=== PATIENT | male | born 1960 | race Caucasian/White ===

== ENCOUNTER 2016-05-18 14:33 | Outpatient (CLI) | payer MEDICARE, MEDICAID | END 2016-05-18 14:34 | disposition home or self-care (01) | DX: M19.011 Primary osteoarthritis, right shoulder (principal) ==

== ENCOUNTER 2016-05-29 11:42 | Emergency (ER) | payer MEDICARE, MEDICAID ==
[2016-05-29] MEDS ORDERED: ONDANSETRON 4 MG/2 ML VIAL IVP STA (11:56)
[2016-05-29] MEDS ORDERED: SODIUM CHLORIDE 0.9% 1,000 ML IV ONE (11:56)
[2016-05-29] MEDS ORDERED: ONDANSETRON 4 MG/2 ML VIAL ONE (12:06)
[2016-05-29] MEDS ORDERED: ELECTROLYTE-A SOLUTION 1,000 ML IV ONE ×2 (12:37→12:45)
[2016-05-29] MEDS ORDERED: diphenhydrAMINE INJ 50 MG/ML VIAL IVP STA (12:44)
[2016-05-29] MEDS ORDERED: HALOPERIDOL 5 MG/ML VIAL IVP ONE (12:44)
[2016-05-29] MEDS ORDERED: diphenhydrAMINE INJ 50 MG/ML VIAL ONE (12:45)
[2016-05-29] MEDS ORDERED: HALOPERIDOL 5 MG/ML VIAL ONE (12:45)
== END 2016-05-29 14:39 | disposition home or self-care (01) ==
DX: R11.2 Nausea with vomiting, unspecified (principal); I10 Essential (primary) hypertension; E11.65 Type 2 diabetes mellitus with hyperglycemia; E11.42 Type 2 diabetes mellitus with diabetic polyneuropathy; E78.5 Hyperlipidemia, unspecified; K21.9 Gastro-esophageal reflux disease without esophagitis; Z72.89 Other problems related to lifestyle; Z86.73 Personal history of transient ischemic attack (TIA), and cerebral infarction without residual deficits; Z79.4 Long term (current) use of insulin; Z79.02 Long term (current) use of antithrombotics/antiplatelets; Z87.891 Personal history of nicotine dependence

== ENCOUNTER 2016-06-05 13:41 | Outpatient (CLI) | payer MEDICARE, MEDICAID | END 2016-06-05 13:42 | DX: E11.65 Type 2 diabetes mellitus with hyperglycemia (principal) ==

== ENCOUNTER 2016-10-02 14:30 | Outpatient (CLI) | payer MEDICARE, MEDICAID ==
[2016-10-02 19:56] LABS: CALCIUM 10.1 mg/dL (8.5-10.3); POTASSIUM 4.3 mmol/L (3.5-5.0)
[2016-10-02 19:57] LABS: HEMOGLOBIN A1C 1.36 g/dL
== END 2016-10-02 14:31 | disposition home or self-care (01) ==
LOC: LAB.N 14:30
PROVIDERS: ATTEND Family Medicine
DX: E11.65 Type 2 diabetes mellitus with hyperglycemia (principal)
CPT/HCPCS: 36415; 80048; 83036

== ENCOUNTER 2016-10-06 12:37 | Emergency (ER) | payer MEDICARE, MEDICAID ==
[2016-10-06] MEDS ORDERED: SODIUM CHLORIDE 0.9% 1,000 ML IV ONE (15:40)
[2016-10-06] MEDS ORDERED: LIDOCAINE VISCOUS 2% 15 ML UDC MM STA (15:40)
[2016-10-06] MEDS ORDERED: HYDROmorphone 1 MG/ML SYRINGE IVP STA (15:40)
[2016-10-06] MEDS ORDERED: ONDANSETRON 4 MG/2 ML VIAL IVP STA (15:40)
[2016-10-06] MEDS ORDERED: PANTOPRAZOLE 40 MG VIAL IVP STA (15:40)
[2016-10-06] MEDS ORDERED: MAG HYDROX/AL HYDROX/SIMETH 30 ML UDC PO STA (15:40)
--- NOTE | 2016-10-06 15:42 | ED Physician Documentation ---
PD HPI ABD PAIN - Stated complaint Stated Complaint: VOMTING - Chief complaint Chief Complaint: Abd Pain - History obtained from History obtained from: Patient - History of Present Illness Timing - onset: Other (56-year-old gentleman with history of diabetes and TIA. He was administered in September of last year for upper abdominal complaints, lost to follow-up with regards to EGD. He does not drink alcohol. Yesterday morning at 4 AM he started vomiting, there was a concern because the vomit was quite dark and he has upper abdominal pain. There is no associated weakness or fever.) Review of Systems Ten Systems: 10 systems reviewed and negative Constitutional: denies: Fever, Chills Eyes: reports: Reviewed and negative Throat: reports: Reviewed and negative Cardiac: reports: Reviewed and negative Respiratory: reports: Reviewed and negative PD PAST MEDICAL HISTORY - Past Medical History Cardiovascular: Hypertension, High cholesterol Respiratory: Asthma, Pneumonia Neuro: TIA, Headache/migraine, Head injury, Peripheral neuropathy Endocrine/Autoimmune: Type 2 diabetes GI: GERD, Ulcers, Hemorrhoids : Kidney stones HEENT: Macular degeneration Psych: Depression Musculoskeletal: Osteoarthritis, Chronic back pain Derm: Psoriasis, Other - Past Surgical History Past Surgical History: Yes General: Other Ortho: Rotator cuff repair Derm: Other - Present Medications Home Medications: Ambulatory Orders Medication Instructions Recorded Confirmed Insulin Glargine,Hum.rec.anlog 80 unit SQ QAM 11/13/12 10/06/16 [Lantus] Insulin Glulisine [Apidra] 6 - 10 unit SQ TIDWM 11/13/12 10/06/16 Lisinopril 20 mg PO DAILY 11/13/12 10/06/16 Loratadine [Claritin] 10 mg PO DAILY PRN 11/13/12 10/06/16 Clopidogrel [Plavix] 75 mg PO DAILY 04/07/14 10/06/16 Insulin Glargine [Lantus Solostar] 80 unit SUBQ DAILY #28 pen 01/25/16 10/06/16 Pantoprazole [Protonix] 40 mg PO QDAC #60 tablet 01/25/16 10/06/16 Ondansetron Odt [Zofran] 4 mg TL Q6H PRN #10 tablet 05/29/16 10/06/16 - Allergies Allergies/Adverse Reactions: Allergies Allergy/AdvReac Type Severity Reaction Status Date / Time acetaminophen [From Tylenol] AdvReac Intermediate Nausea Verified 10/06/16 12:44 hydrocodone [Hydrocodone] AdvReac Intermediate Respiratory Verified 10/06/16 12: 44 oxycodone AdvReac Intermediate Anxiety Verified 10/06/16 12:44 - Social History Does the pt smoke?: No Smoking Status: Former smoker Does the pt drink ETOH?: Yes Does the pt have substance abuse?: Yes Substance Use and Type: Marijuana - Immunizations Immunizations are current?: Yes - POLST Patient has POLST: No PD ED PE NORMAL - Vitals Vital signs reviewed: Yes - General General: Alert and oriented X 3, No acute distress - Cardiac Cardiac: RRR, No murmur - Respiratory Respiratory: No respiratory distress, Clear bilaterally - Abdomen Abdomen: Normal bowel sounds, Soft, Non tender - Rectal Rectal: Other (Brown guaiac-negative stool) - Derm Derm: Normal color, Warm and dry - Neuro Neuro: Alert and oriented X 3, Normal speech - Psych Psych: Normal mood, Normal affect Results - Vitals Vitals: Vital Signs - 24 hr 10/06/16 10/06/16 10/06/16 12:41 16:26 18:55 Temperature 36.5 C 36.7 C Heart Rate 104 H 110 H 103 H Respiratory 20 16 15 Rate Blood Pressure 157/94 H 148/104 H 155/91 H O2 Saturation 99 94 96 Oxygen O2 Source [] Room air O2 Source Room air - EKG (time done) 1615 Rate: Rate (enter#) (109) Rhythm: Sinus tachycardia Disney: Normal Intervals: LBBB (LAFB) Ischemia: Non specific changes Computer interpretation: Agree with computer - Labs Labs: Laboratory Tests 10/06/16 10/06/16 10/06/16 15:13 15:45 15:45 WBC 22.9 H RBC 6.23 H Hgb 17.0 Hct 52.1 H MCV 83.7 MCH 27.4 MCHC 32.7 RDW 14.0 Plt Count 290 MPV 9.0 Neut # DRESSED POULTRY GRADER Lymph # DRESSED POULTRY GRADER Morrow # DRESSED POULTRY GRADER Eos # DRESSED POULTRY GRADER Baso # DRESSED POULTRY GRADER Absolute Nucleated RBC DRESSED POULTRY GRADER Band Neuts % (Manual) 1 Neutrophils # (Manual) 20.8 H Lymphocytes # (Manual) 1.4 L Monocytes # (Manual) 0.7 Nucleated RBCs DRESSED POULTRY GRADER Platelet Estimate NORMAL (130-450,000) RBC Morph Micro Appear NORMAL APPEARANCE VBG pH VBG pCO2 VBG pO2 VBG HCO3 VBG Total CO2 VBG O2 Saturation VBG Base Excess Sodium 133 L Potassium 4.2 Chloride 95 L Carbon Dioxide 22 Anion Gap 16.0 H BUN 26 H Creatinine 1.2 Estimated GFR (MDRD) 62 L Glucose 405 H POC Whole Bld Glucose 362 H Calcium 9.9 Total Bilirubin 1.2 H AST 22 ALT 25 Alkaline Phosphatase 70 Troponin I Total Protein 8.7 H Albumin 4.5 Globulin 4.2 Albumin/Globulin Ratio 1.1 Lipase 47 Serum Ketones MODERATE H 10/06/16 10/06/16 10/06/16 15:45 15:55 17:24 WBC RBC Hgb Hct MCV MCH MCHC RDW Plt Count MPV Neut # Lymph # Morrow # Eos # Baso # Absolute Nucleated RBC Band Neuts % (Manual) Neutrophils # (Manual) Lymphocytes # (Manual) Monocytes # (Manual) Nucleated RBCs Platelet Estimate RBC Morph Micro Appear VBG pH 7.485 H VBG pCO2 31.9 L VBG pO2 51.8 H VBG HCO3 23.5 VBG Total CO2 24.5 VBG O2 Saturation 87.6 H VBG Base Excess 1.2 Sodium Potassium Chloride Carbon Dioxide Anion Gap BUN Creatinine Estimated GFR (MDRD) Glucose POC Whole Bld Glucose 415 H Calcium Total Bilirubin AST ALT Alkaline Phosphatase Troponin I < 0.04 Total Protein Albumin Globulin Albumin/Globulin Ratio Lipase Serum Ketones 10/06/16 18:53 WBC RBC Hgb Hct MCV MCH MCHC RDW Plt Count MPV Neut # Lymph # Morrow # Eos # Baso # Absolute Nucleated RBC Band Neuts % (Manual) Neutrophils # (Manual) Lymphocytes # (Manual) Monocytes # (Manual) Nucleated RBCs Platelet Estimate RBC Morph Micro Appear VBG pH VBG pCO2 VBG pO2 VBG HCO3 VBG Total CO2 VBG O2 Saturation VBG Base Excess Sodium Potassium Chloride Carbon Dioxide Anion Gap BUN Creatinine Estimated GFR (MDRD) Glucose POC Whole Bld Glucose 351 H Calcium Total Bilirubin AST ALT Alkaline Phosphatase Troponin I Total Protein Albumin Globulin Albumin/Globulin Ratio Lipase Serum Ketones - Rads (name of study) CT A/P Radiology: EMP read contemporaneously (NAD, AAA (known to pt-being followed), ) PD MEDICAL DECISION MAKING - ED course ED course: 56-year-old gentleman presents with upper abdominal pain and vomiting. Initial concern was for hematemesis/upper GI bleed given his history, however Gastroccult and guaiac were negative. Labs were notable for leukocytosis and uncontrolled blood sugars without evidence of diabetic ketoacidosis. He was administered insulin and IV fluids as well as pain medication and Zofran with excellent relief of his symptoms. CT was pursued given the leukocytosis without infectious/inflammatory findings. On recheck at 7:30 PM he was completely nontender and feeling better. I discussed with him his lab findings and offered and recommended admission, he wanted to go home. He was counseled to return immediately if worse or if not better in 12 hours. Departure - Departure Disposition: , Self Care Clinical Impression: T2DM (type 2 diabetes mellitus) Qualifiers: Diabetes mellitus complication status: without complication Leukocytosis Qualifiers: Leukocytosis type: leukemoid reaction Qualified Code(s): D72.823 - Leukemoid reaction Vomiting Qualifiers: Vomiting type: unspecified Vomiting Intractability: non-intractable Nausea presence: with nausea Qualified Code(s): R11.2 - Nausea with vomiting, unspecified Condition: Good Record reviewed to determine appropriate education?: Yes Instructions: Abdominal Pain Comments: Return if worse or if not improved in the next 12 hours, anytime if he develop a fever or new symptoms. Follow-up with your physician and discuss upper endoscopy. Your blood pressure was elevated today on check into the emergency department. This does not mean that you have hypertension, it is a common phenomenon to come to the emergency department and have elevated blood pressure. I recommend that she see her primary care physician within the week to have it rechecked when you are feeling better.
[2016-10-06] MEDS ORDERED: HYDROmorphone 1 MG/ML SYRINGE ONE (15:53)
[2016-10-06] MEDS ORDERED: LIDOCAINE VISCOUS 2% 15 ML UDC MM ONE (15:53)
[2016-10-06] MEDS ORDERED: ONDANSETRON 4 MG/2 ML VIAL ONE (15:53)
[2016-10-06 15:54] LABS: HCT - HEMATOCRIT 52.1 % (42.0-52.0); LYMPHOCYTES % (AUTO) 5.5 %; MEAN CORPUSCULAR HEMOGLOBIN 27.4 pg (27.0-31.0); MEAN CORPUSCULAR HGB CONC 32.7 g/dL (32.0-36.0); MEAN CORPUSCULAR VOLUME 83.7 fL (80.0-94.0); MONOCYTES % (AUTO) 4.1 %; NEUTROPHILS % (AUTO) 89.4 %; RED BLOOD COUNT 6.23 10^6/uL (4.70-6.10); UNCORRECTED WHITE BLOOD COUNT 22.9 x10^3/uL; WHITE BLOOD COUNT 22.9 x10^3/uL (4.8-10.8)
[2016-10-06] MEDS ORDERED: SODIUM CHLORIDE FLUSH 0.9% 10 ML SYRINGE IVP ONE ×2 (15:54→19:40)
[2016-10-06] MEDS ORDERED: MAG HYDROX/AL HYDROX/SIMETH 30 ML UDC ONE (15:54)
[2016-10-06] MEDS ORDERED: PANTOPRAZOLE 40 MG VIAL ONE (15:54)
[2016-10-06 16:02] LABS: VBG BASE EXCESS 1.2 mmol/L (-2 - +2); VBG OXYGEN SATURATION 87.6 % (60-80); VBG PH 7.485 (7.31-7.41); VBG TOTAL CO2 24.5 mmol/L (24-29)
[2016-10-06 16:03] LABS: ALBUMIN/GLOBULIN RATIO 1.1 (1.0-2.2); BILIRUBIN,TOTAL 1.2 mg/dL (0.2-1.0); BUN - BLOOD UREA NITROGEN 26 mg/dL (6-20); CALCIUM 9.9 mg/dL (8.5-10.3); CARBON DIOXIDE - CO2 22 mmol/L (21-32); CHLORIDE 95 mmol/L (101-111); CREATININE 1.2 mg/dL (0.6-1.2); GFR - MDRD 62 (>89); GLUCOSE 405 mg/dL (70-100); LIPASE 47 U/L (22-51); POTASSIUM 4.2 mmol/L (3.5-5.0); SODIUM 133 mmol/L (135-145); TOTAL PROTEIN 8.7 g/dL (6.7-8.2)
[2016-10-06] MEDS ORDERED: INSULIN REGULAR HUMAN 100 UNIT/1 ML 10 ML MDV IVP STA ×2 (16:28→17:39)
[2016-10-06 16:45] LABS: BAND NEUTROPHILS % (MANUAL) 1 %; LYMPHOCYTES % (MANUAL) 6 %; NEUTROPHILS % (MANUAL) 90 %; NP AUTO DIFFERENTIAL? NO; NP MAN DIFFERENTIAL? NO; PLATELET ESTIMATE, MANUAL NORMAL (130-450,000) (NORMAL)
[2016-10-06] MEDS ORDERED: INSULIN REGULAR HUMAN 100 UNIT/1 ML 10 ML MDV ONE ×2 (16:47→17:44)
[2016-10-06] MEDS ORDERED: IOPAMIDOL-300 100 ML VIAL IVP ONE (18:43)
[2016-10-06 18:55] VITALS: BP 155/91
--- NOTE | 2016-10-06 19:26 | CT Report ---
EXAM: CT ABDOMEN AND PELVIS EXAM DATE: 10/06/2016 06:41 PM. CLINICAL HISTORY: IV only, upper abd pain, vomiting, leukocytosis. COMPARISONS: None. TECHNIQUE: Routine helical CT imaging was performed through the abdomen and pelvis. IV contrast: 100 mL Isovue-300. Enteric contrast: No. Reconstructions: Coronal and sagittal. In accordance with CT protocol optimization, one or more of the following dose reduction techniques w ere utilized for this exam: automated exposure control, adjustment of mA and/or KV based on patient s ize, or use of iterative reconstructive technique. FINDINGS: Lung Bases: Unremarkable. Liver: Decreased liver attenuation. No focal liver lesions. Gallbladder/Bile Ducts: Unremarkable. Spleen: Normal. Pancreas: Normal. Adrenal Glands: Normal. Kidneys: Atrophic right kidney with a 1.6 cm cyst. Stable partially calcified 1 cm left renal cyst. N o hydronephrosis. Peritoneal Cavity/Bowel: Normal. No free fluid, free air or adenopathy. No masses or acute inflammato ry process. The appendix is well visualized and normal. Pelvic Organs: Normal. The bladder and visualized pelvic organs are within normal limits. Vasculature: Aneurysmal dilatation of the infrarenal abdominal aorta to 3.8 cm. Both common iliac art eries are dilated to 2 cm. Bones: No significant abnormality. Other: None. IMPRESSION: 1. No bowel obstruction, fluid collection or acute inflammatory changes. 2. Aneurysmal dilatation of the infrarenal abdominal aorta to 3.8 cm. The common iliac arteries are d ilated to 2 cm. 3. Fatty liver. 4. Stable partially calcified left renal cyst. The right kidney is atrophic. [facility] Referring Provider Line: [phone] SITE ID: [id number]
[2016-10-06] MEDS ORDERED: ONDANSETRON ODT 4 MG Prepack 2 TL STA (19:34)
[2016-10-06] MEDS ORDERED: ONDANSETRON ODT 4 MG Prepack 2 TL ONE (19:42)
== END 2016-10-06 19:53 | disposition home or self-care (01) ==
LOC: ED 12:37
DX: R10.10 Upper abdominal pain, unspecified (principal); R11.2 Nausea with vomiting, unspecified; D72.829 Elevated white blood cell count, unspecified; E11.42 Type 2 diabetes mellitus with diabetic polyneuropathy; Z79.4 Long term (current) use of insulin; I10 Essential (primary) hypertension; I44.4 Left anterior fascicular block; R94.31 Abnormal electrocardiogram [ECG] [EKG]; E78.00 Pure hypercholesterolemia, unspecified; J45.909 Unspecified asthma, uncomplicated; K21.9 Gastro-esophageal reflux disease without esophagitis; M19.90 Unspecified osteoarthritis, unspecified site; Z86.73 Personal history of transient ischemic attack (TIA), and cerebral infarction without residual deficits; Z87.11 Personal history of peptic ulcer disease; Z87.442 Personal history of urinary calculi; Z87.891 Personal history of nicotine dependence
CPT/HCPCS: 36415; 74177; 80053; 82009; 82803; 83690; 84484; 85025; 93005; 96374; 96375; 99284; A9270; J1170; J1815; Q9967

== ENCOUNTER 2017-01-16 20:50 | Emergency (ER) | payer MEDICARE, MEDICAID ==
[2017-01-16 21:26] LABS: BASOPHILS # (AUTO) 0.1 10^3/uL (0.0-0.1); BASOPHILS % (AUTO) 0.6 %; HCT - HEMATOCRIT 49.7 % (42.0-52.0); HGB - HEMOGLOBIN 16.1 g/dL (14.0-18.0); LYMPHOCYTES # (AUTO) 1.3 10^3/uL (1.5-3.5); LYMPHOCYTES % (AUTO) 7.1 %; MEAN CORPUSCULAR HEMOGLOBIN 27.8 pg (27.0-31.0); MEAN CORPUSCULAR HGB CONC 32.3 g/dL (32.0-36.0); MEAN CORPUSCULAR VOLUME 85.8 fL (80.0-94.0); MEAN PLATELET VOLUME 8.9 fL (7.4-11.4); MONOCYTES # (AUTO) 1.1 10^3/uL (0.0-1.0); MONOCYTES % (AUTO) 6.1 %; NEUTROPHILS # (AUTO) 16.1 10^3/uL (1.5-6.6); NEUTROPHILS % (AUTO) 86.2 %; RED CELL DISTRIBUTION WIDTH 14.2 % (12.0-15.0); UNCORRECTED WHITE BLOOD COUNT 18.7 x10^3/uL; WHITE BLOOD COUNT 18.7 x10^3/uL (4.8-10.8)
[2017-01-16 21:37] LABS: BILIRUBIN,TOTAL 0.9 mg/dL (0.2-1.0); CALCIUM 9.7 mg/dL (8.5-10.3); POTASSIUM 3.8 mmol/L (3.5-5.0); TOTAL PROTEIN 8.3 g/dL (6.7-8.2)
[2017-01-16] MEDS ORDERED: ONDANSETRON 4 MG/2 ML VIAL ONE (22:57)
[2017-01-16] MEDS ORDERED: IOPAMIDOL-300 100 ML VIAL ONE (23:03)
[2017-01-16] MEDS: ONDANSETRON 4 MG/2 ML VIAL IVP STA (23:10)
[2017-01-16] MEDS: IOPAMIDOL-300 100 ML VIAL IVP ONE (23:27)
[2017-01-16] MEDS: SODIUM CHLORIDE 0.9% 1,000 ML IV ONE (23:35)
--- NOTE | 2017-01-16 23:52 | CT Preliminary Report ---
Exam: CT ABDOMEN/PELVIS W/ IMPRESSION: 1. No acute inflammatory or obstructive process seen in the abdomen or pelvis. 2. Moderate atherosclerotic disease and stable 37 mm infrarenal abdominal aortic aneurysm. 3. Fatty liver. 4. Scarred and moderately atrophic right kidney. [facility] SITE ID: [id number]
--- NOTE | 2017-01-17 00:09 | CT Report ---
EXAM: CT ABDOMEN AND PELVIS EXAM DATE: 01/16/2017 11:29 PM. CLINICAL HISTORY: Diffuse abdominal pain, vomiting, leukocytosis. COMPARISONS: 10/06/2016. TECHNIQUE: Routine helical CT imaging was performed through the abdomen and pelvis. IV contrast: 100 mL Isovue 300 . Enteric contrast: No . Reconstructions: Coronal and sagittal. In accordance with CT protocol optimization, one or more of the following dose reduction techniques w ere utilized for this exam: automated exposure control, adjustment of mA and/or KV based on patient s ize, or use of iterative reconstructive technique. FINDINGS: Lung Bases: Unremarkable. Liver: Fatty. No suspicious masses. Gallbladder/Bile Ducts: Unremarkable. Spleen: Unremarkable. Pancreas: Unremarkable. Adrenal Glands: Unremarkable. Kidneys: Scarred and moderately atrophic right kidney. Stable partially calcified collapsed left ludy l cyst and small right renal cyst. Tiny right renal parenchymal calcification is stable. No suspiciou s masses or hydronephrosis. Peritoneal Cavity/Bowel: No bowel obstruction or inflammatory process seen. No free air or significan t free fluid. No masses or adenopathy. The appendix is normal. No excessive stool burden. Pelvic Organs: Bladder and prostate appear unremarkable. Vasculature: Moderate atherosclerotic disease of the aorta and branches. Infrarenal fusiform abdomina l aortic aneurysm measures 37 x 36 mm on image 54, stable. No acute vascular abnormality seen. Bones: No significant abnormality. Other: Tiny fat-containing umbilical hernia without apparent complication. IMPRESSION: 1. No acute inflammatory or obstructive process seen in the abdomen or pelvis. 2. Moderate atherosclerotic disease and stable 37 mm infrarenal abdominal aortic aneurysm. 3. Fatty liver. 4. Scarred and moderately atrophic right kidney. [facility] Referring Provider Line: [phone] SITE ID: [id number]
[2017-01-17] MEDS: ACETAMINOPHEN 500 MG TABLET PO STA (00:21)
[2017-01-17] MEDS ORDERED: ACETAMINOPHEN 325 MG TABLET PO ONE (00:22)
[2017-01-17] MEDS ORDERED: ACETAMINOPHEN 500 MG TABLET PO ONE (00:25)
--- NOTE | 2017-01-17 00:27 | ED Physician Documentation ---
PD HPI NVD - Stated complaint Stated Complaint: VOMITING - Chief complaint Chief Complaint: Abd Pain - History obtained from History obtained from: Patient - History of Present Illness Timing - onset: How many weeks ago (4) Timing - details: Gradual onset, Still present Associated symptoms: Abdominal pain Contributing factors: Sick contact Similar symptoms before: No diagnosis Recently seen: Not recently seen - Additonal information Additional information: Patient is a 56 year old male with a history of multiple comorbidities who is presenting to the emergency department for nausea, vomiting and diarrhea. Patient states it started with his mother being sick but it has been going on and off for the last 4 weeks. Patient states that it is intermittent, but recently he has had trouble keeping anything down. Review of Systems Constitutional: denies: Fever, Chills Eyes: denies: Photophobia Ears: reports: Reviewed and negative Nose: reports: Reviewed and negative Throat: reports: Reviewed and negative Cardiac: denies: Chest pain / pressure, Palpitations, Calf pain Respiratory: denies: Dyspnea, Cough, Wheezing GI: reports: Abdominal Pain, Nausea, Vomiting, Diarrhea : denies: Dysuria, Frequency Skin: denies: Rash, Lesions Neurologic: reports: Generalized weakness. denies: Focal weakness, Numbness Immunocompromised: denies: Immunocompromised PD PAST MEDICAL HISTORY - Past Medical History Past Medical History: Yes Cardiovascular: Hypertension, High cholesterol Respiratory: Asthma, Pneumonia Neuro: TIA, Headache/migraine, Head injury, Peripheral neuropathy Endocrine/Autoimmune: Type 2 diabetes GI: GERD, Ulcers, Hemorrhoids : Kidney stones HEENT: Macular degeneration Psych: Depression Musculoskeletal: Osteoarthritis, Chronic back pain Derm: Psoriasis, Other - Past Surgical History Past Surgical History: Yes General: Other Ortho: Rotator cuff repair Derm: Other - Present Medications Home Medications: Ambulatory Orders Medication Instructions Recorded Confirmed Insulin Glargine,Hum.rec.anlog 80 unit SQ QAM 11/13/12 10/06/16 [Lantus] Insulin Glulisine [Apidra] 6 - 10 unit SQ TIDWM 11/13/12 10/06/16 Lisinopril 20 mg PO DAILY 11/13/12 10/06/16 Loratadine [Claritin] 10 mg PO DAILY PRN 11/13/12 10/06/16 Clopidogrel [Plavix] 75 mg PO DAILY 04/07/14 10/06/16 Insulin Glargine [Lantus Solostar] 80 unit SUBQ DAILY #28 pen 01/25/16 10/06/16 Pantoprazole [Protonix] 40 mg PO QDAC #60 tablet 01/25/16 10/06/16 Ondansetron Odt [Zofran] 4 mg TL Q6H PRN #10 tablet 05/29/16 10/06/16 Ondansetron Odt [Zofran] 4 mg TL Q6H PRN #14 tablet 01/17/17 - Allergies Allergies/Adverse Reactions: Allergies Allergy/AdvReac Type Severity Reaction Status Date / Time acetaminophen [From Tylenol] AdvReac Intermediate Nausea Verified 01/16/17 20:57 hydrocodone [Hydrocodone] AdvReac Intermediate Respiratory Verified 01/16/17 20: 57 oxycodone AdvReac Intermediate Anxiety Verified 01/16/17 20:57 - Social History Does the pt smoke?: No Smoking Status: Never smoker Does the pt drink ETOH?: Yes Does the pt have substance abuse?: Yes - Immunizations Immunizations are current?: Yes - POLST Patient has POLST: No PD ED PE NORMAL - General General: Alert and oriented X 3 - HEENT HEENT: Pharynx benign - Neck Neck: Supple, no meningeal sign - Cardiac Cardiac: No murmur - Respiratory Respiratory: No respiratory distress - Derm Derm: Normal color, Warm and dry, No rash - Extremities Extremities: No deformity, No edema - Neuro Neuro: Alert and oriented X 3, No motor deficit, No sensory deficit Eye Opening: Spontaneous Motor: Obeys Commands Verbal: Oriented GCS Score: 15 PD ED PE EXPANDED - General General: Alert, No acute distress - HEENT HEENT: Dry mucous membranes - Abdomen Abdomen: Tender to palpation, Generalized/diffuse, Other (obese). No: Rebound, Guarding Results - Vitals Vitals: Vital Signs - 24 hr 01/16/17 01/17/17 20:53 00:34 Temperature 36.2 C L Heart Rate 111 H 94 Respiratory 20 20 Rate Blood Pressure 155/94 H 158/103 H O2 Saturation 98 95 Oxygen O2 Source [Without Activity] Room air O2 Source Room air - Labs Labs: Laboratory Tests 01/16/17 01/16/17 21:20 21:20 WBC 18.7 H RBC 5.80 Hgb 16.1 Hct 49.7 MCV 85.8 MCH 27.8 MCHC 32.3 RDW 14.2 Plt Count 305 MPV 8.9 Neut # 16.1 H Lymph # 1.3 L Elmore # 1.1 H Eos # 0.0 Baso # 0.1 Absolute Nucleated RBC 0.00 Nucleated RBC % 0.0 Sodium 134 L Potassium 3.8 Chloride 94 L Carbon Dioxide 24 Anion Gap 16.0 H BUN 19 Creatinine 1.0 Estimated GFR (MDRD) 77 L Glucose 292 H Calcium 9.7 Total Bilirubin 0.9 AST 21 ALT 23 Alkaline Phosphatase 66 Total Protein 8.3 H Albumin 4.2 Globulin 4.1 Albumin/Globulin Ratio 1.0 Lipase 46 - Rads (name of study) ct abd pelvis Radiology: Final report received (no acute process), See rad report PD MEDICAL DECISION MAKING - ED course Complexity details: reviewed old records, reviewed results, re-evaluated patient , considered differential, d/w patient ED course: Patient was seen and examined at bedside. labs were drawn. patient was found to have a white count of 18. fluids were started and imaging was ordered. when patient returned from imaging he requested pain medication. Patient stated that he had allergies to most meds but could take dilaudid or demerol. Patient's imaging had no acute findings. Patient required no further work up at this time and was stable for discharge with outpatient follow up. Departure - Departure Disposition: 01 Home, Self Care Clinical Impression: Gastroenteritis Condition: Good Instructions: ED Gastroenteritis Bacterial Follow-Up: Frank Yee MD [Primary Care Provider] - Within 3 Days Prescriptions: Ondansetron Odt [Zofran] 4 mg TL Q6H PRN #14 tablet PRN Reason: Nausea / Vomiting Comments: Your CT today was unchanged from prior episodes. It is important that you take the zofran for nausea and stay well hydrated. You should follow up with your doctor if your symptoms persist. You may return to the emergency department at any time for new, worsening or uncontrollable symptoms. Discharge Date/Time: 01/17/17 00:34
[2017-01-17 00:35] VITALS: BP 158/103
== END 2017-01-17 00:34 | disposition home or self-care (01) ==
LOC: ED 20:50
DX: K52.9 Noninfective gastroenteritis and colitis, unspecified (principal); I10 Essential (primary) hypertension; E78.00 Pure hypercholesterolemia, unspecified; E11.8 Type 2 diabetes mellitus with unspecified complications; Z79.4 Long term (current) use of insulin
CPT/HCPCS: 36415; 74177; 80053; 83690; 85025; 96374; 99283; 99284

== ENCOUNTER 2017-04-24 10:30 | Outpatient (CLI) | payer MEDICARE, MEDICAID ==
[2017-04-24 19:03] LABS: BASOPHILS # (AUTO) 0.1 10^3/uL (0.0-0.1); BASOPHILS % (AUTO) 1.1 %; EOSINOPHILS # (AUTO) 0.3 10^3/uL (0.0-0.7); EOSINOPHILS % (AUTO) 2.9 %; HGB - HEMOGLOBIN 15.1 g/dL (14.0-18.0); LYMPHOCYTES # (AUTO) 2.1 10^3/uL (1.5-3.5); LYMPHOCYTES % (AUTO) 20.7 %; MEAN CORPUSCULAR HEMOGLOBIN 27.7 pg (27.0-31.0); MEAN CORPUSCULAR HGB CONC 31.9 g/dL (32.0-36.0); MEAN CORPUSCULAR VOLUME 86.8 fL (80.0-94.0); MONOCYTES # (AUTO) 0.7 10^3/uL (0.0-1.0); MONOCYTES % (AUTO) 7.2 %; NEUTROPHILS # (AUTO) 6.8 10^3/uL (1.5-6.6); NEUTROPHILS % (AUTO) 68.1 %; PLT - PLATELET COUNT 234 10^3/uL (130-450); RED BLOOD COUNT 5.45 10^6/uL (4.70-6.10); RED CELL DISTRIBUTION WIDTH 14.3 % (12.0-15.0)
[2017-04-24 19:29] LABS: ALBUMIN 3.6 g/dL (3.2-5.5); ALKALINE PHOSPHATASE 61 IU/L (42-121); ALT ALANINE AMINOTRANSFERASE 21 IU/L (10-60); AST ASPARTATE AMINOTRANSFERASE 21 IU/L (10-42); BILIRUBIN,TOTAL 0.5 mg/dL (0.2-1.0); BUN - BLOOD UREA NITROGEN 13 mg/dL (6-20); CALCIUM 9.3 mg/dL (8.5-10.3); CARBON DIOXIDE - CO2 25 mmol/L (21-32); CHLORIDE 100 mmol/L (101-111); CHOL/HDL RATIO 6.6 (<5.0); CHOLESTEROL 265 mg/dL; CREATININE 0.9 mg/dL (0.6-1.2); GFR - MDRD 87 (>89); GLUCOSE 177 mg/dL (70-100); HDL CHOLESTEROL 40 mg/dL; LDL CHOLESTEROL,CALCULATED 180 mg/dL; LDL/HDL RATIO 4.5 (<3.6); SODIUM 137 mmol/L (135-145); TOTAL PROTEIN 7.2 g/dL (6.7-8.2); VLDL CHOLESTEROL 45 mg/dL
[2017-04-24 19:57] LABS: HB2 TOTAL 17.4 g/dL; HEMOGLOBIN A1C 1.31 g/dL
== END 2017-04-24 10:31 | disposition home or self-care (01) ==
LOC: LAB.N 10:30
PROVIDERS: ATTEND Family Medicine
DX: E11.65 Type 2 diabetes mellitus with hyperglycemia (principal)
CPT/HCPCS: 36415; 80053; 80061; 83036; 83721; 85025

== ENCOUNTER 2017-05-06 19:32 | Emergency (ER) | payer MEDICARE, MEDICAID ==
[2017-05-06 20:10] LABS: BASOPHILS # (AUTO) 0.1 10^3/uL (0.0-0.1); BASOPHILS % (AUTO) 0.6 %; HGB - HEMOGLOBIN 16.6 g/dL (14.0-18.0); MEAN CORPUSCULAR HEMOGLOBIN 27.6 pg (27.0-31.0); MEAN CORPUSCULAR HGB CONC 32.5 g/dL (32.0-36.0); MEAN CORPUSCULAR VOLUME 84.9 fL (80.0-94.0); MEAN PLATELET VOLUME 9.1 fL (7.4-11.4); MONOCYTES # (AUTO) 0.4 10^3/uL (0.0-1.0); MONOCYTES % (AUTO) 2.7 %; NEUTROPHILS # (AUTO) 14.6 10^3/uL (1.5-6.6); NEUTROPHILS % (AUTO) 90.7 %; PLT - PLATELET COUNT 307 10^3/uL (130-450); RED BLOOD COUNT 6.01 10^6/uL (4.70-6.10); RED CELL DISTRIBUTION WIDTH 13.9 % (12.0-15.0)
[2017-05-06 20:12] LABS: BILIRUBIN,URINE NEGATIVE (NEGATIVE); GLUCOSE, URINE (UA) >=1000 mg/dL (NEGATIVE); KETONES,URINE (UA) 40 mg/dL (NEGATIVE); LEUKOCYTE ESTERASE, URINE NEGATIVE (NEGATIVE); NITRITE,URINE NEGATIVE (NEGATIVE); OCCULT BLOOD,URINE MODERATE (NEGATIVE); PH,URINE 5.5 PH (5.0-7.5); PROTEIN,URINE >=300 mg/dL (NEGATIVE); UROBILINOGEN,URINE 0.2 (NORMAL) E.U./dL (NORMAL)
[2017-05-06 20:19] LABS: CLARITY,URINE CLEAR (CLEAR); SQUAMOUS EPITHELIAL CELL,UR FEW Squamous (<= Few)
[2017-05-06 20:20] LABS: BACTERIA,URINE Rare /HPF (None Seen)
[2017-05-06 20:22] LABS: ALBUMIN 4.4 g/dL (3.2-5.5); BILIRUBIN,TOTAL 0.9 mg/dL (0.2-1.0); CREATININE 1.1 mg/dL (0.6-1.2); TOTAL PROTEIN 8.8 g/dL (6.7-8.2)
[2017-05-06] MEDS: SODIUM CHLORIDE 0.9% 1,000 ML IV ONE ×2 (20:38→21:29)
[2017-05-06] MEDS ORDERED: ONDANSETRON 4 MG/2 ML VIAL IVP STA (20:40)
[2017-05-06] MEDS ORDERED: SODIUM CHLORIDE 0.9% 1,000 ML IV ONE (20:45)
[2017-05-06] MEDS ORDERED: LOPERAMIDE 2 MG CAPSULE PO STA (20:45)
[2017-05-06] MEDS ORDERED: MORPHINE 10 MG/ML VIAL IVP STA (21:25)
--- NOTE | 2017-05-06 22:12 | ED Physician Documentation ---
PD HPI NVD - Stated complaint Stated Complaint: NVD, FEVER - Chief complaint Chief Complaint: Abd Pain - History obtained from History obtained from: Patient - History of Present Illness Timing - onset: Yesterday Timing - details: Gradual onset, Still present Associated symptoms: Fever, Abdominal pain Contributing factors: Bad food Similar symptoms before: No diagnosis Recently seen: Not recently seen - Additonal information Additional information: Patient is a 56 year old male with a history of diabetes and hypertension who is presenting to the emergency department for nausea, vomiting and diarrhea. Patient states that it started yesterday and he has had multiple episodes of both. Patient states it might have been bad food but he is unsure. Review of Systems Constitutional: reports: Fever Eyes: denies: Decreased vision, Photophobia Ears: reports: Reviewed and negative Nose: reports: Reviewed and negative Throat: reports: Reviewed and negative Cardiac: denies: Chest pain / pressure, Palpitations Respiratory: denies: Cough, Wheezing GI: reports: Abdominal Pain, Nausea, Vomiting, Diarrhea : denies: Dysuria Skin: denies: Rash, Lesions Musculoskeletal: reports: Reviewed and negative Neurologic: reports: Headache. denies: Generalized weakness, Focal weakness Immunocompromised: denies: Immunocompromised PD PAST MEDICAL HISTORY - Past Medical History Cardiovascular: Hypertension, High cholesterol Respiratory: Asthma, Pneumonia Neuro: TIA, Headache/migraine, Head injury, Peripheral neuropathy Endocrine/Autoimmune: Type 2 diabetes GI: GERD, Ulcers, Hemorrhoids : Kidney stones HEENT: Macular degeneration Psych: Depression Musculoskeletal: Osteoarthritis, Chronic back pain Derm: Psoriasis, Other - Past Surgical History Past Surgical History: Yes General: Other Ortho: Rotator cuff repair Derm: Other - Present Medications Home Medications: Ambulatory Orders Medication Instructions Recorded Confirmed Insulin Glargine,Hum.rec.anlog 80 unit SQ QAM 11/13/12 10/06/16 [Lantus] Insulin Glulisine [Apidra] 6 - 10 unit SQ TIDWM 11/13/12 10/06/16 Lisinopril 20 mg PO DAILY 11/13/12 10/06/16 Loratadine [Claritin] 10 mg PO DAILY PRN 11/13/12 10/06/16 Clopidogrel [Plavix] 75 mg PO DAILY 04/07/14 10/06/16 Insulin Glargine [Lantus Solostar] 80 unit SUBQ DAILY #28 pen 01/25/16 10/06/16 Pantoprazole [Protonix] 40 mg PO QDAC #60 tablet 01/25/16 10/06/16 Ondansetron Odt [Zofran] 4 mg TL Q6H PRN #10 tablet 05/29/16 10/06/16 Ondansetron Odt [Zofran] 4 mg TL Q6H PRN #14 tablet 01/17/17 Ondansetron Odt [Zofran] 4 mg TL Q6H PRN #20 tablet 05/06/17 - Allergies Allergies/Adverse Reactions: Allergies Allergy/AdvReac Type Severity Reaction Status Date / Time acetaminophen [From Tylenol] AdvReac Intermediate Nausea Verified 05/06/17 19:46 hydrocodone [Hydrocodone] AdvReac Intermediate Respiratory Verified 05/06/17 19: 46 oxycodone AdvReac Intermediate Anxiety Verified 05/06/17 19:46 - Social History Does the pt smoke?: No Smoking Status: Never smoker Does the pt drink ETOH?: Yes Does the pt have substance abuse?: Yes - Immunizations Immunizations are current?: Yes - POLST Patient has POLST: No PD ED PE NORMAL - General General: Alert and oriented X 3 - HEENT HEENT: Atraumatic - Neck Neck: Supple, no meningeal sign - Respiratory Respiratory: No respiratory distress, Clear bilaterally - Derm Derm: Normal color, Warm and dry, No rash - Extremities Extremities: No deformity, No edema - Neuro Neuro: Alert and oriented X 3, No motor deficit, No sensory deficit, Normal speech Eye Opening: Spontaneous Motor: Obeys Commands Verbal: Oriented GCS Score: 15 PD ED PE EXPANDED - General General: Alert, In Pain - HEENT HEENT: Dry mucous membranes - Cardiac Cardiac: Tachy - Abdomen Abdomen: Tender to palpation, Generalized/diffuse. No: Rebound, Guarding Results - Vitals Vitals: Vital Signs - 24 hr 05/06/17 19:42 Temperature 36.8 C Heart Rate 109 H Respiratory 17 Rate Blood Pressure 182/113 H O2 Saturation 99 Oxygen O2 Source [Without Activity] Room air O2 Source Room air - Labs Labs: Laboratory Tests 05/06/17 05/06/17 05/06/17 20:00 20:00 20:00 WBC 16.0 H RBC 6.01 Hgb 16.6 Hct 51.1 MCV 84.9 MCH 27.6 MCHC 32.5 RDW 13.9 Plt Count 307 MPV 9.1 Neut # 14.6 H Lymph # 1.0 L Young # 0.4 Eos # 0.0 Baso # 0.1 Absolute Nucleated RBC 0.01 Nucleated RBC % 0.1 Sodium 133 L Potassium 3.8 Chloride 93 L Carbon Dioxide 23 Anion Gap 17.0 H BUN 19 Creatinine 1.1 Estimated GFR (MDRD) 69 L Glucose 409 H Calcium 10.0 Total Bilirubin 0.9 AST 27 ALT 25 Alkaline Phosphatase 72 Total Protein 8.8 H Albumin 4.4 Globulin 4.4 H Albumin/Globulin Ratio 1.0 Lipase 17 L Urine Color YELLOW Urine Clarity CLEAR Urine pH 5.5 Ur Specific Victor 1.020 Urine Protein >=300 Urine Glucose (UA) >=1000 H Urine Ketones 40 H Urine Occult Blood MODERATE H Urine Nitrite NEGATIVE Urine Bilirubin NEGATIVE Urine Urobilinogen 0.2 (NORMAL) Ur Leukocyte Esterase NEGATIVE Urine RBC 6-10 H Urine WBC 0-3 Ur Squamous Epith Cells FEW Squamous Urine Bacteria Rare Ur Microscopic Review INDICATED Urine Culture Comments NOT INDICATED PD MEDICAL DECISION MAKING - ED course Complexity details: reviewed old records, reviewed results, re-evaluated patient , considered differential, d/w patient ED course: Patient was seen and examined at bedside. IV access was gained and labs were drawn. patient was treated with zofran, loperamide and fluid bolus. Patient's labs showed mild ketosis but was likely secondary to gastroenteritis as opposed to dka. patient was treated with a second liter of fluids. Patient had no episodes of emesis while in the emergency department and was able to tolerate PO without difficulty. patient was feeling better and asking to go home. Patient was stable for discharge with outpatient follow up. Departure - Departure Disposition: 01 Home, Self Care Clinical Impression: Gastroenteritis Condition: Good Instructions: ED Gastroenteritis Viral Follow-Up: Frank Yee MD [Primary Care Provider] - Within 3 Days Prescriptions: Ondansetron Odt [Zofran] 4 mg TL Q6H PRN #20 tablet PRN Reason: Nausea / Vomiting Comments: Your diagnostics today are secondary to gastroenteritis. it is important that you take the zofran for nausea and stay well hydrated. You should drink water and electrolyte solutions. You should follow up with your doctor if your symptoms persist for more than the next few days. Your blood pressure was high today and you will need to work with your doctor to get better control. You may return to the emergency department at any time for new, worsening or uncontrollable symtpoms.
[2017-05-06 22:16] VITALS: BP 188/103
[2017-05-06] MEDS ORDERED: ONDANSETRON ODT 4 MG Prepack 2 TL STA (22:18)
== END 2017-05-06 22:25 | disposition home or self-care (01) ==
LOC: ED 19:32
DX: K52.9 Noninfective gastroenteritis and colitis, unspecified (principal); E78.00 Pure hypercholesterolemia, unspecified; I10 Essential (primary) hypertension; E11.42 Type 2 diabetes mellitus with diabetic polyneuropathy; Z79.4 Long term (current) use of insulin
CPT/HCPCS: 36415; 80053; 81001; 83690; 85025; 96361; 96374; 96375; 99283; 99284; A9270; 81003; 87086

== ENCOUNTER 2017-05-31 21:53 | Emergency (ER) | payer MEDICARE, MEDICAID ==
--- NOTE | 2017-05-31 23:33 | ED Physician Documentation ---
History of Present Illness - Stated complaint Stated Complaint: PX IN RT HIP - Chief complaint Chief Complaint: Ext Problem - History obtained from History obtained from: Patient - History of Present Illness Timing: How many weeks ago (1) Pain level now: 6 Improved by: rest Worsened by: movement, ambulation - Additonal information Additional information: c/o 1 week of atraumatic, gradually worsening proximal lateral right thigh pain. At times, he perceives there is a palpable "lump" in the area. Denies h/o similar symptoms Review of Systems : denies: Dysuria, Frequency Skin: denies: Rash Musculoskeletal: reports: Extremity pain, Pain with weight bearing. denies: Back pain, Joint pain Neurologic: denies: Focal weakness, Numbness PD PAST MEDICAL HISTORY - Past Medical History Cardiovascular: Hypertension, High cholesterol Respiratory: Asthma, Pneumonia Neuro: TIA, Headache/migraine, Head injury, Peripheral neuropathy Endocrine/Autoimmune: Type 2 diabetes GI: GERD, Ulcers, Hemorrhoids : Kidney stones HEENT: Macular degeneration Psych: Depression Musculoskeletal: Osteoarthritis, Chronic back pain Derm: Psoriasis, Other - Past Surgical History Past Surgical History: Yes General: Other Ortho: Rotator cuff repair Derm: Other - Present Medications Home Medications: Ambulatory Orders Medication Instructions Recorded Confirmed Insulin Glulisine [Apidra] 6 - 10 unit SQ TIDWM 11/13/12 10/06/16 Lisinopril 20 mg PO DAILY 11/13/12 10/06/16 Loratadine [Claritin] 10 mg PO DAILY PRN 11/13/12 10/06/16 Clopidogrel [Plavix] 75 mg PO DAILY 04/07/14 10/06/16 Insulin Glargine [Lantus Solostar] 80 unit SUBQ DAILY #28 pen 01/25/16 10/06/16 Pantoprazole [Protonix] 40 mg PO QDAC #60 tablet 01/25/16 10/06/16 Ondansetron Odt [Zofran] 4 mg TL Q6H PRN #10 tablet 05/29/16 10/06/16 - Allergies Allergies/Adverse Reactions: Allergies Allergy/AdvReac Type Severity Reaction Status Date / Time acetaminophen [From Tylenol] AdvReac Intermediate Nausea Verified 05/31/17 21:59 hydrocodone [Hydrocodone] AdvReac Intermediate Respiratory Verified 05/31/17 21: 59 oxycodone AdvReac Intermediate Anxiety Verified 05/31/17 21:59 - Social History Does the pt smoke?: No Smoking Status: Never smoker Does the pt drink ETOH?: Yes Does the pt have substance abuse?: Yes - Immunizations Immunizations are current?: Yes - POLST Patient has POLST: No PD ED PE NORMAL - Vitals Vital signs reviewed: Yes - General General: Alert and oriented X 3, No acute distress, Well developed/nourished - Abdomen Abdomen: Soft, Non tender - Back Back: No CVA TTP, No spinal TTP - Derm Derm: Normal color, Warm and dry, No rash - Extremities Extremities: No tenderness to palpate, No edema, No calf tenderness / cord, Other (pain with movement right hip, but only in extremes of flexion or abduction) Results - Vitals Vitals: Oxygen O2 Source [Without Activity] Room air O2 Source Room air PD MEDICAL DECISION MAKING - ED course Complexity details: considered differential, d/w patient ED course: H+P do not suggest an emergent process that would benefit from emergent testing nor targeted treatment; there is no evidence of septic arthritis, osteomyelitis , acute abdominal process. differential includes, but not limited to, bursitis, tendonitis. I do not feel any "lump" on exam, and patient had difficulty locating the area of concern; when he did, it was in the area of the greater femoral trochanter (might just be he is palpating the trochanter itself, or else the tenderness could indicate bursitis or tendonitis) Departure - Departure Disposition: 01 Home, Self Care Clinical Impression: Hip pain, right Condition: Good Instructions: ED Joint Pain Follow-Up: Frank Yee MD [Primary Care Provider] - Within 3 Days Discharge Date/Time: 06/01/17 00:30
[2017-05-31] MEDS ORDERED: NAPROXEN 250 MG TABLET PO STA (23:51)
[2017-06-01 00:30] VITALS: BP 138/93
== END 2017-06-01 00:30 | disposition home or self-care (01) ==
LOC: ED 21:53
DX: M25.551 Pain in right hip (principal); I10 Essential (primary) hypertension; E78.00 Pure hypercholesterolemia, unspecified; E11.42 Type 2 diabetes mellitus with diabetic polyneuropathy; Z79.4 Long term (current) use of insulin
CPT/HCPCS: 99283; A9270

== ENCOUNTER 2017-08-09 08:00 | Outpatient (CLI) | payer MEDICARE, MEDICAID ==
[2017-08-09 19:18] LABS: CALCIUM 8.9 mg/dL (8.5-10.3)
[2017-08-09 19:37] LABS: HB2 TOTAL 16.8 g/dL; HEMOGLOBIN A1C 1.3 g/dL; HEMOGLOBIN A1C % 9.2 % (4.6-6.2)
== END 2017-08-09 08:01 | disposition home or self-care (01) ==
LOC: LAB.N 08:00
PROVIDERS: ATTEND Family Medicine
DX: E11.9 Type 2 diabetes mellitus without complications (principal); Z79.4 Long term (current) use of insulin
CPT/HCPCS: 36415; 80048; 83036

== ENCOUNTER 2017-10-09 12:37 | Emergency (ER) | payer MEDICARE, MEDICAID ==
[2017-10-09] MEDS ORDERED: SODIUM CHLORIDE 0.9% 1,000 ML IV ONE (13:21)
[2017-10-09] MEDS ORDERED: ONDANSETRON 4 MG/2 ML VIAL IVP STA (13:21)
[2017-10-09] MEDS ORDERED: FAMOTIDINE 20 MG/50 ML 50 ML IV ONE (13:21)
--- NOTE | 2017-10-09 13:24 | ED Physician Documentation ---
History of Present Illness - Stated complaint Stated Complaint: DEHYDRATION/VOMITING - Chief complaint Chief Complaint: Abd Pain - Additonal information Additional information: hx from pt 57 male to ED with epigastric burning and nausea started Saturday after he got dehydrated working on the car in the hot sun continued sx he is dehydrated he worried because he has diabetes and renal insuff Review of Systems Constitutional: denies: Fever, Chills Cardiac: denies: Chest pain / pressure Respiratory: denies: Dyspnea GI: reports: Abdominal Pain, Nausea, Vomiting. denies: Diarrhea Musculoskeletal: denies: Back pain Endocrine: denies: Easy bruising / bleeding Immunocompromised: denies: Immunocompromised PD PAST MEDICAL HISTORY - Past Medical History Past Medical History: Yes Cardiovascular: Hypertension, High cholesterol Respiratory: Asthma, Pneumonia Neuro: CVA, TIA Endocrine/Autoimmune: Type 2 diabetes GI: GERD, Ulcers, Hemorrhoids : Kidney stones HEENT: Macular degeneration Psych: Depression Musculoskeletal: Osteoarthritis, Chronic back pain Derm: Psoriasis, Other - Past Surgical History Past Surgical History: Yes General: Other Ortho: ACL reconstruction, Rotator cuff repair Derm: Other - Present Medications Home Medications: Ambulatory Orders Medication Instructions Recorded Confirmed Insulin Glulisine [Apidra] 6 - 10 unit SQ TIDWM 11/13/12 10/06/16 Lisinopril 20 mg PO DAILY 11/13/12 10/06/16 Clopidogrel [Plavix] 75 mg PO DAILY 04/07/14 10/06/16 Pantoprazole [Protonix] 40 mg PO QDAC #60 tablet 01/25/16 10/06/16 Amox/Clav 875/125 [Augmentin] 1 each PO Q12H #20 tablet 10/09/17 Insulin Glargine [Lantus Solostar] 90 unit SUBQ DAILY 10/09/17 10/09/17 Ondansetron Odt [Zofran] 4 mg TL Q6H PRN #10 tablet 10/09/17 raNITIdine [Zantac] 150 mg PO BID #60 tablet 10/09/17 - Allergies Allergies/Adverse Reactions: Allergies Allergy/AdvReac Type Severity Reaction Status Date / Time acetaminophen [From Tylenol] AdvReac Intermediate Nausea Verified 10/09/17 12:43 hydrocodone [Hydrocodone] AdvReac Intermediate Respiratory Verified 10/09/17 12: 43 oxycodone AdvReac Intermediate Anxiety Verified 10/09/17 12:43 - Social History Does the pt smoke?: No Smoking Status: Never smoker Does the pt drink ETOH?: Yes Does the pt have substance abuse?: Yes - Immunizations Immunizations are current?: Yes - POLST Patient has POLST: No PD ED PE NORMAL - Vitals Vital signs reviewed: Yes - Cardiac Cardiac: RRR - Respiratory Respiratory: No respiratory distress - Abdomen Abdomen: Soft, Non tender, Other (no ruq pain, neg murphys, no pulsatile mass) - Neuro Neuro: Alert and oriented X 3 Results - Vitals Vitals: Vital Signs - 24 hr 10/09/17 12:41 Temperature 36.4 C L Heart Rate 98 Respiratory 18 Rate Blood Pressure 149/101 H O2 Saturation 97 Oxygen O2 Source [Without Activity] Room air O2 Source Room air - Labs Labs: Laboratory Tests 10/09/17 10/09/17 13:58 13:58 WBC 17.1 H RBC 6.32 H Hgb 18.1 H Hct 54.1 H MCV 85.7 MCH 28.6 MCHC 33.4 RDW 14.0 Plt Count 277 MPV 8.7 Neut # (Auto) 12.6 H Lymph # (Auto) 2.8 [place] # (Auto) 1.5 H Eos # (Auto) 0.0 Baso # (Auto) 0.1 Absolute Nucleated RBC 0.02 Nucleated RBC % 0.1 Sodium 132 L Potassium 3.5 Chloride 94 L Carbon Dioxide 26 Anion Gap 12.0 BUN 20 Creatinine 1.0 Estimated GFR (MDRD) 77 L Glucose 198 H Calcium 9.6 Total Bilirubin 1.6 H AST 20 ALT 20 Alkaline Phosphatase 62 Total Protein 7.9 Albumin 3.6 Globulin 4.3 H Albumin/Globulin Ratio 0.8 L Lipase 20 L - Rads (name of study) ruq sono Radiology: See rad report (cholelithiasis but no wall thicking or pericholecystic fluid, neg sono murphys, and nl CBD) PD MEDICAL DECISION MAKING - ED course ED course: pt feeling better with IVF and pepcid on rpt exam no RUQ pain states his WBC runs high feel safe to dc now he is hydrated, will rx pepcid, but given several days of sx elev WBC and elev bili will rx augmentin as well for possible mild/early bobo and refer to surgery clinic d/w pt and he is happy with this plan - Sepsis Event Vital Signs: Vital Signs - 24 hr 10/09/17 12:41 Temperature 36.4 C L Heart Rate 98 Respiratory 18 Rate Blood Pressure 149/101 H O2 Saturation 97 Oxygen O2 Source [Without Activity] Room air O2 Source Room air Departure - Departure Disposition: 01 Home, Self Care Clinical Impression: Dehydration, Gallstones Abdominal pain Qualifiers: Abdominal location: upper abdomen, unspecified Qualified Code(s): R10.10 - Upper abdominal pain, unspecified Vomiting Qualifiers: Vomiting type: unspecified Vomiting Intractability: non-intractable Nausea presence: with nausea Qualified Code(s): R11.2 - Nausea with vomiting, unspecified Condition: Good Instructions: ED Dehydration, ED Gallstone W Biliary Colic, ED Gastritis Follow-Up: Frank Yee MD [Primary Care Provider] - Shiva Orta MD [Provider Admit Priv/Credential] - Prescriptions: Amox/Clav 875/125 [Augmentin] 1 each PO Q12H #20 tablet Ondansetron Odt [Zofran] 4 mg TL Q6H PRN #10 tablet PRN Reason: Nausea / Vomiting raNITIdine [Zantac] 150 mg PO BID #60 tablet Comments: You were dehydrated and we gave you IV fluids and medication for vomiting Your white blood cell count and bilirubin were elevated and so we did an ultrasound and found gallstones - the gallbladder does not look infected on ultrasound but given the symptoms you have for several days and your labs, I am concerned about an mild/early gallbladder infection and so I started you on an antibiotic and have referred you to the surgery clinic to discuss getting your gallbladder removed I also wrote a prescription for stomach inflammation. Drink plenty of fluids Avoid spicy citric and fatty foods Return if worse And please get your blood pressure rechecked when you are feeling better - it was high today
[2017-10-09 14:09] LABS: BASOPHILS # (AUTO) 0.1 10^3/uL (0.0-0.1); BASOPHILS % (AUTO) 0.8 %; EOSINOPHILS % (AUTO) 0.2 %; HGB - HEMOGLOBIN 18.1 g/dL (14.0-18.0); LYMPHOCYTES # (AUTO) 2.8 10^3/uL (1.5-3.5); LYMPHOCYTES % (AUTO) 16.6 %; MEAN CORPUSCULAR HEMOGLOBIN 28.6 pg (27.0-31.0); MEAN CORPUSCULAR HGB CONC 33.4 g/dL (32.0-36.0); MEAN CORPUSCULAR VOLUME 85.7 fL (80.0-94.0); MEAN PLATELET VOLUME 8.7 fL (7.4-11.4); MONOCYTES # (AUTO) 1.5 10^3/uL (0.0-1.0); MONOCYTES % (AUTO) 8.6 %; NEUTROPHILS # (AUTO) 12.6 10^3/uL (1.5-6.6); NEUTROPHILS % (AUTO) 73.8 %; PLT - PLATELET COUNT 277 10^3/uL (130-450); RED BLOOD COUNT 6.32 10^6/uL (4.70-6.10); WHITE BLOOD COUNT 17.1 x10^3/uL (4.8-10.8)
[2017-10-09 14:29] LABS: ALBUMIN 3.6 g/dL (3.2-5.5); ALBUMIN/GLOBULIN RATIO 0.8 (1.0-2.2); BILIRUBIN,TOTAL 1.6 mg/dL (0.2-1.0); CALCIUM 9.6 mg/dL (8.5-10.3); TOTAL PROTEIN 7.9 g/dL (6.7-8.2)
--- NOTE | 2017-10-09 16:03 | Ultrasound Report ---
Procedure Date: 10/09/2017 Accession Number: [id number] / [id number] Procedure: US - Abdomen Limited CPT Code: FULL RESULT: EXAM: Abdomen Limited DATE: 10/09/2017 3:50 PM CLINICAL HISTORY: upper abd pain elev bili and WBC COMPARISON: CT abdomen pelvis 01/16/2017. TECHNIQUE: Real-time scanning was performed with static images obtained. FINDINGS: Liver: Echogenic and measuring at least 16.3 cm. Main portal vein flow: Hepatopetal. Gallbladder: The gallbladder is distended and demonstrates a calculus within the neck which is not definitely mobile. There is no pericholecystic fluid or thickening of the gallbladder wall and there was no sonographic Moore's sign. Biliary System: Common bile duct measures 5 mm. No intrahepatic or extrahepatic ductal dilatation. Pancreas: Visualized portion is unremarkable. Kidneys: Right: 9.4 cm longitudinally. Normal. No contour-deforming solid mass, stones, or hydronephrosis. 1.9 cm exophytic simple midpole renal cyst. IVC is patent by color Doppler. IMPRESSION: Cholelithiasis in a distended gallbladder without wall thickening or pericholecystic fluid with a negative sonographic Moore's sign. This leaves the examination equivocal for cholecystitis. If the patient has a fever and white count, recommend HIDA scan. Otherwise, pretest probability is very low for cholecystitis with negative sonographic Moore's sign. Fatty liver with focal fatty sparing. RADIA
[2017-10-09 17:19] VITALS: BP 161/99
== END 2017-10-09 17:18 | disposition home or self-care (01) ==
LOC: ED 12:37
DX: E86.0 Dehydration (principal); K80.20 Calculus of gallbladder without cholecystitis without obstruction; R10.10 Upper abdominal pain, unspecified; R11.2 Nausea with vomiting, unspecified
CPT/HCPCS: 36415; 76705; 80053; 83690; 85025; 96365; 96375; 99283; 99284

== ENCOUNTER 2017-10-27 02:54 | Outpatient (CLI) | payer MEDICARE, MEDICAID | END 2017-10-27 02:55 | disposition critical access hospital (66) | LOC: EMS 02:54 | PROVIDERS: ATTEND Surgery | DX: R11.2 Nausea with vomiting, unspecified (principal); R10.9 Unspecified abdominal pain | CPT/HCPCS: A0425; A0429 ==

== ENCOUNTER 2017-10-27 03:21 | Emergency (ER) | payer MEDICARE, MEDICAID ==
[2017-10-27] MEDS ORDERED: ONDANSETRON 4 MG/2 ML VIAL IVP STA ×2 (03:24→06:24)
[2017-10-27] MEDS ORDERED: SODIUM CHLORIDE 0.9% 1,000 ML IV ONE ×3 (03:31→04:38)
[2017-10-27 03:47] LABS: BASOPHILS # (AUTO) 0.2 10^3/uL (0.0-0.1); BASOPHILS % (AUTO) 1.2 %; LYMPHOCYTES # (AUTO) 1.1 10^3/uL (1.5-3.5); MEAN CORPUSCULAR HEMOGLOBIN 28.9 pg (27.0-31.0); MEAN CORPUSCULAR HGB CONC 33.9 g/dL (32.0-36.0); MEAN CORPUSCULAR VOLUME 85.1 fL (80.0-94.0); MONOCYTES # (AUTO) 0.3 10^3/uL (0.0-1.0); MONOCYTES % (AUTO) 2.1 %; NEUTROPHILS # (AUTO) 13.5 10^3/uL (1.5-6.6); NEUTROPHILS % (AUTO) 89.7 %; PLT - PLATELET COUNT 273 10^3/uL (130-450); RED BLOOD COUNT 5.88 10^6/uL (4.70-6.10); RED CELL DISTRIBUTION WIDTH 13.7 % (12.0-15.0)
[2017-10-27 03:55] LABS: ALBUMIN 3.7 g/dL (3.2-5.5); ALBUMIN/GLOBULIN RATIO 0.9 (1.0-2.2); CALCIUM 9.9 mg/dL (8.5-10.3); TOTAL PROTEIN 7.8 g/dL (6.7-8.2)
[2017-10-27] MEDS ORDERED: KETOROLAC 60 MG/2 ML VIAL IVP STA (04:37)
[2017-10-27] MEDS ORDERED: fentaNYL 100 MCG/2 ML VIAL IVP STA (04:37)
[2017-10-27] MEDS ORDERED: INSULIN REGULAR HUMAN 100 UNIT/1 ML 10 ML MDV IVP STA (04:38)
[2017-10-27] MEDS ORDERED: PROMETHAZINE INJ 25 MG in SODIUM CHLORIDE 0.9% 50 ML IV STA (04:38)
[2017-10-27 04:47] LABS: BILIRUBIN,URINE NEGATIVE (NEGATIVE); GLUCOSE, URINE (UA) >=1000 mg/dL (NEGATIVE); KETONES,URINE (UA) >=80 mg/dL (NEGATIVE); LEUKOCYTE ESTERASE, URINE NEGATIVE (NEGATIVE); NITRITE,URINE NEGATIVE (NEGATIVE); OCCULT BLOOD,URINE SMALL (NEGATIVE); PH,URINE 6.5 PH (5.0-7.5); PROTEIN,URINE 100 mg/dL (NEGATIVE); UROBILINOGEN,URINE 0.2 (NORMAL) E.U./dL (NORMAL)
[2017-10-27] MEDS ORDERED: IOPAMIDOL-300 100 ML VIAL ONE (04:48)
[2017-10-27 05:06] LABS: BACTERIA,URINE None Seen /HPF (None Seen); CLARITY,URINE CLEAR (CLEAR); SQUAMOUS EPITHELIAL CELL,UR RARE Squamous (<= Few)
--- NOTE | 2017-10-27 05:07 | ED Physician Documentation ---
PD HPI ABD PAIN - Stated complaint Stated Complaint: NAUSEA, ABD PAIN - Chief complaint Chief Complaint: Abd Pain - History obtained from History obtained from: Patient - Additional information Additional information: 57-year-old male presents emergency department with increasing epigastric pain which is associated with nausea and vomiting. The patient reports having a history of gallstones and is concerned that this is his gallstones causing his pain. The patient denies fever. The patient denies any lower abdominal pain, dysuria or flank pain. No specific triggering factors. No relieving factors. No other associated symptoms Review of Systems Constitutional: denies: Fever, Chills Eyes: denies: Discharge Ears: denies: Loss of hearing Nose: denies: Congestion Throat: denies: Dental pain / toothache Cardiac: denies: Chest pain / pressure Respiratory: denies: Dyspnea GI: reports: Abdominal Pain, Nausea, Vomiting : denies: Dysuria Skin: denies: Rash Musculoskeletal: denies: Neck pain Neurologic: denies: Generalized weakness Immunocompromised: denies: Chemotherapy PD PAST MEDICAL HISTORY - Past Medical History Cardiovascular: Hypertension, High cholesterol Respiratory: Asthma, Pneumonia Neuro: CVA, TIA Endocrine/Autoimmune: Type 2 diabetes GI: GERD, Ulcers, Hemorrhoids : Kidney stones HEENT: Macular degeneration Psych: Depression Musculoskeletal: Osteoarthritis, Chronic back pain Derm: Psoriasis, Other - Past Surgical History Past Surgical History: Yes General: Other Ortho: ACL reconstruction, Rotator cuff repair Derm: Other - Present Medications Home Medications: Ambulatory Orders Medication Instructions Recorded Confirmed Insulin Glulisine [Apidra] 6 - 10 unit SQ TIDWM 11/13/12 10/27/17 Lisinopril 20 mg PO DAILY 11/13/12 10/27/17 Clopidogrel [Plavix] 75 mg PO DAILY 04/07/14 10/27/17 Pantoprazole [Protonix] 40 mg PO QDAC #60 tablet 01/25/16 10/27/17 Insulin Glargine [Lantus Solostar] 90 unit SUBQ DAILY 10/09/17 10/27/17 Ondansetron Odt [Zofran] 4 mg TL Q6H PRN #10 tablet 10/09/17 10/27/17 raNITIdine [Zantac] 150 mg PO BID #60 tablet 10/09/17 10/27/17 Ondansetron Odt [Zofran] 4 mg TL Q6H PRN #30 tablet 10/27/17 - Allergies Allergies/Adverse Reactions: Allergies Allergy/AdvReac Type Severity Reaction Status Date / Time acetaminophen [From Tylenol] AdvReac Intermediate Nausea Verified 10/27/17 03:28 hydrocodone [Hydrocodone] AdvReac Intermediate Respiratory Verified 10/27/17 03: 28 oxycodone AdvReac Intermediate Anxiety Verified 10/27/17 03:28 - Social History Does the pt smoke?: No Smoking Status: Never smoker Does the pt drink ETOH?: Yes Does the pt have substance abuse?: Yes - Immunizations Immunizations are current?: Yes - POLST Patient has POLST: No PD ED PE NORMAL - General General: Alert and oriented X 3 - HEENT HEENT: Atraumatic, PERRL, EOMI, Moist mucous membranes - Cardiac Cardiac: RRR, Strong equal pulses, Other (Tachycardia) - Respiratory Respiratory: No respiratory distress, Clear bilaterally - Abdomen Abdomen: Soft, Non distended. No: Non tender (The patient is tender to palpation in the epigastrium, no rebound or peritoneal signs) - Back Back: No spinal TTP - Derm Derm: Normal color - Extremities Extremities: No deformity, Normal ROM s pain - Neuro Neuro: Alert and oriented X 3, Normal speech - Psych Psych: Normal affect Results - Vitals Vitals: Vital Signs - 24 hr 10/27/17 10/27/17 03:26 05:55 Temperature 37.1 C Heart Rate 117 H 101 H Respiratory 18 18 Rate Blood Pressure 165/63 H 173/90 H O2 Saturation 100 99 Oxygen O2 Source [] Room air O2 Source Room air - EKG (time done) 04:17 Rate: Rate (enter#) Rhythm: NSR Intervals: Normal KS, QRS normal QRS: Normal Ischemia: Normal ST segments - Labs Labs: Laboratory Tests 10/27/17 10/27/17 10/27/17 03:35 03:35 03:35 WBC 15.0 H RBC 5.88 Hgb 17.0 Hct 50.0 MCV 85.1 MCH 28.9 MCHC 33.9 RDW 13.7 Plt Count 273 MPV 9.0 Neut # (Auto) 13.5 H Lymph # (Auto) 1.1 L [place] # (Auto) 0.3 Eos # (Auto) 0.0 Baso # (Auto) 0.2 H Absolute Nucleated RBC 0.01 Nucleated RBC % 0.1 Sodium 134 L Potassium 4.1 Chloride 95 L Carbon Dioxide 22 Anion Gap 17.0 H BUN 17 Creatinine 1.0 Estimated GFR (MDRD) 77 L Glucose 321 H Calcium 9.9 Total Bilirubin 1.0 AST 25 ALT 23 Alkaline Phosphatase 71 Troponin I < 0.04 Total Protein 7.8 Albumin 3.7 Globulin 4.1 Albumin/Globulin Ratio 0.9 L Lipase 42 Urine Color Urine Clarity Urine pH Ur Specific [place] Urine Protein Urine Glucose (UA) Urine Ketones Urine Occult Blood Urine Nitrite Urine Bilirubin Urine Urobilinogen Ur Leukocyte Esterase Urine RBC Urine WBC Ur Squamous Epith Cells Urine Bacteria Ur Microscopic Review Urine Culture Comments 10/27/17 04:30 WBC RBC Hgb Hct MCV MCH MCHC RDW Plt Count MPV Neut # (Auto) Lymph # (Auto) [place] # (Auto) Eos # (Auto) Baso # (Auto) Absolute Nucleated RBC Nucleated RBC % Sodium Potassium Chloride Carbon Dioxide Anion Gap BUN Creatinine Estimated GFR (MDRD) Glucose Calcium Total Bilirubin AST ALT Alkaline Phosphatase Troponin I Total Protein Albumin Globulin Albumin/Globulin Ratio Lipase Urine Color YELLOW Urine Clarity CLEAR Urine pH 6.5 Ur Specific [place] 1.025 Urine Protein 100 H Urine Glucose (UA) >=1000 H Urine Ketones >=80 H Urine Occult Blood SMALL H Urine Nitrite NEGATIVE Urine Bilirubin NEGATIVE Urine Urobilinogen 0.2 (NORMAL) Ur Leukocyte Esterase NEGATIVE Urine RBC 6-10 H Urine WBC 0-3 Ur Squamous Epith Cells RARE Squamous Urine Bacteria None Seen Ur Microscopic Review INDICATED Urine Culture Comments NOT INDICATED - Rads (name of study) CT abd/pelvis Radiology: Final report received (IMPRESSION: No acute findings in the abdomen or pelvis. No significant change from prior.) PD MEDICAL DECISION MAKING - ED course ED course: On reevaluation the patient resting comfortably and appears to be in no acute distress. The patient's workup does not reveal any significant abnormality that would necessitate admission to the hospital or acute surgical consultation. The patient appears appropriate for discharge and ongoing outpatient management I discussed with him the findings. The patient is aware of his aortic aneurysm and this is followed as an outpatient. I discussed warning signs and recommended returning to the emergency department for any worsening or any concerns. - Sepsis Event Vital Signs: Vital Signs - 24 hr 10/27/17 10/27/17 03:26 05:55 Temperature 37.1 C Heart Rate 117 H 101 H Respiratory 18 18 Rate Blood Pressure 165/63 H 173/90 H O2 Saturation 100 99 Oxygen O2 Source [] Room air O2 Source Room air Departure - Departure Disposition: 01 Home, Self Care Clinical Impression: Abdominal pain Qualifiers: Abdominal location: epigastric Qualified Code(s): R10.13 - Epigastric pain Vomiting Qualifiers: Vomiting type: unspecified Vomiting Intractability: non-intractable Nausea presence: with nausea Qualified Code(s): R11.2 - Nausea with vomiting, unspecified Aortic aneurysm Qualifiers: Aortic location: abdominal aorta Presence of rupture: without rupture Qualified Code(s): I71.4 - Abdominal aortic aneurysm, without rupture Condition: Good Instructions: Abdominal Pain, ED Aneurysm Abdominal Aortic Stable Follow-Up: Frank Yee MD [Primary Care Provider] - Within 1 week Prescriptions: Ondansetron Odt [Zofran] 4 mg TL Q6H PRN #30 tablet PRN Reason: Nausea / Vomiting Comments: Please return to the emergency department for any worsening or any concerns
[2017-10-27] MEDS ORDERED: IOPAMIDOL-300 50 ML VIAL ONE (05:38)
[2017-10-27] MEDS ORDERED: IOPAMIDOL-300 50 ML VIAL PO ONE (06:42)
[2017-10-27] MEDS ORDERED: IOPAMIDOL-300 100 ML VIAL IVP ONE (06:56)
--- NOTE | 2017-10-27 07:24 | CT Report ---
Reason: abdominal pain Procedure Date: 10/27/2017 Accession Number: [id number] / [id number] Procedure: CT - Abdomen/Pelvis W/ CPT Code: FULL RESULT: EXAM: CT ABDOMEN AND PELVIS EXAM DATE: 10/27/2017 06:57 AM. CLINICAL HISTORY: Abdominal pain and nausea vomiting. COMPARISONS: ABDOMEN/PELVIS W/ 01/16/2017. TECHNIQUE: Routine helical CT imaging was performed through the abdomen and pelvis. IV contrast: ISOVUE 300 100mL. Enteric contrast: No. Reconstructions: Coronal and sagittal. In accordance with CT protocol optimization, one or more of the following dose reduction techniques were utilized for this exam: automated exposure control, adjustment of mA and/or KV based on patient size, or use of iterative reconstructive technique. FINDINGS: Lung Bases: Unremarkable. Liver: Diffusely decreased parenchymal attenuation, compatible with hepatic steatosis, without evidence of focal lesion. Gallbladder/Bile Ducts: Unremarkable. Spleen: Normal. Pancreas: Normal. Adrenal Glands: Normal. Kidneys: Right renal atrophy, scarring, and scattered cysts are similar to prior. The left kidney demonstrates no significant abnormality. Peritoneal Cavity/Bowel: No ascites or pneumoperitoneum. No bowel obstruction or abnormal stool burden. No evidence of diverticulosis or colitis. Mild to moderate volume of fluid in the stomach. The appendix is well visualized and normal. Pelvic Organs: The urinary bladder and visualized pelvic organs demonstrate no significant abnormality. Vasculature: Infrarenal abdominal aortic aneurysm measures 36 mm in greatest dimension, not significantly changed compared to prior. Ectatic bilateral proximal common iliac arteries as before. Moderate atherosclerosis. No evidence of acute abnormality. Bones: No significant abnormality. Other: Tiny fat-containing periumbilical hernia again demonstrated. IMPRESSION: No acute findings in the abdomen or pelvis. No significant change from prior. RADIA
[2017-10-27 07:48] VITALS: BP 185/106
== END 2017-10-27 07:48 | disposition home or self-care (01) ==
LOC: EDUNIT# → ED 03:21 → SUPCPDRO 03:21 → ED 07:48
DX: R10.13 Epigastric pain (principal); R11.2 Nausea with vomiting, unspecified; I71.4 Abdominal aortic aneurysm, without rupture; I10 Essential (primary) hypertension; E11.9 Type 2 diabetes mellitus without complications; Z79.4 Long term (current) use of insulin
CPT/HCPCS: 36415; 74177; 80053; 81001; 83690; 84484; 85025; 93005; 96361; 96365; 96375; 96376; 99283; 99284; J1815; J7040; Q9967; 81003; 87086

== ENCOUNTER 2017-11-25 08:00 | Outpatient (CLI) | payer MEDICARE, MEDICAID ==
[2017-11-25 19:10] LABS: CALCIUM 9.3 mg/dL (8.5-10.3); CREATININE 0.8 mg/dL (0.6-1.2)
[2017-11-25 19:20] LABS: HB2 TOTAL 16.5 g/dL; HEMOGLOBIN A1C 1.19 g/dL; HEMOGLOBIN A1C % 8.7 % (4.6-6.2)
== END 2017-11-25 08:01 | disposition home or self-care (01) ==
LOC: LAB.N 08:00
PROVIDERS: ATTEND Family Medicine
DX: E11.65 Type 2 diabetes mellitus with hyperglycemia (principal)
CPT/HCPCS: 36415; 80048; 83036

== ENCOUNTER 2018-03-13 10:05 | Inpatient (IN) | payer MEDICARE, MEDICAID ==
[2018-03-13 10:29] LABS: BASOPHILS % (AUTO) 0.1 %; HGB - HEMOGLOBIN 16.9 g/dL (14.0-18.0); LYMPHOCYTES # (AUTO) 0.7 10^3/uL (1.5-3.5); LYMPHOCYTES % (AUTO) 2.4 %; MEAN CORPUSCULAR HGB CONC 33.7 g/dL (32.0-36.0); MEAN CORPUSCULAR VOLUME 86.3 fL (80.0-94.0); MEAN PLATELET VOLUME 9.2 fL (7.4-11.4); MONOCYTES # (AUTO) 1.5 10^3/uL (0.0-1.0); MONOCYTES % (AUTO) 5.1 %; NEUTROPHILS # (AUTO) 27.9 10^3/uL (1.5-6.6); NEUTROPHILS % (AUTO) 92.4 %; PLT - PLATELET COUNT 235 10^3/uL (130-450); RED BLOOD COUNT 5.81 10^6/uL (4.70-6.10); RED CELL DISTRIBUTION WIDTH 13.4 % (12.0-15.0); WHITE BLOOD COUNT 30.2 x10^3/uL (4.8-10.8)
[2018-03-13] MEDS ORDERED: ONDANSETRON 4 MG/2 ML VIAL IVP STA (10:38)
[2018-03-13] MEDS ORDERED: ACETAMINOPHEN 1,000 MG/100 ML 100 ML IV STA (10:38)
[2018-03-13 10:41] LABS: BILIRUBIN,TOTAL 1.3 mg/dL (0.2-1.0); CALCIUM 9.6 mg/dL (8.5-10.3)
--- NOTE | 2018-03-13 10:42 | ED Physician Documentation ---
History of Present Illness - Stated complaint Stated Complaint: VOMITING/FEVER - Chief complaint Chief Complaint: Abd Pain - Additonal information Additional information: hx from pt 57 male no prior abd surgeries known gallstones known AAA to ED with fever upper abd pain 10/11 bruning no radtiotion associated non blood NV and no dirahhrea or urinary sx onset 9 AM yesterday sick contact (mom with similar) no bad food no travel saw PMD who wanted pt to be seen by GI Review of Systems Constitutional: reports: Fever Cardiac: denies: Chest pain / pressure, Palpitations Respiratory: denies: Dyspnea, Cough GI: reports: Abdominal Pain, Nausea, Vomiting. denies: Diarrhea, Hematemesis, Bloody / black stool : denies: Dysuria Musculoskeletal: denies: Neck pain, Back pain Neurologic: denies: Generalized weakness Endocrine: denies: Easy bruising / bleeding Immunocompromised: denies: Immunocompromised PD PAST MEDICAL HISTORY - Past Medical History Cardiovascular: Hypertension, High cholesterol Respiratory: Asthma, Pneumonia Neuro: CVA, TIA Endocrine/Autoimmune: Type 2 diabetes GI: GERD, Ulcers, Hemorrhoids : Kidney stones HEENT: Macular degeneration Psych: Depression Musculoskeletal: Osteoarthritis, Chronic back pain Derm: Psoriasis, Other - Past Surgical History Past Surgical History: Yes General: Other Ortho: ACL reconstruction, Rotator cuff repair Derm: Other - Present Medications Home Medications: Ambulatory Orders Medication Instructions Recorded Confirmed Lisinopril 10 mg PO DAILY 11/13/12 03/13/18 Clopidogrel [Plavix] 75 mg PO DAILY 04/07/14 03/13/18 Insulin Glargine [Lantus Solostar] 90 unit SUBQ DAILY 10/09/17 03/13/18 Albuterol Sulf [Ventolin Hfa 1 - 2 puffs INH Q4H PRN 03/13/18 03/13/18 Inhaler] Ascorbic Acid [Vitamin C] 500 mg PO DAILY PRN 03/13/18 03/13/18 Insulin Lispro [Humalog] 15 - 40 unit SUBQ QDAC 03/13/18 03/13/18 Loratadine [Claritin] 10 mg PO DAILY PRN 03/13/18 03/13/18 - Allergies Allergies/Adverse Reactions: Allergies Allergy/AdvReac Type Severity Reaction Status Date / Time acetaminophen [From Tylenol] AdvReac Intermediate Nausea Verified 03/13/18 10:56 hydrocodone [Hydrocodone] AdvReac Intermediate Respiratory Verified 03/13/18 10:56 oxycodone AdvReac Intermediate Anxiety Verified 03/13/18 10:56 fentanyl AdvReac Nausea Verified 03/13/18 10:56 - Social History Does the pt smoke?: No Smoking Status: Never smoker Does the pt drink ETOH?: Yes Does the pt have substance abuse?: Yes - Immunizations Immunizations are current?: Yes - POLST Patient has POLST: No PD ED PE NORMAL - Vitals Vital signs reviewed: Yes - General General: Alert and oriented X 3 - HEENT HEENT: PERRL - Neck Neck: Supple, no meningeal sign - Cardiac Cardiac: RRR (tachy) - Respiratory Respiratory: No respiratory distress, Clear bilaterally - Abdomen Abdomen: Other (TTP upper abd, neg murphys, palp pulsatile aorta but not very tender) - Derm Derm: Normal color - Extremities Extremities: Other (mild joshua edema) - Neuro Neuro: Alert and oriented X 3 Results - Vitals Vitals: Vital Signs - 24 hr 03/13/18 03/13/18 03/13/18 10:07 13:33 14:30 Temperature 36.8 C 37.4 C Heart Rate 118 H 112 H 57 L Respiratory 16 20 Rate Blood Pressure 176/92 H 192/104 H 173/105 H O2 Saturation 96 96 98 03/13/18 15:04 Temperature 37 C Heart Rate 106 H Respiratory 20 Rate Blood Pressure 167/101 H O2 Saturation 92 Oxygen O2 Source [Without Activity] Room air O2 Source Room air - Labs Labs: Laboratory Tests 03/13/18 03/13/18 03/13/18 10:21 10:21 10:40 WBC 30.2 H RBC 5.81 Hgb 16.9 Hct 50.1 MCV 86.3 MCH 29.0 MCHC 33.7 RDW 13.4 Plt Count 235 MPV 9.2 Neut # (Auto) 27.9 H Lymph # (Auto) 0.7 L [place] # (Auto) 1.5 H Eos # (Auto) 0.0 Baso # (Auto) 0.0 Absolute Nucleated RBC 0.03 Nucleated RBC % 0.1 Manual Slide Review Indicated RBC Morph Micro Appear 1+ ANISOCYTOSIS VBG pH VBG pCO2 VBG pO2 VBG HCO3 VBG Total CO2 VBG O2 Saturation VBG Base Excess Sodium 132 L Potassium 3.7 Chloride 93 L Carbon Dioxide 23 Anion Gap 16.0 H BUN 18 Creatinine 1.0 Estimated GFR (MDRD) 77 L Glucose 394 H Lactic Acid 2.7 H Calcium 9.6 Total Bilirubin 1.3 H AST 23 ALT 24 Alkaline Phosphatase 72 Total Protein 8.0 Albumin 4.0 Globulin 4.0 Albumin/Globulin Ratio 1.0 Lipase 31 Serum Ketones 03/13/18 03/13/18 14:34 14:50 WBC RBC Hgb Hct MCV MCH MCHC RDW Plt Count MPV Neut # (Auto) Lymph # (Auto) [place] # (Auto) Eos # (Auto) Baso # (Auto) Absolute Nucleated RBC Nucleated RBC % Manual Slide Review RBC Morph Micro Appear VBG pH 7.462 H VBG pCO2 36.1 L VBG pO2 55.4 H VBG HCO3 25.2 VBG Total CO2 26.3 VBG O2 Saturation 90.9 H VBG Base Excess 1.9 Sodium Potassium Chloride Carbon Dioxide Anion Gap BUN Creatinine Estimated GFR (MDRD) Glucose Lactic Acid Calcium Total Bilirubin AST ALT Alkaline Phosphatase Total Protein Albumin Globulin Albumin/Globulin Ratio Lipase Serum Ketones NEGATIVE - Rads (name of study) ruq sono Radiology: See rad report (fatty liver no gallstones small infra-renal and joshua iliac aneurysms) CTAP Radiology: See rad report (fat stranding around L kidney suggests pyelo, atrophic R kidney, < 5 cm infrarenal AAA and iliac aneurysms) PD MEDICAL DECISION MAKING - ED course ED course: upper abd pain SIRS criteria WBC 30 elev bili suspected acute bobo gave zosyn got sono which was neg for biliary dz then got CT which suggests pyelo but UA neg high blood sugar but not DKA source still unclear surgical consult Dr Velasco does not think pt has surgical process will admit to hospitalist for possible sepsis and serial abd exam etc paged hospitalist at 1520 Dr Rg saw pt and will admit - considering MRCP Departure - Departure Disposition: ED Place in Observation Clinical Impression: SIRS (systemic inflammatory response syndrome), Hyperglycemia Abdominal pain Qualifiers: Abdominal location: upper abdomen, unspecified Qualified Code(s): R10.10 - Upper abdominal pain, unspecified Condition: Fair Discharge Date/Time: 03/13/18 17:00
[2018-03-13 10:55] LABS: RBC MORPHOLOGY (MULTIPLE) 1+ ANISOCYTOSIS (NORMAL)
[2018-03-13] MEDS ORDERED: PIPERACILLIN/TAZOBACTAM 3.375 GM in SODIUM CHLORIDE 0.9% MINIBAG 100 ML IV STA (12:39)
[2018-03-13] MEDS ORDERED: IOVERSOL 320 100 ML VIAL IVP ONE (12:57)
--- NOTE | 2018-03-13 13:23 | Ultrasound Report ---
Reason: upper abd pain fever NV tachy Procedure Date: 03/13/2018 Accession Number: [id number] / [id number] Procedure: US - Abdomen Limited CPT Code: FULL RESULT: EXAM: ABDOMEN ULTRASOUND LIMITED, RUQ EXAM DATE: 03/13/2018 11:49 AM. CLINICAL HISTORY: Upper abdominal pain. Nausea and vomiting. COMPARISON: ABDOMEN LIMITED 10/09/2017 3:02 PM. TECHNIQUE: Real-time scanning was performed with static images obtained. FINDINGS: Liver: The liver is diffusely echogenic in appearance suggesting fibrofatty infiltration. No suspicious lesions or masses are identified. The liver measures 15.2 cm. Main portal vein flow: Hepatopetal. Gallbladder: Normal. No stones, wall thickening, or sonographic Moore's sign. Biliary System: CBD measures 6 mm. No intrahepatic or extrahepatic ductal dilatation. Other: Mild fusiform aneurysmal dilatation of the distal abdominal aorta up to 3.7 cm is seen. Prominence of the common iliac arteries is also noted measuring up to 2.3 cm on the right and 2.1 cm on the left. IMPRESSION: 1. No acute intra-abdominal abnormality identified. 2. Fatty liver without hepatomegaly. 3. Mild infrarenal abdominal aortic and bilateral common iliac artery aneurysms. RADIA
--- NOTE | 2018-03-13 13:31 | CT Report ---
Reason: upper abd pain NV WBC 30 elev bili but neg RUQ son Procedure Date: 03/13/2018 Accession Number: [id number] / [id number] Procedure: CT - Abdomen/Pelvis W/ CPT Code: FULL RESULT: EXAM: CT ABDOMEN AND PELVIS EXAM DATE: 03/13/2018 01:10 PM. CLINICAL HISTORY: Upper abdominal pain. COMPARISONS: ABDOMEN/PELVIS W/ 10/27/2017 6:57 AM. TECHNIQUE: Routine helical CT imaging was performed through the abdomen and pelvis. IV contrast: 100 mm of Optiray 320. Enteric contrast: No. Reconstructions: Coronal and sagittal. In accordance with CT protocol optimization, one or more of the following dose reduction techniques were utilized for this exam: automated exposure control, adjustment of mA and/or KV based on patient size, or use of iterative reconstructive technique. FINDINGS: Lung Bases: Unremarkable. Liver: Normal. No masses. Gallbladder/Bile Ducts: Unremarkable. Spleen: Normal. Pancreas: Normal. Adrenal Glands: Normal. Kidneys: Atrophy and cortical scarring of the right kidney is again seen. A small cyst is again noted in the upper pole. Minor perinephric calcification along the left kidney is stable. Some minor asymmetric fat stranding of the left kidney appears slightly more prominent compared with prior study. There is no nephrolithiasis or hydronephrosis. Peritoneal Cavity/Bowel: Normal. No free fluid, free air or adenopathy. No masses or acute inflammatory process. The appendix is well visualized and normal. Pelvic Organs: Atrophic prostate gland is seen. A small fat-containing right inguinal hernia is suggested. The bladder and visualized pelvic organs are within normal limits. Vasculature: Calcified atherosclerotic disease of the aorta is seen with mild aneurysm dilatation of the infrarenal aorta up to 3.6 cm unchanged. Bones: No significant abnormality. Other: None. IMPRESSION: 1. Slight increase in mild perinephric fat stranding surrounding the left kidney compared with 10/27/2017. No hydronephrosis. Correlate for pyelonephritis. 2. Stable atrophic right kidney and small upper pole cyst. 3. Stable calcified atherosclerotic disease of the aorta and mild aneurysmal dilatation up to 3.6 cm. RADIA
[2018-03-13 14:02] LABS: BILIRUBIN,URINE NEGATIVE (NEGATIVE); GLUCOSE, URINE (UA) >=1000 mg/dL (NEGATIVE); KETONES,URINE (UA) 15 mg/dL (NEGATIVE); LEUKOCYTE ESTERASE, URINE NEGATIVE (NEGATIVE); NITRITE,URINE NEGATIVE (NEGATIVE); OCCULT BLOOD,URINE MODERATE (NEGATIVE); PROTEIN,URINE 100 mg/dL (NEGATIVE); UROBILINOGEN,URINE 0.2 (NORMAL) E.U./dL (NORMAL)
[2018-03-13] MEDS ORDERED: HYDROmorphone 1 MG/ML CARPUJECT IVP STA (14:07)
[2018-03-13 14:09] LABS: BACTERIA,URINE None Seen /HPF (None Seen); CLARITY,URINE CLEAR (CLEAR); RBC,URINE 0-5 /HPF (0-5); SQUAMOUS EPITHELIAL CELL,UR RARE Squamous (<= Few)
[2018-03-13] MEDS ORDERED: INSULIN REGULAR HUMAN 100 UNIT/1 ML 10 ML MDV IVP STA (14:33)
[2018-03-13] MEDS ORDERED: SODIUM CHLORIDE 0.9% 1,000 ML IV ONE (14:34)
[2018-03-13 14:55] LABS: VBG BASE EXCESS 1.9 mmol/L (-2 - +2); VBG PCO2 36.1 mmHg (41-51); VBG PH 7.462 (7.31-7.41); VBG PO2 55.4 mmHg (25-47); VBG TOTAL CO2 26.3 mmol/L (24-29)
--- NOTE | 2018-03-13 15:19 | CONSULTATION NOTE ---
Referring Provider Consult Date: 03/13/18 Chief Complaint - Chief Complaint Chief Complaint: vomiting History of Present Illness - History of Present Illness HPI Comment/Other: 57 yo man presented to the ER with 2 days of abdominal pain, back pain, and nausea and vomiting. He states he initially had back pain, then vomiting, and then finally abdominal pain he attributes to the vomiting. History - Past Medical History Cardiovascular: reports: Hypertension, High cholesterol Respiratory: reports: Asthma, Pneumonia Neuro: reports: CVA, TIA Endocrine/Autoimmune: reports: Type 2 diabetes GI: reports: GERD, Ulcers, Hemorrhoids : reports: Kidney stones HEENT: reports: Macular degeneration Psych: reports: Depression Musculoskeletal: reports: Osteoarthritis, Chronic back pain Derm: reports: Psoriasis, Other MRSA Hx?: No - Past Surgical History General: reports: Other Ortho: reports: ACL reconstruction, Rotator cuff repair Derm: reports: Other - POLST Patient has POLST: No Meds/Allgy - Home Medications Home Medications: Ambulatory Orders Medication Instructions Recorded Confirmed Lisinopril 10 mg PO DAILY 11/13/12 03/13/18 Clopidogrel [Plavix] 75 mg PO DAILY 04/07/14 03/13/18 Insulin Glargine [Lantus Solostar] 90 unit SUBQ DAILY 10/09/17 03/13/18 Albuterol Sulf [Ventolin Hfa 1 - 2 puffs INH Q4H PRN 03/13/18 Inhaler] Insulin Lispro [Humalog] 15 - 40 unit SUBQ QDAC 03/13/18 03/13/18 Loratadine [Claritin] 10 mg PO DAILY PRN 03/13/18 03/13/18 - Allergies Allergies/Adverse Reactions: Allergies Allergy/AdvReac Type Severity Reaction Status Date / Time acetaminophen [From Tylenol] AdvReac Intermediate Nausea Verified 03/13/18 10:56 hydrocodone [Hydrocodone] AdvReac Intermediate Respiratory Verified 03/13/18 1 0:56 oxycodone AdvReac Intermediate Anxiety Verified 03/13/18 10:56 fentanyl AdvReac Nausea Verified 03/13/18 10:56 Review of Systems - Constitutional Constitutional: reports: Fatigue, Weakness, Poor appetite - Gastrointestinal Gastrointestinal: reports: Abdominal pain, Nausea, Vomiting Exam - Vital Signs Reviewed Vital Signs: Yes Vital Signs: Vital Signs x48h Temp Pulse Resp BP Pulse Ox 03/13/18 15:04 37 C 106 H 20 167/101 H 92 03/13/18 14:30 57 L 173/105 H 98 03/13/18 13:33 37.4 C 112 H 20 192/104 H 96 03/13/18 10:07 36.8 C 118 H 16 176/92 H 96 - Physical Exam General Appearance: positive: No acute distress Eyes Bilateral: positive: Normal inspection ENT: positive: ENT inspection nml Neck: positive: Nml inspection Respiratory: positive: Chest non-tender Cardiovascular: positive: Regular rate & rhythm Abdomen: positive: Non-tender Back: positive: Nml inspection Skin: positive: Color nml Extremities: positive: Non-tender Neurologic/Psychiatric: positive: Oriented x3 Conclusion/Plan - Diagnosis Diagnosis: hyperglycemic crisis - Plan Plan: Pt has a markedly elevated blood sugar. He states that it is normally much be tter controlled. This imbalance is most likely a side product of a kidney infection/abnormality as noted on CT. His hyperglycemia most likely caused the vomiting which caused his abdominal pain. Plan to admit on antibiotics with correction of blood sugar and serial abdominal exams. - Lab Results Fish Bones: 03/13/18 10:21 03/13/18 10:21
[2018-03-13] MEDS ORDERED: oxyCODONE 5 MG TABLET PO PRN (16:20)
[2018-03-13] MEDS ORDERED: ACETAMINOPHEN 325 MG TABLET PO PRN (16:20)
--- NOTE | 2018-03-13 16:52 | XRAY Report ---
Reason: soa Procedure Date: 03/13/2018 Accession Number: [id number] / [id number] Procedure: XR - Chest 2 View X-Ray CPT Code: 69032 FULL RESULT: EXAM: CHEST RADIOGRAPHY EXAM DATE: 03/13/2018 04:31 PM. CLINICAL HISTORY: Soa. COMPARISON: CHEST 1 VIEW 01/24/2016 11:29 AM. TECHNIQUE: 2 views. FINDINGS: Lungs/Pleura: Atelectasis or scarring in the lingula, present on previous study as well. No definite acute infiltrate, consolidation, effusion, or pneumothorax. Mediastinum: Heart and mediastinal contours are unremarkable. Upper lobe vessels not distended. Other: Degenerative changes. IMPRESSION: No acute disease. RADIA
[2018-03-13 17:00] LABS: HB2 TOTAL 18.9 g/dL; HEMOGLOBIN A1C 1.46 g/dL; HEMOGLOBIN A1C % 9.2 % (4.6-6.2)
[2018-03-13] MEDS: ONDANSETRON 4 MG/2 ML VIAL IVP PRN ×2 (17:00→22:59)
[2018-03-13] MEDS: SODIUM CHLORIDE 0.9% 1,000 ML IV SCH (17:10)
[2018-03-13] MEDS: INSULIN ASPART 300 UNIT/3 ML PEN SUBQ SCH ×3 (17:23→20:58)
[2018-03-13] MEDS: SODIUM CHLORIDE FLUSH 0.9% 10 ML SYRINGE IVP SCH (17:24)
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
[2018-03-13] MEDS: PIPERACILLIN/TAZOBACTAM 3.375 GM in SODIUM CHLORIDE 0.9% MINIBAG 100 ML IV SCH (17:50)
[2018-03-13 18:54] LABS: MUDS CUTOFF CONCENTRATIONS CUTOFF CONC BELOW:
[2018-03-13 19:08] LABS: AMPHETAMINE SCREEN,URINE NEGATIVE (NEGATIVE); BENZODIAZEPINES SCREEN, URINE NEGATIVE (NEGATIVE); COCAINE SCREEN URINE NEGATIVE (NEGATIVE); METHADONE SCREEN, URINE NEGATIVE (NEGATIVE); METHAMPHETAMINES SCREEN, URINE NEGATIVE (NEGATIVE); OPIATE SCREEN, URINE NEGATIVE (NEGATIVE); OXYCODONE SCREEN, URINE NEGATIVE (NEGATIVE); PROPOXYPHENE SCREEN, URINE NEGATIVE (NEGATIVE); TRICYCLIC ANTIDEPRESSANT,URINE NEGATIVE (NEGATIVE)
[2018-03-13] MEDS: amLODIPine 5 MG TABLET PO SCH (20:00)
[2018-03-13] MEDS: HYDROmorphone 1 MG/ML CARPUJECT IVP PRN ×2 (20:00→22:55)
[2018-03-13] MEDS ORDERED: INSULIN GLARGINE 300 UNIT/3 ML PEN SUBQ SCH (21:00)
[2018-03-14] MEDS: PIPERACILLIN/TAZOBACTAM 3.375 GM in SODIUM CHLORIDE 0.9% MINIBAG 100 ML IV SCH ×4 (00:29→18:36)
[2018-03-14] MEDS: ALBUTEROL NEB 2.5 MG/3 ML INH PRN ×2 (00:49→20:00)
[2018-03-14] MEDS: HYDROmorphone 1 MG/ML CARPUJECT IVP PRN ×6 (01:09→22:07)
[2018-03-14] MEDS: SODIUM CHLORIDE FLUSH 0.9% 10 ML SYRINGE IVP SCH ×3 (02:44→17:02)
[2018-03-14] MEDS: ONDANSETRON ODT 4 MG TABLET TL PRN (03:51)
[2018-03-14] MEDS: SODIUM CHLORIDE 0.9% 1,000 ML IV SCH ×3 (03:57→20:55)
[2018-03-14 05:41] LABS: BASOPHILS % (AUTO) 0.5 %; HGB - HEMOGLOBIN 15.2 g/dL (14.0-18.0); LYMPHOCYTES % (AUTO) 2.6 %; MEAN CORPUSCULAR HEMOGLOBIN 29.3 pg (27.0-31.0); MEAN CORPUSCULAR HGB CONC 33.3 g/dL (32.0-36.0); MEAN CORPUSCULAR VOLUME 87.9 fL (80.0-94.0); MEAN PLATELET VOLUME 9.1 fL (7.4-11.4); MONOCYTES % (AUTO) 7.2 %; NEUTROPHILS % (AUTO) 89.7 %; PLT - PLATELET COUNT 195 10^3/uL (130-450); RED BLOOD COUNT 5.19 10^6/uL (4.70-6.10); RED CELL DISTRIBUTION WIDTH 13.4 % (12.0-15.0); WHITE BLOOD COUNT 23.8 x10^3/uL (4.8-10.8)
[2018-03-14 05:48] LABS: CALCIUM 8.3 mg/dL (8.5-10.3)
[2018-03-14 05:49] LABS: ABNORMAL LYMPHS % (MANUAL) 0 %
[2018-03-14 06:08] LABS: BAND NEUTROPHILS % (MANUAL) 4 %; DIFFERENTIAL COMMENT MANUAL DIFFERENTIAL; LYMPHOCYTES # (MANUAL) 1.2 10^3/uL (1.5-3.5); LYMPHOCYTES % (MANUAL) 5 %; MONOCYTES # (MANUAL) 2.4 10^3/uL (0.0-1.0); NEUTROPHILS # (MANUAL) 20.2 10^3/uL (1.5-6.6); NEUTROPHILS % (MANUAL) 81 %; PLATELET ESTIMATE, MANUAL NORMAL (130-450,000) (NORMAL); RBC MORPHOLOGY (MULTIPLE) NORMAL APPEARANCE (NORMAL)
[2018-03-14] MEDS: ONDANSETRON 4 MG/2 ML VIAL IVP PRN ×3 (06:53→18:31)
[2018-03-14] MEDS ORDERED: INSULIN REGULAR HUMAN 100 UNIT/1 ML 10 ML MDV SUBQ SCH ×2 (08:00→14:48)
[2018-03-14] MEDS: INSULIN ASPART 300 UNIT/3 ML PEN SUBQ SCH ×4 (09:25→20:56)
[2018-03-14] MEDS: SODIUM CHLORIDE FLUSH 0.9% 10 ML SYRINGE IVP PRN ×2 (09:53→18:31)
[2018-03-14] MEDS ORDERED: SINCALIDE 5 MCG VIAL ONE (13:03)
--- NOTE | 2018-03-14 13:46 | MRI Report ---
Reason: recurrent epigastric pain, w wo stones Procedure Date: 03/14/2018 Accession Number: [id number] / [id number] Procedure: MRI - MRCP W/O CPT Code: FULL RESULT: EXAM: MR ABDOMEN WITHOUT CONTRAST (MR CHOLANGIOPANCREATOGRAPHY) EXAM DATE: 03/14/2018 11:16 AM. CLINICAL HISTORY: Epigastric pain. COMPARISON: ABDOMEN LIMITED 03/13/2018 11:48 AM ABDOMEN/PELVIS W/ 03/13/2018 12:52 PM. TECHNIQUE: Multiplanar breath-hold T1 and T2 sequences obtained through the abdomen on an MR scanner. Dedicated 2D and 3D MRCP sequences obtained through the biliary and pancreatic ducts. No intravenous contrast given. FINDINGS: Lung Bases: The lung bases are clear. Liver: Fatty change of the liver is seen. The liver is mildly enlarged measuring 18.8 cm in length. No discrete lesion or mass is definitively seen on noncontrast imaging. Bile ducts: There is no intrahepatic or extrahepatic biliary dilatation. The common bile duct measures up to 6 mm and tapers smoothly distally. No stones, strictures, or masses are evident. Gallbladder: The gallbladder is partially distended and appears normal with no wall thickening or stone. Pancreas: The pancreas appears normal with no mass. The pancreatic duct measures 1 mm in diameter and appears normal with no stone or stricture. Spleen: The spleen appears normal. Kidneys and Adrenals: As before, there is asymmetric edema and small free fluid seen in the retroperitoneum surrounding the left kidney. Fluid has slightly increased in the interval. There is no hydronephrosis identified. Mild atrophy of the right kidney is again seen. A small cyst in the upper pole is again noted. The adrenals appear normal. Bowel: The visualized bowel loops are unremarkable. Retroperitoneum: Edema along the left retroperitoneum is again noted. Infrarenal abdominal aortic aneurysm is also again seen measuring up to 3.6 cm. IMPRESSION: 1. No cholelithiasis, choledocholithiasis, or biliary dilation. 2. Increasing edema/small free fluid in the left retroperitoneum surrounding the left kidney. No hydronephrosis. Findings remain nonspecific. Correlate for pyelonephritis. 3. Mild atrophy of the right kidney and small cyst. 4. Infrarenal abdominal aortic aneurysm up to 3.6 cm. 5. Mild hepatomegaly and fatty liver. RADIA
[2018-03-14] MEDS ORDERED: SODIUM CHLORIDE 0.9% IV ONE (15:31)
[2018-03-14] MEDS ORDERED: SINCALIDE IV ONE (15:31)
--- NOTE | 2018-03-14 15:42 | Nuclear Medicine Report ---
Reason: recurrent epigastric pain w wo stones Procedure Date: 03/14/2018 Accession Number: [id number] / [id number] Procedure: NM - Hepatobiliary HIDA w/ Rx CPT Code: FULL RESULT: EXAM: HEPATOBILIARY SCAN WITH CCK/KINEVAC ADMINISTRATION EXAM DATE: 03/14/2018 03:10 PM. CLINICAL HISTORY: Recurrent epigastric pain without calculi. COMPARISON: ABDOMEN/PELVIS W/ 03/13/2018 12:52 PM. TECHNIQUE: Following the intravenous administration of 5.4 mCi of Tc99m Mebrofenin, a hepatobiliary scan was done centered on the liver and gallbladder in multiple sequential images and projections. Following the intravenous administration of 1.2 mcg of CCK/ Kinevac over the course of approximately 60 minutes, dynamic imaging was done and the gallbladder ejection fraction was calculated. FINDINGS: Normal extraction of tracer from the blood pool indicating normal hepatocellular function. The liver size and shape is grossly within normal limits. Appearance of tracer in the biliary tree as early as 15 minutes, within normal limits. Appearance of tracer in the small bowel as early as 20 minutes, within normal limits. There is no tracer in the gallbladder at the end of 60 minutes. After approximately 90 minutes, tracer fills the gallbladder. With CCK administration, the gallbladder demonstrates an effective contraction. The gallbladder ejection fraction is calculated to be 78%, well above the lower limit of normal of 38% for a 60-minute injection. IMPRESSION: 1. Patent cystic duct. 2. Patent common bile duct. 3. Negative for acute or chronic cholecystitis. 4. Gallbladder ejection fraction of 78%. RADIA
[2018-03-14] MEDS: POLYETHYLENE GLYCOL 3350 17 GM PACKET PO SCH (16:11)
[2018-03-14] MEDS: amLODIPine 5 MG TABLET PO SCH ×2 (16:18→20:55)
[2018-03-14] MEDS: LISINOPRIL 20 MG TABLET PO SCH (16:19)
--- NOTE | 2018-03-14 19:12 | PROVIDER PROGRESS NOTE ---
Subjective - Prog Note Date Prog Note Date: 03/15/18 Prog Note Time: 18:00 - Subjective Pt reports feeling: No change Subjective: He continues to be miserable with periumbilical and epigastric pain. It is not colicky. It comes and stays for 20-30 minutes and then goes away. But it will not go away. When episode of emesis. He has had the MRCP which was negative. There is no ductal dilatation. No distortion of pancreatic or intrahepatic ductal anatomy. He is CCK HIDA scan induced pain with the injection of CCK but his ejection fraction is normal. His blood cultures have grown out gram-negative bacilli. Early identification is that of Proteus. He has not had any temperature rise while here. Objective - Vital Signs/Intake & Output Vital Signs: Vital Signs x48h Temp Pulse Resp BP Pulse Ox 03/14/18 16:23 36.9 C 94 16 141/83 H 96 Intake & Output: Intake & Output 03/11/18 03/12/18 03/13/18 03/14/18 23:59 23:59 23:59 23:59 Intake Total 3910 1700.000 Output Total 1600 2000 Balance 2310 -300.000 - Objective General Appearance: positive: Alert, Moderate distress (From his abdominal pain. He is miserable just getting up out of bed to walk to the bathroom because his belly hurts.) Eyes Bilateral: positive: PERRL, EOMI ENT: positive: Pharynx nml Neck: positive: No JVD. negative: Stiff neck Respiratory: positive: Chest non-tender. negative: Wheezes, Rales, Rhonchi Cardiovascular: positive: Regular rate & rhythm. negative: Gallop/S4, Friction rub Abdomen: positive: No organomegaly, Nml bowel sounds, Tenderness. negative: Guarding, Rebound Skin: positive: Warm, Dry Extremities: positive: Full ROM, Pedal edema Neurologic/Psychiatric: positive: Oriented x3, CN's nml (2-12), Motor nml - Lab Results Fish Bones: 03/15/18 04:55 03/15/18 04:55 Other Labs: Lab Results x24hrs 03/14/18 03/14/18 03/14/18 Range/Units 17:18 14:31 06:18 WBC (4.8-10.8) x10^3/uL RBC (4.70-6.10) 10^6/uL Hgb (14.0-18.0) g/dL Hct (42.0-52.0) % MCV (80.0-94.0) fL MCH (27.0-31.0) pg MCHC (32.0-36.0) g/dL RDW (12.0-15.0) % Plt Count (130-450) 10^3/uL MPV (7.4-11.4) fL Neut # (Auto) Lymph # (Auto) [place] # (Auto) Eos # (Auto) Baso # (Auto) Absolute Nucleated RBC Total Counted Band Neuts % (Manual) (0 - 10) % Abnorm Lymph % (Manual) % Nucleated RBC % Neutrophils # (Manual) (1.5-6.6) 10^3/uL Lymphocytes # (Manual) (1.5-3.5) 10^3/uL Monocytes # (Manual) (0.0-1.0) 10^3/uL Eosinophils # (Manual) (0-0.7) 10^3/uL Basophils # (Manual) (0-0.1) 10^3/uL Differential Comment Platelet Estimate (NORMAL) RBC Morph Micro Appear (NORMAL) Sodium (135-145) mmol/L Potassium (3.5-5.0) mmol/L Chloride (101-111) mmol/L Carbon Dioxide (21-32) mmol/L Anion Gap (6-13) BUN (6-20) mg/dL Creatinine (0.6-1.2) mg/dL Estimated GFR (MDRD) (>89) Glucose (70-100) mg/dL POC Whole Bld Glucose 288 H 266 H 251 H (70 - 100) mg/dL Calcium (8.5-10.3) mg/dL 03/14/18 03/14/18 03/14/18 Range/Units 05:24 05:24 01:13 WBC 23.8 H (4.8-10.8) x10^3/uL RBC 5.19 (4.70-6.10) 10^6/uL Hgb 15.2 (14.0-18.0) g/dL Hct 45.7 (42.0-52.0) % MCV 87.9 (80.0-94.0) fL MCH 29.3 (27.0-31.0) pg MCHC 33.3 (32.0-36.0) g/dL RDW 13.4 (12.0-15.0) % Plt Count 195 (130-450) 10^3/uL MPV 9.1 (7.4-11.4) fL Neut # (Auto) Not Reportable Lymph # (Auto) Not Reportable [place] # (Auto) Not Reportable Eos # (Auto) Not Reportable Baso # (Auto) Not Reportable Absolute Nucleated RBC Not Reportable Total Counted 100 Band Neuts % (Manual) 4 (0 - 10) % Abnorm Lymph % (Manual) 0 % Nucleated RBC % Not Reportable Neutrophils # (Manual) 20.2 H (1.5-6.6) 10^3/uL Lymphocytes # (Manual) 1.2 L (1.5-3.5) 10^3/uL Monocytes # (Manual) 2.4 H (0.0-1.0) 10^3/uL Eosinophils # (Manual) 0.0 (0-0.7) 10^3/uL Basophils # (Manual) 0.0 (0-0.1) 10^3/uL Differential Comment MANUAL DIFFERENTIAL Platelet Estimate NORMAL (130-450,000) (NORMAL) RBC Morph Micro Appear NORMAL APPEARANCE (NORMAL) Sodium 131 L (135-145) mmol/L Potassium 3.5 (3.5-5.0) mmol/L Chloride 95 L (101-111) mmol/L Carbon Dioxide 26 (21-32) mmol/L Anion Gap 10.0 (6-13) BUN 20 (6-20) mg/dL Creatinine 1.0 (0.6-1.2) mg/dL Estimated GFR (MDRD) 77 L (>89) Glucose 263 H (70-100) mg/dL POC Whole Bld Glucose 280 H (70 - 100) mg/dL Calcium 8.3 L (8.5-10.3) mg/dL 03/13/18 Range/Units 20:54 WBC (4.8-10.8) x10^3/uL RBC (4.70-6.10) 10^6/uL Hgb (14.0-18.0) g/dL Hct (42.0-52.0) % MCV (80.0-94.0) fL MCH (27.0-31.0) pg MCHC (32.0-36.0) g/dL RDW (12.0-15.0) % Plt Count (130-450) 10^3/uL MPV (7.4-11.4) fL Neut # (Auto) Lymph # (Auto) [place] # (Auto) Eos # (Auto) Baso # (Auto) Absolute Nucleated RBC Total Counted Band Neuts % (Manual) (0 - 10) % Abnorm Lymph % (Manual) % Nucleated RBC % Neutrophils # (Manual) (1.5-6.6) 10^3/uL Lymphocytes # (Manual) (1.5-3.5) 10^3/uL Monocytes # (Manual) (0.0-1.0) 10^3/uL Eosinophils # (Manual) (0-0.7) 10^3/uL Basophils # (Manual) (0-0.1) 10^3/uL Differential Comment Platelet Estimate (NORMAL) RBC Morph Micro Appear (NORMAL) Sodium (135-145) mmol/L Potassium (3.5-5.0) mmol/L Chloride (101-111) mmol/L Carbon Dioxide (21-32) mmol/L Anion Gap (6-13) BUN (6-20) mg/dL Creatinine (0.6-1.2) mg/dL Estimated GFR (MDRD) (>89) Glucose (70-100) mg/dL POC Whole Bld Glucose 318 H (70 - 100) mg/dL Calcium (8.5-10.3) mg/dL ABX Reporting Has patient been on IV antibiotics over the past 48 hours?: Yes Sepsis Event Note (H) - Sepsis Criteria Sepsis Criteria: Recorded Heart Rate greater than 90 bpm, WBC count greater than 10% bands, WBC count greater than 12,000 or less than 4000, Metabolic: lactate > 2 mmol/L Assessment/Plan - Problem List (1) SIRS (systemic inflammatory response syndrome) Impression: He has tachycardia, elevated white cell count, elevated lactic acid in association with abdominal pain. No real fever even though he felt like he had a fever at home. No source of infection identified.Proteus bacteremia now identified. Plan: Changed to inpatient status Single agent zosyn empirically. Day #2 No elevated temperature overnight Extensive reevaluation of his abdominal pain: MRCP, ultrasound of the abdomen, CCK HIDA, CT of the abdomen. Thing that I am seeing is stranding and infla mmation in the left kidney indicating possible Proteus pyelonephritis. But that would not give him epigastric pain or periumbilical pain. CBC is responding and slowly coming down General surgery has already consulted. Not a surgical candidate (2) Right upper quadrant abdominal pain Conclusion/Plan: This patient has a history of recurrent abdominal pain. Differential diagnosis in the past has included pancreatitis, gastric ulcers/duodenal ulcer, cyclical vomitting syndrome. He appears to have a fatty liver. Gallstones come and go depending on which ultrasound is done. Current CT of the abdomen is unremarkable or unchanged from previous CTs. Mild left perinephric stranding. Current ultrasound has no stones and no ductal dilatation. Liver enzymes are normal. Bilirubin is mildly elevated but is chronically mildly elevated. The only thing that brought him in this time and that he feels is different is that he feels that he had severe coldness and possible fever at home that he had not had before. Differential diagnosis continues to be duodenal ulcer, chronic pancreatitis this low-grade, acalculous cholecystitis, cholecystitis with a stone in the past. He has had several CTs of the abdomen, several ultrasounds. Plan: MRCP And CCK HIDA scan were done and normal Clear liquid diet To continue. He does not have much appetite. Please follow-up with an EGD with general surgery Empiric proton pump inhibitor (this gentleman does take nonsteroidals on a regular basis) (3) Uncontrolled type 2 diabetes mellitus with diabetic neuropathy Conclusion/Plan: with hyperglycemia and on correction use of insulin. Plan: A1c is elevated., Long but gentle and directed talk at the overall prognosis fo r himself. He readily acknowledges he is just not can exercise. He does not have the gumption, and he also does not have the money to go to something like pool therapy. And regular exercise would be very painful for his back. He also feels like his income is limited and that he cannot do a good diet. Started insulin eating sliding scale. I had initially reduce Lantus from 90-70 units, will go back up to 90 units because glucose Today his glucose has been 280, 251, 266, 288 Continue fixed dose insulin before meals but also sliding scale Nutrition consult (4) Elevated white blood cell count Conclusion/Plan: He has chronically elevated white cell count. Granted this is the highest is ever been. I would strongly recommend a pathology review of the smear. If that is all indicative of a pathology that needs to be investigated, consider peripheral flow cytometry. He should probably get this done when he is not having an elevated white cell count in association with possible fever and infection. Qualifiers: Leukocytosis type: unspecified Qualified Code(s): D72.829 - Elevated white blood cell count, unspecified (5) Uncontrolled hypertension Conclusion/Plan: He is on an TERRANCE inhibitor. In reviewing his visits with us he is always elevated. Plan: Add Norvasc (6) Hyperlipidemia associated with type 2 diabetes mellitus Conclusion/Plan: He is not on a statin. Plan: Start Lipitor 10 mg a day (7) Full code status Conclusion/Plan: He says that as long as he can think and talk he wants to be kept alive. No matter home but is able to use. When I postulated a scenario of him living in a half-way facility, paralyzed, with tube feeding, completely dependent on of the people to bathe him, feed him, changes diaper, he said he still wanted to be alive as long as he could talk, think, and have memory. If he lost his memory and did not know where he was we could let him go. (8) Hyponatremia Conclusion/Plan: suspect dehydration. willl give 0.9 NS lower today at 129 from 132.
[2018-03-14] MEDS: INSULIN GLARGINE 300 UNIT/3 ML PEN SUBQ SCH (20:57)
[2018-03-15] MEDS: PIPERACILLIN/TAZOBACTAM 3.375 GM in SODIUM CHLORIDE 0.9% MINIBAG 100 ML IV SCH ×5 (00:03→23:44)
[2018-03-15] MEDS: ONDANSETRON ODT 4 MG TABLET TL PRN (00:03)
[2018-03-15] MEDS: SODIUM CHLORIDE FLUSH 0.9% 10 ML SYRINGE IVP SCH ×3 (01:05→17:09)
[2018-03-15] MEDS: HYDROmorphone 1 MG/ML CARPUJECT IVP PRN ×5 (02:13→23:41)
[2018-03-15 05:02] LABS: BASOPHILS # (AUTO) 0.1 10^3/uL (0.0-0.1); BASOPHILS % (AUTO) 0.4 %; EOSINOPHILS % (AUTO) 0.3 %; HGB - HEMOGLOBIN 14.6 g/dL (14.0-18.0); MEAN CORPUSCULAR HEMOGLOBIN 29.2 pg (27.0-31.0); MEAN CORPUSCULAR HGB CONC 33.4 g/dL (32.0-36.0); MEAN CORPUSCULAR VOLUME 87.2 fL (80.0-94.0); MEAN PLATELET VOLUME 8.9 fL (7.4-11.4); MONOCYTES # (AUTO) 1.8 10^3/uL (0.0-1.0); MONOCYTES % (AUTO) 10.8 %; NEUTROPHILS # (AUTO) 13.9 10^3/uL (1.5-6.6); NEUTROPHILS % (AUTO) 82.5 %; PLT - PLATELET COUNT 185 10^3/uL (130-450); RED BLOOD COUNT 4.99 10^6/uL (4.70-6.10); RED CELL DISTRIBUTION WIDTH 13.5 % (12.0-15.0); WHITE BLOOD COUNT 16.8 x10^3/uL (4.8-10.8)
[2018-03-15 05:12] LABS: CALCIUM 8.1 mg/dL (8.5-10.3); CREATININE 0.8 mg/dL (0.6-1.2)
[2018-03-15] MEDS ORDERED: INSULIN ASPART 300 UNIT/3 ML PEN SUBQ SCH (08:00)
[2018-03-15] MEDS: SODIUM CHLORIDE 0.9% 1,000 ML IV SCH ×2 (08:16→21:06)
[2018-03-15] MEDS: LISINOPRIL 20 MG TABLET PO SCH (08:16)
[2018-03-15] MEDS: POLYETHYLENE GLYCOL 3350 17 GM PACKET PO SCH (08:16)
[2018-03-15] MEDS: INSULIN ASPART 300 UNIT/3 ML PEN SUBQ SCH ×6 (08:17→21:09)
[2018-03-15] MEDS: ONDANSETRON 4 MG/2 ML VIAL IVP PRN ×2 (12:51→18:52)
--- NOTE | 2018-03-15 17:58 | PROVIDER PROGRESS NOTE ---
Subjective - Prog Note Date Prog Note Date: 03/15/18 Prog Note Time: 14:00 - Subjective Subjective: just feels bad. no reason. belly pain is mild now but still there hurts all over to move. occ gets nauseated. Objective - Vital Signs/Intake & Output Reviewed Vital Signs: Yes Vital Signs: Vital Signs x48h Temp Pulse Resp BP BP Pulse Ox 03/15/18 15:38 36.8 C 81 24 141/86 H 96 03/15/18 11:18 37.0 C 83 18 143/85 H 95 Intake & Output: Intake & Output 03/12/18 03/13/18 03/14/18 03/15/18 23:59 23:59 23:59 23:59 Intake Total 3910 3780.000 3536.666 Output Total 1600 2600 3700 Balance 2310 1180.000 -163.334 - Objective General Appearance: positive: Alert, Mild distress Eyes Bilateral: positive: PERRL Neck: positive: No JVD. negative: Stiff neck, Carotid bruit Respiratory: positive: Chest non-tender. negative: Wheezes, Rales, Rhonchi Cardiovascular: positive: Regular rate & rhythm, Systolic murmur. negative: Gallop/S4, Friction rub Skin: positive: Warm, Dry Extremities: positive: Full ROM, No pedal edema Neurologic/Psychiatric: positive: Oriented x3, CN's nml (2-12), Motor nml, Sensation nml - Lab Results Fish Bones: 03/16/18 04:45 03/16/18 05:00 Other Labs: Lab Results x24hrs 03/15/18 03/15/18 03/15/18 Range/Units 16:37 11:03 07:19 WBC (4.8-10.8) x10^3/uL RBC (4.70-6.10) 10^6/uL Hgb (14.0-18.0) g/dL Hct (42.0-52.0) % MCV (80.0-94.0) fL MCH (27.0-31.0) pg MCHC (32.0-36.0) g/dL RDW (12.0-15.0) % Plt Count (130-450) 10^3/uL MPV (7.4-11.4) fL Neut # (Auto) (1.5-6.6) 10^3/uL Lymph # (Auto) (1.5-3.5) 10^3/uL [place] # (Auto) (0.0-1.0) 10^3/uL Eos # (Auto) (0.0-0.7) 10^3/uL Baso # (Auto) (0.0-0.1) 10^3/uL Absolute Nucleated RBC x10^3/uL Nucleated RBC % /100WBC Sodium (135-145) mmol/L Potassium (3.5-5.0) mmol/L Chloride (101-111) mmol/L Carbon Dioxide (21-32) mmol/L Anion Gap (6-13) BUN (6-20) mg/dL Creatinine (0.6-1.2) mg/dL Estimated GFR (MDRD) (>89) Glucose (70-100) mg/dL POC Whole Bld Glucose 154 H 215 H 230 H (70 - 100) mg/dL Lactic Acid (0.5-2.2) mmol/L Calcium (8.5-10.3) mg/dL 03/15/18 03/15/18 03/15/18 Range/Units 04:55 04:55 04:55 WBC 16.8 H (4.8-10.8) x10^3/uL RBC 4.99 (4.70-6.10) 10^6/uL Hgb 14.6 (14.0-18.0) g/dL Hct 43.6 (42.0-52.0) % MCV 87.2 (80.0-94.0) fL MCH 29.2 (27.0-31.0) pg MCHC 33.4 (32.0-36.0) g/dL RDW 13.5 (12.0-15.0) % Plt Count 185 (130-450) 10^3/uL MPV 8.9 (7.4-11.4) fL Neut # (Auto) 13.9 H (1.5-6.6) 10^3/uL Lymph # (Auto) 1.0 L (1.5-3.5) 10^3/uL [place] # (Auto) 1.8 H (0.0-1.0) 10^3/uL Eos # (Auto) 0.0 (0.0-0.7) 10^3/uL Baso # (Auto) 0.1 (0.0-0.1) 10^3/uL Absolute Nucleated RBC 0.00 x10^3/uL Nucleated RBC % 0.0 /100WBC Sodium 129 L (135-145) mmol/L Potassium 3.5 (3.5-5.0) mmol/L Chloride 95 L (101-111) mmol/L Carbon Dioxide 24 (21-32) mmol/L Anion Gap 10.0 (6-13) BUN 16 (6-20) mg/dL Creatinine 0.8 (0.6-1.2) mg/dL Estimated GFR (MDRD) 99 (>89) Glucose 207 H (70-100) mg/dL POC Whole Bld Glucose (70 - 100) mg/dL Lactic Acid 1.3 (0.5-2.2) mmol/L Calcium 8.1 L (8.5-10.3) mg/dL 03/15/18 03/14/18 03/14/18 Range/Units 00:18 20:31 19:25 WBC (4.8-10.8) x10^3/uL RBC (4.70-6.10) 10^6/uL Hgb (14.0-18.0) g/dL Hct (42.0-52.0) % MCV (80.0-94.0) fL MCH (27.0-31.0) pg MCHC (32.0-36.0) g/dL RDW (12.0-15.0) % Plt Count (130-450) 10^3/uL MPV (7.4-11.4) fL Neut # (Auto) (1.5-6.6) 10^3/uL Lymph # (Auto) (1.5-3.5) 10^3/uL [place] # (Auto) (0.0-1.0) 10^3/uL Eos # (Auto) (0.0-0.7) 10^3/uL Baso # (Auto) (0.0-0.1) 10^3/uL Absolute Nucleated RBC x10^3/uL Nucleated RBC % /100WBC Sodium (135-145) mmol/L Potassium (3.5-5.0) mmol/L Chloride (101-111) mmol/L Carbon Dioxide (21-32) mmol/L Anion Gap (6-13) BUN (6-20) mg/dL Creatinine (0.6-1.2) mg/dL Estimated GFR (MDRD) (>89) Glucose (70-100) mg/dL POC Whole Bld Glucose 246 H 269 H (70 - 100) mg/dL Lactic Acid 1.1 (0.5-2.2) mmol/L Calcium (8.5-10.3) mg/dL Sepsis Event Note (H) - Sepsis Criteria Sepsis Criteria: Recorded Heart Rate greater than 90 bpm, WBC count greater than 10% bands, WBC count greater than 12,000 or less than 4000, Metabolic: lactate > 2 mmol/L Assessment/Plan - Problem List (1) SIRS (systemic inflammatory response syndrome) Impression: He has tachycardia, elevated white cell count, elevated lactic acid in as sociation with abdominal pain. No real fever even though he felt like he had a fever at home. No source of infection identified. Proteus bacteremia now identified. Plan: Changed to inpatient status from OBV status on Day #2 Single agent zosyn empirically. Day #3. Covers proteus but source still not clear other than stranding of left kidney. No elevated temperature overnight Extensive reevaluation of his abdominal pain: MRCP, ultrasound of the abdomen, CCK HIDA, CT of the abdomen. Thing that I am seeing is stranding and inflammation in the left kidney indicating possible Proteus pyelonephritis. But that would not give him epigastric pain or periumbilical pain. CBC is responding and slowly coming down General surgery has already consulted. Not a surgical candidate (2) Right upper quadrant abdominal pain Conclusion/Plan: This patient has a history of recurrent abdominal pain. Differential diagnosis in the past has included pancreatitis, gastric ulcers/duodenal ulcer, cyclical vomitting syndrome. He appears to have a fatty liver. Gallstones come and go depending on which ultrasound is done. Current CT of the abdomen is unremarkable or unchanged from previous CTs. Mild left perinephric stranding. Current ultrasound has no stones and no ductal dilatation. Liver enzymes are normal. Bilirubin is mildly elevated but is chronically mildly elevated. The only thing that brought him in this time and that he feels is different is that he feels that he had severe coldness and possible fever at home that he had not had before. Differential diagnosis continues to be duodenal ulcer, chronic pancreatitis this low-grade, acalculous cholecystitis, cholecystitis with a stone in the past. He has had several CTs of the abdomen, several ultrasounds. Plan: MRCP And CCK HIDA scan were done and normal Clear liquid diet To continue. He does not have much appetite. Please follow-up with an EGD with general surgery Empiric proton pump inhibitor (this gentleman does take nonsteroidals on a regular basis) (3) Uncontrolled type 2 diabetes mellitus with diabetic neuropathy Conclusion/Plan: with hyperglycemia and on shelter use of insulin. Plan: A1c is elevated., Long but gentle and directed talk at the overall prognosis for himself. He readily acknowledges he is just not can exercise. He does not have the gumption, and he also does not have the money to go to something like pool therapy. And regular exercise would be very painful for his back. He also feels like his income is limited and that he cannot do a good diet. Started insulin eating sliding scale. I had initially reduce Lantus from 90-70 units, will go back up to 90 units because glucose Today his glucose has been 280, 251, 266, 288 Continue fixed dose insulin before meals but also sliding scale Nutrition consult (4) Elevated white blood cell count Conclusion/Plan: He has chronically elevated white cell count. Granted this is the highest is ever been. I would strongly recommend a pathology review of the smear. If that is all indicative of a pathology that needs to be investigated, consider peripheral flow cytometry. He should probably get this done when he is not having an elevated white cell count in association with possible fever and infection. Qualifiers: Leukocytosis type: unspecified Qualified Code(s): D72.829 - Elevated white blood cell count, unspecified (5) Uncontrolled hypertension Conclusion/Plan: He is on an TERRANCE inhibitor. In reviewing his visits with us he is always elevated. Plan: Add Norvasc (6) Hyperlipidemia associated with type 2 diabetes mellitus Conclusion/Plan: He is not on a statin. Plan: Start Lipitor 10 mg a day (7) Full code status Conclusion/Plan: He says that as long as he can think and talk he wants to be kept alive. No matter home but is able to use. When I postulated a scenario of him living in a prison facility, paralyzed, with tube feeding, completely dependent on of the people to bathe him, feed him, changes diaper, he said he still wanted to be alive as long as he could talk, think, and have memory. If he lost his m linh and did not know where he was we could let him go. (8) Hyponatremia Conclusion/Plan: suspect dehydration. willl give 0.9 NS lower today at 129 from 132.
[2018-03-15] MEDS: SODIUM CHLORIDE FLUSH 0.9% 10 ML SYRINGE IVP PRN (18:06)
[2018-03-15] MEDS: INSULIN GLARGINE 300 UNIT/3 ML PEN SUBQ SCH (21:07)
[2018-03-15] MEDS: amLODIPine 5 MG TABLET PO SCH (21:07)
[2018-03-16] MEDS: SODIUM CHLORIDE FLUSH 0.9% 10 ML SYRINGE IVP SCH ×3 (02:07→17:29)
[2018-03-16] MEDS: HYDROmorphone 1 MG/ML CARPUJECT IVP PRN ×5 (03:09→21:19)
[2018-03-16] MEDS: PIPERACILLIN/TAZOBACTAM 3.375 GM in SODIUM CHLORIDE 0.9% MINIBAG 100 ML IV SCH (03:32)
[2018-03-16 05:08] LABS: BASOPHILS # (AUTO) 0.1 10^3/uL (0.0-0.1); BASOPHILS % (AUTO) 0.7 %; EOSINOPHILS # (AUTO) 0.1 10^3/uL (0.0-0.7); EOSINOPHILS % (AUTO) 0.7 %; HGB - HEMOGLOBIN 14.2 g/dL (14.0-18.0); LYMPHOCYTES # (AUTO) 1.5 10^3/uL (1.5-3.5); LYMPHOCYTES % (AUTO) 12.6 %; MEAN CORPUSCULAR HEMOGLOBIN 28.8 pg (27.0-31.0); MEAN CORPUSCULAR HGB CONC 32.6 g/dL (32.0-36.0); MEAN CORPUSCULAR VOLUME 88.4 fL (80.0-94.0); MEAN PLATELET VOLUME 8.8 fL (7.4-11.4); MONOCYTES # (AUTO) 1.4 10^3/uL (0.0-1.0); MONOCYTES % (AUTO) 12.6 %; NEUTROPHILS # (AUTO) 8.5 10^3/uL (1.5-6.6); NEUTROPHILS % (AUTO) 73.4 %; PLT - PLATELET COUNT 198 10^3/uL (130-450); RED BLOOD COUNT 4.91 10^6/uL (4.70-6.10); RED CELL DISTRIBUTION WIDTH 13.2 % (12.0-15.0); WHITE BLOOD COUNT 11.5 x10^3/uL (4.8-10.8)
[2018-03-16 05:18] LABS: CALCIUM 8.2 mg/dL (8.5-10.3); CREATININE 0.8 mg/dL (0.6-1.2)
[2018-03-16] MEDS: LISINOPRIL 20 MG TABLET PO SCH (08:19)
[2018-03-16] MEDS: ONDANSETRON 4 MG/2 ML VIAL IVP PRN ×2 (08:20→17:29)
[2018-03-16] MEDS: SODIUM CHLORIDE 0.9% 1,000 ML IV SCH ×2 (08:21→20:00)
[2018-03-16] MEDS: INSULIN ASPART 300 UNIT/3 ML PEN SUBQ SCH ×7 (08:21→21:22)
[2018-03-16] MEDS: POLYETHYLENE GLYCOL 3350 17 GM PACKET PO SCH (08:22)
--- NOTE | 2018-03-16 10:24 | PROVIDER PROGRESS NOTE ---
Subjective - Prog Note Date Prog Note Date: 03/16/18 Prog Note Time: 10:22 Objective - Vital Signs/Intake & Output Vital Signs: Vital Signs x48h Temp Pulse Resp BP Pulse Ox 03/16/18 07:26 37.0 C 73 20 159/85 H 96 Intake & Output: Intake & Output 03/13/18 03/14/18 03/15/18 03/16/18 23:59 23:59 23:59 23:59 Intake Total 3910 3780.000 5458.333 3263.333 Output Total 1600 2600 4800 3400 Balance 2310 1180.000 658.333 -136.667 - Objective General Appearance: positive: No acute distress, Alert, Other (Tall white male, watching TV. Has his eyes and moderate the bedside. He is not eating any of his breakfast. Still having epigastric pain when he eats, and constant nausea that makes him not want to have an appetite. No diarrhea. No BM the entire time is been here.) Eyes Bilateral: positive: PERRL, EOMI ENT: positive: Pharynx nml Neck: positive: No JVD. negative: Stiff neck, Carotid bruit Respiratory: positive: Chest non-tender. negative: Wheezes, Rales, Rhonchi Cardiovascular: positive: Regular rate & rhythm. negative: Gallop/S4, Friction rub Abdomen: positive: Non-tender, No organomegaly, Nml bowel sounds, No distention, Other (He has a large, large global abdominal wall/pannus. Firm. But not rigid.) Skin: positive: Warm, Dry Extremities: positive: No pedal edema Neurologic/Psychiatric: positive: Oriented x3, CN's nml (2-12), Motor nml - Lab Results Fish Bones: 03/16/18 04:45 03/16/18 05:00 Other Labs: Lab Results x24hrs 03/16/18 03/16/18 03/16/18 Range/Units 07:20 05:00 04:45 WBC 11.5 H (4.8-10.8) x10^3/uL RBC 4.91 (4.70-6.10) 10^6/uL Hgb 14.2 (14.0-18.0) g/dL Hct 43.5 (42.0-52.0) % MCV 88.4 (80.0-94.0) fL MCH 28.8 (27.0-31.0) pg MCHC 32.6 (32.0-36.0) g/dL RDW 13.2 (12.0-15.0) % Plt Count 198 (130-450) 10^3/uL MPV 8.8 (7.4-11.4) fL Neut # (Auto) 8.5 H (1.5-6.6) 10^3/uL Lymph # (Auto) 1.5 (1.5-3.5) 10^3/uL [place] # (Auto) 1.4 H (0.0-1.0) 10^3/uL Eos # (Auto) 0.1 (0.0-0.7) 10^3/uL Baso # (Auto) 0.1 (0.0-0.1) 10^3/uL Absolute Nucleated RBC 0.01 x10^3/uL Nucleated RBC % 0.1 /100WBC Sodium 132 L (135-145) mmol/L Potassium 3.6 (3.5-5.0) mmol/L Chloride 98 L (101-111) mmol/L Carbon Dioxide 26 (21-32) mmol/L Anion Gap 8.0 (6-13) BUN 14 (6-20) mg/dL Creatinine 0.8 (0.6-1.2) mg/dL Estimated GFR (MDRD) 99 (>89) Glucose 191 H (70-100) mg/dL POC Whole Bld Glucose 135 H (70 - 100) mg/dL Calcium 8.2 L (8.5-10.3) mg/dL 03/15/18 03/15/18 03/15/18 Range/Units 20:50 16:37 11:03 WBC (4.8-10.8) x10^3/uL RBC (4.70-6.10) 10^6/uL Hgb (14.0-18.0) g/dL Hct (42.0-52.0) % MCV (80.0-94.0) fL MCH (27.0-31.0) pg MCHC (32.0-36.0) g/dL RDW (12.0-15.0) % Plt Count (130-450) 10^3/uL MPV (7.4-11.4) fL Neut # (Auto) (1.5-6.6) 10^3/uL Lymph # (Auto) (1.5-3.5) 10^3/uL [place] # (Auto) (0.0-1.0) 10^3/uL Eos # (Auto) (0.0-0.7) 10^3/uL Baso # (Auto) (0.0-0.1) 10^3/uL Absolute Nucleated RBC x10^3/uL Nucleated RBC % /100WBC Sodium (135-145) mmol/L Potassium (3.5-5.0) mmol/L Chloride (101-111) mmol/L Carbon Dioxide (21-32) mmol/L Anion Gap (6-13) BUN (6-20) mg/dL Creatinine (0.6-1.2) mg/dL Estimated GFR (MDRD) (>89) Glucose (70-100) mg/dL POC Whole Bld Glucose 182 H 154 H 215 H (70 - 100) mg/dL Calcium (8.5-10.3) mg/dL ABX Reporting Has patient been on IV antibiotics over the past 48 hours?: Yes Sepsis Event Note (H) - Sepsis Criteria Sepsis Criteria: Recorded Heart Rate greater than 90 bpm, WBC count greater than 10% bands, WBC count greater than 12,000 or less than 4000, Metabolic: lactate > 2 mmol/L Assessment/Plan - Problem List (1) Bacterial infection due to Proteus mirabilis Impression: He has tachycardia, elevated white cell count, elevated lactic acid in association with abdominal pain. No real fever even though he felt like he had a fever at home. No source of infection identified but he met criteria for S IRS. Proteus bacteremia now identified. Source of Proteus is usually isolated to an intra-abdominal or pelvic source. The only pelvic source I can identify is that of an inflamed left kidney with stranding indicating possible pyelonephritis. Radiology report recommends clinical correlation. While this gentleman did have stones a few weeks ago, he does not have any flank pain right now. No hematuria. Urine culture not indicated. But his urinalysis did have hematuria. As such,, we will treat him as a Proteus urinary tract infection but I am not convinced. Plan: Changed to inpatient status from OBV status on Day #2 Single agent zosyn empirically. Day #4. Covers proteus but source still not clear other than stranding of left kidney. No elevated temperature overnight Extensive reevaluation of his abdominal pain: MRCP, ultrasound of the abdomen, CCK HIDA, CT of the abdomen. Thing that I am seeing is stranding and inflammation in the left kidney indicating possible Proteus pyelonephritis. But that would not give him epigastric pain or periumbilical pain. CBC is responding and slowly coming down General surgery has already consulted. Not a surgical candidate (2) Right upper quadrant abdominal pain Conclusion/Plan: This patient has a history of recurrent abdominal pain. This episode of epigastric pain was about the same as before. Differential diagnosis in the past has included pancreatitis, gastric ulcers/duodenal ulcer, cyclical vomitting syndrome. He appears to have a fatty liver. Gallstones come and go depending on which ultrasound is done. Current CT of the abdomen is unremarkable or unchanged from previous CTs. Mild left perinephric stranding. Current ultrasound has no stones and no ductal dilatation. Liver enzymes are normal. Bilirubin is mildly elevated but is chronically mildly elevated. The only thing that brought him in this time and that he feels is different is that he feels th at he had severe coldness and possible fever at home that he had not had before. Differential diagnosis continues to be duodenal ulcer, chronic pancreatitis this low-grade, acalculous cholecystitis, cholecystitis with a stone in the past. He has had several CTs of the abdomen, several ultrasounds. He continues to have epigastric pain when he eats so has not eaten more than a few bites since admission. Prefers ice and water. Plan: MRCP And CCK HIDA scan were done and normal He has been on regular diet, he does not have much appetite. Will change to clear liquid again. Please follow-up with an EGD with general surgery Empiric proton pump inhibitor (this gentleman does take nonsteroidals on a regular basis) UGI tomorrow. Not available today. (3) Uncontrolled type 2 diabetes mellitus with diabetic neuropathy Conclusion/Plan: with hyperglycemia and on ocean transportation intermediary use of insulin. Plan: A1c is elevated., Long but gentle and directed talk at the overall prognosis for himself. He readily acknowledges he is just not can exercise. He does not have the gumption, and he also does not have the money to go to something like pool therapy. And regular exercise would be very painful for his back. He also feels like his income is limited and that he cannot do a good diet. Started insulin eating sliding scale. I had initially reduce Lantus from 90-70 units, will go back up to 90 units because glucose. Yesterday he had been on sliding scale coverage only. No fix doses of mealtime insulin. Lantus was 90. Late in the afternoon I did switch him to fixed dose insulin as well as sliding scale insulin and his sugars have responded. At midnight he was 182. This morning he has been 135. Nutrition consult done No changes. (4) Elevated white blood cell count Conclusion/Plan: He has chronically elevated white cell count. Granted this is the highest is ever been. I would strongly recommend a pathology review of the smear. If that is all indicative of a pathology that needs to be investigated, consider peripheral flow cytometry. He should probably get this done when he is not having an elevated white cell count in association with possible fever and infection. 30.2 > 23.8 > 16.8 > 11.5 today Qualifiers: Leukocytosis type: unspecified Qualified Code(s): D72.829 - Elevated white blood cell count, unspecified (5) Uncontrolled hypertension Conclusion/Plan: He is on an TERRANCE inhibitor. In reviewing his visits with us he is always elevated.Yesterday he was 143/85. This morning he is 159/85. The Norvasc added was 5 mg a day. Plan: Increase Norvasc to 10 mg (6) Hyperlipidemia associated with type 2 diabetes mellitus Conclusion/Plan: He is not on a statin. Plan: Start Lipitor 10 mg a day (7) Full code status Conclusion/Plan: He says that as long as he can think and talk he wants to be kept alive. No matter home but is able to use. When I postulated a scenario of him living in a alf facility, paralyzed, with tube feeding, completely dependent on of the people to bathe him, feed him, changes diaper, he said he still wanted to be alive as long as he could talk, think, and have memory. If he lost his memory and did not know where he was we could let him go. (8) Hyponatremia Conclusion/Plan: suspect dehydration. willl give 0.9 NS 132>129>132 today
[2018-03-16] MEDS: cefTRIAXone 2 GM in SODIUM CHLORIDE 0.9% MINIBAG 100 ML IV SCH (12:17)
[2018-03-16] MEDS ORDERED: INSULIN GLARGINE 300 UNIT/3 ML PEN SUBQ SCH (21:00)
[2018-03-16] MEDS: amLODIPine 5 MG TABLET PO SCH (21:19)
[2018-03-16] MEDS ORDERED: DEXTROSE 5%-LACTATED RINGERS 1,000 ML IV SCH (23:55)
[2018-03-17] MEDS: HYDROmorphone 1 MG/ML CARPUJECT IVP PRN ×4 (01:50→14:34)
[2018-03-17] MEDS: SODIUM CHLORIDE FLUSH 0.9% 10 ML SYRINGE IVP SCH ×3 (01:52→14:35)
[2018-03-17] MEDS: SODIUM CHLORIDE 0.9% 1,000 ML IV SCH ×2 (03:59→13:30)
[2018-03-17 06:19] LABS: BASOPHILS # (AUTO) 0.1 10^3/uL (0.0-0.1); BASOPHILS % (AUTO) 0.6 %; EOSINOPHILS # (AUTO) 0.2 10^3/uL (0.0-0.7); EOSINOPHILS % (AUTO) 1.8 %; HGB - HEMOGLOBIN 13.9 g/dL (14.0-18.0); LYMPHOCYTES # (AUTO) 1.8 10^3/uL (1.5-3.5); LYMPHOCYTES % (AUTO) 15.2 %; MEAN CORPUSCULAR HEMOGLOBIN 28.5 pg (27.0-31.0); MEAN CORPUSCULAR HGB CONC 32.3 g/dL (32.0-36.0); MEAN CORPUSCULAR VOLUME 88.2 fL (80.0-94.0); MEAN PLATELET VOLUME 8.4 fL (7.4-11.4); MONOCYTES # (AUTO) 1.6 10^3/uL (0.0-1.0); MONOCYTES % (AUTO) 13.8 %; NEUTROPHILS # (AUTO) 8.1 10^3/uL (1.5-6.6); NEUTROPHILS % (AUTO) 68.6 %; PLT - PLATELET COUNT 219 10^3/uL (130-450); RED BLOOD COUNT 4.87 10^6/uL (4.70-6.10); RED CELL DISTRIBUTION WIDTH 12.8 % (12.0-15.0); WHITE BLOOD COUNT 11.9 x10^3/uL (4.8-10.8)
[2018-03-17 06:25] LABS: CALCIUM 8.2 mg/dL (8.5-10.3); CREATININE 0.8 mg/dL (0.6-1.2)
[2018-03-17] MEDS: ONDANSETRON 4 MG/2 ML VIAL IVP PRN ×2 (07:24→12:34)
[2018-03-17] MEDS: SODIUM CHLORIDE FLUSH 0.9% 10 ML SYRINGE IVP PRN ×2 (07:24→12:34)
--- NOTE | 2018-03-17 08:07 | Discharge Plan ---
Discharge Plan Disposition: Home, Self Care Condition: Fair Prescriptions: amLODIPine [Norvasc] 5 mg PO HS #30 tablet Levofloxacin [Levaquin] 500 mg PO DAILY #9 tablet Omeprazole 20 mg PO DAILY #30 tablet. Diet: Diabetic Activity Restrictions: Activity as Tolerated Shower Restrictions: No Driving Restrictions: No Instruction Topics: Levofloxacin tablets, Omeprazole tablets OTC, Amlodipine tablets Additional Instructions or Follow Up instructions: You were admitted to the hospital because of another episode of belly pain with nausea and vomiting. You have had several admissions before. Different things have been thought of as the cause of your pain. We have thought of pancreatitis, gallstones, and stomach ulcers. I did an extensive evaluation to evaluate your gallbladder, liver ducts and pancreas ducts. They were all normal. The next step is for you to get that EGD that has already been scheduled twice for you, but has not been followed through due to scheduling or because you just didn't want to do it. I would strongly suggest you follow through with that EGD. It is an upper endoscopy. I also did an upper GI to see if you had an esophageal spasm and esophageal erosions on the day of discharge. Please make sure you and your primary care provider review those results together. While here, your blood grew out a bacteria called Proteus. We could never figure out what the source of that was and have attributed to a left kidney infection that seems to have a little bit of inflammation on CAT scan. You also have chronic blood in your urine. Please see your primary care provider to get a referral for the EGD, and a referral for a cystoscopy to look at your bladder since it has blood in it. I have sent you home on an acid reducing pill called omeprazole. Take that every day. Your blood pressure was high here so I added Norvasc blood pressure pill. Take that every day. And finally, take the antibiotic to finish treating the Proteus. It would have been better for you to get it IV, but you were really unhappy at being in the hospital and were asking to leave. Follow a low-fat, low carbohydrate diet. Take your insulin as instructed. Goal A1c in controlling glucose is less than 7%. You were 9.2% with us. No Smoking: If you smoke, Please STOP! Call for help. Follow-up with: Frank Yee MD [Primary Care Provider] -
[2018-03-17] MEDS: INSULIN ASPART 300 UNIT/3 ML PEN SUBQ SCH ×4 (08:59→12:35)
[2018-03-17] MEDS: POLYETHYLENE GLYCOL 3350 17 GM PACKET PO SCH (08:59)
[2018-03-17] MEDS: cefTRIAXone 2 GM in SODIUM CHLORIDE 0.9% MINIBAG 100 ML IV SCH (09:00)
[2018-03-17] MEDS: LISINOPRIL 20 MG TABLET PO SCH (09:00)
[2018-03-17 15:17] VITALS: BP 180/90
--- NOTE | 2018-03-17 16:54 | XRAY Report ---
Reason: epigastric pain, w food, MRCP/US/CCK neg Procedure Date: 03/17/2018 Accession Number: [id number] / [id number] Procedure: [place] - UGI SBFT W/Air CPT Code: FULL RESULT: EXAM: UPPER GI WITH SMALL BOWEL FOLLOW-THROUGH EXAM DATE: 03/17/2018 02:26 PM. CLINICAL HISTORY: Epigastric pain, w food, MRCP/US/CCK neg. COMPARISONS: MRCP 03/14/[address] scan abdomen and pelvis 03/13/2018. TECHNIQUE: Routine double contrast upper gastrointestinal small bowel follow-through technique. Fluoroscopy Time: 7 minutes 36 seconds. Number of fluoroscopy images: 25. FINDINGS: Swallowing Mechanism: Normal oral phase and swallowing reflex. No episodes of tracheal penetration or aspiration evident. Esophageal Motility: Normal peristaltic stripping wave. Esophageal Mucosa: No ulcerations or masses. Gastroesophageal Junction: No hernia or significant reflux demonstrated with or without Valsalva maneuvers. A 13 mm barium tablet passes easily into the stomach. Stomach: Normal gastric mucosal pattern. No ulcers identified. Duodenum: Normal duodenal mucosal pattern. No ulcers or diverticula identified. Jejunum: Normal mucosal pattern. No masses or obstruction. Ileum: Normal mucosal pattern. No masses or obstruction. The ileocecal valve is patent and competent with passage of contrast into the cecum. Other: The appendix is present. IMPRESSION: Unremarkable upper GI with small bowel follow-through. RADIA
[2018-03-17] MEDS ORDERED: BARIUM SULFATE 176 GM BOTTLE PO ONE (17:14)
[2018-03-17] MEDS ORDERED: SIMETHICONE/SOD BICARB/CIT AC 1 EACH PACKET PO ONE (17:14)
--- NOTE | 2018-03-19 15:41 | DISCHARGE SUMMARY ---
Physician: Marian Rg MD DATE OF ADMISSION: 03/13/2018 DATE OF DISCHARGE: 03/17/2018 DISCHARGE DIAGNOSES 1. Right upper quadrant abdominal pain. 2. Intractable nausea and vomiting. 3. Proteus bacteremia. 4. Type 2 diabetes mellitus, uncontrolled, with hyperglycemia, and with complications of neuropathy and nephropathy. 5. Hyponatremia. DISCHARGE MEDICATIONS 1. Ventolin HFA inhaler 1-2 puffs by inhalation every 6 hours as needed. 2. Vitamin C 500 mg daily. 3. Plavix 75 mg daily. 4. Lantus SoloSTAR 90 units subcutaneous daily. 5. Humalog 15-40 units subcutaneous a.c. t.i.d. p.r.n. carb and glucose. 6. Lisinopril 10 mg daily. 7. Loratadine 10 mg daily. NEW PRESCRIPTIONS 1. Norvasc 10 mg at bedtime. 2. Levaquin 500 mg p.o. daily #9 only. 3. Omeprazole 20 mg p.o. daily. PRINCIPAL PROCEDURES 1. Abdominal ultrasound: No acute intraabdominal abnormalities identified. Fatty liver without hepatomegaly. Mild infrarenal abdominal aortic aneurysm and bilateral common iliac artery aneurysms. The gallbladder was normal without stones, wall thickening or Moore sign. 2. Abdomen and pelvis CT with slight increase in mild perinephric fat stranding surrounding the left kidney compared with 10/27/2017. No hydronephrosis. Stable atrophic right kidney and small upper pole cyst. Stable calcified atherosclerotic disease of the aorta and mild aneurysmal dilation up to 3.6 cm. 3. Chest x-ray with no acute disease. 4. MRCP with no intrahepatic or extrahepatic biliary dilatation of the bile ducts. Common bile duct was 6 mm. Fatty liver at 18.8 cm. Gallbladder was partially distended and appeared normal. Pancreas appeared normal. 5. CCK-HIDA scan: Normal extraction of tracer from the blood pool, indicating normal hepatocellular function. The tracer appeared as early as 15 minutes within the biliary tree, appeared in the bowel at 20 minutes. No tracer in the gallbladder at the end of 60 minutes. At the end of 90 minutes, tracer was in the gallbladder. CCK caused affective contraction of the gallbladder with ejection fraction of 78%. Pain by CCK was mimicked. He was having the same epigastric pain that he has had in the past. 6. Upper GI with small-bowel followthrough: Unremarkable upper GI with small- bowel followthrough. Normal mucosa of the GE junction, stomach, duodenum, jejunum and ileum. A 13 mm barium tablet passed easily into the stomach. No hiatal hernia or reflux. 7. Blood cultures growing Proteus mirabilis in 1 of 2 sets. sensitive to everything with intermediate of ampicillin. HOSPITAL COURSE: The patient is a 57-year-old, 6 feet man at 126 kg. He has been having epigastric abdominal pain that radiates to the back with painful episodes off and on since September 2015. In September 2015, he was admitted for observation. It was associated with severe nausea. He had elevated amylase and lipase to 186 and 132 respectively. White cell count was 22,000. He is not an alcoholic. Lipid panel was not elevated. He was felt to have either possible ulcer disease or pancreatitis. After an overnight stay, he responded well to simple observation with IV fluids, pain management, nausea management, and he was sent home. He was to follow up with Dr. Jenn Knox for an EGD. He says he cannot remember why he did not follow through, but in his primary care provider notes, he just did not want to do it. He continued to have nausea for 3 months then, in January 2016, returned with the same problem, only this time had specks of blood in it. He was also in DKA. Between those 2 admissions, he has also been seen in the emergency room several times with nausea, vomiting, and epigastric abdominal pain. Most recently was October 2017. With this episode, he feels it was a little different. It started after eating a peanut butter sandwich at 3 in the morning. He has insomnia, and prefers staying up at night and sleeping during the day. In the slip seat coverer hours after eating the sandwich he became very, very cold, felt like he was shaking, and nausea started around 9 a.m. It was associated with emesis. After 5 hours, he felt fine. This is all the day before discharge. Then, the night before discharge, around 5 p.m., nausea and epigastric pain returned. He is unable to keep anything down. Pain does radiate straight through the back. No diarrhea, no blood in the stool, no change in the color of his stool. His emesis did not have any blood this time. 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 In the emergency room, he was mildly hypertensive, mildly tachycardic, afebrile. Not hypoxic. Tender in the right upper quadrant, negative Moore sign. A pulsatile palpable aorta was not tender. Bilirubin was slightly elevated, but the same as it has been in the past. Lactic acid was elevated at 2.7. Workup centered around the cause of epigastric pain associated with fever. We looked for pancreatitis, perforated ulcer, cholecystitis; and in the end focused on ulcer disease with an upper GI with small-bowel followthrough. All of these studies were negative. Dr. Velasco, from General Surgery, was consulted and did not feel it was an acute abdomen and, as such, no surgery was needed. Throughout his stay, the patient did not want to eat. He liked ice, water, and the most he wanted to eat was clear fluids. He stated that if he ate something solid, burning and pain would start and then feel like food was going to stop almost as if it were in the esophagus just before it enters into the stomach, so he was avoiding eating. Sugars were controlled during his stay with up and down doses of Lantus because it is n.p.o. or on clear liquids and sliding scale. Glycosylated hemoglobin during this stay was 9.2. On the day of discharge, his glucoses went from 112 to 122 to 121. He did not have any further emesis during his stay. He was ambulating and getting up to go to the bathroom on his own. Proteus grew out in his blood cultures. Proteus is usually from pelvic pathology or urinary pathology, and the only thing I could see on CAT scans was stranding of the left kidney. Urinalysis had glucosuria, proteinuria and hematuria, but no other findings. No urine bacteria were seen. I explained to patient that it was difficult for me to reconcile positive proteus blood cultures with no findings on physical exam or urinary exam. On the fifth day of stay, as we were getting ready to transition him to possible PICC line and 5 more days of antibiotics for the bacteremia, the patient abruptly stated he just wanted to go home. He did not want to be here anymore, and threatened to leave AMA. I did ask him to stay to follow through with an upper GI with small-bowel follow-through, and that was negative. He states that his pain was not being managed, and that he had not had pain medications in several hours, but we pointed out to him that he had just gotten Dilaudid 45 minutes before this statement. He was adamant that he had received none since the night before. In any case, the patient really felt that he wanted to go home. He would advance his diet at home as needed, even though he had not yet had solid foods here. Extensive workup was done as above. He is transitioned to oral Levaquin, and he agreed to take that for the next 5 days. I explained that we did not know where the Proteus was coming from and literature recommends IV antibiotics when the source is not known. He refused further treatment. I chose levaquin because of favorable tissue penetration and proteus susceptibility. DISCHARGE EXAMINATION VITAL SIGNS: He had a temperature of 36.9, pulse 102, blood pressure 145/83 to 180/90. Norvasc was started during his inpatient stay as a new drug. He will need followup for that. Respirations were 18 and unlabored, and he was 97% on room air. 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 NECK: Supple. LUNGS: Clear to auscultation and percussion without any increased respiratory effort, and he is comfortable at rest and with walking. ABDOMEN: With a large, firm, obese pannus, vaguely aching in the epigastrium and left upper quadrant, but not severe. No rebound or guarding. Normal bowel sounds. No masses palpable. EXTREMITIES: Without clubbing, cyanosis or edema. Greater than 30 minutes was spent coordinating discharge. I asked the patient to please follow up with Frank Yee, his primary care provider, see if he can be scheduled for an EGD. I do not know how much more workup this man could get, in that he has had multiple radiologic studies done in an effort to explain his epigastric abdominal pain. He may need a surgical consult, if only to discuss the results and see what his options are for diagnosis. He was also strongly encouraged to follow up with Diabetic Education, strongly encouraged to get that A1c below 7%. He is to return to the emergency room if he develops fever, rigors, low blood pressure, etc. CC: Frank Yee TD: 03/19/2018 12:40 MTDD
== END 2018-03-17 15:40 | disposition home or self-care (01) | DRG 392 ==
LOC: ED 10:05 → OBS 16:20 → OBSVTOIN 03-14 19:08 → MS2 03-14 20:19
PROVIDERS: ADMIT Specialist; ATTEND Specialist
DX: R11.10 Vomiting, unspecified (principal); K80.20 Calculus of gallbladder without cholecystitis without obstruction; I71.4 Abdominal aortic aneurysm, without rupture; R10.11 Right upper quadrant pain; E78.00 Pure hypercholesterolemia, unspecified; R10.9 Unspecified abdominal pain; J45.909 Unspecified asthma, uncomplicated; Z86.73 Personal history of transient ischemic attack (TIA), and cerebral infarction without residual deficits; E11.42 Type 2 diabetes mellitus with diabetic polyneuropathy; R78.81 Bacteremia; E11.21 Type 2 diabetes mellitus with diabetic nephropathy; K21.9 Gastro-esophageal reflux disease without esophagitis; H35.30 Unspecified macular degeneration; F32.9 Major depressive disorder, single episode, unspecified; M19.90 Unspecified osteoarthritis, unspecified site; G89.29 Other chronic pain; M54.9 Dorsalgia, unspecified; L40.9 Psoriasis, unspecified; K64.9 Unspecified hemorrhoids; Z87.442 Personal history of urinary calculi; E87.1 Hypo-osmolality and hyponatremia; H54.7 Unspecified visual loss; Z87.891 Personal history of nicotine dependence; R65.10 Systemic inflammatory response syndrome (SIRS) of non-infectious origin without acute organ dysfunction; Z79.4 Long term (current) use of insulin; R11.2 Nausea with vomiting, unspecified; R00.0 Tachycardia, unspecified; B96.4 Proteus (mirabilis) (morganii) as the cause of diseases classified elsewhere; E11.65 Type 2 diabetes mellitus with hyperglycemia; E78.5 Hyperlipidemia, unspecified; G47.00 Insomnia, unspecified; I10 Essential (primary) hypertension
CPT/HCPCS: 36415; 71046; 74177; 74181; 74249; 76705; 78227; 80048; 80053; 80306; 81001; 81003; 82009; 82803; 83036; 83605; 83690; 85025; 87040; 87077; 87086; 87181; 94640; 96361; 96365; 96366; 96367; 96375; 96376; 99283; 99284

== ENCOUNTER 2018-04-01 22:57 | Outpatient (CLI) | payer MEDICARE, MEDICAID | END 2018-04-01 22:58 | disposition critical access hospital (66) | LOC: EMS 22:57 | PROVIDERS: ATTEND Surgery | DX: R51 Headache (principal); R19.7 Diarrhea, unspecified; R11.10 Vomiting, unspecified; R55 Syncope and collapse | CPT/HCPCS: A0425; A0427 ==

== ENCOUNTER 2018-04-01 23:24 | Inpatient (IN) | payer MEDICARE, MEDICAID ==
--- NOTE | 2018-04-01 23:30 | ED Physician Documentation ---
PD HPI SYNCOPE - Stated complaint Stated Complaint: NEAR SYNCOPE - History obtained from History obtained from: Patient - History of Present Illness Witnessed: Unwitnessed Timing - onset: Today (Patient states she is feeling generally weak and lightheaded through the day. He went to the bathroom feeling like he was going to have a bowel movement. He felt lightheaded and felt that he almost passed out. He tried getting up off the toilet and again felt very lightheaded and almost passed out. He called EMS. They found him with low blood pressure and pallor. He denied any chest or belly pain. He was having some headache in the right occiput area that had onset after the lightheadedness. He denied any actual bowel movement and did not notice any blood or melena in his stool lately. He had felt fevers and chills through the day.) Duration: Seconds Preceding symptoms: Headache, Diaphoresis, Nausea / vomiting, Light headed, Generalized weakness (thorugh the day). No: Chest pain, Palpitations, Abdominal pain Associated symptoms: Headache (onset after lightheadedness), Diaphoresis. No: Chest pain, Palpitations, Abdominal pain Contributing factors: Recent med change (He said he did have Norvasc started for blood pressure at the last hospitalization which is about 2 weeks ago. He states his blood pressure had been doing okay last couple weeks until today.), Just stood up. 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 There was concern for possible hepatobiliary cause. He did have a HIDA scan that was okay. He did not have any acute abdominal process during the stay. He did end up with a positive culture for Proteus and was given antibiotics while in the hospital and discharged on Levaquin. There was not an obvious source for this. The patient states he was doing well on discharge over the last couple of weeks.) Review of Systems Constitutional: reports: Fever (subjective today), Chills, Myalgias, Fatigue Nose: reports: Congestion (mild). denies: Rhinorrhea / runny nose Throat: denies: Sore throat Cardiac: denies: Chest pain / pressure, Palpitations Respiratory: denies: Dyspnea, Cough GI: reports: Nausea. 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 denies: Focal weakness, Numbness, Syncope PD PAST MEDICAL HISTORY - Past Medical History Cardiovascular: Hypertension, High cholesterol Respiratory: Asthma, Pneumonia Neuro: CVA, TIA Endocrine/Autoimmune: Type 2 diabetes GI: GERD, Ulcers, Hemorrhoids : Kidney stones HEENT: Macular degeneration Psych: Depression Musculoskeletal: Osteoarthritis, Chronic back pain Derm: Psoriasis, Other - Past Surgical History Past Surgical History: Yes General: Other Ortho: ACL reconstruction, Rotator cuff repair Derm: Other - Present Medications Home Medications: Ambulatory Orders Medication Instructions Recorded Confirmed Lisinopril 10 mg PO DAILY 11/13/12 04/01/18 Clopidogrel [Plavix] 75 mg PO DAILY 04/07/14 04/01/18 Insulin Glargine [Lantus Solostar] 90 unit SUBQ DAILY 10/09/17 04/01/18 Albuterol Sulf [Ventolin Hfa 1 - 2 puffs INH Q4H PRN 03/13/18 04/01/18 Inhaler] Insulin Lispro [Humalog] 15 - 40 unit SUBQ QDAC 03/13/18 04/01/18 amLODIPine [Norvasc] 5 mg PO HS #30 tablet 03/17/18 04/01/18 - Allergies Allergies/Adverse Reactions: Allergies Allergy/AdvReac Type Severity Reaction Status Date / Time acetaminophen [From Tylenol] AdvReac Intermediate Nausea Verified 04/01/18 23:34 hydrocodone [Hydrocodone] AdvReac Intermediate Respiratory Verified 04/01/18 23:34 oxycodone AdvReac Intermediate Anxiety Verified 04/01/18 23:34 fentanyl AdvReac Nausea Verified 04/01/18 23:34 - Social History Does the pt smoke?: No Smoking Status: Never smoker Does the pt drink ETOH?: Yes Does the pt have substance abuse?: Yes - Immunizations Immunizations are current?: Yes - POLST Patient has POLST: No POLST Status: Full Code (As long as he can think and talk and have a memory he wants to be kept alive. Even if he had a stroke, completely dependent on someone for activities of daily living, as long as he is able to speak, able to think and have a memory resuscitated.) PD ED PE NORMAL - Vitals Vital signs reviewed: Yes (he is hypotensive on arrival, with IV fluids infusing. ) - General General: Alert and oriented X 3, No acute distress, Well developed/nourished - HEENT HEENT: Atraumatic, PERRL, Ears normal, Moist mucous membranes, Pharynx benign, Other (he is diaphoretic, with feeling of nausea. ) - Neck Neck: Supple, no meningeal sign, No adenopathy - Cardiac Cardiac: RRR, No murmur - Respiratory Respiratory: Clear bilaterally - Abdomen Abdomen: Soft, Non tender, Non distended, No organomegaly, Other (no blood nor cofee ground appearance to the emesis. ). No: Normal bowel sounds (diminished) - Male Male : Deferred - Rectal Rectal: Deferred - Back Back: No CVA TTP - Derm Derm: No: Normal color (pallor), Warm and dry (initially diaphoretic) - Extremities Extremities: No deformity, No tenderness to palpate, Normal ROM s pain, No edema - Neuro Neuro: Alert and oriented X 3, No motor deficit, Normal speech Eye Opening: Spontaneous Motor: Obeys Commands Verbal: Oriented GCS Score: 15 - Psych Psych: Normal mood, Normal affect Results - Vitals Vitals: Vital Signs - 24 hr 04/01/18 04/01/18 04/02/18 23:25 23:34 01:14 Temperature 36.5 C 36.0 C L Heart Rate 92 91 78 Respiratory 17 16 12 Rate Blood Pressure 77/63 L 79/63 L 124/82 H O2 Saturation 99 97 96 Oxygen O2 Source [] Room air O2 Source Room air - EKG (time done) 23:34 Rate: Rate (enter#) (91) Rhythm: NSR [place]: Normal Intervals: Normal [place] QRS: Normal Ischemia: Normal ST segments. No: ST elevation c/w ischemia, ST depression - Labs Labs: Laboratory Tests 04/01/18 04/01/18 04/01/18 23:50 23:50 23:50 WBC 19.4 H RBC 5.58 Hgb 16.0 Hct 49.1 MCV 88.1 MCH 28.6 MCHC 32.5 RDW 13.2 Plt Count 335 MPV 8.5 Neut # (Auto) 16.2 H Lymph # (Auto) 2.0 Shoshone # (Auto) 1.1 H Eos # (Auto) 0.1 Baso # (Auto) 0.0 Absolute Nucleated RBC 0.02 Nucleated RBC % 0.1 Sodium 136 Potassium 4.1 Chloride 101 Carbon Dioxide 24 Anion Gap 11.0 BUN 24 H Creatinine 1.3 H Estimated GFR (MDRD) 57 L Glucose 224 H Lactic Acid Calcium 9.1 Magnesium 2.0 Total Bilirubin 0.5 AST 24 ALT 22 Alkaline Phosphatase 57 Troponin I < 0.04 Total Protein 7.3 Albumin 3.3 Globulin 4.0 Albumin/Globulin Ratio 0.8 L Lipase 26 Influenza A (Rapid) Influenza B (Rapid) 04/01/18 04/02/18 23:55 00:46 WBC RBC Hgb Hct MCV MCH MCHC RDW Plt Count MPV Neut # (Auto) Lymph # (Auto) Shoshone # (Auto) Eos # (Auto) Baso # (Auto) Absolute Nucleated RBC Nucleated RBC % Sodium Potassium Chloride Carbon Dioxide Anion Gap BUN Creatinine Estimated GFR (MDRD) Glucose Lactic Acid 2.4 H Calcium Magnesium Total Bilirubin AST ALT Alkaline Phosphatase Troponin I Total Protein Albumin Globulin Albumin/Globulin Ratio Lipase Influenza A (Rapid) Negative Influenza B (Rapid) Negative - Rads (name of study) head CT Radiology: Prelim report reviewed, EMP read contemporaneously, See rad report chest xray Radiology: Prelim report reviewed, EMP read contemporaneously, See rad report PD MEDICAL DECISION MAKING - ED course Complexity details: reviewed results, re-evaluated patient (His blood pressures improved and is feeling better. He is no longer diaphoretic. However he does have an elevated white count and lactate. Given the recent hospitalization with bacteremia couple of weeks ago, I would be concerned for recurrent bacteremia. Even this may be just a viral gastroenteritis or something more benign, it has the markers for sepsis and bacteremia and requires IV antibiotics and further treatment pending cultures and further clinical correlation.), considered differential (His initial EKG is without any ischemic changes. His blood pressure is low and would consider volume loss, bleeding, cardiovascular cause, sepsis. He does not have any chest pain or belly pain at this point. He states he has a history of an abdominal aneurysm but again is not having any belly pain. He did have onset of headache after the lightheadedness and will get a CT scan to evaluate that. This should not give him hypotension however. He is given IV fluids with antiemetics. He does have a large volume emesis within about 20 minutes after arrival and starts feeling less nauseous and is having improved color. His blood pressure does improve a bit with that as well. There is no noted blood or melena in his emesis.), d/w patient Departure - Departure Disposition: [facility] DC/Xfer Clinical Impression: Transient hypotension, Sepsis associated hypotension Nausea and vomiting Qualifiers: Vomiting type: unspecified Vomiting Intractability: non-intractable Qualified Code(s): R11.2 - Nausea with vomiting, unspecified
[2018-04-01] MEDS ORDERED: SODIUM CHLORIDE 0.9% 1,000 ML IV ONE ×2 (23:46→23:47)
[2018-04-01] MEDS ORDERED: ACETAMINOPHEN 1,000 MG/100 ML 100 ML IV STA (23:47)
[2018-04-02] MEDS ORDERED: ONDANSETRON 4 MG/2 ML VIAL IVP STA ×2 (00:09→00:11)
[2018-04-02] MEDS ORDERED: ONDANSETRON 4 MG/2 ML VIAL ONE (00:14)
[2018-04-02 00:20] LABS: BASOPHILS % (AUTO) 0.2 %; EOSINOPHILS # (AUTO) 0.1 10^3/uL (0.0-0.7); EOSINOPHILS % (AUTO) 0.5 %; LYMPHOCYTES % (AUTO) 10.1 %; MEAN CORPUSCULAR HEMOGLOBIN 28.6 pg (27.0-31.0); MEAN CORPUSCULAR HGB CONC 32.5 g/dL (32.0-36.0); MEAN CORPUSCULAR VOLUME 88.1 fL (80.0-94.0); MEAN PLATELET VOLUME 8.5 fL (7.4-11.4); MONOCYTES # (AUTO) 1.1 10^3/uL (0.0-1.0); MONOCYTES % (AUTO) 5.8 %; NEUTROPHILS # (AUTO) 16.2 10^3/uL (1.5-6.6); NEUTROPHILS % (AUTO) 83.4 %; PLT - PLATELET COUNT 335 10^3/uL (130-450); RED BLOOD COUNT 5.58 10^6/uL (4.70-6.10); RED CELL DISTRIBUTION WIDTH 13.2 % (12.0-15.0); WHITE BLOOD COUNT 19.4 x10^3/uL (4.8-10.8)
[2018-04-02 00:32] LABS: ALBUMIN 3.3 g/dL (3.2-5.5); ALBUMIN/GLOBULIN RATIO 0.8 (1.0-2.2); BILIRUBIN,TOTAL 0.5 mg/dL (0.2-1.0); CALCIUM 9.1 mg/dL (8.5-10.3); CREATININE 1.3 mg/dL (0.6-1.2); TOTAL PROTEIN 7.3 g/dL (6.7-8.2)
--- NOTE | 2018-04-02 00:54 | XRAY Report ---
Reason: chest pain Procedure Date: 04/02/2018 Accession Number: [id number] / [id number] Procedure: XR - Chest 1 View X-Ray CPT Code: 62961 FULL RESULT: EXAM: CHEST RADIOGRAPHY EXAM DATE: 04/02/2018 12:19 AM. CLINICAL HISTORY: Chest pain. COMPARISON: CHEST 2 VIEW 03/13/2018 4:18 PM CHEST 1 VIEW 01/24/2016 11:29 AM. TECHNIQUE: 1 view. FINDINGS: Lungs/Pleura: No focal opacities evident. No pleural effusion. No pneumothorax. Mediastinum: Within exam limitations, the cardiomediastinal contour is normal. Other: None. IMPRESSION: Stable normal appearance of the chest without acute cardiopulmonary abnormality. RADIA
--- NOTE | 2018-04-02 01:02 | CT Report ---
Reason: headache abrupt today Procedure Date: 04/02/2018 Accession Number: [id number] / [id number] Procedure: CT - Head W/O CPT Code: FULL RESULT: EXAM: CT HEAD EXAM DATE: 04/02/2018 12:44 AM. CLINICAL HISTORY: Abrupt onset headache COMPARISON: Head CT 07/14/2013, MR brain 07/15/2013. TECHNIQUE: Multiaxial CT images were obtained from the foramen magnum to the vertex. Reformats: Sagittal and coronal. IV contrast: None. In accordance with CT protocol optimization, one or more of the following dose reduction techniques were utilized for this exam: automated exposure control, adjustment of mA and/or KV based on patient size, or use of iterative reconstructive technique. FINDINGS: Parenchyma: No intraparenchymal hemorrhage. No evidence of mass, midline shift, or CT findings of infarction. Garcia-white differentiation is distinct. Small area of encephalomalacia right postcentral gyrus at the vertex, unchanged. Extraaxial Spaces: Normal for age. No subdural or epidural collections identified. Ventricles: Normal in size and position. Sinuses and Orbits: Imaged paranasal sinuses, orbits, and mastoids show no significant abnormality. Bones: No evidence of fracture or calvarial defect. Other: None. IMPRESSION: No acute intracranial process identified. RADIA
[2018-04-02] MEDS ORDERED: PIPERACILLIN/TAZOBACTAM 3.375 GM in SODIUM CHLORIDE 0.9% MINIBAG 100 ML IV STA (01:14)
[2018-04-02] MEDS ORDERED: SODIUM CHLORIDE 0.9% 1,000 ML IV ONE (01:15)
[2018-04-02] MEDS ORDERED: VANCOMYCIN INJ 1 GM in SODIUM CHLORIDE 0.9% 500 ML IV STA (01:15)
[2018-04-02] MEDS ORDERED: ONDANSETRON ODT 4 MG TABLET TL PRN (04:33)
[2018-04-02] MEDS ORDERED: SODIUM CHLORIDE 0.9% 1,000 ML IV SCH ×2 (05:00)
--- NOTE | 2018-04-02 05:28 | HISTORY & PHYSICAL EXAMINATION ---
Chief Complaint - Chief Complaint Chief Complaint: vomiting, diarrhea and presyncope History of Present Illness - Admitted From Admitted From:: [facility] ED - History Obtained From Records Reviewed: yes History obtained from: patient - History of Present Illness HPI Comment/Other: Patient is a 57 y/o male who presented to the ED with complain an episode of diarrhea which was followed by a near syncopal episode. It was an abrupt onset. Earlier in the day he was doing fine and had no complains. He lives with his mother and had the same thing for dinner as she did. She has had no issues through out the day. In the ED he had another episode of a large vomitus. He was found to have a SBP of 76 upon presentation. CBC showed a WBC of 19. He was given a bolus of normal saline and responded well with improvement in his SBP to 110. When I presented to bedside he was his normal/usual self, denied any chest pain, STEPH or abd pain. He however reported chills. As a result of his initial clinical presentation, he was presented to me for admission. He was in the hospital 2 weeks ago for upper abdominal pain. 1 of 2 blood cultures subsequently grew Proteus which was milton-sensitive except for indeterminate sensitivity to ampicillin. He was placed on a 5 day course of levaquin upon discharge. His work up for the abdominal pain included MRCP and HIDA scan which were all largely unremarkable. His medical history includes DM II on insulin, hypertension, TIA, CVA (bleed), Hyperlipidemia, GERD, osteoarthritis, asthma, ulcers (GI unspecified), Depression and macular degeneration. The rest of his history is unremarkable History - Past Medical History Cardiovascular: reports: Hypertension, High cholesterol Respiratory: reports: Asthma, Pneumonia Neuro: reports: CVA, TIA Endocrine/Autoimmune: reports: Type 2 diabetes GI: reports: GERD, Ulcers, Hemorrhoids : reports: Kidney stones HEENT: reports: Macular degeneration Psych: reports: Depression Musculoskeletal: reports: Osteoarthritis, Chronic back pain Derm: reports: Psoriasis, Other MRSA Hx?: No - Past Surgical History General: reports: Other Ortho: reports: ACL reconstruction, Rotator cuff repair Derm: reports: Other - Family & Social History Family History Comment/Other: Dad at age 62 of complications of asbestosis. He had been in the [place]. Mom is 87 years old and lives with him. She has diabetes. She took thalidomide when he was in utero. One sister of diabetes complications. One brother is alive. He has no children Social History Notes: He was originally from [facility]. Came to the [place] in [place] when his dad was deployed here. Has never left the [place] since. Data since . Mom lives with him. She used to live in assisted living facility and hated it. That is why she moved in with him. They both live on a limited fixed income's. He is very hard to get good nutritional meals with fresh fruits and vegetables and protein. He has not worked since his TIA in July 2013. He used to smoke 1 pack/day and quit in 2002. He rarely drinks 1 beer a month. He does cannabis via of a cigarette kelly, occasionally eats the air, and occasionally does cannabis flower. No other recreational substance abuse. - Substance History Use: Uses substance without health or social issues: Alcohol, Cannabis - POLST Patient has POLST: No POLST Status: Full Code (As long as he can think and talk and have a memory he wants to be kept alive. Even if he had a stroke, completely dependent on someone for activities of daily living, as long as he is able to speak, able to think and have a memory resuscitated.) Meds/Allgy - Home Medications Home Medications: Ambulatory Orders Medication Instructions Recorded Confirmed Lisinopril 10 mg PO DAILY 11/13/12 04/01/18 Clopidogrel [Plavix] 75 mg PO DAILY 04/07/14 04/01/18 Insulin Glargine [Lantus Solostar] 90 unit SUBQ DAILY 10/09/17 04/01/18 Albuterol Sulf [Ventolin Hfa 1 - 2 puffs INH Q4H PRN 03/13/18 04/01/18 Inhaler] Insulin Lispro [Humalog] 15 - 40 unit SUBQ QDAC 03/13/18 04/01/18 amLODIPine [Norvasc] 5 mg PO HS #30 tablet 03/17/18 04/01/18 - Allergies Allergies/Adverse Reactions: Allergies Allergy/AdvReac Type Severity Reaction Status Date / Time acetaminophen [From Tylenol] AdvReac Intermediate Nausea Verified 04/01/18 23:34 hydrocodone [Hydrocodone] AdvReac Intermediate Respiratory Verified 04/01/18 23:34 oxycodone AdvReac Intermediate Anxiety Verified 04/01/18 23:34 fentanyl AdvReac Nausea Verified 04/01/18 23:34 Review of Systems - Constitutional Constitutional: reports: Chills. denies: Fatigue, Fever - Eyes Eyes: denies: Pain, Irritation, Blurred vision - Ears, Nose & Throat Ears, Nose & Throat: denies: Ear pain, Hearing loss - Cardiovascular Cariovascular: reports: Lightheadedness. denies: Irregular heart rate, Palpitations, Chest pain, Edema - Respiratory Respiratory: denies: Cough, Sputum production, Wheezing, Snoring, Hemoptysis - Gastrointestinal Gastrointestinal: reports: Diarrhea, Vomiting. denies: Abdominal pain, Abdominal distention, Constipation - Genitourinary Genitourinary: denies: Dysuria, Frequency, Incontinence, Flank pain - Musculoskeletal Musculoskeletal: denies: Muscle pain, Back pain, Muscle aches - Integumentary Integumentary: denies: Rash, Pruritis - Neurological Neurological: denies: General weakness, Headache, Slurred speech - Psychiatric Psychiatric: reports: Depression - Hematologic/Lymphatic Hematologic/Lymphatic: denies: Anemia, Petechiae Prior Level of Functionality: He lives with his mother, he is independent for activities of daily living. Exam - Vital Signs Reviewed Vital Signs: Yes Vital Signs: Vital Signs x48h Temp Pulse Resp BP Pulse Ox 04/02/18 04:31 75 17 115/84 H 95 04/02/18 02:56 72 116/77 96 04/02/18 01:39 81 14 155/89 H 100 04/02/18 01:30 79 14 155/98 H 98 04/02/18 01:14 36.0 C L 78 12 124/82 H 96 04/02/18 00:45 79 13 121/73 96 04/02/18 00:00 75 13 96/67 100 04/01/18 23:34 91 16 79/63 L 97 04/01/18 23:25 36.5 C 92 17 77/63 L 99 - Physical Exam General Appearance: positive: No acute distress, Alert Eyes Bilateral: positive: Normal inspection, PERRL, EOMI ENT: positive: Pharynx nml, No signs of dehydration Neck: positive: Nml inspection, No JVD, Trachea midline Respiratory: positive: Chest non-tender, Breath sounds nml. negative: Wheezes, Rales, Rhonchi Cardiovascular: positive: Regular rate & rhythm Abdomen: positive: Non-tender, Nml bowel sounds, Other (Protuberant abdomen). negative: Guarding, Rebound Back: negative: CVA tenderness (R), CVA tenderness (L) Skin: positive: Color nml, Warm. negative: No rash, Laceration (cm) Extremities: positive: Non-tender, Nml appearance, No pedal edema Neurologic/Psychiatric: positive: Oriented x3. negative: Facial droop, Slurred/abnml speech Sepsis Event Note (H) - Evaluation Possible source of Sepsis: positive: Unknown - Sepsis Criteria Sepsis Criteria: WBC count greater than 12,000 or less than 4000, SBP less than 90 mmHg Conclusion/Plan - Problem List (1) SIRS (systemic inflammatory response syndrome) Conclusion/Plan: Etiology undetermined. In light of diarrhea and vomiting, suspect gastroenteritis In light of recent Proteus bacteremia 1/2 cultures WBC of 19 and SBP of 76, will place patient emperic vanc/zosyn. Blood cultures pending. Patient admitted as observation (2) Acute kidney injury Conclusion/Plan: ?2/2 hypotension Hydrating patient. Expect improvement. Will chech am labs. Would hold antihypertensive: lisinopril and amlodipine (3) Diabetes mellitus type 2 in obese Conclusion/Plan: On lantus 90 units subq daily. Will order high scale sliding scale insulin (4) GERD (gastroesophageal reflux disease) Conclusion/Plan: Protonix 40mg po daily (5) HTN (hypertension) Conclusion/Plan: Recently hypotensive. Consequently, antihypertensives held while hydrating patient Qualifiers: Hypertension type: essential hypertension Qualified Code(s): I10 - Essential (primary) hypertension - Lab Results Fish Bones: 04/01/18 23:50 04/01/18 23:50 Core Measures - Anticipated LOS I expect patient to be DC'd or transferred within 96 hours.: Yes - DVT/VTE - Prophylaxis VTE/DVT Device ordered at admit?: Yes VTE/DVT Prophylaxis med ordered at admit?: Yes
[2018-04-02 05:51] LABS: BASOPHILS % (AUTO) 0.3 %; EOSINOPHILS % (AUTO) 0.2 %; HGB - HEMOGLOBIN 14.7 g/dL (14.0-18.0); LYMPHOCYTES # (AUTO) 1.6 10^3/uL (1.5-3.5); LYMPHOCYTES % (AUTO) 10.9 %; MEAN CORPUSCULAR HEMOGLOBIN 28.3 pg (27.0-31.0); MEAN CORPUSCULAR HGB CONC 31.7 g/dL (32.0-36.0); MEAN CORPUSCULAR VOLUME 89.2 fL (80.0-94.0); MEAN PLATELET VOLUME 8.5 fL (7.4-11.4); MONOCYTES # (AUTO) 0.5 10^3/uL (0.0-1.0); MONOCYTES % (AUTO) 3.3 %; NEUTROPHILS # (AUTO) 12.9 10^3/uL (1.5-6.6); NEUTROPHILS % (AUTO) 85.3 %; PLT - PLATELET COUNT 308 10^3/uL (130-450); RED BLOOD COUNT 5.18 10^6/uL (4.70-6.10); RED CELL DISTRIBUTION WIDTH 13.5 % (12.0-15.0); WHITE BLOOD COUNT 15.1 x10^3/uL (4.8-10.8)
[2018-04-02 05:58] LABS: CALCIUM 8.5 mg/dL (8.5-10.3); CREATININE 1.1 mg/dL (0.6-1.2)
[2018-04-02 06:09] LABS: BILIRUBIN,URINE NEGATIVE (NEGATIVE); GLUCOSE, URINE (UA) 100 mg/dL (NEGATIVE); KETONES,URINE (UA) NEGATIVE (NEGATIVE); LEUKOCYTE ESTERASE, URINE NEGATIVE (NEGATIVE); NITRITE,URINE NEGATIVE (NEGATIVE); OCCULT BLOOD,URINE TRACE-INTA (NEGATIVE); PH,URINE 5.5 PH (5.0-7.5); PROTEIN,URINE TRACE mg/dL (NEGATIVE); UROBILINOGEN,URINE 0.2 (NORMAL) E.U./dL (NORMAL)
[2018-04-02 06:12] LABS: CLARITY,URINE CLEAR (CLEAR)
[2018-04-02] MEDS: SODIUM CHLORIDE FLUSH 0.9% 10 ML SYRINGE IVP PRN (06:16)
[2018-04-02 06:41] LABS: HB2 TOTAL 15.8 g/dL; HEMOGLOBIN A1C 1.22 g/dL; HEMOGLOBIN A1C % 9.2 % (4.6-6.2)
[2018-04-02] MEDS ORDERED: VANCOMYCIN PER PHARMACY 100 GM in SODIUM CHLORIDE 0.9% 250 ML IV PRN (07:00)
[2018-04-02] MEDS: ALBUTEROL NEB 2.5 MG/3 ML INH PRN (07:40)
[2018-04-02] MEDS: INSULIN ASPART 300 UNIT/3 ML PEN SUBQ SCH ×4 (08:10→21:42)
[2018-04-02] MEDS: INSULIN GLARGINE 300 UNIT/3 ML PEN SUBQ SCH (08:11)
[2018-04-02] MEDS: PANTOPRAZOLE 40 MG TABLET PO SCH (08:15)
[2018-04-02] MEDS: CLOPIDOGREL 75 MG TABLET PO SCH (08:15)
[2018-04-02] MEDS: POLYETHYLENE GLYCOL 3350 17 GM PACKET PO SCH (08:17)
[2018-04-02] MEDS: SODIUM CHLORIDE FLUSH 0.9% 10 ML SYRINGE IVP SCH ×2 (08:17→16:28)
[2018-04-02] MEDS: PIPERACILLIN/TAZOBACTAM 3.375 GM in SODIUM CHLORIDE 0.9% MINIBAG 100 ML IV SCH ×3 (08:20→21:28)
[2018-04-02] MEDS ORDERED: VANCOMYCIN 1 GM VIAL ONE (10:06)
[2018-04-02] MEDS: VANCOMYCIN INJ 2 GM in SODIUM CHLORIDE 0.9% 500 ML IV SCH ×2 (10:19→22:33)
[2018-04-02] MEDS: PROCHLORPERAZINE 10 MG/2 ML VIAL IVP PRN ×3 (10:23→21:41)
[2018-04-02] MEDS: ACETAMINOPHEN 325 MG TABLET PO PRN (10:24)
[2018-04-02] MEDS: DEXTROSE 5%-0.9% NACL 1,000 ML IV SCH ×2 (11:32→21:29)
[2018-04-03] MEDS: PIPERACILLIN/TAZOBACTAM 3.375 GM in SODIUM CHLORIDE 0.9% MINIBAG 100 ML IV SCH ×4 (02:16→20:10)
[2018-04-03] MEDS: SODIUM CHLORIDE FLUSH 0.9% 10 ML SYRINGE IVP SCH ×3 (02:18→16:51)
[2018-04-03] MEDS: PROCHLORPERAZINE 10 MG/2 ML VIAL IVP PRN ×2 (02:27→22:52)
[2018-04-03] MEDS: SODIUM CHLORIDE FLUSH 0.9% 10 ML SYRINGE IVP PRN (02:28)
[2018-04-03 05:12] LABS: BASOPHILS % (AUTO) 0.6 %; EOSINOPHILS # (AUTO) 0.3 10^3/uL (0.0-0.7); EOSINOPHILS % (AUTO) 4.1 %; HGB - HEMOGLOBIN 12.8 g/dL (14.0-18.0); LYMPHOCYTES # (AUTO) 1.8 10^3/uL (1.5-3.5); LYMPHOCYTES % (AUTO) 22.1 %; MEAN CORPUSCULAR HEMOGLOBIN 28.8 pg (27.0-31.0); MEAN CORPUSCULAR HGB CONC 32.6 g/dL (32.0-36.0); MEAN CORPUSCULAR VOLUME 88.3 fL (80.0-94.0); MEAN PLATELET VOLUME 8.2 fL (7.4-11.4); MONOCYTES # (AUTO) 0.6 10^3/uL (0.0-1.0); MONOCYTES % (AUTO) 7.1 %; NEUTROPHILS # (AUTO) 5.5 10^3/uL (1.5-6.6); NEUTROPHILS % (AUTO) 66.1 %; PLT - PLATELET COUNT 265 10^3/uL (130-450); RED BLOOD COUNT 4.46 10^6/uL (4.70-6.10); RED CELL DISTRIBUTION WIDTH 13.2 % (12.0-15.0); WHITE BLOOD COUNT 8.4 x10^3/uL (4.8-10.8)
[2018-04-03 05:19] LABS: VANCOMYCIN,RANDOM 24.6 ug/mL
[2018-04-03 05:40] LABS: CALCIUM 8.5 mg/dL (8.5-10.3); CREATININE 0.7 mg/dL (0.6-1.2)
[2018-04-03] MEDS: INSULIN GLARGINE 300 UNIT/3 ML PEN SUBQ SCH (07:55)
[2018-04-03] MEDS: INSULIN ASPART 300 UNIT/3 ML PEN SUBQ SCH ×3 (07:57→16:51)
[2018-04-03] MEDS: ACETAMINOPHEN 325 MG TABLET PO PRN (07:59)
[2018-04-03] MEDS: POLYETHYLENE GLYCOL 3350 17 GM PACKET PO SCH (07:59)
[2018-04-03] MEDS: PANTOPRAZOLE 40 MG TABLET PO SCH (07:59)
[2018-04-03] MEDS: CLOPIDOGREL 75 MG TABLET PO SCH (07:59)
[2018-04-03] MEDS: ALBUTEROL NEB 2.5 MG/3 ML INH PRN (08:32)
[2018-04-03] MEDS: DEXTROSE 5%-0.9% NACL 1,000 ML IV SCH ×2 (09:34→14:44)
[2018-04-03] MEDS: LISINOPRIL 20 MG TABLET PO SCH (10:54)
[2018-04-03] MEDS: VANCOMYCIN INJ 2 GM in SODIUM CHLORIDE 0.9% 500 ML IV SCH ×2 (10:57→22:39)
--- NOTE | 2018-04-03 15:58 | PROVIDER PROGRESS NOTE ---
Assessment/Plan - Problem List (1) Sepsis Assessment/Plan: The hypotension has resolved with iv fluids. Blood cultures are neg to date. The patient himself thinks he may have had an undertreated pyelonephritis, as per the last admission, when he grew Proteus in his blood and the presumed source was his kidney. Continue empiric iv antibiotics which are improving his WBC and how he feels clinically. (2) Sepsis associated hypotension Assessment/Plan: Resolved (3) Nausea and vomiting Qualifiers: Vomiting type: unspecified Vomiting Intractability: non-intractable Qualified Code(s): R11.2 - Nausea with vomiting, unspecified Assessment/Plan: Improving. No signs of ileus, gastritis or bowel obstruction. Plan to advance diet slowly. Continue prn anti-emetics. (4) T2DM (type 2 diabetes mellitus) Qualifiers: Diabetes mellitus complication status: without complication Assessment/Plan: Diet is advancing slowly, therefore he is getting peripheral iv with D5. Continue fingerstick glu checks and ss Insulin coverage, plus his Lantus Insulin dose sq. (5) HTN (hypertension) Qualifiers: Hypertension type: essential hypertension Qualified Code(s): I10 - Essential (primary) hypertension Assessment/Plan: The hypotension has resolved with iv fluids and a hold on his Lisinopril and Amlodipine. Today his BP is >160. Will restart Lisinopril and Amlodipine withhold parameters. He is getting a salt load with his iv antibiotics. Will decrease iv rate slightly. He is requesting TEDS stockings, will order. - Current Meds Current Meds: Current Medications Generic Name Dose Route Start Last Admin Trade Name [place] PRN Reason Stop Dose Admin Acetaminophen 650 mg 04/02/18 10:09 04/03/18 07:59 Tylenol PO 650 mg Q4HR PRN Administration Pain or Fever > 38C (100.4F) Albuterol 2.5 mg 04/02/18 06:30 04/03/18 08:32 INH 2.5 mg Q4H PRN Administration Dyspnea Clopidogrel Bisulfate 75 mg 04/02/18 09:00 04/03/18 07:59 Plavix PO 75 mg DAILY DANIEL Administration Piperacillin Sod/Tazobactam 100 mls @ 200 mls/hr 04/02/18 08:00 04/03/18 14:15 Sod 3.375 gm/ Sodium Chloride IV Infused Q6H DANIEL Infusion Vancomycin HCl 2 gm/ Sodium 500 mls @ 250 mls/hr 04/02/18 10:00 04/03/18 12:57 Chloride IV Infused Q12H DANIEL Infusion Dextrose/Sodium Chloride 1,000 mls @ 80 mls/hr 04/03/18 14:03 04/03/18 14:44 D5ns IV 80 mls/hr .[id number] DANIEL Administration Insulin Aspart 1 - 9 unit 04/02/18 08:00 04/03/18 12:01 Novolog SUBQ 5 unit 0800,1200,1700,2100 DANIEL Administration Protocol Insulin Glargine 90 unit 04/02/18 09:00 04/03/18 07:55 Lantus Solostar SUBQ 90 unit DAILY DANIEL Administration Lisinopril 10 mg 04/03/18 11:00 04/03/18 10:54 Zestril PO 10 mg DAILY DANIEL Administration Ondansetron HCl 4 mg 04/02/18 04:33 04/02/18 06:16 Zofran Odt TL 4 mg Q6HR PRN Administration Nausea / Vomiting Pantoprazole Sodium 40 mg 04/02/18 09:00 04/03/18 07:59 Protonix PO 40 mg DAILY DANIEL Administration Polyethylene Glycol 17 gm 04/02/18 09:00 04/03/18 07:59 Miralax PO Not Given DAILY [facility] Prochlorperazine Edisylate 10 mg 04/02/18 10:08 04/03/18 02:27 Compazine Inj IVP 10 mg Q4HR PRN Administration Nausea / Vomiting Sodium Chloride 10 ml 04/02/18 04:33 04/03/18 02:28 Normal Saline Flush 0.9% IVP 10 ml PRN PRN Administration NEEDED PER PROVIDER ORDERS Sodium Chloride 10 ml 04/02/18 09:00 04/03/18 08:00 Normal Saline Flush 0.9% IVP 10 ml 0100,0900,1700 DANIEL Administration - Lab Result Fish Bone Diagrams: 04/03/18 04:50 04/03/18 04:50 - Additional Planning My Orders: My Active Orders 04/03/18 11:00 Lisinopril [Zestril] 10 mg PO DAILY 04/03/18 14:03 Dextrose 5%-0.9% NaCl [D5ns] 1,000 ml IV 80 mls/hr 04/03/18 20:00 amLODIPine [Norvasc] 5 mg PO HS 04/03/18 Dinner DIET [Soft (Low Fiber) Diet] [DIET] 04/03/18 Lunch DIET [Full Liquid Diet] [DIET] Subjective - Subjective Patient Reports: Resting Comfortably, Headache Nursing Reports: Other (No N/V after a Full liquid diet for lunch.) Objective Vital Signs: Vital Signs - 24 hr 04/02/18 04/02/18 04/03/18 16:00 21:22 00:00 Temperature 36.9 C 36.7 C 36.6 C Heart Rate Heart Rate [ Brachial] Heart Rate [ 102 H 106 H 98 Radial] Respiratory 20 19 20 Rate Blood Pressure 153/85 H 147/78 H 162/83 H [Left Brachial artery] O2 Saturation 96 96 96 04/03/18 04/03/18 04/03/18 04:27 07:25 08:33 Temperature 36.4 C L 36.5 C Heart Rate 84 Heart Rate [ Brachial] Heart Rate [ 96 86 Radial] Respiratory 20 18 20 Rate Blood Pressure 158/83 H 155/94 H [Left Brachial artery] O2 Saturation 95 95 04/03/18 04/03/18 04/03/18 08:34 12:57 15:48 Temperature 36.5 C 36.6 C 36.4 C L Heart Rate 84 Heart Rate [ 79 Brachial] Heart Rate [ 81 Radial] Respiratory 20 22 20 Rate Blood Pressure 130/66 150/89 H [Left Brachial artery] O2 Saturation 95 97 99 Oxygen O2 Source [Without Activity] Room air O2 Source Room air I&O (Last 24 Hrs): Intake and Output Totals x24h 04/01/18 04/02/18 04/03/18 23:59 23:59 23:59 Intake Total 8535.000 4810 Output Total 7800 6800 Balance 735.000 -1990 General: Alert, Oriented x3 HEENT: Mucous membr. moist/pink Neck: Supple, No JVD Neuro: Non Focal Cardiovascular: Regular rate, No murmurs Respiratory: No respiratory distress, Breath sounds nml Abdomen: Normal bowel sounds, No tenderness, Other (Obese, distended) Extremities: No edema - Results Results: Laboratory Results WBC 8.4 x10^3/uL (4.8-10.8) 04/03/18 04:50 RBC 4.46 10^6/uL (4.70-6.10) L 04/03/18 04:50 Hgb 12.8 g/dL (14.0-18.0) L 04/03/18 04:50 Hct 39.4 % (42.0-52.0) L 04/03/18 04:50 MCV 88.3 fL (80.0-94.0) 04/03/18 04:50 MCH 28.8 pg (27.0-31.0) 04/03/18 04:50 MCHC 32.6 g/dL (32.0-36.0) 04/03/18 04:50 RDW 13.2 % (12.0-15.0) 04/03/18 04:50 Plt Count 265 10^3/uL (130-450) 04/03/18 04:50 MPV 8.2 fL (7.4-11.4) 04/03/18 04:50 Neut # (Auto) 5.5 10^3/uL (1.5-6.6) 04/03/18 04:50 Lymph # (Auto) 1.8 10^3/uL (1.5-3.5) 04/03/18 04:50 [place] # (Auto) 0.6 10^3/uL (0.0-1.0) 04/03/18 04:50 Eos # (Auto) 0.3 10^3/uL (0.0-0.7) 04/03/18 04:50 Baso # (Auto) 0.0 10^3/uL (0.0-0.1) 04/03/18 04:50 Absolute Nucleated RBC 0.01 x10^3/uL 04/03/18 04:50 Nucleated RBC % 0.1 /100WBC 04/03/18 04:50 Sodium 135 mmol/L (135-145) 04/03/18 04:50 Potassium 3.6 mmol/L (3.5-5.0) 04/03/18 04:50 Chloride 105 mmol/L (101-111) 04/03/18 04:50 Carbon Dioxide 24 mmol/L (21-32) 04/03/18 04:50 Anion Gap 6.0 (6-13) 04/03/18 04:50 BUN 8 mg/dL (6-20) 04/03/18 04:50 Creatinine 0.7 mg/dL (0.6-1.2) 04/03/18 04:50 Estimated GFR (MDRD) 116 (>89) 04/03/18 04:50 Glucose 203 mg/dL (70-100) H 04/03/18 04:50 POC Whole Bld Glucose 248 mg/dL (70 - 100) H 04/03/18 11:12 Glycated Hemoglobin 9.2 % (4.6-6.2) H 04/02/18 05:28 Estim Average Glucose 217 (70-100) H 04/02/18 05:28 Lactic Acid 2.2 mmol/L (0.5-2.2) 04/02/18 09:05 Calcium 8.5 mg/dL (8.5-10.3) 04/03/18 04:50 Magnesium 2.0 mg/dL (1.7-2.8) 04/01/18 23:50 Total Bilirubin 0.5 mg/dL (0.2-1.0) 04/01/18 23:50 AST 24 IU/L (10-42) 04/01/18 23:50 ALT 22 IU/L (10-60) 04/01/18 23:50 Alkaline Phosphatase 57 IU/L (42-121) 04/01/18 23:50 Troponin I < 0.04 ng/mL (<0.49) 04/01/18 23:50 Total Protein 7.3 g/dL (6.7-8.2) 04/01/18 23:50 Albumin 3.3 g/dL (3.2-5.5) 04/01/18 23:50 Globulin 4.0 g/dL (2.1-4.2) 04/01/18 23:50 Albumin/Globulin Ratio 0.8 (1.0-2.2) L 04/01/18 23:50 Lipase 26 U/L (22-51) 04/01/18 23:50 Urine Color YELLOW 04/02/18 05:00 Urine Clarity CLEAR (CLEAR) 04/02/18 05:00 Urine pH 5.5 PH (5.0-7.5) 04/02/18 05:00 Ur Specific [place] 1.020 (1.002-1.030) 04/02/18 05:00 Urine Protein TRACE mg/dL (NEGATIVE) 04/02/18 05:00 Urine Glucose (UA) 100 mg/dL (NEGATIVE) H 04/02/18 05:00 Urine Ketones NEGATIVE mg/dL (NEGATIVE) 04/02/18 05:00 Urine Occult Blood TRACE-INTA (NEGATIVE) 04/02/18 05:00 Urine Nitrite NEGATIVE (NEGATIVE) 04/02/18 05:00 Urine Bilirubin NEGATIVE (NEGATIVE) 04/02/18 05:00 Urine Urobilinogen 0.2 (NORMAL) E.U./dL (NORMAL) 04/02/18 05:00 Ur Leukocyte Esterase NEGATIVE (NEGATIVE) 04/02/18 05:00 Ur Microscopic Review NOT INDICATED 04/02/18 05:00 Urine Culture Comments NOT INDICATED 04/02/18 05:00 Last Dose Date K 04/03/18 04:50 Last Dose Time K 04/03/18 04:50 Random Vancomycin 24.6 ug/mL 04/03/18 04:50 Influenza A (Rapid) Negative (Negative) 04/02/18 00:46 Influenza B (Rapid) Negative (Negative) 04/02/18 00:46 Sepsis Event Note (H) - Evaluation Possible source of Sepsis: positive: Unknown - Sepsis Criteria Sepsis Criteria: WBC count greater than 12,000 or less than 4000, SBP less than 90 mmHg
[2018-04-03] MEDS: amLODIPine 5 MG TABLET PO SCH (20:10)
[2018-04-03] MEDS ORDERED: INSULIN ASPART 300 UNIT/3 ML PEN SUBQ SCH (21:00)
[2018-04-04] MEDS: SODIUM CHLORIDE FLUSH 0.9% 10 ML SYRINGE IVP SCH ×3 (02:33→16:45)
[2018-04-04] MEDS: PIPERACILLIN/TAZOBACTAM 3.375 GM in SODIUM CHLORIDE 0.9% MINIBAG 100 ML IV SCH ×3 (02:33→13:28)
[2018-04-04] MEDS: DEXTROSE 5%-0.9% NACL 1,000 ML IV SCH (03:24)
[2018-04-04] MEDS: PROCHLORPERAZINE 10 MG/2 ML VIAL IVP PRN (04:01)
[2018-04-04 06:09] LABS: BASOPHILS # (AUTO) 0.1 10^3/uL (0.0-0.1); BASOPHILS % (AUTO) 0.8 %; EOSINOPHILS # (AUTO) 0.4 10^3/uL (0.0-0.7); EOSINOPHILS % (AUTO) 4.6 %; HGB - HEMOGLOBIN 13.5 g/dL (14.0-18.0); LYMPHOCYTES # (AUTO) 1.9 10^3/uL (1.5-3.5); LYMPHOCYTES % (AUTO) 19.9 %; MEAN CORPUSCULAR HEMOGLOBIN 29.4 pg (27.0-31.0); MEAN CORPUSCULAR HGB CONC 32.7 g/dL (32.0-36.0); MEAN CORPUSCULAR VOLUME 89.8 fL (80.0-94.0); MEAN PLATELET VOLUME 8.2 fL (7.4-11.4); MONOCYTES # (AUTO) 0.9 10^3/uL (0.0-1.0); MONOCYTES % (AUTO) 9.6 %; NEUTROPHILS # (AUTO) 6.2 10^3/uL (1.5-6.6); NEUTROPHILS % (AUTO) 65.1 %; PLT - PLATELET COUNT 261 10^3/uL (130-450); RED BLOOD COUNT 4.59 10^6/uL (4.70-6.10); RED CELL DISTRIBUTION WIDTH 13.3 % (12.0-15.0); WHITE BLOOD COUNT 9.5 x10^3/uL (4.8-10.8)
[2018-04-04 06:23] LABS: CALCIUM 8.8 mg/dL (8.5-10.3); CREATININE 0.8 mg/dL (0.6-1.2)
[2018-04-04] MEDS ORDERED: INSULIN ASPART 300 UNIT/3 ML PEN SUBQ SCH ×2 (08:30→13:00)
[2018-04-04] MEDS: LISINOPRIL 20 MG TABLET PO SCH (08:44)
[2018-04-04] MEDS: PANTOPRAZOLE 40 MG TABLET PO SCH (08:45)
[2018-04-04] MEDS: CLOPIDOGREL 75 MG TABLET PO SCH (08:45)
[2018-04-04] MEDS: POLYETHYLENE GLYCOL 3350 17 GM PACKET PO SCH (08:47)
[2018-04-04] MEDS: INSULIN GLARGINE 300 UNIT/3 ML PEN SUBQ SCH (08:55)
[2018-04-04 09:06] LABS: VANCOMYCIN,TROUGH 21.6 ug/mL (10.0-20.0)
[2018-04-04] MEDS: VANCOMYCIN INJ 2 GM in SODIUM CHLORIDE 0.9% 500 ML IV SCH (10:34)
--- NOTE | 2018-04-04 16:27 | PROVIDER PROGRESS NOTE ---
Assessment/Plan - Problem List (1) Sepsis Assessment/Plan: Source is unclear. Will plan to change to a longer course of oral antibiotics this time, presumably treating the last infection. (2) Nausea and vomiting Qualifiers: Vomiting type: unspecified Vomiting Intractability: non-intractable Qualified Code(s): R11.2 - Nausea with vomiting, unspecified Assessment/Plan: Improved. Will advance diet, stop iv fluids, adjust Insulin. (3) T2DM (type 2 diabetes mellitus) Qualifiers: Diabetes mellitus complication status: without complication Assessment/Plan: Will adjust Insulin as diet is advancing. (4) HTN (hypertension) Qualifiers: Hypertension type: essential hypertension Qualified Code(s): I10 - Essential (primary) hypertension Assessment/Plan: Stable on restarted home BP meds. - Current Meds Current Meds: Current Medications Generic Name Dose Route Start Last Admin Trade Name Freq PRN Reason Stop Dose Admin Acetaminophen 650 mg 04/02/18 10:09 04/03/18 07:59 Tylenol PO 650 mg Q4HR PRN Administration Pain or Fever > 38C (100.4F) Albuterol 2.5 mg 04/02/18 06:30 04/03/18 08:32 INH 2.5 mg Q4H PRN Administration Dyspnea Amlodipine Besylate 5 mg 04/03/18 20:00 04/03/18 20:10 Norvasc PO 5 mg HS DANIEL Administration Clopidogrel Bisulfate 75 mg 04/02/18 09:00 04/04/18 08:45 Plavix PO 75 mg DAILY DANIEL Administration Piperacillin Sod/Tazobactam 100 mls @ 200 mls/hr 04/02/18 08:00 04/04/18 14:11 Sod 3.375 gm/ Sodium Chloride IV Infused Q6H DANIEL Infusion Insulin Aspart 10 unit 04/04/18 13:00 04/04/18 13:27 Novolog SUBQ 10 unit TIDWM DANIEL Administration Protocol Insulin Glargine 90 unit 04/02/18 09:00 04/04/18 08:55 Lantus Solostar SUBQ 90 unit DAILY DANIEL Administration Lisinopril 10 mg 04/03/18 11:00 04/04/18 08:44 Zestril PO 10 mg DAILY DANIEL Administration Ondansetron HCl 4 mg 04/02/18 04:33 04/02/18 06:16 Zofran Odt TL 4 mg Q6HR PRN Administration Nausea / Vomiting Pantoprazole Sodium 40 mg 04/02/18 09:00 04/04/18 08:45 Protonix PO 40 mg DAILY DANIEL Administration Polyethylene Glycol 17 gm 04/02/18 09:00 04/04/18 08:47 Miralax PO Not Given DAILY DANIEL Prochlorperazine Edisylate 10 mg 04/02/18 10:08 04/04/18 04:01 Compazine Inj IVP 10 mg Q4HR PRN Administration Nausea / Vomiting Sodium Chloride 10 ml 04/02/18 04:33 04/03/18 02:28 Normal Saline Flush 0.9% IVP 10 ml PRN PRN Administration NEEDED PER PROVIDER ORDERS Sodium Chloride 10 ml 04/02/18 09:00 04/04/18 09:02 Normal Saline Flush 0.9% IVP Not Given 0100,0900,1700 DANIEL - Lab Result Fish Bone Diagrams: 04/04/18 05:45 04/04/18 05:45 - Additional Planning My Orders: My Active Orders 04/03/18 15:59 Gus Hose and Compression Devic [RC] Q8H 04/03/18 20:00 amLODIPine [Norvasc] 5 mg PO HS 04/04/18 13:00 Insulin Aspart [NovoLOG] 10 unit SUBQ TIDWM 04/04/18 17:00 Insulin Aspart [NovoLOG] 1 - 9 unit SUBQ 0800,1200,1700,2100 04/04/18 Dinner DIET [Carb-controlled Diet] [DIET] 04/05/18 05:00 BMP - BASIC METABOLIC PANEL [CHEM] DAILYLAB CBC - COMP BLD CT W/AUTO DIFF [HEME] DAILYLAB Subjective - Subjective Patient Reports: Feeling Better, Resting Comfortably Nursing Reports: Other (No nausea after a early solid diet for lunch.) Objective Vital Signs: Vital Signs - 24 hr 04/03/18 04/04/18 04/04/18 19:47 00:40 05:00 Temperature 36.6 C 36.7 C 36.7 C Heart Rate [ 86 86 86 Brachial] Respiratory 20 18 20 Rate Blood Pressure 153/88 H 148/89 H 138/96 H [Left Brachial artery] O2 Saturation 99 97 96 04/04/18 04/04/18 04/04/18 08:15 12:17 15:27 Temperature 36.5 C 36.6 C 36.4 C L Heart Rate [ 83 85 87 Brachial] Respiratory 18 18 18 Rate Blood Pressure 143/88 H 135/67 H 145/97 H [Left Brachial artery] O2 Saturation 93 97 97 Oxygen O2 Source [Without Activity] Room air O2 Source Room air I&O (Last 24 Hrs): Intake and Output Totals x24h 04/02/18 04/03/18 04/04/18 23:59 23:59 23:59 Intake Total 8535.000 5963.333 4919.333 Output Total 7800 8375 6450 Balance 735.000 -2411.667 -1530.667 General: Alert, Oriented x3 HEENT: Mucous membr. moist/pink Neck: Supple, No JVD Neuro: Non Focal Cardiovascular: Regular rate, No murmurs Respiratory: No respiratory distress, Breath sounds nml Abdomen: Normal bowel sounds, Soft Extremities: No edema - Results Results: Laboratory Results WBC 9.5 x10^3/uL (4.8-10.8) 04/04/18 05:45 RBC 4.59 10^6/uL (4.70-6.10) L 04/04/18 05:45 Hgb 13.5 g/dL (14.0-18.0) L 04/04/18 05:45 Hct 41.2 % (42.0-52.0) L 04/04/18 05:45 MCV 89.8 fL (80.0-94.0) 04/04/18 05:45 MCH 29.4 pg (27.0-31.0) 04/04/18 05:45 MCHC 32.7 g/dL (32.0-36.0) 04/04/18 05:45 RDW 13.3 % (12.0-15.0) 04/04/18 05:45 Plt Count 261 10^3/uL (130-450) 04/04/18 05:45 MPV 8.2 fL (7.4-11.4) 04/04/18 05:45 Neut # (Auto) 6.2 10^3/uL (1.5-6.6) 04/04/18 05:45 Lymph # (Auto) 1.9 10^3/uL (1.5-3.5) 04/04/18 05:45 [place] # (Auto) 0.9 10^3/uL (0.0-1.0) 04/04/18 05:45 Eos # (Auto) 0.4 10^3/uL (0.0-0.7) 04/04/18 05:45 Baso # (Auto) 0.1 10^3/uL (0.0-0.1) 04/04/18 05:45 Absolute Nucleated RBC 0.00 x10^3/uL 04/04/18 05:45 Nucleated RBC % 0.0 /100WBC 04/04/18 05:45 Sodium 136 mmol/L (135-145) 04/04/18 05:45 Potassium 3.5 mmol/L (3.5-5.0) 04/04/18 05:45 Chloride 105 mmol/L (101-111) 04/04/18 05:45 Carbon Dioxide 23 mmol/L (21-32) 04/04/18 05:45 Anion Gap 8.0 (6-13) 04/04/18 05:45 BUN 6 mg/dL (6-20) 04/04/18 05:45 Creatinine 0.8 mg/dL (0.6-1.2) 04/04/18 05:45 Estimated GFR (MDRD) 99 (>89) 04/04/18 05:45 Glucose 240 mg/dL (70-100) H 04/04/18 05:45 POC Whole Bld Glucose 219 mg/dL (70 - 100) H 04/04/18 11:22 Glycated Hemoglobin 9.2 % (4.6-6.2) H 04/02/18 05:28 Estim Average Glucose 217 (70-100) H 04/02/18 05:28 Lactic Acid 2.2 mmol/L (0.5-2.2) 04/02/18 09:05 Calcium 8.8 mg/dL (8.5-10.3) 04/04/18 05:45 Magnesium 2.0 mg/dL (1.7-2.8) 04/01/18 23:50 Total Bilirubin 0.5 mg/dL (0.2-1.0) 04/01/18 23:50 AST 24 IU/L (10-42) 04/01/18 23:50 ALT 22 IU/L (10-60) 04/01/18 23:50 Alkaline Phosphatase 57 IU/L (42-121) 04/01/18 23:50 Troponin I < 0.04 ng/mL (<0.49) 04/01/18 23:50 Total Protein 7.3 g/dL (6.7-8.2) 04/01/18 23:50 Albumin 3.3 g/dL (3.2-5.5) 04/01/18 23:50 Globulin 4.0 g/dL (2.1-4.2) 04/01/18 23:50 Albumin/Globulin Ratio 0.8 (1.0-2.2) L 04/01/18 23:50 Lipase 26 U/L (22-51) 04/01/18 23:50 Urine Color YELLOW 04/02/18 05:00 Urine Clarity CLEAR (CLEAR) 04/02/18 05:00 Urine pH 5.5 PH (5.0-7.5) 04/02/18 05:00 Ur Specific [place] 1.020 (1.002-1.030) 04/02/18 05:00 Urine Protein TRACE mg/dL (NEGATIVE) 04/02/18 05:00 Urine Glucose (UA) 100 mg/dL (NEGATIVE) H 04/02/18 05:00 Urine Ketones NEGATIVE mg/dL (NEGATIVE) 04/02/18 05:00 Urine Occult Blood TRACE-INTA (NEGATIVE) 04/02/18 05:00 Urine Nitrite NEGATIVE (NEGATIVE) 04/02/18 05:00 Urine Bilirubin NEGATIVE (NEGATIVE) 04/02/18 05:00 Urine Urobilinogen 0.2 (NORMAL) E.U./dL (NORMAL) 04/02/18 05:00 Ur Leukocyte Esterase NEGATIVE (NEGATIVE) 04/02/18 05:00 Ur Microscopic Review NOT INDICATED 04/02/18 05:00 Urine Culture Comments NOT INDICATED 04/02/18 05:00 Last Dose Date [id number] 04/04/18 08:45 Last Dose Time 0040 04/04/18 08:45 Vancomycin Trough 21.6 ug/mL (10.0-20.0) H 04/04/18 08:45 Random Vancomycin 24.6 ug/mL 04/03/18 04:50 Influenza A (Rapid) Negative (Negative) 04/02/18 00:46 Influenza B (Rapid) Negative (Negative) 04/02/18 00:46 Sepsis Event Note (H) - Evaluation Possible source of Sepsis: positive: Unknown - Sepsis Criteria Sepsis Criteria: WBC count greater than 12,000 or less than 4000, SBP less than 90 mmHg
[2018-04-04] MEDS: INSULIN ASPART 300 UNIT/3 ML PEN SUBQ SCH ×2 (16:40→20:38)
[2018-04-04] MEDS ORDERED: levoFLOXacin 250 MG TABLET PO SCH (17:00)
[2018-04-04] MEDS: amLODIPine 5 MG TABLET PO SCH (20:10)
[2018-04-05] MEDS: SODIUM CHLORIDE FLUSH 0.9% 10 ML SYRINGE IVP SCH ×2 (00:38→09:01)
[2018-04-05] MEDS ORDERED: VANCOMYCIN INJ 2 GM in SODIUM CHLORIDE 0.9% 500 ML IV SCH (04:00)
[2018-04-05 06:08] LABS: BASOPHILS # (AUTO) 0.1 10^3/uL (0.0-0.1); BASOPHILS % (AUTO) 0.8 %; EOSINOPHILS # (AUTO) 0.5 10^3/uL (0.0-0.7); HGB - HEMOGLOBIN 14.3 g/dL (14.0-18.0); LYMPHOCYTES # (AUTO) 1.8 10^3/uL (1.5-3.5); LYMPHOCYTES % (AUTO) 17.1 %; MEAN CORPUSCULAR HEMOGLOBIN 28.8 pg (27.0-31.0); MEAN CORPUSCULAR HGB CONC 32.5 g/dL (32.0-36.0); MEAN CORPUSCULAR VOLUME 88.6 fL (80.0-94.0); MEAN PLATELET VOLUME 8.2 fL (7.4-11.4); MONOCYTES % (AUTO) 9.7 %; NEUTROPHILS # (AUTO) 7.1 10^3/uL (1.5-6.6); NEUTROPHILS % (AUTO) 67.4 %; PLT - PLATELET COUNT 264 10^3/uL (130-450); RED BLOOD COUNT 4.98 10^6/uL (4.70-6.10); RED CELL DISTRIBUTION WIDTH 13.4 % (12.0-15.0); WHITE BLOOD COUNT 10.6 x10^3/uL (4.8-10.8)
[2018-04-05 06:46] LABS: CALCIUM 9.4 mg/dL (8.5-10.3)
[2018-04-05 07:38] VITALS: BP 137/94
[2018-04-05] MEDS: INSULIN ASPART 300 UNIT/3 ML PEN SUBQ SCH (08:46)
[2018-04-05] MEDS: PANTOPRAZOLE 40 MG TABLET PO SCH (08:47)
[2018-04-05] MEDS: LISINOPRIL 20 MG TABLET PO SCH (08:47)
[2018-04-05] MEDS: CLOPIDOGREL 75 MG TABLET PO SCH (08:52)
[2018-04-05] MEDS: POLYETHYLENE GLYCOL 3350 17 GM PACKET PO SCH (08:53)
[2018-04-05] MEDS ORDERED: INSULIN GLARGINE 300 UNIT/3 ML PEN SUBQ SCH (09:00)
--- NOTE | 2018-04-05 10:11 | Discharge Plan ---
Discharge Plan Disposition: Home, Self Care Condition: Stable Prescriptions: Levofloxacin [Levaquin] 750 mg PO DAILY #10 tablet Pantoprazole [Protonix] 40 mg PO DAILY #30 tablet Saccharomyces Boulardii [Florastor] 250 mg PO BID #20 capsule Diet: Diabetic Activity Restrictions: No Restrictions Instruction Topics: ED Gastroenteritis Non Infec Additional Instructions or Follow Up instructions: You were admitted with signs of infection and sepsis, but no source of the infection was pinpointed. We are assuming you may have been under treated for the last, recent Proteus bacteremia which may have originated from that kidney. You are being sent home with 10 more days course of antibiotics using Levaquin, plus Florastor tablets to maintain normal intestinal franki. Stay well hydrated if you get loose stools. Resume all your other pre-hospital medications and your diabetic management. You should see your PCP in follow-up in 1-2 weeks. If you have new or worsening symptoms, come to the ER. No Smoking: If you smoke, Please STOP! Call for help. Follow-up with: Frank Yee MD [Primary Care Provider] -
--- NOTE | 2018-04-10 15:58 | DISCHARGE SUMMARY ---
Physician: Shweta Méndez MD DATE OF ADMISSION: 04/02/2018 DATE OF DISCHARGE: 04/05/2018 HISTORY OF PRESENT ILLNESS: This is a 57-year-old white male with a history of diabetes on insulin, hypertension, GERD, kidney stones, depression, osteoarthritis, TIA history. The patient presented to the emergency room with a fever, nausea, vomiting, and diarrhea. He had an initial blood pressure of 76 systolic, which improved to 110 systolic with 1 liter of saline fluid bolus, and he was admitted for management of presumed infection, gastroenteritis symptoms and low blood pressure. Of note is that he was here 2 weeks previously and hospitalized for upper abdominal pain and had 1 of 2 blood cultures grow Proteus. His workup for that abdominal pain and bacteremia included MRCP and HIDA scan, which were unremarkable, and the source of the Proteus was felt to be related to abnormal finding on one pole of his kidney, and he had been sent home to complete a 5-day course of Levaquin then. HOSPITAL COURSE AND DISCHARGE DIAGNOSES 1. Sepsis. The patient had hypotension, evidence of an infection and elevated lactic acid level of 2.4. He was pancultured, he produced no sputum. Cultures were negative throughout this course. He was on empiric IV antibiotics, which improved his fever and elevated white blood count. He was sent home with a longer course of Levaquin to complete a presumably partially treated pyelonephritis causing Proteus bacteremia, from the previous admission. 2. Nausea and vomiting. The patient had very slow resolution of his nausea and vomiting, diarrhea stopped quickly. He was kept on antiemetics and his diet was advanced very slowly until he was able to take a solid, carb-controlled diet on the last day and a half of hospitalization. 3. Type 2 diabetes mellitus. The patient was on sliding scale insulin management first in a non-eating then eating patient. 4. Hypertension. The patient's blood pressure medications were on hold, until they were resumed care home through the admission. LABORATORY AND IMAGING: Reviewed and summarized above. ALLERGIES 1. TYLENOL. 2. OXYCODONE. 3. FENTANYL. MEDICATIONS AT THE TIME OF DISCHARGE 1. Albuterol inhaler p.r.n. 2. Adult low-dose aspirin p.r.n. 3. Plavix 75 mg daily. 4. Lantus insulin 90 units subcutaneous daily. 5. Lispro insulin sliding scale. 6. Lisinopril 10 mg daily. 7. Amlodipine 5 mg every night. 8. Protonix 40 mg daily. 9. Levaquin 750 mg daily for 10 more days. 10. Florastor 250 mg b.i.d. for 10 more days. CONDITION AT DISCHARGE: Stable. PHYSICAL EXAMINATION: VITAL SIGNS: Stable. Blood pressure 137/94, pulse of 90, afebrile, room air saturation 98%. HEENT: Unremarkable except for male pattern baldness. NECK: Without JVD or carotid bruits. CHEST: Clear. HEART: Normal sounds. No murmur. ABDOMEN: Obese, nontender. Normal bowel sounds. No organomegaly. No guarding or rebound. EXTREMITIES: Without edema. NEUROLOGIC: Grossly intact. FOLLOWUP: He was advised to see his PCP within 1-2 weeks in followup of this admission. CODE STATUS: FULL CODE. At the time of discharge, chart reviewed Prescription orders: 30 minutes. cc: Frank eYe MD TD: 04/10/2018 14:50 MTDD
== END 2018-04-05 11:45 | disposition home or self-care (01) | DRG 872 ==
LOC: EDUNIT# → ED 23:24 → MS2 04-02 04:34 → OBSVTOIN 04-02 08:25
PROVIDERS: ADMIT Internal Medicine; ATTEND Internal Medicine
DX: A41.59 Other Gram-negative sepsis (principal); N12 Tubulo-interstitial nephritis, not specified as acute or chronic; N17.9 Acute kidney failure, unspecified; R19.7 Diarrhea, unspecified; R11.2 Nausea with vomiting, unspecified; E11.9 Type 2 diabetes mellitus without complications; E66.9 Obesity, unspecified; Z68.38 Body mass index [BMI] 38.0-38.9, adult; K21.9 Gastro-esophageal reflux disease without esophagitis; I10 Essential (primary) hypertension; J45.909 Unspecified asthma, uncomplicated; E78.5 Hyperlipidemia, unspecified; G89.29 Other chronic pain; M54.9 Dorsalgia, unspecified; M19.90 Unspecified osteoarthritis, unspecified site; L40.9 Psoriasis, unspecified; H35.30 Unspecified macular degeneration; Z79.4 Long term (current) use of insulin; Z79.51 Long term (current) use of inhaled steroids; Z87.11 Personal history of peptic ulcer disease; Z72.89 Other problems related to lifestyle; Z87.891 Personal history of nicotine dependence; Z87.01 Personal history of pneumonia (recurrent); Z86.73 Personal history of transient ischemic attack (TIA), and cerebral infarction without residual deficits; Z83.3 Family history of diabetes mellitus
CPT/HCPCS: 36415; 70450; 71045; 80048; 80053; 80202; 81001; 81003; 83036; 83605; 83690; 83735; 84484; 85025; 87040; 87086; 87275; 87276; 93005; 94640; 96361; 96365; 96366; 96367; 96368; 96375; 99284; 99285

== ENCOUNTER 2018-05-15 18:11 | Outpatient (CLI) | payer MEDICARE, MEDICAID | END 2018-05-15 18:12 | disposition critical access hospital (66) | LOC: EMS 18:11 | PROVIDERS: ATTEND Surgery | DX: R11.2 Nausea with vomiting, unspecified (principal); R10.10 Upper abdominal pain, unspecified; R19.7 Diarrhea, unspecified | CPT/HCPCS: A0425; A0427 ==

== ENCOUNTER 2018-05-15 18:42 | Emergency (ER) | payer MEDICARE, MEDICAID ==
[2018-05-15 19:11] LABS: BASOPHILS # (AUTO) 0.1 10^3/uL (0.0-0.1); BASOPHILS % (AUTO) 0.4 %; HGB - HEMOGLOBIN 15.1 g/dL (14.0-18.0); LYMPHOCYTES # (AUTO) 0.9 10^3/uL (1.5-3.5); LYMPHOCYTES % (AUTO) 7.4 %; MEAN CORPUSCULAR HEMOGLOBIN 28.4 pg (27.0-31.0); MEAN CORPUSCULAR HGB CONC 33.1 g/dL (32.0-36.0); MEAN CORPUSCULAR VOLUME 85.8 fL (80.0-94.0); MEAN PLATELET VOLUME 8.9 fL (7.4-11.4); MONOCYTES # (AUTO) 0.3 10^3/uL (0.0-1.0); MONOCYTES % (AUTO) 2.1 %; NEUTROPHILS # (AUTO) 11.1 10^3/uL (1.5-6.6); NEUTROPHILS % (AUTO) 90.1 %; PLT - PLATELET COUNT 236 10^3/uL (130-450); RED BLOOD COUNT 5.31 10^6/uL (4.70-6.10); RED CELL DISTRIBUTION WIDTH 13.5 % (12.0-15.0); WHITE BLOOD COUNT 12.4 x10^3/uL (4.8-10.8)
[2018-05-15 19:22] LABS: ALBUMIN 3.8 g/dL (3.2-5.5); ALBUMIN/GLOBULIN RATIO 0.9 (1.0-2.2); BILIRUBIN,TOTAL 0.7 mg/dL (0.2-1.0); CALCIUM 9.5 mg/dL (8.5-10.3); CREATININE 0.9 mg/dL (0.6-1.2)
[2018-05-15] MEDS ORDERED: SODIUM CHLORIDE 0.9% 1,000 ML IV ONE ×2 (19:35→21:51)
[2018-05-15] MEDS ORDERED: MORPHINE 10 MG/ML VIAL IVP STA (19:54)
[2018-05-15] MEDS ORDERED: PROCHLORPERAZINE 10 MG/2 ML VIAL IVP STA (19:54)
--- NOTE | 2018-05-15 20:06 | ED Physician Documentation ---
PD HPI NVD - Stated complaint Stated Complaint: ABD PAIN, N/V/D - Chief complaint Chief Complaint: Abd Pain - History obtained from History obtained from: Patient - History of Present Illness Timing - onset: How many days ago (2-3) Timing - duration: Days (2-3) Timing - details: Gradual onset Pain level max: 8 Pain level now: 8 Associated symptoms: No: Fever, Abdominal pain, Chest pain, Hematemesis, Melena, Hematochezia, Dizzy Contributing factors: No: Sick contact Improved by: Vomiting Worsened by: Eating Similar symptoms before: Diagnosis (proteus infection.) Recently seen: Not recently seen Review of Systems Constitutional: denies: Fever, Chills Nose: denies: Rhinorrhea / runny nose, Congestion Respiratory: denies: Cough GI: reports: Abdominal Pain, Nausea, Vomiting Skin: denies: Rash Musculoskeletal: denies: Neck pain, Back pain Neurologic: denies: Focal weakness, Numbness, Headache PD PAST MEDICAL HISTORY - Past Medical History Past Medical History: Yes Cardiovascular: Hypertension, High cholesterol Respiratory: Asthma, Pneumonia Neuro: CVA, TIA Endocrine/Autoimmune: Type 2 diabetes GI: GERD, Ulcers, Hemorrhoids : Kidney stones HEENT: Macular degeneration Psych: Depression Musculoskeletal: Osteoarthritis, Chronic back pain Derm: Psoriasis, Other - Past Surgical History Past Surgical History: Yes General: Other Ortho: ACL reconstruction, Rotator cuff repair Derm: Other - Present Medications Home Medications: Ambulatory Orders Medication Instructions Recorded Confirmed Lisinopril 10 mg PO DAILY 11/13/12 04/02/18 Clopidogrel [Plavix] 75 mg PO DAILY 04/07/14 04/02/18 Insulin Glargine [Lantus Solostar] 90 unit SUBQ DAILY 10/09/17 04/02/18 Albuterol Sulf [Ventolin Hfa 1 - 2 puffs INH Q4H PRN 03/13/18 04/02/18 Inhaler] amLODIPine [Norvasc] 5 mg PO HS #30 tablet 03/17/18 04/02/18 Aspirin 325 mg PO PRN PRN 04/02/18 04/02/18 Insulin Lispro [Humalog] 0 unit SUBQ DAILYWM 04/02/18 04/02/18 Marijuana 1 inh INH PRN PRN 04/02/18 04/02/18 Pantoprazole [Protonix] 40 mg PO DAILY #30 tablet 04/05/18 Cefdinir 300 mg PO BID #20 capsule 05/15/18 Prochlorperazine Maleate 10 mg PO Q6H PRN #14 tablet 05/15/18 [Compazine] - Allergies Allergies/Adverse Reactions: Allergies Allergy/AdvReac Type Severity Reaction Status Date / Time acetaminophen [From Tylenol] AdvReac Intermediate Nausea Verified 05/15/18 18:45 hydrocodone [Hydrocodone] AdvReac Intermediate Respiratory Verified 05/15/18 18:45 oxycodone AdvReac Intermediate Anxiety Verified 05/15/18 18:45 fentanyl AdvReac Nausea Verified 05/15/18 18:45 - Social History Does the pt smoke?: No Smoking Status: Former smoker Does the pt drink ETOH?: Yes ETOH Use: Beer, Liquor Does the pt have substance abuse?: No Substance Use and Type: Marijuana - Immunizations Immunizations are current?: Yes - POLST Patient has POLST: No POLST Status: Full Code (As long as he can think and talk and have a memory he wants to be kept alive. Even if he had a stroke, completely dependent on someone for activities of daily living, as long as he is able to speak, able to think and have a memory resuscitated.) PD ED PE NORMAL - Vitals Vital signs reviewed: Yes - General General: Alert and oriented X 3, No acute distress, Well developed/nourished - HEENT HEENT: PERRL, Moist mucous membranes - Neck Neck: Supple, no meningeal sign - Cardiac Cardiac: RRR, Strong equal pulses - Respiratory Respiratory: No respiratory distress, Clear bilaterally - Abdomen Abdomen: Soft, Non tender, Non distended - Back Back: No CVA TTP, No spinal TTP - Derm Derm: Warm and dry - Extremities Extremities: No edema, No calf tenderness / cord - Neuro Neuro: Alert and oriented X 3 - Psych Psych: Normal mood, Normal affect Results - Vitals Vitals: Vital Signs - 24 hr 05/15/18 23:06 Heart Rate 104 H Respiratory 18 Rate Blood Pressure 186/106 H O2 Saturation 94 Oxygen O2 Source [Without Activity] Room air O2 Source Room air - Labs Labs: Laboratory Tests 05/15/18 05/15/18 05/15/18 19:04 19:04 20:09 WBC 12.4 H RBC 5.31 Hgb 15.1 Hct 45.6 MCV 85.8 MCH 28.4 MCHC 33.1 RDW 13.5 Plt Count 236 MPV 8.9 Neut # (Auto) 11.1 H Lymph # (Auto) 0.9 L [place] # (Auto) 0.3 Eos # (Auto) 0.0 Baso # (Auto) 0.1 Absolute Nucleated RBC 0.00 Nucleated RBC % 0.0 Sodium 137 Potassium 3.6 Chloride 103 Carbon Dioxide 22 Anion Gap 12.0 BUN 19 Creatinine 0.9 Estimated GFR (MDRD) 86 L Glucose 251 H Lactic Acid 1.9 Calcium 9.5 Total Bilirubin 0.7 AST 24 ALT 22 Alkaline Phosphatase 63 Total Protein 8.0 Albumin 3.8 Globulin 4.2 Albumin/Globulin Ratio 0.9 L Lipase 45 Urine Color Urine Clarity Urine pH Ur Specific [place] Urine Protein Urine Glucose (UA) Urine Ketones Urine Occult Blood Urine Nitrite Urine Bilirubin Urine Urobilinogen Ur Leukocyte Esterase Urine RBC Urine WBC Ur Squamous Epith Cells Urine Bacteria Ur Microscopic Review Urine Culture Comments 05/15/18 21:54 WBC RBC Hgb Hct MCV MCH MCHC RDW Plt Count MPV Neut # (Auto) Lymph # (Auto) [place] # (Auto) Eos # (Auto) Baso # (Auto) Absolute Nucleated RBC Nucleated RBC % Sodium Potassium Chloride Carbon Dioxide Anion Gap BUN Creatinine Estimated GFR (MDRD) Glucose Lactic Acid Calcium Total Bilirubin AST ALT Alkaline Phosphatase Total Protein Albumin Globulin Albumin/Globulin Ratio Lipase Urine Color YELLOW Urine Clarity CLEAR Urine pH 8.0 H Ur Specific [place] 1.020 Urine Protein 100 H Urine Glucose (UA) 500 H Urine Ketones 40 H Urine Occult Blood TRACE-INTA Urine Nitrite NEGATIVE Urine Bilirubin NEGATIVE Urine Urobilinogen 0.2 (NORMAL) Ur Leukocyte Esterase NEGATIVE Urine RBC 0-5 Urine WBC 0-3 Ur Squamous Epith Cells NONE SEEN Urine Bacteria None Seen Ur Microscopic Review INDICATED Urine Culture Comments NOT INDICATED - Rads (name of study) CT abdomen pelvis Radiology: Prelim report reviewed, EMP read contemporaneously, See rad report (No acute abnormality) PD MEDICAL DECISION MAKING - ED course Complexity details: reviewed old records, reviewed results, re-evaluated patient, considered differential, d/w patient ED course: 58-year-old male presents to the emergency department with vomiting. Does have leukocytosis, on my review of the CT scan he Appears to have increased stranding around the left kidney, similar to prior when he had pyelonephritis. Given his history of Proteus infections, will treat with antibiotics. Lactate is normal. Patient is well-appearing, nontoxic. Tolerating p.o. without difficulty after medications. Patient counseled regarding signs and symptoms for which I believe and urgent re-evaluation would be necessary. Patient with good understanding of and agreement to plan and is comfortable going home at this time This document was made in part using voice recognition software. While efforts are made to proofread this document, sound alike and grammatical errors may occur. Departure - Departure Disposition: 01 Home, Self Care Clinical Impression: Urinary tract infection due to Proteus Vomiting Qualifiers: Vomiting type: unspecified Vomiting Intractability: non-intractable Nausea presence: with nausea Qualified Code(s): R11.2 - Nausea with vomiting, unspecified Condition: Good Instructions: ED Nausea Vomiting Follow-Up: Ai Orozco DNP [Primary Care Provider] - Within 3 Days Prescriptions: Cefdinir 300 mg PO BID #20 capsule Prochlorperazine Maleate [Compazine] 10 mg PO Q6H PRN #14 tablet PRN Reason: Nausea / Vomiting Comments: Return if you worsen. Take all antibiotics until gone. Discharge Date/Time: 05/15/18 23:39
[2018-05-15] MEDS ORDERED: IOPAMIDOL-300 100 ML VIAL ONE (20:47)
[2018-05-15] MEDS ORDERED: IOPAMIDOL-300 100 ML VIAL IVP ONE (21:02)
--- NOTE | 2018-05-15 21:38 | CT Report ---
Reason: vomiting, abd pain Procedure Date: 05/15/2018 Accession Number: [id number] / [id number] Procedure: CT - Abdomen/Pelvis W CPT Code: FULL RESULT: EXAM: CT ABDOMEN AND PELVIS EXAM DATE: 05/15/2018 08:58 PM. CLINICAL HISTORY: Vomiting, abd pain. COMPARISONS: ABDOMEN/PELVIS W/ 03/13/2018 12:52 PM. TECHNIQUE: Routine helical CT imaging was performed through the abdomen and pelvis. IV contrast: ISOVUE 300 100mL. Enteric contrast: No. Reconstructions: Coronal and sagittal. In accordance with CT protocol optimization, one or more of the following dose reduction techniques were utilized for this exam: automated exposure control, adjustment of mA and/or KV based on patient size, or use of iterative reconstructive technique. FINDINGS: Lung Bases: Mild atelectasis. Otherwise unremarkable. Liver: Normal. No masses. Gallbladder/Bile Ducts: Unremarkable. Spleen: Normal. Pancreas: Normal. Adrenal Glands: No change of small left adrenal nodule. Unremarkable right adrenal. Kidneys: Atrophic right kidney with small cyst. Tiny cortical cyst on the left. No change of small calcified left renal nodule. Otherwise unremarkable. No stone or hydronephrosis. Peritoneal Cavity/Bowel: Fluid-filled stomach. No free fluid, free air or adenopathy. No masses or acute inflammatory process. The appendix is well visualized and normal. Pelvic Organs: Normal. The bladder and visualized pelvic organs are within normal limits. Vasculature: No change of small distal abdominal aortic aneurysm measuring 3.6 cm. Ectasia of common iliac arteries. Bones: No significant abnormality. Other: Tiny umbilical hernia with fat involvement only. Tiny right inguinal hernia with fat involvement only. IMPRESSION: 1. Fluid-filled, but otherwise unremarkable appearing stomach. 2. Atrophic right kidney, small abdominal aortic aneurysm, and other chronic or incidental findings similar to previous study. RADIA
[2018-05-15 22:08] LABS: BILIRUBIN,URINE NEGATIVE (NEGATIVE); GLUCOSE, URINE (UA) 500 mg/dL (NEGATIVE); KETONES,URINE (UA) 40 mg/dL (NEGATIVE); LEUKOCYTE ESTERASE, URINE NEGATIVE (NEGATIVE); NITRITE,URINE NEGATIVE (NEGATIVE); OCCULT BLOOD,URINE TRACE-INTA (NEGATIVE); PROTEIN,URINE 100 mg/dL (NEGATIVE); UROBILINOGEN,URINE 0.2 (NORMAL) E.U./dL (NORMAL)
[2018-05-15 22:31] LABS: CLARITY,URINE CLEAR (CLEAR)
[2018-05-15 22:33] LABS: BACTERIA,URINE None Seen /HPF (None Seen); RBC,URINE 0-5 /HPF (0-5); SQUAMOUS EPITHELIAL CELL,UR NONE SEEN (<= Few)
[2018-05-15] MEDS ORDERED: cefTRIAXone 1 GM VIAL IVP STA (22:44)
[2018-05-15 23:07] VITALS: BP 186/106
== END 2018-05-15 23:39 | disposition home or self-care (01) ==
LOC: EDUNIT# → EDBD → ED 18:42
DX: N39.0 Urinary tract infection, site not specified (principal); B96.4 Proteus (mirabilis) (morganii) as the cause of diseases classified elsewhere; R11.2 Nausea with vomiting, unspecified; D72.829 Elevated white blood cell count, unspecified; I10 Essential (primary) hypertension; E78.00 Pure hypercholesterolemia, unspecified; E11.9 Type 2 diabetes mellitus without complications; Z79.4 Long term (current) use of insulin; Z86.73 Personal history of transient ischemic attack (TIA), and cerebral infarction without residual deficits; Z87.891 Personal history of nicotine dependence; Z79.82 Long term (current) use of aspirin
CPT/HCPCS: 36415; 74177; 80053; 81001; 83605; 83690; 85025; 96361; 96374; 96375; 99283; 99284; Q9967; 81003; 87086

== ENCOUNTER 2018-07-25 11:01 | Outpatient (CLI) | payer MEDICARE, MEDICAID ==
[2018-07-25 19:05] LABS: HB2 TOTAL 16.3 g/dL; HEMOGLOBIN A1C 1.33 g/dL; HEMOGLOBIN A1C % 9.6 % (4.6-6.2)
[2018-07-25 19:07] LABS: BASOPHILS # (AUTO) 0.1 10^3/uL (0.0-0.1); BASOPHILS % (AUTO) 0.9 %; EOSINOPHILS # (AUTO) 0.3 10^3/uL (0.0-0.7); EOSINOPHILS % (AUTO) 3.3 %; LYMPHOCYTES % (AUTO) 23.4 %; MEAN CORPUSCULAR HEMOGLOBIN 28.7 pg (27.0-31.0); MEAN CORPUSCULAR HGB CONC 32.5 g/dL (32.0-36.0); MEAN CORPUSCULAR VOLUME 88.2 fL (80.0-94.0); MEAN PLATELET VOLUME 8.8 fL (7.4-11.4); MONOCYTES # (AUTO) 0.8 10^3/uL (0.0-1.0); MONOCYTES % (AUTO) 8.9 %; NEUTROPHILS # (AUTO) 5.5 10^3/uL (1.5-6.6); NEUTROPHILS % (AUTO) 63.5 %; PLT - PLATELET COUNT 241 10^3/uL (130-450); RED BLOOD COUNT 5.24 10^6/uL (4.70-6.10); RED CELL DISTRIBUTION WIDTH 13.6 % (12.0-15.0); WHITE BLOOD COUNT 8.7 x10^3/uL (4.8-10.8)
[2018-07-25 19:11] LABS: BUN - BLOOD UREA NITROGEN 17 mg/dL (6-20); CALCIUM 9.1 mg/dL (8.5-10.3); CARBON DIOXIDE - CO2 28 mmol/L (21-32); CHLORIDE 99 mmol/L (101-111); CHOL/HDL RATIO 6.3 (<5.0); CHOLESTEROL 290 mg/dL; CREATININE 0.8 mg/dL (0.6-1.2); GFR - MDRD 99 (>89); GLUCOSE 145 mg/dL (70-100); HDL CHOLESTEROL 46 mg/dL; LDL CHOLESTEROL,CALCULATED 185 mg/dL; SODIUM 137 mmol/L (135-145); VLDL CHOLESTEROL 59 mg/dL
== END 2018-07-25 23:59 | disposition home or self-care (01) ==
LOC: LAB.N 11:01
PROVIDERS: ATTEND Physician Assistant Medical
DX: E87.1 Hypo-osmolality and hyponatremia (principal); E78.5 Hyperlipidemia, unspecified; E55.9 Vitamin D deficiency, unspecified; E11.649 Type 2 diabetes mellitus with hypoglycemia without coma; I10 Essential (primary) hypertension; E11.42 Type 2 diabetes mellitus with diabetic polyneuropathy
CPT/HCPCS: 36415; 80048; 80061; 82306; 83036; 83721; 84443; 85025

== ENCOUNTER 2018-09-18 22:43 | Emergency (ER) | payer MEDICARE, MEDICAID ==
[2018-09-19] MEDS ORDERED: ONDANSETRON 4 MG/2 ML VIAL IVP STA (00:46)
[2018-09-19] MEDS ORDERED: SODIUM CHLORIDE 0.9% 1,000 ML IV ONE ×2 (00:46→03:00)
[2018-09-19] MEDS ORDERED: INSULIN REGULAR HUMAN 100 UNIT in SODIUM CHLORIDE 0.9% 100ML 99 ML IV STA ×2 (00:46→01:42)
[2018-09-19] MEDS ORDERED: HYDROmorphone 1 MG/ML CARPUJECT IVP STA (00:46)
--- NOTE | 2018-09-19 00:48 | ED Physician Documentation ---
PD HPI HEADACHE - Stated complaint Stated Complaint: HEADACHE/N/V/F - Chief complaint Chief Complaint: Heent - History obtained from History obtained from: Patient - History of Present Illness Timing - onset: How many weeks ago (1) Timing - onset during: Rest Timing - duration: Weeks (1) Timing - details: Gradual onset, Still present Pain level max: 8 Pain level now: 8 Location: Back, Right Quality: Throbbing Associated symptoms: Nausea. No: Fever, Stiff neck, Vomiting, Weakness, Numbness, Syncope, Seizure, Eye pain, Vision changes Improved by: Rest Worsened by: Light, Noise, Moving Contributing factors: Other (diabetes). No: Anticoagulated Similar symptoms before: Has not had sx before Recently seen: Not recently seen - Additional information Additional information: 58-year-old diabetic male has developed a headache in the right occipital region and this has led to some nausea about 3 days ago and the patient feels he has become dehydrated about 2 days ago and has had elevation of his blood sugar. Review of Systems Constitutional: reports: Fatigue, Sweats. denies: Fever Eyes: denies: Decreased vision Ears: denies: Ear pain Nose: denies: Rhinorrhea / runny nose, Congestion Throat: denies: Sore throat Cardiac: reports: Chest pain / pressure. denies: Palpitations Respiratory: denies: Dyspnea, Cough GI: reports: Nausea. denies: Abdominal Pain, Vomiting, Constipation, Diarrhea : denies: Dysuria Skin: denies: Rash Musculoskeletal: reports: Neck pain. denies: Back pain Neurologic: reports: Headache. denies: Generalized weakness, Focal weakness, Numbness, Head injury, LOC PD PAST MEDICAL HISTORY - Past Medical History Past Medical History: Yes Cardiovascular: Hypertension, High cholesterol Respiratory: Asthma, Pneumonia Neuro: CVA, TIA Endocrine/Autoimmune: Type 2 diabetes GI: GERD, Ulcers, Hemorrhoids : Kidney stones HEENT: Macular degeneration Psych: Depression Musculoskeletal: Osteoarthritis, Chronic back pain Derm: Psoriasis, Other - Past Surgical History Past Surgical History: Yes General: Other Ortho: ACL reconstruction, Rotator cuff repair Derm: Other - Present Medications Home Medications: Ambulatory Orders Medication Instructions Recorded Confirmed Lisinopril 10 mg PO DAILY 11/13/12 04/02/18 Clopidogrel [Plavix] 75 mg PO DAILY 04/07/14 04/02/18 Insulin Glargine [Lantus Solostar] 90 unit SUBQ DAILY 10/09/17 04/02/18 Albuterol Sulf [Ventolin Hfa 1 - 2 puffs INH Q4H PRN 03/13/18 04/02/18 Inhaler] amLODIPine [Norvasc] 5 mg PO HS #30 tablet 03/17/18 04/02/18 Aspirin 325 mg PO PRN PRN 04/02/18 04/02/18 Insulin Lispro [Humalog] 0 unit SUBQ DAILYWM 04/02/18 04/02/18 Marijuana 1 inh INH PRN PRN 04/02/18 04/02/18 Pantoprazole [Protonix] 40 mg PO DAILY #30 tablet 04/05/18 Cefdinir 300 mg PO BID #20 capsule 05/15/18 Prochlorperazine Maleate 10 mg PO Q6H PRN #14 tablet 05/15/18 [Compazine] - Allergies Allergies/Adverse Reactions: Allergies Allergy/AdvReac Type Severity Reaction Status Date / Time acetaminophen [From Tylenol] AdvReac Intermediate Nausea Verified 09/18/18 22:53 hydrocodone [Hydrocodone] AdvReac Intermediate Respiratory Verified 09/18/18 22:53 oxycodone AdvReac Intermediate Anxiety Verified 09/18/18 22:53 fentanyl AdvReac Nausea Verified 09/18/18 22:53 - Social History Does the pt smoke?: No Smoking Status: Never smoker Does the pt drink ETOH?: Yes Does the pt have substance abuse?: No - Immunizations Immunizations are current?: Yes - POLST Patient has POLST: No POLST Status: Full Code (As long as he can think and talk and have a memory he wants to be kept alive. Even if he had a stroke, completely dependent on someone for activities of daily living, as long as he is able to speak, able to think and have a memory resuscitated.) PD ED PE NORMAL - Vitals Vital signs reviewed: Yes (tachy and hypertensive ) - General General: Alert and oriented X 3, No acute distress, Well developed/nourished - HEENT HEENT: Atraumatic, PERRL, EOMI - Neck Neck: Supple, no meningeal sign, No bony TTP - Cardiac Cardiac: No murmur, Other (tachy to 120) - Respiratory Respiratory: No respiratory distress, Clear bilaterally - Abdomen Abdomen: Soft, Non tender - Back Back: No CVA TTP, No spinal TTP - Derm Derm: Normal color, Warm and dry, No rash - Extremities Extremities: No deformity, No edema, No calf tenderness / cord - Neuro Neuro: Alert and oriented X 3, special order jeweler 2-12 intact, No motor deficit, No sensory deficit, Normal speech Eye Opening: Spontaneous Motor: Obeys Commands Verbal: Oriented GCS Score: 15 - Psych Psych: Normal mood, Normal affect Results - Vitals Vitals: Vital Signs - 24 hr 09/18/18 09/19/18 09/19/18 22:49 01:07 02:12 Temperature 36.9 C Heart Rate 115 H 100 91 Respiratory 17 17 17 Rate Blood Pressure 151/115 H 167/111 H 148/106 H O2 Saturation 97 98 92 09/19/18 09/19/18 09/19/18 03:00 04:32 06:00 Temperature Heart Rate 94 78 80 Respiratory 17 18 17 Rate Blood Pressure 172/102 H 177/108 H 176/99 H O2 Saturation 98 97 100 Oxygen O2 Source [Without Activity] Room air O2 Source Room air - Labs Labs: Laboratory Tests 09/18/18 09/19/18 09/19/18 23:03 01:00 01:00 WBC 20.2 H RBC 6.48 H Hgb 18.5 H Hct 55.0 H MCV 84.9 MCH 28.5 MCHC 33.6 RDW 13.0 Plt Count 298 MPV 11.1 Neut # (Auto) Not Reportable Lymph # (Auto) Not Reportable [place] # (Auto) Not Reportable Eos # (Auto) Not Reportable Baso # (Auto) Not Reportable Absolute Nucleated RBC Not Reportable Total Counted 100 Band Neuts % (Manual) 0 Abnorm Lymph % (Manual) 0 Nucleated RBC % Not Reportable Neutrophils # (Manual) 15.6 H Lymphocytes # (Manual) 2.4 Monocytes # (Manual) 2.2 H Eosinophils # (Manual) 0.0 Basophils # (Manual) 0.0 Differential Comment MANUAL DIFFERENTIAL Platelet Estimate NORMAL (130-450,000) RBC Morph Micro Appear NORMAL APPEARANCE Sodium 131 L Potassium 4.3 Chloride 92 L Carbon Dioxide 24 Anion Gap 15.0 H BUN 30 H Creatinine 1.0 Estimated GFR (MDRD) 76 L Glucose 354 H POC Whole Bld Glucose 405 H Lactic Acid Calcium 10.1 Total Bilirubin 1.4 H AST 20 ALT 23 Alkaline Phosphatase 81 Troponin I Total Protein 8.7 H Albumin 4.3 Globulin 4.4 H Albumin/Globulin Ratio 1.0 Lipase 144 H Urine Color Urine Clarity Urine pH Ur Specific [place] Urine Protein Urine Glucose (UA) Urine Ketones Urine Occult Blood Urine Nitrite Urine Bilirubin Urine Urobilinogen Ur Leukocyte Esterase Urine RBC Urine WBC Ur Epithelial Cells Ur Squamous Epith Cells Urine Bacteria Urine Casts Ur Microscopic Review Urine Culture Comments Serum Ketones 09/19/18 09/19/18 09/19/18 01:00 01:00 01:00 WBC RBC Hgb Hct MCV MCH MCHC RDW Plt Count MPV Neut # (Auto) Lymph # (Auto) [place] # (Auto) Eos # (Auto) Baso # (Auto) Absolute Nucleated RBC Total Counted Band Neuts % (Manual) Abnorm Lymph % (Manual) Nucleated RBC % Neutrophils # (Manual) Lymphocytes # (Manual) Monocytes # (Manual) Eosinophils # (Manual) Basophils # (Manual) Differential Comment Platelet Estimate RBC Morph Micro Appear Sodium Potassium Chloride Carbon Dioxide Anion Gap BUN Creatinine Estimated GFR (MDRD) Glucose POC Whole Bld Glucose Lactic Acid 1.9 Calcium Total Bilirubin AST ALT Alkaline Phosphatase Troponin I < 0.04 Total Protein Albumin Globulin Albumin/Globulin Ratio Lipase Urine Color Urine Clarity Urine pH Ur Specific [place] Urine Protein Urine Glucose (UA) Urine Ketones Urine Occult Blood Urine Nitrite Urine Bilirubin Urine Urobilinogen Ur Leukocyte Esterase Urine RBC Urine WBC Ur Epithelial Cells Ur Squamous Epith Cells Urine Bacteria Urine Casts Ur Microscopic Review Urine Culture Comments Serum Ketones NEGATIVE 09/19/18 09/19/18 09/19/18 01:28 02:47 03:50 WBC RBC Hgb Hct MCV MCH MCHC RDW Plt Count MPV Neut # (Auto) Lymph # (Auto) [place] # (Auto) Eos # (Auto) Baso # (Auto) Absolute Nucleated RBC Total Counted Band Neuts % (Manual) Abnorm Lymph % (Manual) Nucleated RBC % Neutrophils # (Manual) Lymphocytes # (Manual) Monocytes # (Manual) Eosinophils # (Manual) Basophils # (Manual) Differential Comment Platelet Estimate RBC Morph Micro Appear Sodium Potassium Chloride Carbon Dioxide Anion Gap BUN Creatinine Estimated GFR (MDRD) Glucose POC Whole Bld Glucose 330 H 320 H 312 H Lactic Acid Calcium Total Bilirubin AST ALT Alkaline Phosphatase Troponin I Total Protein Albumin Globulin Albumin/Globulin Ratio Lipase Urine Color Urine Clarity Urine pH Ur Specific [place] Urine Protein Urine Glucose (UA) Urine Ketones Urine Occult Blood Urine Nitrite Urine Bilirubin Urine Urobilinogen Ur Leukocyte Esterase Urine RBC Urine WBC Ur Epithelial Cells Ur Squamous Epith Cells Urine Bacteria Urine Casts Ur Microscopic Review Urine Culture Comments Serum Ketones 09/19/18 09/19/18 09/19/18 04:50 04:57 05:47 WBC RBC Hgb Hct MCV MCH MCHC RDW Plt Count MPV Neut # (Auto) Lymph # (Auto) [place] # (Auto) Eos # (Auto) Baso # (Auto) Absolute Nucleated RBC Total Counted Band Neuts % (Manual) Abnorm Lymph % (Manual) Nucleated RBC % Neutrophils # (Manual) Lymphocytes # (Manual) Monocytes # (Manual) Eosinophils # (Manual) Basophils # (Manual) Differential Comment Platelet Estimate RBC Morph Micro Appear Sodium Potassium Chloride Carbon Dioxide Anion Gap BUN Creatinine Estimated GFR (MDRD) Glucose POC Whole Bld Glucose 273 H 285 H Lactic Acid Calcium Total Bilirubin AST ALT Alkaline Phosphatase Troponin I Total Protein Albumin Globulin Albumin/Globulin Ratio Lipase Urine Color YELLOW Urine Clarity CLEAR Urine pH 6.0 Ur Specific [place] 1.015 Urine Protein 100 H Urine Glucose (UA) >=1000 H Urine Ketones 40 H Urine Occult Blood SMALL H Urine Nitrite NEGATIVE Urine Bilirubin NEGATIVE Urine Urobilinogen 0.2 (NORMAL) Ur Leukocyte Esterase NEGATIVE Urine RBC 0-5 Urine WBC 0-3 Ur Epithelial Cells None Seen Ur Squamous Epith Cells RARE Squamous Urine Bacteria None Seen Urine Casts 0-2 Hyaline Casts Ur Microscopic Review INDICATED Urine Culture Comments NOT INDICATED Serum Ketones - Rads (name of study) CT head without Radiology: Prelim report reviewed (Impression: 1. No evidence of acute intracranial pathology. 2. No significant interval change.), EMP read indepedently, See rad report PD MEDICAL DECISION MAKING - ED course Complexity details: reviewed old records, reviewed results, re-evaluated patient, considered differential, d/w patient ED course: 58-year-old male with a headache is found to be significantly dehydrated secondary to uncontrolled diabetes. He is administered intravenous saline and i s placed onto an insulin drip. He feels much improved. His headache is improved. Departure - Departure Disposition: 01 Home, Self Care Clinical Impression: Dehydration, Hyperglycemia Elevated white blood cell count Qualifiers: Leukocytosis type: leukemoid reaction Qualified Code(s): D72.823 - Leukemoid reaction Condition: Stable Instructions: ED Hyperglycemia Diabetic, ED Dehydration Follow-Up: [facility] [Provider Group]
[2018-09-19 01:14] LABS: BASOPHILS % (AUTO) 0.5 %; EOSINOPHILS % (AUTO) 0.1 %; HGB - HEMOGLOBIN 18.5 g/dL (14.0-18.0); LYMPHOCYTES % (AUTO) 11.8 %; MEAN CORPUSCULAR HEMOGLOBIN 28.5 pg (27.0-31.0); MEAN CORPUSCULAR HGB CONC 33.6 g/dL (32.0-36.0); MEAN CORPUSCULAR VOLUME 84.9 fL (80.0-94.0); MEAN PLATELET VOLUME 11.1 fL (7.4-11.4); MONOCYTES % (AUTO) 7.8 %; NEUTROPHILS % (AUTO) 79.1 %; PLT - PLATELET COUNT 298 10^3/uL (130-450); RED BLOOD COUNT 6.48 10^6/uL (4.70-6.10); WHITE BLOOD COUNT 20.2 x10^3/uL (4.8-10.8)
[2018-09-19 01:17] LABS: ABNORMAL LYMPHS % (MANUAL) 0 %; BAND NEUTROPHILS % (MANUAL) 0 %
[2018-09-19 01:28] LABS: ALBUMIN 4.3 g/dL (3.2-5.5); BILIRUBIN,TOTAL 1.4 mg/dL (0.2-1.0); CALCIUM 10.1 mg/dL (8.5-10.3); TOTAL PROTEIN 8.7 g/dL (6.7-8.2)
[2018-09-19] MEDS ORDERED: SODIUM CHLORIDE 0.9% 100ML 100 ML IV ONE (01:28)
[2018-09-19] MEDS ORDERED: INSULIN REGULAR HUMAN 100 UNIT/1 ML 10 ML MDV ONE (01:35)
[2018-09-19 01:45] LABS: DIFFERENTIAL COMMENT MANUAL DIFFERENTIAL; LYMPHOCYTES # (MANUAL) 2.4 10^3/uL (1.5-3.5); LYMPHOCYTES % (MANUAL) 12 %; MONOCYTES # (MANUAL) 2.2 10^3/uL (0.0-1.0); NEUTROPHILS # (MANUAL) 15.6 10^3/uL (1.5-6.6); NEUTROPHILS % (MANUAL) 77 %; PLATELET ESTIMATE, MANUAL NORMAL (130-450,000) (NORMAL); RBC MORPHOLOGY (MULTIPLE) NORMAL APPEARANCE (NORMAL)
--- NOTE | 2018-09-19 03:13 | CT Report ---
Reason: occipital headache nausea Procedure Date: 09/19/2018 Accession Number: [id number] / [id number] Procedure: CT - HEAD WO CPT Code: FULL RESULT: EXAM: CT HEAD EXAM DATE: 09/19/2018 01:26 AM. CLINICAL HISTORY: Occipital headache nausea. COMPARISON: HEAD W/O 04/02/2018 12:27 AM. TECHNIQUE: Multiaxial CT images were obtained from the foramen magnum to the vertex. Reformats: Sagittal and coronal. IV contrast: None. In accordance with CT protocol optimization, one or more of the following dose reduction techniques were utilized for this exam: automated exposure control, adjustment of mA and/or KV based on patient size, or use of iterative reconstructive technique. FINDINGS: Parenchyma: No intraparenchymal hemorrhage. No evidence of mass, midline shift, or CT findings of infarction. Garcia-white differentiation is distinct. Small focus of encephalomalacia is again identified in the right paramedian frontoparietal region, unchanged. Extraaxial Spaces: Normal for age. No subdural or epidural collections identified. Ventricles: Stable, within normal limits. Sinuses and Orbits: Imaged paranasal sinuses, orbits, and mastoids show no significant abnormality. Bones: No evidence of fracture or calvarial defect. Other: Vascular calcification is visualized in the cavernous segments of the bilateral ICAs. IMPRESSION: 1. No evidence of acute intracranial pathology. 2. No significant interval change. RADIA
[2018-09-19 05:09] LABS: BILIRUBIN,URINE NEGATIVE (NEGATIVE); GLUCOSE, URINE (UA) >=1000 mg/dL (NEGATIVE); KETONES,URINE (UA) 40 mg/dL (NEGATIVE); LEUKOCYTE ESTERASE, URINE NEGATIVE (NEGATIVE); NITRITE,URINE NEGATIVE (NEGATIVE); OCCULT BLOOD,URINE SMALL (NEGATIVE); PROTEIN,URINE 100 mg/dL (NEGATIVE); UROBILINOGEN,URINE 0.2 (NORMAL) E.U./dL (NORMAL)
[2018-09-19 05:16] LABS: CLARITY,URINE CLEAR (CLEAR)
[2018-09-19 05:28] LABS: CASTS, URINE 0-2 Hyaline Casts /LPF; EPITHELIAL CELLS,UR None Seen /HPF (<= Few); RBC,URINE 0-5 /HPF (0-5); SQUAMOUS EPITHELIAL CELL,UR RARE Squamous (<= Few)
[2018-09-19 05:34] LABS: BACTERIA,URINE None Seen /HPF (None Seen)
[2018-09-19] MEDS ORDERED: ONDANSETRON ODT 4 MG Prepack 2 TL PRN (05:57)
[2018-09-19 06:22] VITALS: BP 176/99
== END 2018-09-19 06:05 | disposition home or self-care (01) ==
LOC: ED 22:43
DX: E86.0 Dehydration (principal); D72.823 Leukemoid reaction; I10 Essential (primary) hypertension; E11.65 Type 2 diabetes mellitus with hyperglycemia; Z79.4 Long term (current) use of insulin
CPT/HCPCS: 36415; 70450; 80053; 81001; 82009; 83605; 83690; 84484; 85025; 96361; 96374; 99284; J1170; J1815; 81003; 82803; 87086

== ENCOUNTER 2018-11-25 22:07 | Observation (INO) | payer MEDICARE, MEDICAID ==
--- NOTE | 2018-11-25 23:44 | ED Physician Documentation ---
PD HPI NVD - Stated complaint Stated Complaint: 'extreme nausea' - History obtained from History obtained from: Patient - History of Present Illness Timing - onset: Today (0230 onset) Pain level now: 7 Associated symptoms: Abdominal pain, Dizzy, Near syncope / syncope. No: Fever, Hematemesis, Melena, Hematochezia, Dysuria, Hematuria Contributing factors: No: Sick contact, Bad food Recently seen: Not recently seen - Additonal information Additional information: Is a 58-year-old diabetic who presents with complaints of extreme nausea that began about 230 this morning and he started vomiting. He has not been able to keep anything down with the last emesis about 30 minutes ago. He has not seen blood in it but does complain that it looks dark. He had some diarrhea earlier in the day but that has resolved. He did not eat anything that he thinks makes him sick or was not around anyone that was ill. He is felt dizzy and "blacked out" a couple of times although he did not injure himself. He denies palpitations although he feels short of breath. No chest pain. He has epigastric pain that he rates it a 7 out of 10. Denies use of recent alcohol. His blood sugar this morning was 187 and then he checked it again it was 367. Denies any wounds on his skin. He also has a history of asthma and has been coughing and wheezing. Review of Systems Constitutional: denies: Fever Ears: denies: Ear pain Nose: denies: Congestion Throat: denies: Sore throat Cardiac: denies: Chest pain / pressure, Palpitations Respiratory: reports: Dyspnea, Cough, Wheezing GI: reports: Abdominal Pain, Nausea, Vomiting, Diarrhea : denies: Dysuria, Frequency Skin: denies: Rash Musculoskeletal: denies: Extremity pain, Joint pain Neurologic: reports: Numbness, Other (Patient has neuropathy) Endocrine: reports: Other (Patient is diabetic) PD PAST MEDICAL HISTORY - Past Medical History Cardiovascular: Hypertension, High cholesterol Respiratory: Asthma, Pneumonia Neuro: CVA, TIA Endocrine/Autoimmune: Type 2 diabetes GI: GERD, Ulcers, Hemorrhoids : Kidney stones HEENT: Macular degeneration Psych: Depression Musculoskeletal: Osteoarthritis, Chronic back pain Derm: Psoriasis, Other - Past Surgical History Past Surgical History: Yes General: Other Ortho: ACL reconstruction, Rotator cuff repair Derm: Other - Present Medications Home Medications: Ambulatory Orders Medication Instructions Recorded Confirmed RX: Lisinopril 10 mg PO DAILY 11/13/12 04/02/18 RX: Clopidogrel [Plavix] 75 mg PO DAILY 04/07/14 04/02/18 RX: Insulin Glargine [Lantus 90 unit SUBQ DAILY 10/09/17 04/02/18 Solostar] RX: Albuterol Sulf [Ventolin Hfa 1 - 2 puffs INH Q4H PRN 03/13/18 04/02/18 Inhaler] RX: amLODIPine [Norvasc] 5 mg PO HS #30 tablet 03/17/18 04/02/18 Marijuana 1 inh INH PRN PRN 04/02/18 04/02/18 RX: Aspirin 325 mg PO PRN PRN 04/02/18 04/02/18 RX: Insulin Lispro [Humalog] 0 unit SUBQ DAILYWM 04/02/18 04/02/18 RX: Pantoprazole [Protonix] 40 mg PO DAILY #30 tablet 04/05/18 Prochlorperazine Maleate 10 mg PO Q6H PRN #14 tablet 05/15/18 [Compazine] RX: Cefdinir 300 mg PO BID #20 capsule 05/15/18 - Allergies Allergies/Adverse Reactions: Allergies Allergy/AdvReac Type Severity Reaction Status Date / Time acetaminophen [From Tylenol] AdvReac Intermediate Nausea Verified 09/18/18 22:53 hydrocodone [Hydrocodone] AdvReac Intermediate Respiratory Verified 09/18/18 22:53 oxycodone AdvReac Intermediate Anxiety Verified 09/18/18 22:53 fentanyl AdvReac Nausea Verified 09/18/18 22:53 - Social History Does the pt smoke?: No Smoking Status: Never smoker Does the pt drink ETOH?: Yes Does the pt have substance abuse?: No - Immunizations Immunizations are current?: Yes - POLST Patient has POLST: No POLST Status: Full Code (As long as he can think and talk and have a memory he wants to be kept alive. Even if he had a stroke, completely dependent on someone for activities of daily living, as long as he is able to speak, able to think and have a memory resuscitated.) PD ED PE NORMAL - Vitals Vital signs reviewed: Yes - General General: Alert and oriented X 3, No acute distress, Well developed/nourished - HEENT HEENT: Atraumatic, PERRL, Other (Mucous membranes are dry) - Neck Neck: No adenopathy, Thyroid normal, No JVD - Cardiac Cardiac: No murmur, Other (Tachycardia) - Respiratory Respiratory: No respiratory distress, Clear bilaterally - Abdomen Abdomen: Normal bowel sounds, Non tender, Non distended - Derm Derm: Warm and dry, No rash, Other (He is pale) - Neuro Neuro: Alert and oriented X 3, No motor deficit, No sensory deficit, Normal speech - Psych Psych: Normal mood, Normal affect Results - Vitals Vitals: Vital Signs - 24 hr 11/26/18 11/26/18 11/26/18 02:10 02:30 02:43 Heart Rate 134 H 110 H 110 H Respiratory 19 22 22 Rate Blood Pressure 211/123 H 200/90 H 182/90 H O2 Saturation 99 93 96 11/26/18 11/26/18 02:48 02:51 Heart Rate 107 H 97 Respiratory 22 23 Rate Blood Pressure 176/89 H 161/78 H O2 Saturation 93 92 Oxygen O2 Source [Without Activity] Room air O2 Source Room air - EKG (time done) 2221 Rate: Rate (enter#) Rhythm: Sinus tachycardia Intervals: Normal SD Ischemia: Normal ST segments Compare to prior EKG: Old EKG unavailable - Labs Labs: Laboratory Tests 11/25/18 11/25/18 11/25/18 23:55 23:55 23:55 WBC 19.0 H RBC 6.23 H Hgb 17.6 Hct 53.9 H MCV 86.5 MCH 28.3 MCHC 32.7 RDW 13.2 Plt Count 247 MPV 11.4 Neut # (Auto) 17.2 H Lymph # (Auto) 1.2 L Logan # (Auto) 0.5 Eos # (Auto) 0.0 Baso # (Auto) 0.0 Absolute Nucleated RBC 0.00 Nucleated RBC % 0.0 VBG pH VBG pCO2 VBG pO2 VBG HCO3 VBG Total CO2 VBG O2 Saturation VBG Base Excess Sodium 138 Potassium 4.2 Chloride 93 L Carbon Dioxide 23 Anion Gap 22.0 H BUN 23 H Creatinine 1.3 H Estimated GFR (MDRD) 57 L Glucose 452 H POC Whole Bld Glucose Lactic Acid Calcium 10.1 Total Bilirubin 1.3 H AST 24 ALT 21 Alkaline Phosphatase 73 Troponin I High Sens 13.1 Total Protein 8.4 H Albumin 4.4 Globulin 4.0 Albumin/Globulin Ratio 1.1 Lipase 17 L Urine Color Urine Clarity Urine pH Ur Specific [place] Urine Protein Urine Glucose (UA) Urine Ketones Urine Occult Blood Urine Nitrite Urine Bilirubin Urine Urobilinogen Ur Leukocyte Esterase Urine RBC Urine WBC Ur Squamous Epith Cells Urine Bacteria Ur Microscopic Review Urine Culture Comments Serum Ketones 11/25/18 11/25/18 11/26/18 23:55 23:55 01:10 WBC RBC Hgb Hct MCV MCH MCHC RDW Plt Count MPV Neut # (Auto) Lymph # (Auto) Logan # (Auto) Eos # (Auto) Baso # (Auto) Absolute Nucleated RBC Nucleated RBC % VBG pH 7.424 H VBG pCO2 33.5 L VBG pO2 51.1 H VBG HCO3 21.4 L VBG Total CO2 22.5 L VBG O2 Saturation 87.0 H VBG Base Excess -1.9 Sodium Potassium Chloride Carbon Dioxide Anion Gap BUN Creatinine Estimated GFR (MDRD) Glucose POC Whole Bld Glucose Lactic Acid 4.7 H* Calcium Total Bilirubin AST ALT Alkaline Phosphatase Troponin I High Sens Total Protein Albumin Globulin Albumin/Globulin Ratio Lipase Urine Color Urine Clarity Urine pH Ur Specific [place] Urine Protein Urine Glucose (UA) Urine Ketones Urine Occult Blood Urine Nitrite Urine Bilirubin Urine Urobilinogen Ur Leukocyte Esterase Urine RBC Urine WBC Ur Squamous Epith Cells Urine Bacteria Ur Microscopic Review Urine Culture Comments Serum Ketones SMALL H 11/26/18 11/26/18 02:05 02:23 WBC RBC Hgb Hct MCV MCH MCHC RDW Plt Count MPV Neut # (Auto) Lymph # (Auto) Logan # (Auto) Eos # (Auto) Baso # (Auto) Absolute Nucleated RBC Nucleated RBC % VBG pH VBG pCO2 VBG pO2 VBG HCO3 VBG Total CO2 VBG O2 Saturation VBG Base Excess Sodium Potassium Chloride Carbon Dioxide Anion Gap BUN Creatinine Estimated GFR (MDRD) Glucose POC Whole Bld Glucose 472 H Lactic Acid Calcium Total Bilirubin AST ALT Alkaline Phosphatase Troponin I High Sens Total Protein Albumin Globulin Albumin/Globulin Ratio Lipase Urine Color YELLOW Urine Clarity CLEAR Urine pH 5.5 Ur Specific [place] 1.025 Urine Protein 100 H Urine Glucose (UA) >=1000 H Urine Ketones >=80 H Urine Occult Blood SMALL H Urine Nitrite NEGATIVE Urine Bilirubin NEGATIVE Urine Urobilinogen 0.2 (NORMAL) Ur Leukocyte Esterase NEGATIVE Urine RBC 0-5 Urine WBC 0-3 Ur Squamous Epith Cells FEW Squamous Urine Bacteria Rare Ur Microscopic Review INDICATED Urine Culture Comments NOT INDICATED Serum Ketones - Rads (name of study) CXR Radiology: See rad report PD MEDICAL DECISION MAKING - ED course Complexity details: reviewed results, re-evaluated patient ED course: Patient's White blood cell count is 19,000. Potassium was normal his glucose was 470. Lactate was 4.7. Chest x-ray was clear per the radiology reading I cannot view the images myself because of downtime on the computer. Ketones and venous pH are still pending. I did order 10 units of insulin subcu awaiting those results. Patient is ordered for 2 L of normal saline and has had Zofran. 0217: The patient's blood pressure was quite elevated. He was given 4 mg of morphine because of the headache and he felt that that would probably help his blood pressure as well. He was also given Reglan 10 mg IV because he continued vomiting. His venous pH is actually a little alkalotic and only small ketones. I discussed with the hospitalist and he is agreed to accept the patient for observation admission. Departure - Departure Disposition: ED Place in Observation Clinical Impression: Vomiting, Hyperglycemia due to type 1 diabetes mellitus, Lactic acidosis Discharge Date/Time: 11/26/18 03:54
[2018-11-25] MEDS ORDERED: ONDANSETRON 4 MG/2 ML VIAL ONE (23:56)
[2018-11-26 00:12] LABS: BASOPHILS % (AUTO) 0.2 %; HGB - HEMOGLOBIN 17.6 g/dL (14.0-18.0); LYMPHOCYTES # (AUTO) 1.2 10^3/uL (1.5-3.5); LYMPHOCYTES % (AUTO) 6.2 %; MEAN CORPUSCULAR HEMOGLOBIN 28.3 pg (27.0-31.0); MEAN CORPUSCULAR HGB CONC 32.7 g/dL (32.0-36.0); MEAN CORPUSCULAR VOLUME 86.5 fL (80.0-94.0); MEAN PLATELET VOLUME 11.4 fL (7.4-11.4); MONOCYTES # (AUTO) 0.5 10^3/uL (0.0-1.0); MONOCYTES % (AUTO) 2.5 %; NEUTROPHILS # (AUTO) 17.2 10^3/uL (1.5-6.6); NEUTROPHILS % (AUTO) 90.4 %; PLT - PLATELET COUNT 247 10^3/uL (130-450); RED BLOOD COUNT 6.23 10^6/uL (4.70-6.10); RED CELL DISTRIBUTION WIDTH 13.2 % (12.0-15.0)
[2018-11-26 00:25] LABS: ALBUMIN 4.4 g/dL (3.2-5.5); ALBUMIN/GLOBULIN RATIO 1.1 (1.0-2.2); BILIRUBIN,TOTAL 1.3 mg/dL (0.2-1.0); CALCIUM 10.1 mg/dL (8.5-10.3); CREATININE 1.3 mg/dL (0.6-1.2); TOTAL PROTEIN 8.4 g/dL (6.7-8.2)
[2018-11-26] MEDS ORDERED: INSULIN 70/30 HUMAN 100 UNIT/1 ML 10 ML MDV SUBQ STA (00:31)
[2018-11-26] MEDS ORDERED: SODIUM CHLORIDE 0.9% 1,000 ML IV ONE (00:34)
[2018-11-26] MEDS ORDERED: METOCLOPRAMIDE 10 MG/2 ML VIAL IVP STA (01:14)
[2018-11-26 01:21] LABS: VBG BASE EXCESS -1.9 mmol/L (-2 - +2); VBG PCO2 33.5 mmHg (41-51); VBG PH 7.424 (7.31-7.41); VBG PO2 51.1 mmHg (25-47); VBG TOTAL CO2 22.5 mmol/L (24-29)
[2018-11-26] MEDS ORDERED: MORPHINE 2 MG/ML CARPUJECT IVP STA (01:30)
[2018-11-26] MEDS ORDERED: METOPROLOL 5 MG/5 ML VIAL IVP STA (02:25)
[2018-11-26 02:40] LABS: BILIRUBIN,URINE NEGATIVE (NEGATIVE); GLUCOSE, URINE (UA) >=1000 mg/dL (NEGATIVE); KETONES,URINE (UA) >=80 mg/dL (NEGATIVE); LEUKOCYTE ESTERASE, URINE NEGATIVE (NEGATIVE); NITRITE,URINE NEGATIVE (NEGATIVE); OCCULT BLOOD,URINE SMALL (NEGATIVE); PH,URINE 5.5 PH (5.0-7.5); PROTEIN,URINE 100 mg/dL (NEGATIVE); UROBILINOGEN,URINE 0.2 (NORMAL) E.U./dL (NORMAL)
[2018-11-26 02:41] LABS: CLARITY,URINE CLEAR (CLEAR)
[2018-11-26 02:47] LABS: BACTERIA,URINE Rare /HPF (None Seen); RBC,URINE 0-5 /HPF (0-5); SQUAMOUS EPITHELIAL CELL,UR FEW Squamous (<= Few)
[2018-11-26] MEDS ORDERED: INSULIN REGULAR HUMAN 100 UNIT/1 ML 10 ML MDV IVP STA (03:00)
--- NOTE | 2018-11-26 04:13 | HISTORY & PHYSICAL EXAMINATION ---
Chief Complaint - Chief Complaint Chief Complaint: nausea, vomiting, diarrhea History of Present Illness - Admitted From Admitted From:: [facility] ED - History Obtained From Records Reviewed: yes History obtained from: patient - History of Present Illness HPI Comment/Other: Patient seen on 11/26/18 around 0300am Patient is a 58 y/o male who presented to the ED with complain of nausea, vomiting and diarrhea which started yesterday morning. He thinks he ate something bad. There is no one else sick at home. He denies chest pain, STEPH, fever or chills. He has had three episodes of diarrhea since onset. he complains of headache, dizziness/light-headedness. As a result of his symptoms and shaking too much, he was not able to administer his insulin. He also did not take his oral medications because he was unable to keep anything down. Consequently upon presentation, he had a blood glucose of 452. He was also found to have a lactic acid of 4.7, WBC of 19. He was tachycardic and had a SBP of 211. As a result of the above, he was presented for admission. History - Past Medical History Cardiovascular: reports: Hypertension, High cholesterol Respiratory: reports: Asthma, Pneumonia Neuro: reports: CVA, TIA Endocrine/Autoimmune: reports: Type 2 diabetes GI: reports: GERD, Ulcers, Hemorrhoids : reports: Kidney stones HEENT: reports: Macular degeneration Psych: reports: Depression Musculoskeletal: reports: Osteoarthritis, Chronic back pain Derm: reports: Psoriasis, Other MRSA Hx?: No - Past Surgical History General: reports: Other (hernia repair at age 1) Ortho: reports: ACL reconstruction, Rotator cuff repair, Arthroscopic surgery (left knee) Derm: reports: Other - Family & Social History Family History Comment/Other: Dad at age 62 of complications of asbestosis. He had been in the [place]. Mom is 87 years old and lives with him. She has diabetes. She took thalidomide when he was in utero. One sister of diabetes complications. One brother is alive. He has no children Social History Notes: He was originally from [facility]. [place] when his dad was [place] here. [place] never left [place] since. Data since . Mom lives with him. She used to live in assisted living facility and hated it. That is why she moved in with him. They both live on a limited fixed income's. He is very hard to get good nutritional meals with fresh fruits and vegetables and protein. He has not worked since his TIA in July 2013. He used to smoke 1 pack/day and quit in 2002. He rarely drinks 1 beer a month. He does cannabis via of a cigarette kelly, occasionally eats the air, and occasionally does cannabis flower. No other recreational substance abuse. - Substance History Use: Uses substance without health or social issues: Alcohol, Cannabis - POLST Patient has POLST: No POLST Status: Full Code (As long as he can think and talk and have a memory he wants to be kept alive. Even if he had a stroke, completely dependent on someone for activities of daily living, as long as he is able to speak, able to think and have a memory resuscitated.) Meds/Allgy - Home Medications Home Medications: Ambulatory Orders Medication Instructions Recorded Confirmed Lisinopril 10 mg PO DAILY 11/13/12 04/02/18 Clopidogrel [Plavix] 75 mg PO DAILY 04/07/14 04/02/18 Insulin Glargine [Lantus Solostar] 90 unit SUBQ DAILY 10/09/17 04/02/18 Albuterol Sulf [Ventolin Hfa 1 - 2 puffs INH Q4H PRN 03/13/18 04/02/18 Inhaler] amLODIPine [Norvasc] 5 mg PO HS #30 tablet 03/17/18 04/02/18 Aspirin 325 mg PO PRN PRN 04/02/18 04/02/18 Insulin Lispro [Humalog] 0 unit SUBQ DAILYWM 04/02/18 04/02/18 Marijuana 1 inh INH PRN PRN 04/02/18 04/02/18 Pantoprazole [Protonix] 40 mg PO DAILY #30 tablet 04/05/18 Cefdinir 300 mg PO BID #20 capsule 05/15/18 Prochlorperazine Maleate 10 mg PO Q6H PRN #14 tablet 05/15/18 [Compazine] - Allergies Allergies/Adverse Reactions: Allergies Allergy/AdvReac Type Severity Reaction Status Date / Time acetaminophen [From Tylenol] AdvReac Intermediate Nausea Verified 09/18/18 22:53 hydrocodone [Hydrocodone] AdvReac Intermediate Respiratory Verified 09/18/18 22:53 oxycodone AdvReac Intermediate Anxiety Verified 09/18/18 22:53 fentanyl AdvReac Nausea Verified 09/18/18 22:53 Review of Systems - Constitutional Constitutional: denies: Fatigue, Fever, Chills, Weakness, Poor appetite, Diaphoresis, Night sweats - Eyes Eyes: denies: Blurred vision, Vision loss, Dipolpia - Ears, Nose & Throat Ears, Nose & Throat: denies: Nasal pain, Sore throat, Hoarseness - Cardiovascular Cariovascular: reports: Lightheadedness. denies: Irregular heart rate, Palpi tations, Chest pain, Edema - Respiratory Respiratory: denies: Cough, Wheezing, Snoring, SOB at rest - Gastrointestinal Gastrointestinal: reports: Diarrhea, Nausea, Vomiting. denies: Abdominal pain, Abdominal distention, Black stools, Coffee grounds emesis, Reflux/heartburn - Genitourinary Genitourinary: denies: Dysuria, Frequency, Urgency, Hematuria, Incontinence, Flank pain - Musculoskeletal Musculoskeletal: denies: Muscle pain, Back pain, Muscle aches, Limited range of motion - Integumentary Integumentary: denies: Rash, Pruritis - Neurological Neurological: reports: Headache, Dizziness. denies: General weakness, Focal weakness, Numbness, Memory problems - Psychiatric Psychiatric: denies: Depression, Anxiety - Endocrine Endocrine: denies: Polyuria, Polydypsia - Hematologic/Lymphatic Hematologic/Lymphatic: denies: Anemia, Bruising, Petechiae Prior Level of Functionality: Patient is independent of activities of daily living Exam - Vital Signs Vital Signs: Vital Signs x48h Pulse Resp BP Pulse Ox 11/26/18 03:46 110 H 15 153/92 H 97 11/26/18 03:35 102 H 16 176/104 H 92 11/26/18 03:20 109 H 18 181/105 H 95 11/26/18 02:51 97 23 161/78 H 92 11/26/18 02:48 107 H 22 176/89 H 93 11/26/18 02:43 110 H 22 182/90 H 96 11/26/18 02:30 110 H 22 200/90 H 93 11/26/18 02:10 134 H 19 211/123 H 99 - Physical Exam General Appearance: positive: Alert, Mild distress. negative: Lethargic Eyes Bilateral: positive: Normal inspection, PERRL, EOMI ENT: positive: ENT inspection nml, Pharynx nml, No signs of dehydration Neck: positive: Nml inspection, No JVD, Trachea midline Respiratory: positive: Chest non-tender, No respiratory distress. negative: Wheezes, Rales, Rhonchi Cardiovascular: positive: No murmur, Tachycardia Abdomen: positive: Non-tender, Nml bowel sounds. negative: Guarding, Rebound Back: positive: Nml inspection Skin: positive: Color nml, No rash, Warm, Dry, Other (dry scab over right lateral malleolus) Extremities: positive: Non-tender, Full ROM, Nml appearance, No pedal edema Neurologic/Psychiatric: positive: Oriented x3, CN's nml (2-12), Motor nml, Sensation nml, Mood/affect nml Conclusion/Plan - Problem List (1) Gastroenteritis Conclusion/Plan: Likely 2/2 something the patient ingested. NPO. Supportive treatment with IV hydration, Zofran for nausea Expect it to run its course (2) SIRS (systemic inflammatory response syndrome) Conclusion/Plan: Likely 2/2 gastroenteritis Continue IV hydration. Trend lactic acid q4hrs X 3 Blood cultures pending. No antibiotics for now. Leukocytosis is likely reactive. Will recheck later in the day (3) Hyperglycemia Conclusion/Plan: Patient has baseline DM. He did not take insulin because he has been shaking/trembling significantly in light of his nausea and vomiting. As a result he was unable to effectively administer his medication Patient was given 10 units of insulin 70/30 subq X1, then regular insulin 10 units IV X1 in the ED Glucose check upon arrival to the [facility] floor was 372 Lantus 60 units subq ordered while patient is NPO. Patient is otherwise on lantus 90 units subq daily at home. High dose SSI per NPO protocol ordered. (4) HTN (hypertension) Conclusion/Plan: Uncontrolled. SBP in the ED was 211. Patient has been unable to take his oral medications due to nausea and vomiting Propanolol ER 80mg po ordered. Will resume home med once verified by pharmacy Patient also takes lisinopril 10mg daily Qualifiers: Hypertension type: essential hypertension Qualified Code(s): I10 - Essential (primary) hypertension (5) History of CVA (cerebrovascular accident) Conclusion/Plan: On plavix (6) GERD (gastroesophageal reflux disease) Conclusion/Plan: On pantoprazole - Lab Results Fish Bones: 11/25/18 23:55 11/25/18 23:55 Core Measures - Anticipated LOS I expect patient to be DC'd or transferred within 96 hours.: Yes - DVT/VTE - Prophylaxis VTE/DVT Device ordered at admit?: Yes VTE/DVT Prophylaxis med ordered at admit?: Yes
[2018-11-26] MEDS: SODIUM CHLORIDE FLUSH 0.9% 10 ML SYRINGE IVP SCH ×2 (04:43→17:20)
[2018-11-26] MEDS: SODIUM CHLORIDE 0.9% 1,000 ML IV SCH ×2 (04:44→14:48)
[2018-11-26] MEDS ORDERED: INSULIN GLARGINE 300 UNIT/3 ML PEN SUBQ STA (04:56)
[2018-11-26] MEDS ORDERED: PROPRANOLOL ER 80 MG CAPSULE PO ONE (05:00)
[2018-11-26] MEDS ORDERED: INSULIN REGULAR HUMAN 100 UNIT/1 ML 10 ML MDV SUBQ SCH (06:00)
[2018-11-26 06:06] LABS: BASOPHILS % (AUTO) 0.2 %; HGB - HEMOGLOBIN 15.9 g/dL (14.0-18.0); LYMPHOCYTES # (AUTO) 1.1 10^3/uL (1.5-3.5); LYMPHOCYTES % (AUTO) 6.6 %; MEAN CORPUSCULAR HGB CONC 33.5 g/dL (32.0-36.0); MEAN CORPUSCULAR VOLUME 86.5 fL (80.0-94.0); MEAN PLATELET VOLUME 11.3 fL (7.4-11.4); MONOCYTES % (AUTO) 5.7 %; NEUTROPHILS # (AUTO) 14.5 10^3/uL (1.5-6.6); NEUTROPHILS % (AUTO) 86.5 %; PLT - PLATELET COUNT 209 10^3/uL (130-450); RED BLOOD COUNT 5.48 10^6/uL (4.70-6.10); RED CELL DISTRIBUTION WIDTH 13.2 % (12.0-15.0); WHITE BLOOD COUNT 16.8 x10^3/uL (4.8-10.8)
[2018-11-26 06:10] LABS: CALCIUM 9.1 mg/dL (8.5-10.3); CREATININE 1.1 mg/dL (0.6-1.2)
[2018-11-26] MEDS: PANTOPRAZOLE 40 MG VIAL IVP SCH (06:50)
[2018-11-26] MEDS: POLYETHYLENE GLYCOL 3350 17 GM PACKET PO SCH (08:06)
[2018-11-26] MEDS: INSULIN ASPART 300 UNIT/3 ML PEN SUBQ SCH ×4 (08:26→21:12)
[2018-11-26] MEDS: ENOXAPARIN 40 MG/0.4 ML SYRINGE SUBQ SCH (08:27)
[2018-11-26] MEDS: MORPHINE 2 MG/ML CARPUJECT IVP PRN ×3 (08:28→21:16)
[2018-11-26] MEDS ORDERED: CLOPIDOGREL 75 MG TABLET PO ONE (13:22)
--- NOTE | 2018-11-26 15:33 | XRAY Report ---
Reason: EXTREME NAUSEA Procedure Date: 11/25/2018 Accession Number: [id number] / [id number] Procedure: XR - Chest 2 View X-Ray CPT Code: 92359 FULL RESULT: EXAM: CHEST RADIOGRAPHY EXAM DATE: 11/25/2018 10:56 PM. CLINICAL HISTORY: Dizziness. Near syncope. Nausea. COMPARISON: None. TECHNIQUE: 2 views. FINDINGS: Lungs/Pleura: No focal opacities evident. No pleural effusion. No pneumothorax. Normal volumes. Mediastinum: Heart and mediastinal contours are unremarkable. Other: No compression fractures. IMPRESSION: Normal 2-view chest radiography. RADIA
[2018-11-26] MEDS: MULTIVITAMIN W/MINERALS TABLET PO SCH (17:18)
[2018-11-26] MEDS: ONDANSETRON 4 MG/2 ML VIAL IVP PRN (21:10)
[2018-11-26] MEDS: SODIUM CHLORIDE FLUSH 0.9% 10 ML SYRINGE IVP PRN (21:10)
[2018-11-27] MEDS: SODIUM CHLORIDE 0.9% 1,000 ML IV SCH ×2 (00:55→13:57)
[2018-11-27] MEDS: SODIUM CHLORIDE FLUSH 0.9% 10 ML SYRINGE IVP SCH ×2 (01:11→06:43)
[2018-11-27] MEDS ORDERED: INSULIN GLARGINE 300 UNIT/3 ML PEN SUBQ SCH (03:00)
[2018-11-27] MEDS: ONDANSETRON 4 MG/2 ML VIAL IVP PRN ×2 (04:01→11:04)
[2018-11-27] MEDS: MORPHINE 2 MG/ML CARPUJECT IVP PRN (04:03)
[2018-11-27] MEDS: SODIUM CHLORIDE FLUSH 0.9% 10 ML SYRINGE IVP PRN (04:04)
[2018-11-27] MEDS: PANTOPRAZOLE 40 MG VIAL IVP SCH (06:43)
[2018-11-27 06:57] LABS: BASOPHILS # (AUTO) 0.1 10^3/uL (0.0-0.1); BASOPHILS % (AUTO) 0.4 %; EOSINOPHILS # (AUTO) 0.1 10^3/uL (0.0-0.7); EOSINOPHILS % (AUTO) 0.6 %; HGB - HEMOGLOBIN 13.8 g/dL (14.0-18.0); LYMPHOCYTES # (AUTO) 2.5 10^3/uL (1.5-3.5); LYMPHOCYTES % (AUTO) 15.4 %; MEAN CORPUSCULAR HEMOGLOBIN 28.2 pg (27.0-31.0); MEAN CORPUSCULAR HGB CONC 31.9 g/dL (32.0-36.0); MEAN CORPUSCULAR VOLUME 88.2 fL (80.0-94.0); MONOCYTES # (AUTO) 1.4 10^3/uL (0.0-1.0); MONOCYTES % (AUTO) 8.4 %; NEUTROPHILS % (AUTO) 74.7 %; PLT - PLATELET COUNT 193 10^3/uL (130-450); RED CELL DISTRIBUTION WIDTH 13.2 % (12.0-15.0); WHITE BLOOD COUNT 16.1 x10^3/uL (4.8-10.8)
[2018-11-27 07:06] LABS: CALCIUM 8.7 mg/dL (8.5-10.3); CREATININE 0.8 mg/dL (0.6-1.2)
[2018-11-27 07:57] LABS: HB2 TOTAL 14.4 g/dL; HEMOGLOBIN A1C 1.15 g/dL; HEMOGLOBIN A1C % 9.5 % (4.6-6.2)
[2018-11-27] MEDS: INSULIN ASPART 300 UNIT/3 ML PEN SUBQ SCH ×2 (08:08→11:44)
[2018-11-27] MEDS ORDERED: LISINOPRIL 5 MG TABLET PO SCH (09:00)
[2018-11-27] MEDS: POLYETHYLENE GLYCOL 3350 17 GM PACKET PO SCH (10:58)
[2018-11-27] MEDS: MULTIVITAMIN W/MINERALS TABLET PO SCH (10:58)
[2018-11-27] MEDS: ENOXAPARIN 40 MG/0.4 ML SYRINGE SUBQ SCH (10:58)
[2018-11-27 12:37] VITALS: BP 136/75
--- NOTE | 2018-11-27 13:07 | Discharge Plan ---
Discharge Plan Problem Reviewed?: Yes Disposition: Home, Self Care Condition: Poor Prescriptions: Ondansetron HCl [Zofran] 4 mg PO Q4H PRN #20 tablet PRN Reason: Nausea / Vomiting Diet: Diabetic Activity Restrictions: Activity as Tolerated Shower Restrictions: No (fall precaution) Instruction Topics: Ondansetron tablets Health Concerns: uncontrolled DM2 Plan of Treatment: you presented hospital with hyperglycemia and uncontrolled diabetes, and with nausea, vomiting. your glucose level is controlled at hospital with your home insulin dosage, and you tolerate the diet without nausea and vomiting any more. please followup medical compliance, keep hydration, followup your PCP to continue management of your diabetes. Care Goals: stabilization and improvement of your medical conditions. Assessment: assessment as the above Additional Instructions or Follow Up instructions: you may followup your PCP in one week. Should your symptom return or worsen, you may present ER, or call 911 for help. Follow-Up Care: [facility] - Diabetes Ed No Smoking: If you smoke, Please STOP! Call for help.
--- NOTE | 2018-11-27 13:18 | DISCHARGE SUMMARY ---
Discharge Summary Discharge Date: 11/27/18 Discharging Provider: MEHTA Code Status: Attempt Resuscitation Condition at Discharge: Poor Discharge Disposition: 01 Home, Self Care Discharge Facility Name: home - DIAGNOSES Admission Diagnoses: (1) Gastroenteritis (2) SIRS (systemic inflammatory response syndrome) (3) Hyperglycemia (4) HTN (hypertension) (5) History of CVA (cerebrovascular accident) (6) GERD (gastroesophageal reflux disease) Discharge Diagnoses with Status of Each Condition: 1) gastroparesis stable. pt has no more nausea, vomiting. pt tolerate diet. It is likely caused by his uncontrolled DM2 (2) hx of leukocytosis stable. pt has hx of leukocytosis. pt is known this condition" I am fine, I do not care about that." (3) Hyperglycemia with uncontrolled DM2 resolved hyperglycemia. Pt had A1C 9.5. we used home Lantus dosage, then pt's glucose is controlled. it is likely pt might not keep medical compliance. (4) HTN (hypertension) stable (5) History of CVA (cerebrovascular accident) stable (6) GERD (gastroesophageal reflux disease) stable - HPI History of Present Illness: refer from Dr. Flores's HPI on 11/26/18 Patient seen on 11/26/18 around 0300am Patient is a 58 y/o male who presented to the ED with complain of nausea, vomiting and diarrhea which started yesterday morning. He thinks he ate something bad. There is no one else sick at home. He denies chest pain, STEPH, fever or chills. He has had three episodes of diarrhea since onset. he complains of headache, dizziness/light-headedness. As a result of his symptoms and shaking too much, he was not able to administer his insulin. He also did not take his oral medications because he was unable to keep anything down. Consequently upon presentation, he had a blood glucose of 452. He was also found to have a lactic acid of 4.7, WBC of 19. He was tachycardic and had a SBP of 211. As a result of the above, he was presented for admission. - HOSPITAL COURSE Hospital Course: pt was admitted for nausea, vomiting, diarrhea. lab test reveals pt has uncontrolled DM2, hyperglycemia over 400 glucose, small ketones. pt was reconciled home Lantus, IVF of NS. Then pt's symptoms was resolved. pt tolerate the diet. the detail hospital course is as the below: 1) gastroparesis stable. pt has no more nausea, vomiting. pt tolerate diet. It is likely caused by his uncontrolled DM2 (2) hx of leukocytosis stable. pt has hx of leukocytosis. pt is known this condition" I am fine, I do not care about that." (3) Hyperglycemia with uncontrolled DM2 resolved hyperglycemia. Pt had A1C 9.5. we used home Lantus dosage, then pt's glucose is controlled. it is likely pt might not keep medical compliance. (4) HTN (hypertension) stable (5) History of CVA (cerebrovascular accident) stable (6) GERD (gastroesophageal reflux disease) stable - ALLERGIES Allergies/Adverse Reactions: Allergies Allergy/AdvReac Type Severity Reaction Status Date / Time acetaminophen [From Tylenol] AdvReac Intermediate Nausea Verified 09/18/18 22:53 hydrocodone [Hydrocodone] AdvReac Intermediate Respiratory Verified 09/18/18 22:53 oxycodone AdvReac Intermediate Anxiety Verified 09/18/18 22:53 fentanyl AdvReac Nausea Verified 09/18/18 22:53 - MEDICATIONS Home Medications: Ambulatory Orders Medication Instructions Recorded Confirmed Lisinopril 20 mg PO DAILY 11/13/12 11/27/18 Clopidogrel [Plavix] 75 mg PO DAILY 04/07/14 11/27/18 Insulin Glargine [Lantus Solostar] 90 unit SUBQ DAILY 10/09/17 11/27/18 Albuterol Sulf [Ventolin Hfa 1 - 2 puffs INH Q4H PRN 03/13/18 11/27/18 Inhaler] Insulin Lispro [Humalog] 30 - 40 unit SUBQ TIDWM 04/02/18 11/27/18 Marijuana 1 inh INH PRN PRN 04/02/18 11/27/18 Ondansetron HCl [Zofran] 4 mg PO Q4H PRN #20 tablet 11/27/18 Pantoprazole [Protonix] 40 mg PO QDAC PRN 11/27/18 11/27/18 Propranolol ER [Inderal LA] 80 mg PO DAILY 11/27/18 11/27/18 - PHYSICAL EXAM AT DISCHARGE General Appearance: positive: No acute distress, Alert. negative: Lethargic Eyes Bilateral: positive: Normal inspection, PERRL, No lid inflammation, Conjunctivae nml ENT: positive: ENT inspection nml, Pharynx nml, No signs of dehydration. negative: Purulent nasal drainage, Pharyngeal erythema, Oral lesions Neck: positive: Thyroid nml, No JVD, Trachea midline. negative: Thyromegaly, Lymphadenopathy (R), Lymphadenopathy (L), Stiff neck, Swelling/bruising, Tracheal deviation Respiratory: positive: Chest non-tender, No respiratory distress, Breath sounds nml. negative: Wheezes, Rales, Rhonchi Cardiovascular: positive: Regular rate & rhythm, No murmur, No gallop. negative: Irregularly irregular, Extrasystoles, Tachycardia, Bradycardia, JVD present, Systolic murmur, Diastolic murmur Peripheral Pulses: positive: 2+ Abdomen: positive: Non-tender, No organomegaly, Nml bowel sounds, No distention. negative: Tenderness, Guarding, Rebound Back: positive: Nml inspection. negative: CVA tenderness (R), CVA tenderness (L) Skin: positive: Color nml, No rash, Warm, Dry. negative: Cyanosis, Diaphoresis, Pallor Extremities: positive: Non-tender, Full ROM, Nml appearance. negative: Calf tenderness, Joint swelling, Maureen's sign/cords Neurologic/Psychiatric: positive: Oriented x3, Motor nml, Sensation nml, Mood/affect nml. negative: Weakness, Sensory loss, Facial droop, Slurred/abnml speech, Depressed mood/affect - LABS Result Diagrams: 11/27/18 06:17 11/27/18 06:17 - FOLLOW UP Follow Up: you presented hospital with hyperglycemia and uncontrolled diabetes, and with nausea, vomiting. your glucose level is controlled at hospital with your home insulin dosage, and you tolerate the diet without nausea and vomiting any more. please followup medical compliance, keep hydration, followup your PCP to continue management of your diabetes. you may followup your PCP in one week. Should your symptom return or worsen, you may present ER, or call 911 for help. - TIME SPENT Time Spent in Discharge (Minutes): 50
== END 2018-11-27 13:57 | disposition home or self-care (01) ==
LOC: ED 23:23 → MS2 11-26 03:10
PROVIDERS: ADMIT Internal Medicine; ATTEND Nurse Practitioner
DX: E11.43 Type 2 diabetes mellitus with diabetic autonomic (poly)neuropathy (principal); K31.84 Gastroparesis; E11.65 Type 2 diabetes mellitus with hyperglycemia; D72.829 Elevated white blood cell count, unspecified; E87.2 Acidosis; I10 Essential (primary) hypertension; K21.9 Gastro-esophageal reflux disease without esophagitis; J45.909 Unspecified asthma, uncomplicated; R42 Dizziness and giddiness; E78.00 Pure hypercholesterolemia, unspecified; F32.9 Major depressive disorder, single episode, unspecified; G89.29 Other chronic pain; M54.9 Dorsalgia, unspecified; M19.90 Unspecified osteoarthritis, unspecified site; L40.9 Psoriasis, unspecified; Z72.89 Other problems related to lifestyle; Z79.51 Long term (current) use of inhaled steroids; Z79.4 Long term (current) use of insulin; Z79.82 Long term (current) use of aspirin; Z87.01 Personal history of pneumonia (recurrent); Z87.11 Personal history of peptic ulcer disease; Z86.73 Personal history of transient ischemic attack (TIA), and cerebral infarction without residual deficits; Z87.891 Personal history of nicotine dependence
CPT/HCPCS: 36415; 71046; 80048; 80053; 81001; 82009; 82803; 83036; 83605; 83690; 84484; 85025; 87040; 96361; 96372; 96374; 96375; 96376; 99285; A9270; G0378; J1650; J1815; J2765; 81003; 87086

== ENCOUNTER 2019-02-04 13:32 | Outpatient (CLI) | payer MEDICARE, MEDICAID ==
[2019-02-04 18:57] LABS: CALCIUM 9.3 mg/dL (8.5-10.3); CREATININE 0.9 mg/dL (0.6-1.2)
[2019-02-04 19:05] LABS: HB2 TOTAL 15.4 g/dL; HEMOGLOBIN A1C 1.06 g/dL; HEMOGLOBIN A1C % 8.4 % (4.6-6.2)
[2019-02-04 19:37] LABS: CREATININE,URINE 155.6 mg/dL; MICROALBUM/CREATININE RATIO,UR 947.3 ug/mg (<30.0); MICROALBUMIN,URINE 147.4 mg/dL (0-300.0)
== END 2019-02-04 23:59 ==
LOC: LAB.N 13:32
PROVIDERS: ATTEND Physician Assistant Medical
DX: E11.649 Type 2 diabetes mellitus with hypoglycemia without coma (principal); E55.9 Vitamin D deficiency, unspecified
CPT/HCPCS: 36415; 80048; 82043; 82306; 82570; 83036

== ENCOUNTER 2019-12-30 08:26 | Outpatient (CLI) | payer MEDICARE, MEDICAID | END 2019-12-30 08:27 | disposition critical access hospital (66) | LOC: EMS 08:26 | PROVIDERS: ATTEND Surgery | DX: R10.9 Unspecified abdominal pain (principal); R11.0 Nausea; R19.7 Diarrhea, unspecified | CPT/HCPCS: A0425; A0429 ==

== ENCOUNTER 2019-12-30 08:53 | Emergency (ER) | payer MEDICARE, MEDICAID ==
[2019-12-30] MEDS ORDERED: ONDANSETRON 4 MG/2 ML VIAL IVP STA (08:57)
[2019-12-30] MEDS ORDERED: HYDROmorphone 1 MG/ML CARPUJECT IVP STA (08:57)
[2019-12-30] MEDS ORDERED: SODIUM CHLORIDE 0.9% 1,000 ML IV STA (08:57)
--- NOTE | 2019-12-30 08:59 | ED Physician Documentation ---
PD HPI ABD PAIN - Stated complaint Stated Complaint: ABD PX - History obtained from History obtained from: Patient - Additional information Additional information: 59-year-old gentleman with history of TIA, hypertension and diabetes. Had a inguinal hernia repair on the left as a child. No other abdominal surgeries. He became acutely ill this morning with lower abdominal pain, vomiting and diarrhea. No fevers. No sick contacts. He has had similar episodes in the past attributed to gastroparesis, but the pain seems awfully low for gastroparesis. Review of Systems Ten Systems: 10 systems reviewed and negative Constitutional: denies: Fever, Chills Nose: reports: Reviewed and negative Throat: reports: Reviewed and negative Cardiac: reports: Reviewed and negative Respiratory: reports: Reviewed and negative PD PAST MEDICAL HISTORY - Past Medical History Cardiovascular: Hypertension, High cholesterol Respiratory: Asthma, Pneumonia Neuro: CVA, TIA Endocrine/Autoimmune: Type 2 diabetes GI: GERD, Ulcers, Hemorrhoids : Kidney stones HEENT: Macular degeneration Psych: Depression Musculoskeletal: Osteoarthritis, Chronic back pain Derm: Psoriasis, Other - Past Surgical History Past Surgical History: Yes General: Other Ortho: ACL reconstruction, Rotator cuff repair, Arthroscopic surgery Derm: Other - Present Medications Home Medications: Ambulatory Orders Medication Instructions Recorded Confirmed Lisinopril 20 mg PO DAILY 11/13/12 11/27/18 Clopidogrel [Plavix] 75 mg PO DAILY 04/07/14 11/27/18 Insulin Glargine [Lantus Solostar] 90 unit SUBQ DAILY 10/09/17 11/27/18 Albuterol Sulf [Ventolin Hfa 1 - 2 puffs INH Q4H PRN 03/13/18 11/27/18 Inhaler] Insulin Lispro [Humalog] 30 - 40 unit SUBQ TIDWM 04/02/18 11/27/18 Marijuana 1 inh INH PRN PRN 04/02/18 11/27/18 Ondansetron HCl [Zofran] 4 mg PO Q4H PRN #20 tablet 11/27/18 Pantoprazole [Protonix] 40 mg PO QDAC PRN 11/27/18 11/27/18 Propranolol ER [Inderal LA] 80 mg PO DAILY 11/27/18 11/27/18 Dicyclomine [Bentyl] 1 - 2 tab PO QID PRN #20 capsule 12/30/19 Loperamide [Imodium] 2 mg PO QID PRN #10 capsule 12/30/19 Ondansetron Odt [Zofran] 4 mg TL Q6H PRN #30 tablet 12/30/19 - Allergies Allergies/Adverse Reactions: Allergies Allergy/AdvReac Type Severity Reaction Status Date / Time acetaminophen [From Tylenol] AdvReac Intermediate Nausea Verified 12/30/19 09:04 hydrocodone [Hydrocodone] AdvReac Intermediate Respiratory Verified 12/30/19 09:04 oxycodone AdvReac Intermediate Anxiety Verified 12/30/19 09:04 fentanyl AdvReac Nausea Verified 12/30/19 09:04 - Social History Does the pt smoke?: No Smoking Status: Former smoker Does the pt drink ETOH?: Yes Does the pt have substance abuse?: No - Immunizations Immunizations are current?: Yes - POLST Patient has POLST: No POLST Status: Full Code (As long as he can think and talk and have a memory he wants to be kept alive. Even if he had a stroke, completely dependent on someone for activities of daily living, as long as he is able to speak, able to think and have a memory resuscitated.) PD ED PE NORMAL - Vitals Vital signs reviewed: Yes - General General: Alert and oriented X 3, Other (Incontinent of liquid stool) - HEENT HEENT: PERRL, EOMI - Neck Neck: Supple, no meningeal sign, No bony TTP - Cardiac Cardiac: RRR, No murmur - Respiratory Respiratory: No respiratory distress, Clear bilaterally - Abdomen Abdomen: Soft, Non tender - Back Back: No CVA TTP, No spinal TTP - Derm Derm: Normal color, Warm and dry - Extremities Extremities: No edema, No calf tenderness / cord - Neuro Neuro: Alert and oriented X 3, Normal speech - Psych Psych: Normal mood, Normal affect Results - Vitals Vitals: Vital Signs - 24 hr 12/30/19 12/30/19 12/30/19 08:59 09:30 11:42 Temperature 36.9 C Heart Rate 59 L 59 L 53 L Respiratory 17 16 16 Rate Blood Pressure 119/79 129/91 H 130/88 H O2 Saturation 98 95 96 12/30/19 12/30/19 12:44 14:20 Temperature Heart Rate 56 L 60 Respiratory 16 16 Rate Blood Pressure 138/84 H 131/82 H O2 Saturation 97 98 Oxygen O2 Source [] Room air O2 Source Room air - Labs Labs: Laboratory Tests 12/30/19 12/30/19 09:20 09:55 WBC 14.3 H RBC 6.16 H Hgb 17.8 Hct 55.4 H MCV 89.9 MCH 28.9 MCHC 32.1 RDW 12.8 Plt Count 294 MPV 11.0 Neut # (Auto) 10.9 H Lymph # (Auto) 2.2 [place] # (Auto) 0.9 Eos # (Auto) 0.1 Baso # (Auto) 0.1 Absolute Nucleated RBC 0.00 Nucleated RBC % 0.0 Sodium 139 Potassium 3.9 Chloride 100 L Carbon Dioxide 28 Anion Gap 11.0 BUN 12 Creatinine 1.2 Estimated GFR (MDRD) 62 L Glucose 198 H Calcium 9.3 Total Bilirubin 0.6 AST 16 ALT 19 Alkaline Phosphatase 58 Total Protein 6.4 L Albumin 3.2 Globulin 3.2 Albumin/Globulin Ratio 1.0 Lipase 17 L - Rads (name of study) CT A/P Radiology: EMP read contemporaneously (Distal transverse colon colitis. Most likely infectious or inflammatory. Mild prominence of proximal small bowel. Liquid stool in the distal colon. Mild amount of free pelvic fluid. Incidental findings include a small AAA, circumaortic left renal vein,) PD MEDICAL DECISION MAKING - ED course ED course: 59-year-old gentleman with acute lower abdominal pain today associated with incontinence of liquid diarrhea, and nausea. He has had similar episodes in the past which look like they were attributed to gastroparesis, but this would be very atypical for gastroparesis. Better after meds. Tolerated PO. CT most C/w enteritis. Has chronic leukocytosis. No stool for sample in ED. Departure - Departure Disposition: 01 Home, Self Care Clinical Impression: Gastroenteritis Vomiting Qualifiers: Vomiting type: unspecified Vomiting Intractability: non-intractable Nausea presence: with nausea Qualified Code(s): R11.2 - Nausea with vomiting, unspecified Condition: Good Record reviewed to determine appropriate education?: Yes Instructions: ED Gastroenteritis Viral Prescriptions: Dicyclomine [Bentyl] 1 - 2 tab PO QID PRN #20 capsule PRN Reason: Abdominal Pain Loperamide [Imodium] 2 mg PO QID PRN #10 capsule PRN Reason: Diarrhea Ondansetron Odt [Zofran] 4 mg TL Q6H PRN #30 tablet PRN Reason: Nausea / Vomiting Comments: Return if worse or not better in 24-36 hours. Followup with your PCP. Consider colonoscopy if not current. Discharge Date/Time: 12/30/19 14:22
[2019-12-30] MEDS ORDERED: IOVERSOL 320 100 ML VIAL IVP ONE ×2 (09:15→17:17)
[2019-12-30 09:34] LABS: BASOPHILS # (AUTO) 0.1 10^3/uL (0.0-0.1); BASOPHILS % (AUTO) 0.4 %; EOSINOPHILS # (AUTO) 0.1 10^3/uL (0.0-0.7); EOSINOPHILS % (AUTO) 0.6 %; HGB - HEMOGLOBIN 17.8 g/dL (14.0-18.0); LYMPHOCYTES # (AUTO) 2.2 10^3/uL (1.5-3.5); LYMPHOCYTES % (AUTO) 15.4 %; MEAN CORPUSCULAR HEMOGLOBIN 28.9 pg (27.0-31.0); MEAN CORPUSCULAR HGB CONC 32.1 g/dL (32.0-36.0); MEAN CORPUSCULAR VOLUME 89.9 fL (80.0-94.0); MONOCYTES # (AUTO) 0.9 10^3/uL (0.0-1.0); MONOCYTES % (AUTO) 6.5 %; NEUTROPHILS # (AUTO) 10.9 10^3/uL (1.5-6.6); NEUTROPHILS % (AUTO) 76.3 %; PLT - PLATELET COUNT 294 10^3/uL (130-450); RED BLOOD COUNT 6.16 10^6/uL (4.70-6.10); RED CELL DISTRIBUTION WIDTH 12.8 % (12.0-15.0); WHITE BLOOD COUNT 14.3 x10^3/uL (4.8-10.8)
[2019-12-30 10:16] LABS: ALBUMIN 3.2 g/dL (3.2-5.5); BILIRUBIN,TOTAL 0.6 mg/dL (0.2-1.0); CALCIUM 9.3 mg/dL (8.5-10.3); CREATININE 1.2 mg/dL (0.6-1.2); TOTAL PROTEIN 6.4 g/dL (6.7-8.2)
[2019-12-30] MEDS ORDERED: METOCLOPRAMIDE 10 MG/2 ML VIAL IVP STA (11:08)
[2019-12-30] MEDS ORDERED: KETOROLAC 30 MG/ML VIAL IVP STA (11:08)
--- NOTE | 2019-12-30 11:08 | CT Report ---
PROCEDURE: Abdomen/Pelvis W INDICATIONS: IV only, low abd pain CONTRAST: IV CONTRAST: Optiray 320 ml: 100 PO CONTRAST: *NO PO CONTRAST TECHNIQUE: After the administration of nonionic IV contrast, 5 mm thick sections acquired from the diaphragms to the symphysis. 5 mm thick coronal and sagittal reformats were acquired. For radiation dose reducti on, the following was used: automated exposure control, adjustment of mA and/or kV according to soo ent size. COMPARISON: 05/15/2018, 03/13/2018, 10/27/2017, 01/14/2017 FINDINGS: Image quality: Excellent. ABDOMEN: Lung bases: Lung bases are clear. Heart size is normal. Solid organs: Liver and spleen are normal in size and enhancement. Gallbladder portable Biliary sy stem is non dilated. Pancreas enhances normally. No adrenal nodules. Kidneys demonstrate normal si ze and enhancement, without hydronephrosis. There is a 20 counseling units mildly hyperdense right r enal cyst seen laterally that measures 2.3 cm. Peritoneum and bowel: Mild prominence of proximal small bowel loops are seen that measure up to 3.3 c m. No transition point can be seen. There is focal wall thickening seen involving the distal transverse colon and the splenic flexure. Th e colon is otherwise unremarkable, although liquid stool can be seen within the distal colon. A mild amount of free pelvic fluid is seen. A normal appendix can be seen. Nodes and vessels: No retroperitoneal or mesenteric adenopathy by size criteria. A mild abdominal ao rtic aneurysm is seen, which measures 3.7 cm AP and 3.8 cm transversely. The IVC demonstrates normal caliber. Incidental note is made of a circumaortic left renal vein. Miscellaneous: A mild fat-containing periumbilical hernia is seen. PELVIS: Genitourinary: Bladder wall thickness is normal. Miscellaneous: No inguinal adenopathy. There is a mild fat-containing right inguinal hernia Bones: No suspicious bony lesions. No vertebral body compression fractures. S-shaped scoliotic cur vature is incidentally noted. Age-appropriate degenerative changes are seen. IMPRESSION: Focal colitis involving the distal transverse colon, with wall thickening. Please correl ate with potential infectious and inflammatory causes. Ischemia is possible, yet considered to be les s likely. Mild prominence of proximal small bowel is seen, which is attributed to ileus, which is potentially r eactive to the colitis. Liquid stool is seen within the distal colon. Please correlate with clinical diarrhea. A mild amount of free pelvic fluid is seen. Incidental note is made of: Mild abdominal aortic aneurysm Circumaortic left renal vein Fat-containing periumbilical hernia Normal appendix. Mild fat-containing right inguinal hernia Reviewed by: Zechariah Pham MD on 12/30/2019 10:07 AM MARIAELENA Approved by: Zechariah Pham MD on 12/30/2019 10:07 AM MARIAELENA Station ID: [id number]
[2019-12-30 14:21] VITALS: BP 131/82
== END 2019-12-30 14:22 | disposition home or self-care (01) ==
LOC: EDUNIT# → ED 08:53
DX: K52.9 Noninfective gastroenteritis and colitis, unspecified (principal); R11.10 Vomiting, unspecified; I10 Essential (primary) hypertension; E11.9 Type 2 diabetes mellitus without complications; Z79.4 Long term (current) use of insulin
CPT/HCPCS: 36415; 74177; 80053; 83690; 85025; 96374; 96375; 99285; J1170; J2765; Q9967

== ENCOUNTER 2020-09-27 16:56 | Inpatient (IN) | payer MEDICARE, MEDICAID ==
--- NOTE | 2020-09-27 17:44 | ED Physician Documentation ---
PD HPI ABD PAIN - Stated complaint Stated Complaint: VOMITING - Chief complaint Chief Complaint: Abd Pain - History obtained from History obtained from: Patient - Additional information Additional information: 60-year-old gentleman with history of diabetes has been out of his medications including insulin for the last 3 months due to not having a doctor. Previously was maintained on a fairly high-dose regimen of Lantus 90 units a day and 30 to 40 units of Humalog with meals. He also has a history of hypertension, gastroparesis, TIA and stroke, chronic back pain. He has been sick for about 4 days with severe nausea and vomiting and milder left upper quadrant pain. He has not been checking his blood sugars. No diarrhea. Review of Systems Ten Systems: 10 systems reviewed and negative Constitutional: reports: Chills, Fatigue GI: reports: Abdominal Pain, Nausea, Vomiting. denies: Diarrhea PD PAST MEDICAL HISTORY - Past Medical History Cardiovascular: Hypertension, High cholesterol Respiratory: Asthma, Pneumonia Neuro: CVA, TIA Endocrine/Autoimmune: Type 2 diabetes GI: GERD, Ulcers, Hemorrhoids : Kidney stones HEENT: Macular degeneration Psych: Depression Musculoskeletal: Osteoarthritis, Chronic back pain Derm: Psoriasis, Other - Past Surgical History Past Surgical History: Yes General: Other Ortho: ACL reconstruction, Rotator cuff repair, Arthroscopic surgery Derm: Other - Present Medications Home Medications: Ambulatory Orders Medication Instructions Recorded Confirmed Lisinopril 20 mg PO DAILY 11/13/12 11/27/18 Clopidogrel [Plavix] 75 mg PO DAILY 04/07/14 11/27/18 Insulin Glargine [Lantus Solostar] 90 unit SUBQ DAILY 10/09/17 11/27/18 Albuterol Sulf [Ventolin Hfa 1 - 2 puffs INH Q4H PRN 03/13/18 11/27/18 Inhaler] Insulin Lispro [Humalog] 30 - 40 unit SUBQ TIDWM 04/02/18 11/27/18 Marijuana 1 inh INH PRN PRN 04/02/18 11/27/18 Ondansetron HCl [Zofran] 4 mg PO Q4H PRN #20 tablet 11/27/18 Pantoprazole [Protonix] 40 mg PO QDAC PRN 11/27/18 11/27/18 Propranolol ER [Inderal LA] 80 mg PO DAILY 11/27/18 11/27/18 Dicyclomine [Bentyl] 1 - 2 tab PO QID PRN #20 capsule 12/30/19 Loperamide [Imodium] 2 mg PO QID PRN #10 capsule 12/30/19 Ondansetron Odt [Zofran] 4 mg TL Q6H PRN #30 tablet 12/30/19 - Allergies Allergies/Adverse Reactions: Allergies Allergy/AdvReac Type Severity Reaction Status Date / Time acetaminophen [From Tylenol] AdvReac Intermediate Nausea Verified 09/27/20 17:35 hydrocodone [Hydrocodone] AdvReac Intermediate Respiratory Verified 09/27/20 17:35 oxycodone AdvReac Intermediate Anxiety Verified 09/27/20 17:35 fentanyl AdvReac Nausea Verified 09/27/20 17:35 - Social History Does the pt smoke?: No Smoking Status: Former smoker Does the pt drink ETOH?: Yes Does the pt have substance abuse?: No - Immunizations Immunizations are current?: Yes - POLST Patient has POLST: No POLST Status: Full Code (As long as he can think and talk and have a memory he wants to be kept alive. Even if he had a stroke, completely dependent on someone for activities of daily living, as long as he is able to speak, able to think and have a memory resuscitated.) PD ED PE NORMAL - Vitals Vital signs reviewed: Yes - General General: Alert and oriented X 3, Other (Tachycardic but not tachypneic) - HEENT HEENT: Other (Dry mucous membranes) - Neck Neck: Supple, no meningeal sign, No bony TTP - Cardiac Cardiac: Other (Tachycardic but regular without murmur) - Respiratory Respiratory: No respiratory distress, Clear bilaterally - Abdomen Abdomen: Normal bowel sounds, Soft, Non tender - Back Back: No CVA TTP, No spinal TTP - Derm Derm: Normal color, Warm and dry - Extremities Extremities: No edema, No calf tenderness / cord - Neuro Neuro: Alert and oriented X 3, Normal speech Results - Vitals Vitals: Vital Signs - 24 hr 09/27/20 17:33 Temperature 36.3 C L Heart Rate 119 H Respiratory 18 Rate Blood Pressure 108/69 O2 Saturation 97 Oxygen O2 Source [Without Activity] Room air O2 Source Room air - EKG (time done) 1749 Rate: Rate (enter#) (110) Rhythm: NSR [place]: Normal Intervals: Normal [place] QRS: Normal Ischemia: Non specific changes - Labs Labs: Laboratory Tests 09/27/20 09/27/20 09/27/20 17:50 17:50 17:50 WBC 16.9 H RBC 6.41 H Hgb 18.6 H Hct 56.3 H MCV 87.8 MCH 29.0 MCHC 33.0 RDW 12.2 Plt Count 305 MPV 10.9 Neut # (Auto) 14.7 H Lymph # (Auto) 1.4 L [place] # (Auto) 0.8 Eos # (Auto) 0.0 Baso # (Auto) 0.0 Absolute Nucleated RBC 0.00 Nucleated RBC % 0.0 VBG pH 7.248 L VBG pCO2 25.3 L VBG pO2 46.2 VBG HCO3 10.8 L VBG Total CO2 11.6 L VBG O2 Saturation 79.8 VBG Base Excess -14.0 L Sodium 129 L Potassium 4.4 Chloride 93 L Carbon Dioxide 10 L* Anion Gap 26.0 H BUN 41 H Creatinine 1.4 H Estimated GFR (MDRD) 52 L Glucose 446 H Calcium 9.4 Phosphorus 5.0 H Magnesium 2.1 Total Bilirubin 1.8 H AST 13 ALT 20 Alkaline Phosphatase 86 Total Protein 8.0 Albumin 4.0 Globulin 4.0 Albumin/Globulin Ratio 1.0 Nasal Adenovirus (PCR) Nasal B. parapertussis DNA (PCR) Nasal Coronavir 229E PCR Nasal Coronavir HKU1 PCR Nasal Coronavir NL63 PCR Nasal Coronavir OC43 PCR Nasal Enterovir/Rhinovir PCR Nasal Influenza B PCR Nasal Influenza A PCR Nasal Parainfluen 1 PCR Nasal Parainfluen 2 PCR Nasal Parainfluen 3 PCR Nasal Parainfluen 4 PCR Nasal RSV (PCR) Nasal B.pertussis DNA PCR Nasal C.pneumoniae (PCR) [place] Human Metapneumo PCR Nasal M.pneumoniae (PCR) Nasal SARS-CoV-2 (PCR) Ethyl Alcohol 5.5 Serum Ketones SMALL H 09/27/20 18:17 WBC RBC Hgb Hct MCV MCH MCHC RDW Plt Count MPV Neut # (Auto) Lymph # (Auto) [place] # (Auto) Eos # (Auto) Baso # (Auto) Absolute Nucleated RBC Nucleated RBC % VBG pH VBG pCO2 VBG pO2 VBG HCO3 VBG Total CO2 VBG O2 Saturation VBG Base Excess Sodium Potassium Chloride Carbon Dioxide Anion Gap BUN Creatinine Estimated GFR (MDRD) Glucose Calcium Phosphorus Magnesium Total Bilirubin AST ALT Alkaline Phosphatase Total Protein Albumin Globulin Albumin/Globulin Ratio Nasal Adenovirus (PCR) NOT DETECTED Nasal B. parapertussis DNA (PCR) NOT DETECTED Nasal Coronavir 229E PCR NOT DETECTED Nasal Coronavir HKU1 PCR NOT DETECTED Nasal Coronavir NL63 PCR NOT DETECTED Nasal Coronavir OC43 PCR NOT DETECTED Nasal Enterovir/Rhinovir PCR NOT DETECTED Nasal Influenza B PCR NOT DETECTED Nasal Influenza A PCR NOT DETECTED Nasal Parainfluen 1 PCR NOT DETECTED Nasal Parainfluen 2 PCR NOT DETECTED Nasal Parainfluen 3 PCR NOT DETECTED Nasal Parainfluen 4 PCR NOT DETECTED Nasal RSV (PCR) NOT DETECTED Nasal B.pertussis DNA PCR NOT DETECTED Nasal C.pneumoniae (PCR) NOT DETECTED [place] Human Metapneumo PCR NOT DETECTED Nasal M.pneumoniae (PCR) NOT DETECTED Nasal SARS-CoV-2 (PCR) NOT DETECTED Ethyl Alcohol Serum Ketones PD MEDICAL DECISION MAKING - ED course ED course: 60-year-old gentleman has been lost to follow-up due to some insurance issues and has not had insulin in 3 months and presents with DKA. He was given a liter of normal saline and 10 units of insulin IV push. Started on normal saline +20 of K an insulin drip. Also symptomatic management. Spoke with Dr. Flores for admission at 6:25 PM. - Critical Care Time(min): 40 Time Includes: Direct patient care, Review records, Reassess patient, Document care, Coordinate care, Medical consult Data interpretation: Labs, Pulse ox Procedures excluded from critical care time: EKG Departure - Departure Disposition: 66 [facility] DC/Xfer Clinical Impression: Diabetic ketoacidosis Qualifiers: Diabetes mellitus type: type 1 Diabetes mellitus complication detail: without coma Qualified Code(s): E10.10 - Type 1 diabetes mellitus with ketoacidosis without coma Condition: Critical Discharge Date/Time: 09/27/20 18:00
[2020-09-27] MEDS ORDERED: INSULIN REGULAR HUMAN 100 UNIT/1 ML 10 ML MDV IVP STA (17:45)
[2020-09-27] MEDS ORDERED: MORPHINE 10 MG/ML VIAL IVP STA (17:45)
[2020-09-27] MEDS ORDERED: METOCLOPRAMIDE 10 MG/2 ML VIAL IVP STA (17:45)
[2020-09-27] MEDS ORDERED: SODIUM CHLORIDE 0.9% 1,000 ML IV STA (17:45)
[2020-09-27 17:57] LABS: BASOPHILS % (AUTO) 0.2 %; HCT - HEMATOCRIT 56.3 % (42.0-52.0); HGB - HEMOGLOBIN 18.6 g/dL (14.0-18.0); LYMPHOCYTES # (AUTO) 1.4 10^3/uL (1.5-3.5); MEAN CORPUSCULAR VOLUME 87.8 fL (80.0-94.0); MEAN PLATELET VOLUME 10.9 fL (7.4-11.4); MONOCYTES # (AUTO) 0.8 10^3/uL (0.0-1.0); MONOCYTES % (AUTO) 4.4 %; NEUTROPHILS # (AUTO) 14.7 10^3/uL (1.5-6.6); NEUTROPHILS % (AUTO) 86.7 %; PLT - PLATELET COUNT 305 10^3/uL (130-450); RED BLOOD COUNT 6.41 10^6/uL (4.70-6.10); RED CELL DISTRIBUTION WIDTH 12.2 % (12.0-15.0); WHITE BLOOD COUNT 16.9 x10^3/uL (4.8-10.8)
[2020-09-27 17:58] LABS: VBG HCO3 10.8 mmol/L (23-28); VBG OXYGEN SATURATION 79.8 % (60-80); VBG PCO2 25.3 mmHg (41-51); VBG PH 7.248 (7.31-7.41); VBG PO2 46.2 mmHg (25-47); VBG TOTAL CO2 11.6 mmol/L (24-29)
[2020-09-27 18:13] LABS: ALKALINE PHOSPHATASE 86 IU/L (42-121); ALT ALANINE AMINOTRANSFERASE 20 IU/L (10-60); AST ASPARTATE AMINOTRANSFERASE 13 IU/L (10-42); BILIRUBIN,TOTAL 1.8 mg/dL (0.2-1.0); BUN - BLOOD UREA NITROGEN 41 mg/dL (6-20); CALCIUM 9.4 mg/dL (8.5-10.3); CHLORIDE 93 mmol/L (101-111); CREATININE 1.4 mg/dL (0.6-1.2); ETOH - ETHANOL 5.5 mg/dL; GFR - MDRD 52 (>89); GLUCOSE 446 mg/dL (70-100); MAGNESIUM 2.1 mg/dL (1.7-2.8); POTASSIUM 4.4 mmol/L (3.5-5.0); SODIUM 129 mmol/L (135-145)
[2020-09-27 18:15] LABS: CARBON DIOXIDE - CO2 10 mmol/L (21-32)
[2020-09-27 18:16] LABS: KETONES, SERUM (ACETEST) SMALL (NEGATIVE)
[2020-09-27] MEDS ORDERED: NS W/20 MEQ KCL 1,000 ML IV STA (18:23)
[2020-09-27] MEDS ORDERED: ACETAMINOPHEN 325 MG TABLET PO PRN (18:25)
[2020-09-27] MEDS ORDERED: ONDANSETRON 4 MG/2 ML VIAL IVP PRN (18:38)
[2020-09-27] MEDS ORDERED: HYDROcod/ACETAM 5/325 MG TABLET PO PRN (18:39)
[2020-09-27] MEDS ORDERED: SODIUM CHLORIDE 0.9% 1,000 ML IV SCH ×2 (19:00→20:49)
[2020-09-27 19:20] LABS: VBG BASE EXCESS -15.8 mmol/L (-2 - +2); VBG HCO3 9.6 mmol/L (23-28); VBG OXYGEN SATURATION 83.2 % (60-80); VBG PCO2 24.1 mmHg (41-51); VBG PH 7.217 (7.31-7.41); VBG PO2 51.4 mmHg (25-47); VBG TOTAL CO2 10.3 mmol/L (24-29)
[2020-09-27 19:23] LABS: CORONAVIRUS 229E-RESP PCR NOT DETECTED
[2020-09-27 19:24] LABS: B. PARAPERTUSSIS- RESP PCR PAN NOT DETECTED; B. PERTUSSIS- RESP PCR PANEL NOT DETECTED; C. PNEUMONIAE- RESP PCR PANEL NOT DETECTED; CORONAVIRUS HKU1-RESP PCR NOT DETECTED; CORONAVIRUS NL63-RESP PCR NOT DETECTED; CORONAVIRUS OC43-RESP PCR NOT DETECTED; HUMAN METAPNEUMOVIRUS NOT DETECTED; INFLUENZA A- RESP PCR PANEL NOT DETECTED; INFLUENZA B - RESP PCR PANEL NOT DETECTED; M. PNEUMONIAE- RESP PCR PANEL NOT DETECTED; PARAINFLUENZA VIRUS 1 NOT DETECTED; PARAINFLUENZA VIRUS 2 NOT DETECTED; PARAINFLUENZA VIRUS 3 NOT DETECTED; PARAINFLUENZA VIRUS 4 NOT DETECTED; RHINOVIRUS/ENTEROVIRUS NOT DETECTED; RSV- RESP PCR PANEL NOT DETECTED; SARS-CoV-2 -RESP PCR PANEL NOT DETECTED
[2020-09-27 19:30] LABS: CALCIUM 9.2 mg/dL (8.5-10.3); CREATININE 1.4 mg/dL (0.6-1.2); MAGNESIUM 2.1 mg/dL (1.7-2.8); POTASSIUM 3.9 mmol/L (3.5-5.0)
[2020-09-27] MEDS: INSULIN REGULAR HUMAN 100 UNIT in SODIUM CHLORIDE 0.9% 100ML 99 ML IV SCH (19:39)
[2020-09-27] MEDS: SODIUM CHLORIDE FLUSH 0.9% 10 ML SYRINGE IVP PRN (19:40)
[2020-09-27] MEDS ORDERED: SODIUM CHLORIDE 0.9% 1,000 ML IV ONE (19:56)
--- NOTE | 2020-09-27 20:27 | HISTORY & PHYSICAL EXAMINATION ---
Chief Complaint - Chief Complaint Chief Complaint: N/V, abd pain History of Present Illness - Admitted From Admitted From:: ED - History of Present Illness HPI Comment/Other: This is a 60 y/o WM with history of DM on Insulin, HTN, GERD, kidney stones, TIA, diabetic peripheral neuropathy and gastroparesis. He has had many visits to this ER for N/V and abdominal pain; in Dec [address] of abdomen/pelvvis revealed he had colitis and an ileus. He presented today with 4 days of N/V and abdominal pain, and admitted having had no Insulin for 2-3 mos, because he had no provider to refill Insulin, he reported. He usually took Lantus Insulin 90 U daily and Humalog Insulin 20 U tid with meals. He was also not doing fingerstick glucose checks. He was using his mother's inhaler, he still had protonix, but was without some of his other meds also. In the ED, he had no fever, was tachycardic at 119 with dry mucous membranes, and his labs showed WBC 16, blood glucose 724, pH 7.24, bicarb 10, serum ketones small and BUN/creat 38/1.4. He was started on iv saline and received Insulin 10 U iv. He is being admitted to the ICU to manage DKA. History - Past Medical History Cardiovascular: reports: Hypertension, High cholesterol, Other (Stress test in 2013 was WNL. Echo in 2014 showed normal LVEF, no shunt and a dilated ascending aorta of 4.5 cm.) Respiratory: reports: Asthma, Pneumonia Neuro: reports: CVA, TIA, Head injury, Migraines, Peripheral neuropathy Endocrine/Autoimmune: reports: Type 2 diabetes GI: reports: GERD, Ulcers, Hemorrhoids : reports: Kidney stones HEENT: reports: Macular degeneration Psych: reports: Depression Musculoskeletal: reports: Osteoarthritis, Chronic back pain Derm: reports: Psoriasis, Other MRSA Hx?: No - Past Surgical History General: reports: Other Ortho: reports: ACL reconstruction, Rotator cuff repair, Arthroscopic surgery Derm: reports: Other - Family & Social History Family History: Mother: Alive and Well, Father: Family History Comment/Other: Dad at age 62 of complications of asbestosis. He had been in the [place]. Mom lives with him. She has diabetes. She took thalidomide when he was in utero. One sister of diabetes complications. One brother is alive. He has no children Living arrangement: At home Living Situation: With family Social History Notes: He was originally from [facility]. [place] dad was [place], and [place] since [place]. Dad has . Mom lives with him. She used to live in assisted living facility and hated it, that is why she moved in with him. They both live on a limited fixed income's. It is very hard to get good nutritional meals with fresh fruits and vegetables and protein. He has not worked since his TIA in July 2013. He used to smoke 1 pack/day and quit in 2002. He rarely drinksonce every 6 mos. He does use cannabis occasionally. No other recreational substance abuse. - Substance History Use: Uses substance without health or social issues: Alcohol, Cannabis - POLST Patient has POLST: No POLST Status: Full Code (As long as he can think and talk and have a memory he wants to be kept alive. Even if he had a stroke, completely dependent on someone for activities of daily living, as long as he is able to speak, able to think and have a memory resuscitated; confirmed on 09/27/20.) Meds/Allgy - Home Medications Home Medications: Ambulatory Orders Medication Instructions Recorded Confirmed Lisinopril 20 mg PO DAILY 11/13/12 11/27/18 Clopidogrel [Plavix] 75 mg PO DAILY 04/07/14 11/27/18 Insulin Glargine [Lantus Solostar] 90 unit SUBQ DAILY 10/09/17 11/27/18 Albuterol Sulf [Ventolin Hfa 1 - 2 puffs INH Q4H PRN 03/13/18 11/27/18 Inhaler] Insulin Lispro [Humalog] 30 - 40 unit SUBQ TIDWM 04/02/18 11/27/18 Marijuana 1 inh INH PRN PRN 04/02/18 11/27/18 Ondansetron HCl [Zofran] 4 mg PO Q4H PRN #20 tablet 11/27/18 Pantoprazole [Protonix] 40 mg PO QDAC PRN 11/27/18 11/27/18 Propranolol ER [Inderal LA] 80 mg PO DAILY 11/27/18 11/27/18 Dicyclomine [Bentyl] 1 - 2 tab PO QID PRN #20 capsule 12/30/19 Loperamide [Imodium] 2 mg PO QID PRN #10 capsule 12/30/19 Ondansetron Odt [Zofran] 4 mg TL Q6H PRN #30 tablet 12/30/19 - Allergies Allergies/Adverse Reactions: Allergies Allergy/AdvReac Type Severity Reaction Status Date / Time acetaminophen [From Tylenol] AdvReac Intermediate Nausea Verified 09/27/20 17:35 hydrocodone [Hydrocodone] AdvReac Intermediate Respiratory Verified 09/27/20 17:35 oxycodone AdvReac Intermediate Anxiety Verified 09/27/20 17:35 fentanyl AdvReac Nausea Verified 09/27/20 17:35 Review of Systems - Constitutional Constitutional: reports: Poor appetite - Gastrointestinal Gastrointestinal: reports: Abdominal pain, Nausea, Vomiting - All Other Systems All Other Systems: reports: Reviewed and negative Exam - Vital Signs Vital Signs: Vital Signs x48h Temp Pulse Pulse Resp BP BP Pulse Ox 09/27/20 19:04 36.9 C 115 H 22 141/97 H 99 09/27/20 17:33 36.3 C L 119 H 18 108/69 97 - Physical Exam General Appearance: positive: No acute distress, Alert, Other (Male patter baldness) Eyes Bilateral: positive: Normal inspection, EOMI ENT: positive: ENT inspection nml, Dry mucous membranes Neck: positive: Nml inspection, No JVD Respiratory: positive: No respiratory distress, Breath sounds nml Cardiovascular: positive: Regular rate & rhythm, No murmur Abdomen: positive: Non-tender, Nml bowel sounds, No distention Back: positive: Nml inspection Skin: positive: Warm, Dry Extremities: positive: Non-tender, No pedal edema Neurologic/Psychiatric: positive: Oriented x3 (Non-focal) Conclusion/Plan - Problem List (1) DKA (diabetic ketoacidoses) Conclusion/Plan: Will start the DKA protocol in the ICU including IV insulin drip, IV saline aggressively. His electrolytes presumably show pseudohyponatremia related to the hyperglycemia. Follow serum ketones, serum glucose, electrolytes closely and replace when needed if low. Check A1c with morning labs. Check triglycerides as well. Diet will be n.p.o. because of the nausea and vomiting. Advance diet when t olerated. Order prn antiemetics. Qualifiers: Diabetes mellitus type: other specified (including BLAYNE) Diabetes mellitus complication detail: without coma Qualified Code(s): E13.10 - Other specified diabetes mellitus with ketoacidosis without coma (2) Acute kidney injury Conclusion/Plan: It appears to be caused by marked dehydration related to his DKA and vomiting. Continue with IV fluid rehydration. Avoid nephrotoxins. Follow BMP daily. (3) Abdominal pain Conclusion/Plan: This is presumably related to the ketoacidosis and his gastroparesis but because he has had other diagnoses that caused his abdominal pain, will plan to do abdominal imaging. Give pain meds prn. Order Protonix empirically, iv while nauseated, then resume his home po dose. Check lipase. Follow WBC. Keep n.p.o. and advance diet as tolerated. Give pain meds by iv. Qualifiers: Abdominal location: upper abdomen, unspecified Qualified Code(s): R10.10 - Upper abdominal pain, unspecified (4) Leukocytosis Conclusion/Plan: There was no imaging done of the chest or the abdomen/pelvis in the ED, since the impression by the ED provider was that of stress reaction. We will plan to do abdomen/pelvis CT with contrast if the creatinine has returned to a normal range otherwise abdomen/pelvis CT without contrast. Follow CBC daily Qualifiers: Qualified Code(s): D72.823 - Leukemoid reaction (5) Aortic aneurysm Conclusion/Plan: There has been no documentation of the size of his thoracic aorta here since the Echo that was done here 6 years ago. Because of the abnormal EKG (see below), will obtain a complete Echo. Qualifiers: Aortic location: thoracic aorta (6) Abnormal EKG Conclusion/Plan: Today's EKG shows new right axis deviation. The patient was an ex-smoker and this new EKG finding, may be a sign of cor pulmonale. We will obtain an Echo during this hospitalization (7) HTN (hypertension) Conclusion/Plan: Will order iv Hydralazine prn HTN emergency, while he is npo. Resume his meds when they are reconciled and when he is not vomiting. Qualifiers: Hypertension type: essential hypertension - Lab Results Fish Bones: 09/27/20 17:50 09/27/20 20:31 - EKG Results EKG Interpreted Independently: Yes EKG Comparison: Changed from prior EKG EKG Findings: Sinus tachycardia, rate 110, right axis deviation, inferior Q waves present, poor R wave progression. Since last EKG from 09/2019, right axis deviation and t achycardia are new, LAFB no longer seen.
[2020-09-27] MEDS: MORPHINE 2 MG/ML CARPUJECT IVP PRN (20:29)
[2020-09-27 20:42] LABS: VBG BASE EXCESS -12.2 mmol/L (-2 - +2); VBG HCO3 13.5 mmol/L (23-28); VBG PCO2 31.6 mmHg (41-51); VBG PH 7.247 (7.31-7.41); VBG PO2 31.5 mmHg (25-47); VBG TOTAL CO2 14.4 mmol/L (24-29)
[2020-09-27 20:43] LABS: VBG OXYGEN SATURATION 59.5 % (60-80)
[2020-09-27 20:46] LABS: KETONES, SERUM (ACETEST) MODERATE (NEGATIVE)
[2020-09-27 20:50] LABS: BUN - BLOOD UREA NITROGEN 38 mg/dL (6-20); CALCIUM 9.1 mg/dL (8.5-10.3); CARBON DIOXIDE - CO2 13 mmol/L (21-32); CHLORIDE 97 mmol/L (101-111); CREATININE 1.3 mg/dL (0.6-1.2); GFR - MDRD 56 (>89); GLUCOSE 326 mg/dL (70-100); MAGNESIUM 2.1 mg/dL (1.7-2.8); POTASSIUM 3.9 mmol/L (3.5-5.0); SODIUM 130 mmol/L (135-145)
[2020-09-27] MEDS ORDERED: PANTOPRAZOLE 40 MG VIAL IV STA (20:54)
[2020-09-27] MEDS ORDERED: hydrALAZINE INJ 20 MG/ML VIAL IVP PRN (20:56)
[2020-09-27] MEDS ORDERED: POTASSIUM CHLOR 10 MEQ/100 ML 10 MEQ/100 ML BAG IV ONE ×2 (21:35→23:38)
[2020-09-27 23:31] LABS: KETONES, SERUM (ACETEST) MODERATE (NEGATIVE)
[2020-09-27 23:32] LABS: CREATININE 1.2 mg/dL (0.6-1.2); GLUCOSE 181 mg/dL (70-100); POTASSIUM 3.6 mmol/L (3.5-5.0)
[2020-09-27] MEDS: D5NS W/20 MEQ KCL 1,000 ML IV SCH (23:45)
[2020-09-27] MEDS: METOCLOPRAMIDE 10 MG/2 ML VIAL IVP PRN (23:52)
[2020-09-27] MEDS: SODIUM CHLORIDE FLUSH 0.9% 10 ML SYRINGE IVP SCH (23:53)
[2020-09-28] MEDS ORDERED: INSULIN REGULAR HUMAN 100 UNIT/1 ML 10 ML MDV ONE (01:46)
[2020-09-28 02:06] LABS: GLUCOSE, URINE (UA) >=1000 mg/dL (NEGATIVE); KETONES,URINE (UA) >=80 mg/dL (NEGATIVE); LEUKOCYTE ESTERASE, URINE NEGATIVE (NEGATIVE); MUDS CUTOFF CONCENTRATIONS CUTOFF CONC BELOW:; NITRITE,URINE NEGATIVE (NEGATIVE); OCCULT BLOOD,URINE TRACE-INTA (NEGATIVE); PH,URINE 5.5 PH (5.0-7.5); PROTEIN,URINE 100 mg/dL (NEGATIVE); UROBILINOGEN,URINE 0.2 (NORMAL) E.U./dL (NORMAL)
[2020-09-28 02:10] LABS: CLARITY,URINE CLEAR (CLEAR)
[2020-09-28 02:13] LABS: BILIRUBIN,URINE NEGATIVE (NEGATIVE); ICTOTEST,URINE NEGATIVE
[2020-09-28 02:16] LABS: BACTERIA,URINE Rare /HPF (None Seen); CASTS, URINE 3-5 Course Granular /LPF; RBC,URINE 0-5 /HPF (0-5); SQUAMOUS EPITHELIAL CELL,UR RARE Squamous (<= Few); THC CANNABINOID SCREEN, URINE POSITIVE (NEGATIVE); WBC,URINE 0-3 /HPF (0-3)
[2020-09-28 02:17] LABS: AMPHETAMINE SCREEN,URINE NEGATIVE (NEGATIVE); BARBITURATE SCREEN,UR NEGATIVE (NEGATIVE); BENZODIAZEPINES SCREEN, URINE NEGATIVE (NEGATIVE); COCAINE SCREEN URINE NEGATIVE (NEGATIVE); METHADONE SCREEN, URINE NEGATIVE (NEGATIVE); METHAMPHETAMINES SCREEN, URINE NEGATIVE (NEGATIVE); OPIATE SCREEN, URINE POSITIVE (NEGATIVE); OXYCODONE SCREEN, URINE NEGATIVE (NEGATIVE); PROPOXYPHENE SCREEN, URINE NEGATIVE (NEGATIVE); TRICYCLIC ANTIDEPRESSANT,URINE NEGATIVE (NEGATIVE)
[2020-09-28 02:27] LABS: VBG BASE EXCESS -7.8 mmol/L (-2 - +2); VBG HCO3 17.3 mmol/L (23-28); VBG OXYGEN SATURATION 74.2 % (60-80); VBG PCO2 35.1 mmHg (41-51); VBG PH 7.311 (7.31-7.41); VBG PO2 37.7 mmHg (25-47); VBG TOTAL CO2 18.4 mmol/L (24-29)
[2020-09-28] MEDS ORDERED: POTASSIUM CHLOR 10 MEQ/100 ML 10 MEQ/100 ML BAG IV ONE ×4 (03:12→21:29)
[2020-09-28] MEDS: INSULIN REGULAR HUMAN 100 UNIT in SODIUM CHLORIDE 0.9% 100ML 99 ML IV SCH (03:28)
[2020-09-28 05:03] LABS: BASOPHILS % (AUTO) 0.3 %; EOSINOPHILS % (AUTO) 0.1 %; HCT - HEMATOCRIT 49.7 % (42.0-52.0); HGB - HEMOGLOBIN 16.9 g/dL (14.0-18.0); LYMPHOCYTES % (AUTO) 12.7 %; MEAN CORPUSCULAR HEMOGLOBIN 29.4 pg (27.0-31.0); MEAN CORPUSCULAR VOLUME 86.4 fL (80.0-94.0); MEAN PLATELET VOLUME 10.6 fL (7.4-11.4); MONOCYTES % (AUTO) 10.4 %; PLT - PLATELET COUNT 251 10^3/uL (130-450); RED BLOOD COUNT 5.75 10^6/uL (4.70-6.10); RED CELL DISTRIBUTION WIDTH 12.1 % (12.0-15.0); WHITE BLOOD COUNT 15.1 x10^3/uL (4.8-10.8)
[2020-09-28 05:06] LABS: ABNORMAL LYMPHS % (MANUAL) 0 %
[2020-09-28 05:09] LABS: KETONES, SERUM (ACETEST) SMALL (NEGATIVE)
[2020-09-28 05:20] LABS: BUN - BLOOD UREA NITROGEN 28 mg/dL (6-20); CALCIUM 8.8 mg/dL (8.5-10.3); CARBON DIOXIDE - CO2 18 mmol/L (21-32); CHLORIDE 105 mmol/L (101-111); CREATININE 0.9 mg/dL (0.6-1.2); GFR - MDRD 86 (>89); GLUCOSE 113 mg/dL (70-100); LIPASE 45 U/L (22-51); MAGNESIUM 1.9 mg/dL (1.7-2.8); PHOSPHORUS 1.7 mg/dL (2.5-4.6); POTASSIUM 3.7 mmol/L (3.5-5.0); SODIUM 132 mmol/L (135-145); TRIGLYCERIDES 161 mg/dL
[2020-09-28 05:21] LABS: AMYLASE 567 U/L (28-100)
[2020-09-28] MEDS: NEUTRA-PHOS 250 MG TABLET PO SCH ×2 (05:42→09:00)
[2020-09-28 05:44] LABS: BAND NEUTROPHILS % (MANUAL) 4 %; DIFFERENTIAL COMMENT MANUAL DIFFERENTIAL; LYMPHOCYTES # (MANUAL) 1.4 10^3/uL (1.5-3.5); LYMPHOCYTES % (MANUAL) 9 %; MONOCYTES # (MANUAL) 1.5 10^3/uL (0.0-1.0); NEUTROPHILS # (MANUAL) 12.2 10^3/uL (1.5-6.6); PLATELET ESTIMATE, MANUAL NORMAL (130-450,000) (NORMAL); RBC MORPHOLOGY (MULTIPLE) NORMAL APPEARANCE (NORMAL)
[2020-09-28] MEDS: METOCLOPRAMIDE 10 MG/2 ML VIAL IVP PRN ×3 (06:47→21:26)
[2020-09-28] MEDS: SODIUM CHLORIDE FLUSH 0.9% 10 ML SYRINGE IVP PRN ×2 (06:48→09:17)
[2020-09-28] MEDS: MORPHINE 2 MG/ML CARPUJECT IVP PRN ×5 (06:48→23:09)
[2020-09-28 07:02] LABS: KETONES, SERUM (ACETEST) SMALL (NEGATIVE)
[2020-09-28] MEDS: D5NS W/20 MEQ KCL 1,000 ML IV SCH ×3 (07:45→18:45)
--- NOTE | 2020-09-28 07:48 | PROVIDER PROGRESS NOTE ---
Assessment/Plan - Problem List (1) DKA (diabetic ketoacidoses) Qualifiers: Diabetes mellitus type: other specified (including BLAYNE) Diabetes mellitus complication detail: without coma Qualified Code(s): E13.10 - Other specified diabetes mellitus with ketoacidosis without coma Assessment/Plan: Patient's anion gap closed. However patient was maintained on insulin drip and D5 plus normal saline +20 mEq of potassium chloride due to nausea and poor p.o. intake. When patient is able to tolerate a diet, will advance his diet and switch him to long-acting insulin. (2) Acute kidney injury Assessment/Plan: Creatinine today was 0.9 with an estimated GFR of 86. Patient is receiving IV hydration. (3) Abdominal pain Qualifiers: Abdominal location: upper abdomen, unspecified Qualified Code(s): R10.10 - Upper abdominal pain, unspecified Assessment/Plan: This is likely secondary to DKA and gastroparesis Patient's lipase was within normal and triglycerides were unremarkable. White blood cell count today was 15.1. It was 16.9 yesterday. If it continues to be elevated tomorrow and all if patient becomes febrile will order a CT scan of the abdomen/pelvis. (4) Leukocytosis Qualifiers: Qualified Code(s): D72.823 - Leukemoid reaction Assessment/Plan: Reactive versus infectious. WBC is improved from 16.9-15.1. We will repeat in the morning. If it remains elevated and/or patient becomes febrile, we will obtain a CT of the abdomen/pelvis. (5) Abnormal EKG Assessment/Plan: 2D echo showed mild concentric left ventricular hypertrophy. Overall left ventricular systolic function is normal with an ejection fraction of 60 to 65%. Diastology was indeterminate. There was no regional wall motion abnormality. The aortic valve is trileaflet. There is no evidence of aortic stenosis or aortic regurgitation. There is no pericardial effusion. There is no thrombus mass or pleural effusion. (6) HTN (hypertension) Qualifiers: Hypertension type: essential hypertension Assessment/Plan: Hydralazine 10 mg IV every 8 hours as needed. - Current Meds Current Meds: Current Medications Generic Name Dose Route Start Last Admin Trade Name Freq PRN Reason Stop Dose Admin Insulin Human Regular 100 unit 100 mls @ 12.474 mls/hr 09/27/20 19:00 09/28/20 06:30 / Sodium Chloride IV 0.01 unit/kg/hr .Q8H1M DANIEL 1.6 mls/hr Titration Protocol 0.1 UNIT/KG/HR Potassium Chloride/Dextrose/Sod Cl 1,000 mls @ 125 mls/hr 09/27/20 23:45 09/28/20 07:45 D5ns W/20 Meq Kcl IV 1 mls/hr .Q8H DANIEL Administration Potassium Chloride 10 meq in 100 mls @ 100 mls/hr 09/28/20 07:37 09/28/20 07:45 Potassium Chloride IV 09/28/20 08:36 100 mls/hr ONCE ONE Administration Protocol Metoclopramide HCl 5 mg 09/27/20 20:53 09/28/20 06:47 Metoclopramide 10 Mg/2 Ml Vial IVP 5 mg Q6HR PRN Administration Nausea / Vomiting Morphine Sulfate 2 mg 09/27/20 18:39 09/28/20 06:48 Morphine 2 Mg/Ml Carpuject IVP 2 mg Q2HR PRN Administration PAIN Sodium Chloride 10 ml 09/28/20 01:00 09/27/20 23:53 Sodium Chloride Flush 0.9% 10 Ml Syringe IVP 10 ml 0100,0900,1700 DANIEL Administration Sodium Chloride 10 ml 09/27/20 18:25 09/28/20 06:48 Sodium Chloride Flush 0.9% 10 Ml Syringe IVP 10 ml PRN PRN Administration NEEDED PER PROVIDER ORDERS Sodium Phosphate 250 mg 09/28/20 06:00 09/28/20 05:42 Neutra-Phos 250 Mg Tablet PO 09/28/20 08:01 250 mg Q2H DANIEL Administration Protocol - Lab Result Fish Bone Diagrams: 09/28/20 04:20 09/28/20 10:00 - Additional Planning My Orders: My Active Orders 09/27/20 18:25 Activity Orders [RC] Q2HR Daily Weight [RC] 0600 IO [RC] IOSHIFT Initiate Bowel Care Protocol [RC] QSHIFT Initiate ICU Electrolyte Prot. [RC] .protocol Initiate Line Care Protocol [RC] .protocol Initiate Personal Care Protoco [RC] .protocol Vital Signs [RC] Q1HR Acetaminophen [Tylenol] 650 mg PO Q4HR PRN Sodium Chloride Flush 0.9% [Normal Saline Flush 0.9%] 10 ml IVP PRN PRN Code Status [OTHERS] Routine Condition of Patient [OTHERS] Routine DVT Prophylaxis [OTHERS] Routine 09/27/20 18:27 NPO [DIET] 09/27/20 18:28 Oxygen Therapy [RC] .PRN SCDs [RC] QSHIFT 09/27/20 18:31 Initiate DKA RN Protocol [RC] .protocol Initiate Hypoglycemia Protocol [RC] .protocol Initiate ICU Electrolyte Prot. [RC] .protocol 09/27/20 18:38 Ondansetron Inj [Zofran Inj] 4 mg IVP Q4H PRN 09/27/20 18:39 Morphine Inj (Carpuject) [Morphine (Carpuject)] 2 mg IVP Q2HR PRN 09/28/20 01:00 Sodium Chloride Flush 0.9% [Normal Saline Flush 0.9%] 10 ml IVP 0100,0900,1700 09/28/20 04:20 HEMOGLOBIN A1c% [CHEM] DAILYLAB 09/28/20 06:00 Neutra-Phos [K-Phos Neutral] 250 mg PO Q2H 09/28/20 07:37 Potassium Chlor 10 Meq/100 ml [Potassium Chloride] 10 meq in 100 ml IV ONCE 09/29/20 05:00 BMP - BASIC METABOLIC PANEL [CHEM] DAILYLAB CBC - COMP BLD CT W/AUTO DIFF [HEME] DAILYLAB 09/30/20 05:00 BMP - BASIC METABOLIC PANEL [CHEM] DAILYLAB CBC - COMP BLD CT W/AUTO DIFF [HEME] DAILYLAB 10/01/20 05:00 BMP - BASIC METABOLIC PANEL [CHEM] DAILYLAB CBC - COMP BLD CT W/AUTO DIFF [HEME] DAILYLAB 10/02/20 05:00 BMP - BASIC METABOLIC PANEL [CHEM] DAILYLAB CBC - COMP BLD CT W/AUTO DIFF [HEME] DAILYLAB Subjective - Subjective Patient Reports: Other (Was asleep at time of exam but readily arousable to tactile and verbal stimuli. Nausea and abdominal pain persists. He is only tolerant of ice chips and sips of water. Denied chest pain, dyspnea, fever or chills.) Objective Vital Signs: Vital Signs - 24 hr 09/27/20 09/27/20 09/27/20 17:33 19:04 20:00 Temperature 36.3 C L 36.9 C 36.8 C Heart Rate 119 H Heart Rate [ 115 H 107 H Monitoring electrodes] Respiratory 18 22 19 Rate Blood Pressure 108/69 Blood Pressure 165/98 H [Left Brachial artery] Blood Pressure 141/97 H [Right Brachial artery] O2 Saturation 97 99 99 09/27/20 09/27/20 09/27/20 21:00 22:00 23:00 Temperature Heart Rate Heart Rate [ 101 H 97 97 Monitoring electrodes] Respiratory 99 H 18 19 Rate Blood Pressure Blood Pressure 147/85 H 136/79 H 143/86 H [Left Brachial artery] Blood Pressure [Right Brachial artery] O2 Saturation 98 96 09/28/20 09/28/20 09/28/20 00:00 01:00 02:00 Temperature 36.8 C Heart Rate Heart Rate [ 108 H 91 114 H Monitoring electrodes] Respiratory 14 20 24 Rate Blood Pressure Blood Pressure 157/92 H 146/80 H [Left Brachial artery] Blood Pressure [Right Brachial artery] O2 Saturation 97 95 09/28/20 09/28/20 09/28/20 03:00 04:00 04:32 Temperature 37.2 C Heart Rate Heart Rate [ 82 93 93 Monitoring electrodes] Respiratory 20 18 17 Rate Blood Pressure Blood Pressure 125/74 153/82 H [Left Brachial artery] Blood Pressure [Right Brachial artery] O2 Saturation 09/28/20 09/28/20 09/28/20 05:00 06:00 07:00 Temperature Heart Rate Heart Rate [ 96 82 95 Monitoring electrodes] Respiratory 18 17 14 Rate Blood Pressure Blood Pressure 167/87 H 161/98 H 169/95 H [Left Brachial artery] Blood Pressure [Right Brachial artery] O2 Saturation Oxygen O2 Source [Without Activity] Room air O2 Source Room air I&O (Last 24 Hrs): Intake and Output Totals x24h 09/26/20 09/27/20 09/28/20 23:59 23:59 23:59 Intake Total 2913.480 1333.470 Output Total 1100 Balance 2913.480 233.470 General: Alert, Oriented x3, Mild distress, Moderate distress HEENT: PERRLA, EOMI Neck: Supple, No JVD Neuro: Alert, Non Focal, Oriented Times 3 Cardiovascular: Regular rate, Normal S1, Normal S2, No murmurs Respiratory: Chest non-tender, No respiratory distress, Breath sounds nml Abdomen: Normal bowel sounds, Soft Extremities: No clubbing, No cyanosis, No edema, No tenderness/swelling Skin: No rashes, No breakdown - Results Results: Laboratory Results WBC 15.1 x10^3/uL (4.8-10.8) H 09/28/20 04:20 RBC 5.75 10^6/uL (4.70-6.10) 09/28/20 04:20 Hgb 16.9 g/dL (14.0-18.0) 09/28/20 04:20 Hct 49.7 % (42.0-52.0) 09/28/20 04:20 MCV 86.4 fL (80.0-94.0) 09/28/20 04:20 MCH 29.4 pg (27.0-31.0) 09/28/20 04:20 MCHC 34.0 g/dL (32.0-36.0) 09/28/20 04:20 RDW 12.1 % (12.0-15.0) 09/28/20 04:20 Plt Count 251 10^3/uL (130-450) 09/28/20 04:20 MPV 10.6 fL (7.4-11.4) 09/28/20 04:20 Neut # (Auto) Not Reportable 09/28/20 04:20 Lymph # (Auto) Not Reportable 09/28/20 04:20 [place] # (Auto) Not Reportable 09/28/20 04:20 Eos # (Auto) Not Reportable 09/28/20 04:20 Baso # (Auto) Not Reportable 09/28/20 04:20 Absolute Nucleated RBC Not Reportable 09/28/20 04:20 Total Counted 100 09/28/20 04:20 Band Neuts % (Manual) 4 % (0-10) 09/28/20 04:20 Abnorm Lymph % (Manual) 0 % 09/28/20 04:20 Nucleated RBC % Not Reportable 09/28/20 04:20 Neutrophils # (Manual) 12.2 10^3/uL (1.5-6.6) H 09/28/20 04:20 Lymphocytes # (Manual) 1.4 10^3/uL (1.5-3.5) L 09/28/20 04:20 Monocytes # (Manual) 1.5 10^3/uL (0.0-1.0) H 09/28/20 04:20 Eosinophils # (Manual) 0.0 10^3/uL (0-0.7) 09/28/20 04:20 Basophils # (Manual) 0.0 10^3/uL (0-0.1) 09/28/20 04:20 Differential Comment MANUAL DIFFERENTIAL 09/28/20 04:20 Platelet Estimate NORMAL (130-450,000) (NORMAL) 09/28/20 04:20 RBC Morph Micro Appear NORMAL APPEARANCE (NORMAL) 09/28/20 04:20 VBG pH 7.311 (7.31-7.41) 09/28/20 02:15 VBG pCO2 35.1 mmHg (41-51) L 09/28/20 02:15 VBG pO2 37.7 mmHg (25-47) 09/28/20 02:15 VBG HCO3 17.3 mmol/L (23-28) L 09/28/20 02:15 VBG Total CO2 18.4 mmol/L (24-29) L 09/28/20 02:15 VBG O2 Saturation 74.2 % (60-80) 09/28/20 02:15 VBG Base Excess -7.8 mmol/L (-2 - +2) L 09/28/20 02:15 Sodium 132 mmol/L (135-145) L 09/28/20 04:15 Potassium 4.0 mmol/L (3.5-5.0) 09/28/20 06:50 Chloride 105 mmol/L (101-111) 09/28/20 04:15 Carbon Dioxide 18 mmol/L (21-32) L 09/28/20 04:15 Anion Gap 9.0 (6-13) 09/28/20 04:15 BUN 28 mg/dL (6-20) H 09/28/20 04:15 Creatinine 0.9 mg/dL (0.6-1.2) 09/28/20 04:15 Estimated GFR (MDRD) 86 (>89) L 09/28/20 04:15 Glucose 113 mg/dL (70-100) H 09/28/20 04:15 POC Whole Bld Glucose 132 mg/dL (70 - 100) H 09/28/20 05:31 Calcium 8.8 mg/dL (8.5-10.3) 09/28/20 04:15 Phosphorus 1.7 mg/dL (2.5-4.6) L 09/28/20 04:15 Magnesium 1.9 mg/dL (1.7-2.8) 09/28/20 04:15 Total Bilirubin 1.8 mg/dL (0.2-1.0) H 09/27/20 17:50 AST 13 IU/L (10-42) 09/27/20 17:50 ALT 20 IU/L (10-60) 09/27/20 17:50 Alkaline Phosphatase 86 IU/L (42-121) 09/27/20 17:50 Total Protein 8.0 g/dL (6.7-8.2) 09/27/20 17:50 Albumin 4.0 g/dL (3.2-5.5) 09/27/20 17:50 Globulin 4.0 g/dL (2.1-4.2) 09/27/20 17:50 Albumin/Globulin Ratio 1.0 (1.0-2.2) 09/27/20 17:50 Triglycerides 161 mg/dL (-149) H 09/28/20 04:15 Amylase 567 U/L (28-100) H* 09/28/20 04:15 Lipase 45 U/L (22-51) 09/28/20 04:15 Urine Color YELLOW 09/28/20 01:57 Urine Clarity CLEAR (CLEAR) 09/28/20 01:57 Urine pH 5.5 PH (5.0-7.5) 09/28/20 01:57 Ur Specific [place] 1.025 (1.002-1.030) 09/28/20 01:57 Urine Protein 100 mg/dL (NEGATIVE) H 09/28/20 01:57 Urine Glucose (UA) >=1000 mg/dL (NEGATIVE) H 09/28/20 01:57 Urine Ketones >=80 mg/dL (NEGATIVE) H 09/28/20 01:57 Urine Occult Blood TRACE-INTA (NEGATIVE) 09/28/20 01:57 Urine Nitrite NEGATIVE (NEGATIVE) 09/28/20 01:57 Urine Bilirubin NEGATIVE (NEGATIVE) 09/28/20 01:57 Urine Urobilinogen 0.2 (NORMAL) E.U./dL (NORMAL) 09/28/20 01:57 Ur Leukocyte Esterase NEGATIVE (NEGATIVE) 09/28/20 01:57 Urine RBC 0-5 /HPF (0-5) 09/28/20 01:57 Urine WBC 0-3 /HPF (0-3) 09/28/20 01:57 Ur Squamous Epith Cells RARE Squamous (<= Few) 09/28/20 01:57 Urine Bacteria Rare /HPF (None Seen) 09/28/20 01:57 Urine Casts 3-5 Course Granular /LPF 09/28/20 01:57 Ur Microscopic Review INDICATED 09/28/20 01:57 Urine Culture Comments NOT INDICATED 09/28/20 01:57 Nasal Adenovirus (PCR) NOT DETECTED 09/27/20 18:17 Nasal B. parapertussis DNA (PCR) NOT DETECTED 09/27/20 18:17 Nasal Coronavir 229E PCR NOT DETECTED 09/27/20 18:17 Nasal Coronavir HKU1 PCR NOT DETECTED 09/27/20 18:17 Nasal Coronavir NL63 PCR NOT DETECTED 09/27/20 18:17 Nasal Coronavir OC43 PCR NOT DETECTED 09/27/20 18:17 Nasal Enterovir/Rhinovir PCR NOT DETECTED 09/27/20 18:17 Nasal Influenza B PCR NOT DETECTED 09/27/20 18:17 Nasal Influenza A PCR NOT DETECTED 09/27/20 18:17 Nasal Parainfluen 1 PCR NOT DETECTED 09/27/20 18:17 Nasal Parainfluen 2 PCR NOT DETECTED 09/27/20 18:17 Nasal Parainfluen 3 PCR NOT DETECTED 09/27/20 18:17 Nasal Parainfluen 4 PCR NOT DETECTED 09/27/20 18:17 Nasal RSV (PCR) NOT DETECTED 09/27/20 18:17 Nasal Screen MRSA (PCR) NEGATIVE (NEGATIVE) 09/27/20 19:00 Nasal B.pertussis DNA PCR NOT DETECTED 09/27/20 18:17 Nasal C.pneumoniae (PCR) NOT DETECTED 09/27/20 18:17 [place] Human Metapneumo PCR NOT DETECTED 09/27/20 18:17 Nasal M.pneumoniae (PCR) NOT DETECTED 09/27/20 18:17 Nasal SARS-CoV-2 (PCR) NOT DETECTED 09/27/20 18:17 Urine Opiates Screen POSITIVE (NEGATIVE) H 09/28/20 01:57 Ur Oxycodone Screen NEGATIVE (NEGATIVE) 09/28/20 01:57 Urine Methadone Screen NEGATIVE (NEGATIVE) 09/28/20 01:57 Ur Propoxyphene Screen NEGATIVE (NEGATIVE) 09/28/20 01:57 Ur Barbiturates Screen NEGATIVE (NEGATIVE) 09/28/20 01:57 Ur Tricyclics Screen NEGATIVE (NEGATIVE) 09/28/20 01:57 Ur Phencyclidine Scrn NEGATIVE (NEGATIVE) 09/28/20 01:57 Ur Amphetamine Screen NEGATIVE (NEGATIVE) 09/28/20 01:57 U Methamphetamines Scrn NEGATIVE (NEGATIVE) 09/28/20 01:57 U Benzodiazepines Scrn NEGATIVE (NEGATIVE) 09/28/20 01:57 Urine Cocaine Screen NEGATIVE (NEGATIVE) 09/28/20 01:57 U Cannabinoids Screen POSITIVE (NEGATIVE) H 09/28/20 01:57 Ethyl Alcohol 5.5 mg/dL 09/27/20 17:50 Serum Ketones SMALL (NEGATIVE) H 09/28/20 06:50 ABX Reporting Has patient been on IV antibiotics over the past 48 hours?: No
[2020-09-28 08:28] LABS: ESTIMATED AVERAGE GLUCOSE 384 mg/dL (70-100)
[2020-09-28] MEDS: SODIUM CHLORIDE FLUSH 0.9% 10 ML SYRINGE IVP SCH ×3 (09:17→22:13)
[2020-09-28] MEDS: PANTOPRAZOLE 40 MG VIAL IV SCH (09:19)
[2020-09-28 10:08] LABS: VBG BASE EXCESS -8.4 mmol/L (-2 - +2); VBG HCO3 15.4 mmol/L (23-28); VBG PCO2 28.8 mmHg (41-51); VBG PH 7.346 (7.31-7.41); VBG PO2 77.9 mmHg (25-47); VBG TOTAL CO2 16.3 mmol/L (24-29)
[2020-09-28 10:27] LABS: KETONES, SERUM (ACETEST) SMALL (NEGATIVE)
[2020-09-28 10:32] LABS: POTASSIUM 4.3 mmol/L (3.5-5.0)
--- NOTE | 2020-09-28 10:49 | PHARMACY PROGRESS NOTE ---
- Best Possible Medication History Admit Date and Time: 09/27/20 1825 Processed by: Pharmacy Medication History completed: Yes Patient Interview: Completed Secondary Source(s): Physician records, Pharmacy records, Insurance records (PATIENT ABLE TO CONFIRM HOME MEDICATIONS ) As the person ultimately responsible for medication therapy, providers are able to order a medication from an existing home medication list in [facility] via the "Reconcile Routine" prior to Confirmation of that medication by clinical support tech. Such practice is discouraged except when the physician, in their clinical judgment, deems that a medical need exists for a medication without regard to previous use.
[2020-09-28] MEDS ORDERED: LABETALOL 20 MG/4 ML SYRINGE IVP PRN (15:47)
[2020-09-28 16:12] LABS: BASOPHILS # (AUTO) 0.1 10^3/uL (0.0-0.1); BASOPHILS % (AUTO) 0.5 %; EOSINOPHILS % (AUTO) 0.1 %; HCT - HEMATOCRIT 48.4 % (42.0-52.0); HGB - HEMOGLOBIN 16.5 g/dL (14.0-18.0); LYMPHOCYTES # (AUTO) 1.6 10^3/uL (1.5-3.5); LYMPHOCYTES % (AUTO) 10.6 %; MEAN CORPUSCULAR HEMOGLOBIN 29.3 pg (27.0-31.0); MEAN CORPUSCULAR HGB CONC 34.1 g/dL (32.0-36.0); MEAN PLATELET VOLUME 10.4 fL (7.4-11.4); MONOCYTES # (AUTO) 1.3 10^3/uL (0.0-1.0); MONOCYTES % (AUTO) 9.1 %; NEUTROPHILS # (AUTO) 11.7 10^3/uL (1.5-6.6); NEUTROPHILS % (AUTO) 79.2 %; PLT - PLATELET COUNT 234 10^3/uL (130-450); RED BLOOD COUNT 5.63 10^6/uL (4.70-6.10); RED CELL DISTRIBUTION WIDTH 12.3 % (12.0-15.0); WHITE BLOOD COUNT 14.8 x10^3/uL (4.8-10.8)
[2020-09-28] MEDS ORDERED: ALBUTEROL NEB 2.5 MG/3 ML INH PRN (17:17)
[2020-09-28 20:35] LABS: BUN - BLOOD UREA NITROGEN 15 mg/dL (6-20); CALCIUM 8.7 mg/dL (8.5-10.3); CARBON DIOXIDE - CO2 20 mmol/L (21-32); CHLORIDE 104 mmol/L (101-111); CREATININE 0.7 mg/dL (0.6-1.2); GFR - MDRD 115 (>89); GLUCOSE 170 mg/dL (70-100); POTASSIUM 3.3 mmol/L (3.5-5.0); SODIUM 132 mmol/L (135-145)
[2020-09-28 20:56] LABS: KETONES, SERUM (ACETEST) SMALL (NEGATIVE)
[2020-09-29] MEDS: INSULIN REGULAR HUMAN 100 UNIT in SODIUM CHLORIDE 0.9% 100ML 99 ML IV SCH ×2 (02:21→05:29)
[2020-09-29] MEDS: MORPHINE 2 MG/ML CARPUJECT IVP PRN ×5 (02:24→18:50)
[2020-09-29 05:08] LABS: BASOPHILS # (AUTO) 0.1 10^3/uL (0.0-0.1); BASOPHILS % (AUTO) 0.7 %; EOSINOPHILS # (AUTO) 0.1 10^3/uL (0.0-0.7); EOSINOPHILS % (AUTO) 0.6 %; HCT - HEMATOCRIT 46.9 % (42.0-52.0); HGB - HEMOGLOBIN 15.3 g/dL (14.0-18.0); LYMPHOCYTES # (AUTO) 2.2 10^3/uL (1.5-3.5); LYMPHOCYTES % (AUTO) 18.1 %; MEAN CORPUSCULAR HEMOGLOBIN 28.7 pg (27.0-31.0); MEAN CORPUSCULAR HGB CONC 32.6 g/dL (32.0-36.0); MEAN PLATELET VOLUME 10.9 fL (7.4-11.4); MONOCYTES # (AUTO) 1.4 10^3/uL (0.0-1.0); MONOCYTES % (AUTO) 11.7 %; NEUTROPHILS # (AUTO) 8.2 10^3/uL (1.5-6.6); NEUTROPHILS % (AUTO) 68.2 %; PLT - PLATELET COUNT 211 10^3/uL (130-450); RED BLOOD COUNT 5.33 10^6/uL (4.70-6.10); RED CELL DISTRIBUTION WIDTH 12.5 % (12.0-15.0); WHITE BLOOD COUNT 12.1 x10^3/uL (4.8-10.8)
[2020-09-29 05:15] LABS: CALCIUM 8.4 mg/dL (8.5-10.3); CREATININE 0.6 mg/dL (0.6-1.2); POTASSIUM 3.3 mmol/L (3.5-5.0)
[2020-09-29] MEDS ORDERED: POTASSIUM CHLOR 10 MEQ/100 ML 10 MEQ/100 ML BAG IV ONE (05:28)
[2020-09-29] MEDS: METOCLOPRAMIDE 10 MG/2 ML VIAL IVP PRN (06:48)
[2020-09-29] MEDS: D5NS W/20 MEQ KCL 1,000 ML IV SCH (07:25)
--- NOTE | 2020-09-29 07:34 | PROVIDER PROGRESS NOTE ---
Assessment/Plan - Problem List (1) DKA (diabetic ketoacidoses) Qualifiers: Diabetes mellitus type: other specified (including BLAYNE) Diabetes mellitus complication detail: without coma Qualified Code(s): E13.10 - Other specified diabetes mellitus with ketoacidosis without coma Assessment/Plan: Insulin drip discontinued this morning. Lantus 60 units subcu nightly ordered and administered this morning. Regular insulin 20 units subcu 3 times daily with meals. Checks before every meal and at bedtime Sliding scale insulin ordered. We will advance patient's diet to full liquid for lunch. If patient stable later this afternoon, will downgrade to MedSurg status. Anticipate discharge tomorrow 09/30/20 (2) Acute kidney injury Assessment/Plan: Resolved with IV hydration. Creatinine today is 0.6 with an estimated GFR of 137 (3) Abdominal pain Qualifiers: Abdominal location: upper abdomen, unspecified Qualified Code(s): R10.10 - Upper abdominal pain, unspecified Assessment/Plan: Improving. This was likely secondary to DKA and gastroparesis. Patient is tolerating his diet better today. White blood cell count is down to 12.1 from 15.1. (4) Leukocytosis Qualifiers: Qualified Code(s): D72.823 - Leukemoid reaction Assessment/Plan: Likely reactive. White blood cell count improved from 15.1 yesterday to 12.1 today. Patient's abdominal pain is significantly improved. Expecting further improvement in white blood cell count and abdominal pain (5) Abnormal EKG Assessment/Plan: 2D echo showed mild concentric left ventricular hypertrophy. Overall left ventricular systolic function is normal with an ejection fraction of 60 to 65%. Diastology was indeterminate. There was no regional wall motion abnormality. The aortic valve is trileaflet. There is no evidence of aortic stenosis or aortic regurgitation. There is no pericardial effusion. There is no thrombus mass or pleural effusion. (6) HTN (hypertension) Qualifiers: Hypertension type: essential hypertension Assessment/Plan: Hydralazine 10 mg IV every 8 hours as needed. Labetalol 10 mg IV every 4 hours as needed. - Current Meds Current Meds: Current Medications Generic Name Dose Route Start Last Admin Trade Name Freq PRN Reason Stop Dose Admin Hydralazine HCl 10 mg 09/27/20 20:56 09/28/20 10:30 Hydralazine Inj 20 Mg/Ml Vial IVP 10 mg Q8H PRN Administration Hypertensive Emergency Insulin Human Regular 100 unit 100 mls @ 12.474 mls/hr 09/27/20 19:00 09/29/20 05:29 / Sodium Chloride IV Not Given .Q8H1M DANIEL Protocol 0.1 UNIT/KG/HR Potassium Chloride/Dextrose/Sod Cl 1,000 mls @ 75 mls/hr 09/28/20 18:41 09/29/20 07:25 D5ns W/20 Meq Kcl IV 75 mls/hr .[id number] DANIEL Administration Labetalol HCl 10 mg 09/28/20 15:47 09/28/20 16:05 Labetalol 20 Mg/4 Ml Syringe IVP 10 mg Q4H PRN Administration PER PHYSICIAN ORDER Metoclopramide HCl 5 mg 09/27/20 20:53 09/29/20 06:48 Metoclopramide 10 Mg/2 Ml Vial IVP 5 mg Q6HR PRN Administration Nausea / Vomiting Morphine Sulfate 2 mg 09/27/20 18:39 09/29/20 06:47 Morphine 2 Mg/Ml Carpuject IVP 2 mg Q2HR PRN Administration PAIN Ondansetron HCl 4 mg 09/27/20 18:38 09/29/20 01:15 Ondansetron 4 Mg/2 Ml Vial IVP 4 mg Q4H PRN Administration Nausea / Vomiting Pantoprazole Sodium 40 mg 09/28/20 09:00 09/28/20 09:19 Pantoprazole 40 Mg Vial IV 40 mg DAILY DANIEL Administration Sodium Chloride 10 ml 09/28/20 01:00 09/28/20 22:13 Sodium Chloride Flush 0.9% 10 Ml Syringe IVP 10 ml 0100,0900,1700 DANIEL Administration Sodium Chloride 10 ml 09/27/20 18:25 09/28/20 09:17 Sodium Chloride Flush 0.9% 10 Ml Syringe IVP 10 ml PRN PRN Administration NEEDED PER PROVIDER ORDERS - Lab Result Fish Bone Diagrams: 09/29/20 04:25 09/29/20 04:25 - Additional Planning My Orders: My Active Orders 09/28/20 Lunch Clear Liquid Diet [DIET] 09/28/20 15:47 Labetalol Syringe [Trandate Syringe] 10 mg IVP Q4H PRN 09/28/20 17:17 Nebulizer/MDI Tx. [RC] QID Albuterol 2.5 mg INH RTQ4H PRN 09/28/20 18:41 D5ns W/20 Meq KCl 1,000 ml IV 75 mls/hr 09/29/20 09:00 Docusate Sodium 250Mg Capsule [Colace 250Mg Capsule] 250 - 500 mg PO DAILY Senna [Senokot] 8.6 - 17.2 mg PO DAILY polyethylene glycoL 3350 [Miralax] 17 gm PO DAILY 09/30/20 05:00 BMP - BASIC METABOLIC PANEL [CHEM] DAILYLAB CBC - COMP BLD CT W/AUTO DIFF [HEME] DAILYLAB 10/01/20 05:00 BMP - BASIC METABOLIC PANEL [CHEM] DAILYLAB CBC - COMP BLD CT W/AUTO DIFF [HEME] DAILYLAB 10/02/20 05:00 BMP - BASIC METABOLIC PANEL [CHEM] DAILYLAB CBC - COMP BLD CT W/AUTO DIFF [HEME] DAILYLAB Subjective - Subjective Patient Reports: Other (Patient is more alert, awake and oriented today. His abdominal pain has significantly decreased. He rated it 5 out of 10. He is able to tolerate a clear liquid diet without problems. He denied chest pain, dyspnea, fever or chills.) Objective Vital Signs: Vital Signs - 24 hr 09/28/20 09/28/20 09/28/20 08:00 10:00 10:30 Temperature 36.6 C Heart Rate Heart Rate [ 95 109 H Monitoring electrodes] Respiratory 11 L 20 Rate Blood Pressure 171/106 H Blood Pressure 157/93 H 171/106 H [Left Brachial artery] O2 Saturation 99 09/28/20 09/28/20 09/28/20 10:45 11:00 12:00 Temperature 36.7 C Heart Rate Heart Rate [ 98 91 103 H Monitoring electrodes] Respiratory 16 1 L 16 Rate Blood Pressure 171/93 H Blood Pressure 156/96 H 171/93 H 142/109 H [Left Brachial artery] O2 Saturation 98 98 95 09/28/20 09/28/20 09/28/20 13:00 14:00 15:00 Temperature Heart Rate Heart Rate [ 87 102 H 98 Monitoring electrodes] Respiratory 16 16 14 Rate Blood Pressure Blood Pressure 165/97 H 150/89 H 174/99 H [Left Brachial artery] O2 Saturation 95 95 98 09/28/20 09/28/20 09/28/20 16:00 16:15 17:00 Temperature 36.5 C Heart Rate Heart Rate [ 98 74 83 Monitoring electrodes] Respiratory 18 18 19 Rate Blood Pressure Blood Pressure 171/97 H 148/86 H 166/97 H [Left Brachial artery] O2 Saturation 95 95 95 09/28/20 09/28/20 09/28/20 17:14 18:00 19:00 Temperature 36.5 C Heart Rate 83 Heart Rate [ 74 93 Monitoring electrodes] Respiratory 16 19 24 Rate Blood Pressure Blood Pressure 130/71 142/97 H [Left Brachial artery] O2 Saturation 98 94 94 09/28/20 09/28/20 09/28/20 20:00 21:00 22:00 Temperature 37 C Heart Rate Heart Rate [ 90 83 90 Monitoring electrodes] Respiratory 16 16 17 Rate Blood Pressure Blood Pressure 141/84 H 127/78 120/90 H [Left Brachial artery] O2 Saturation 97 98 97 09/28/20 09/29/20 09/29/20 23:00 00:00 01:00 Temperature 37.3 C Heart Rate Heart Rate [ 8 L 75 73 Monitoring electrodes] Respiratory 16 19 18 Rate Blood Pressure Blood Pressure 148/77 H 140/80 H 139/70 H [Left Brachial artery] O2 Saturation 97 97 09/29/20 09/29/20 09/29/20 02:00 03:00 04:00 Temperature 37.1 C Heart Rate Heart Rate [ 87 91 75 Monitoring electrodes] Respiratory 17 18 12 Rate Blood Pressure Blood Pressure 150/78 H 109/81 H 139/76 H [Left Brachial artery] O2 Saturation 97 96 09/29/20 09/29/20 09/29/20 05:00 06:00 07:00 Temperature Heart Rate Heart Rate [ 80 90 76 Monitoring electrodes] Respiratory 15 22 21 Rate Blood Pressure Blood Pressure 121/71 143/83 H 142/85 H [Left Brachial artery] O2 Saturation 96 96 97 Oxygen O2 Source [Without Activity] Room air O2 Source Room air I&O (Last 24 Hrs): Intake and Output Totals x24h 09/27/20 09/28/20 09/29/20 23:59 23:59 23:59 Intake Total 2913.480 4927.570 965.283 Output Total 3300 700 Balance 2913.480 1627.570 265.283 General: Alert, Oriented x3, Mild distress HEENT: PERRLA, EOMI Neck: Supple, No JVD Neuro: Alert, Non Focal, Oriented Times 3 Cardiovascular: Regular rate, Normal S1, Normal S2 Respiratory: Chest non-tender, No respiratory distress, Breath sounds nml Abdomen: Normal bowel sounds, Soft Extremities: No clubbing, No cyanosis, No edema - Results Results: Laboratory Results WBC 12.1 x10^3/uL (4.8-10.8) H 09/29/20 04:25 RBC 5.33 10^6/uL (4.70-6.10) 09/29/20 04:25 Hgb 15.3 g/dL (14.0-18.0) 09/29/20 04:25 Hct 46.9 % (42.0-52.0) 09/29/20 04:25 MCV 88.0 fL (80.0-94.0) 09/29/20 04:25 MCH 28.7 pg (27.0-31.0) 09/29/20 04:25 MCHC 32.6 g/dL (32.0-36.0) 09/29/20 04:25 RDW 12.5 % (12.0-15.0) 09/29/20 04:25 Plt Count 211 10^3/uL (130-450) 09/29/20 04:25 MPV 10.9 fL (7.4-11.4) 09/29/20 04:25 Neut # (Auto) 8.2 10^3/uL (1.5-6.6) H 09/29/20 04:25 Lymph # (Auto) 2.2 10^3/uL (1.5-3.5) 09/29/20 04:25 [place] # (Auto) 1.4 10^3/uL (0.0-1.0) H 09/29/20 04:25 Eos # (Auto) 0.1 10^3/uL (0.0-0.7) 09/29/20 04:25 Baso # (Auto) 0.1 10^3/uL (0.0-0.1) 09/29/20 04:25 Absolute Nucleated RBC 0.00 x10^3/uL 09/29/20 04:25 Total Counted 100 09/28/20 04:20 Band Neuts % (Manual) 4 % (0-10) 09/28/20 04:20 Abnorm Lymph % (Manual) 0 % 09/28/20 04:20 Nucleated RBC % 0.0 /100WBC 09/29/20 04:25 Neutrophils # (Manual) 12.2 10^3/uL (1.5-6.6) H 09/28/20 04:20 Lymphocytes # (Manual) 1.4 10^3/uL (1.5-3.5) L 09/28/20 04:20 Monocytes # (Manual) 1.5 10^3/uL (0.0-1.0) H 09/28/20 04:20 Eosinophils # (Manual) 0.0 10^3/uL (0-0.7) 09/28/20 04:20 Basophils # (Manual) 0.0 10^3/uL (0-0.1) 09/28/20 04:20 Differential Comment MANUAL DIFFERENTIAL 09/28/20 04:20 Platelet Estimate NORMAL (130-450,000) (NORMAL) 09/28/20 04:20 RBC Morph Micro Appear NORMAL APPEARANCE (NORMAL) 09/28/20 04:20 VBG pH 7.346 (7.31-7.41) 09/28/20 10:00 VBG pCO2 28.8 mmHg (41-51) L 09/28/20 10:00 VBG pO2 77.9 mmHg (25-47) H 09/28/20 10:00 VBG HCO3 15.4 mmol/L (23-28) L 09/28/20 10:00 VBG Total CO2 16.3 mmol/L (24-29) L 09/28/20 10:00 VBG O2 Saturation 96.0 % (60-80) H 09/28/20 10:00 VBG Base Excess -8.4 mmol/L (-2 - +2) L 09/28/20 10:00 Sodium 130 mmol/L (135-145) L 09/29/20 04:25 Potassium 3.3 mmol/L (3.5-5.0) L 09/29/20 04:25 Chloride 101 mmol/L (101-111) 09/29/20 04:25 Carbon Dioxide 21 mmol/L (21-32) 09/29/20 04:25 Anion Gap 8.0 (6-13) 09/29/20 04:25 BUN 12 mg/dL (6-20) 09/29/20 04:25 Creatinine 0.6 mg/dL (0.6-1.2) 09/29/20 04:25 Estimated GFR (MDRD) 137 (>89) 09/29/20 04:25 Glucose 129 mg/dL (70-100) H 09/29/20 04:25 POC Whole Bld Glucose 138 mg/dL (70 - 100) H 09/29/20 06:50 Estimat Average Glucose 384 mg/dL (70-100) H 09/28/20 04:20 Hemoglobin A1c % 15.0 % (4.27-6.07) H 09/28/20 04:20 Calcium 8.4 mg/dL (8.5-10.3) L 09/29/20 04:25 Phosphorus 1.7 mg/dL (2.5-4.6) L 09/28/20 04:15 Magnesium 1.9 mg/dL (1.7-2.8) 09/28/20 04:15 Total Bilirubin 1.8 mg/dL (0.2-1.0) H 09/27/20 17:50 AST 13 IU/L (10-42) 09/27/20 17:50 ALT 20 IU/L (10-60) 09/27/20 17:50 Alkaline Phosphatase 86 IU/L (42-121) 09/27/20 17:50 Total Protein 8.0 g/dL (6.7-8.2) 09/27/20 17:50 Albumin 4.0 g/dL (3.2-5.5) 09/27/20 17:50 Globulin 4.0 g/dL (2.1-4.2) 09/27/20 17:50 Albumin/Globulin Ratio 1.0 (1.0-2.2) 09/27/20 17:50 Triglycerides 161 mg/dL (-149) H 09/28/20 04:15 Amylase 567 U/L (28-100) H* 09/28/20 04:15 Lipase 45 U/L (22-51) 09/28/20 04:15 Urine Color YELLOW 09/28/20 01:57 Urine Clarity CLEAR (CLEAR) 09/28/20 01:57 Urine pH 5.5 PH (5.0-7.5) 09/28/20 01:57 Ur Specific [place] 1.025 (1.002-1.030) 09/28/20 01:57 Urine Protein 100 mg/dL (NEGATIVE) H 09/28/20 01:57 Urine Glucose (UA) >=1000 mg/dL (NEGATIVE) H 09/28/20 01:57 Urine Ketones >=80 mg/dL (NEGATIVE) H 09/28/20 01:57 Urine Occult Blood TRACE-INTA (NEGATIVE) 09/28/20 01:57 Urine Nitrite NEGATIVE (NEGATIVE) 09/28/20 01:57 Urine Bilirubin NEGATIVE (NEGATIVE) 09/28/20 01:57 Urine Urobilinogen 0.2 (NORMAL) E.U./dL (NORMAL) 09/28/20 01:57 Ur Leukocyte Esterase NEGATIVE (NEGATIVE) 09/28/20 01:57 Urine RBC 0-5 /HPF (0-5) 09/28/20 01:57 Urine WBC 0-3 /HPF (0-3) 09/28/20 01:57 Ur Squamous Epith Cells RARE Squamous (<= Few) 09/28/20 01:57 Urine Bacteria Rare /HPF (None Seen) 09/28/20 01:57 Urine Casts 3-5 Course Granular /LPF 09/28/20 01:57 Ur Microscopic Review INDICATED 09/28/20 01:57 Urine Culture Comments NOT INDICATED 09/28/20 01:57 Nasal Adenovirus (PCR) NOT DETECTED 09/27/20 18:17 Nasal B. parapertussis DNA (PCR) NOT DETECTED 09/27/20 18:17 Nasal Coronavir 229E PCR NOT DETECTED 09/27/20 18:17 Nasal Coronavir HKU1 PCR NOT DETECTED 09/27/20 18:17 Nasal Coronavir NL63 PCR NOT DETECTED 09/27/20 18:17 Nasal Coronavir OC43 PCR NOT DETECTED 09/27/20 18:17 Nasal Enterovir/Rhinovir PCR NOT DETECTED 09/27/20 18:17 Nasal Influenza B PCR NOT DETECTED 09/27/20 18:17 Nasal Influenza A PCR NOT DETECTED 09/27/20 18:17 Nasal Parainfluen 1 PCR NOT DETECTED 09/27/20 18:17 Nasal Parainfluen 2 PCR NOT DETECTED 09/27/20 18:17 Nasal Parainfluen 3 PCR NOT DETECTED 09/27/20 18:17 Nasal Parainfluen 4 PCR NOT DETECTED 09/27/20 18:17 Nasal RSV (PCR) NOT DETECTED 09/27/20 18:17 Nasal Screen MRSA (PCR) NEGATIVE (NEGATIVE) 09/27/20 19:00 Nasal B.pertussis DNA PCR NOT DETECTED 09/27/20 18:17 Nasal C.pneumoniae (PCR) NOT DETECTED 09/27/20 18:17 Wesley Human Metapneumo PCR NOT DETECTED 09/27/20 18:17 Nasal M.pneumoniae (PCR) NOT DETECTED 09/27/20 18:17 Nasal SARS-CoV-2 (PCR) NOT DETECTED 09/27/20 18:17 Urine Opiates Screen POSITIVE (NEGATIVE) H 09/28/20 01:57 Ur Oxycodone Screen NEGATIVE (NEGATIVE) 09/28/20 01:57 Urine Methadone Screen NEGATIVE (NEGATIVE) 09/28/20 01:57 Ur Propoxyphene Screen NEGATIVE (NEGATIVE) 09/28/20 01:57 Ur Barbiturates Screen NEGATIVE (NEGATIVE) 09/28/20 01:57 Ur Tricyclics Screen NEGATIVE (NEGATIVE) 09/28/20 01:57 Ur Phencyclidine Scrn NEGATIVE (NEGATIVE) 09/28/20 01:57 Ur Amphetamine Screen NEGATIVE (NEGATIVE) 09/28/20 01:57 U Methamphetamines Scrn NEGATIVE (NEGATIVE) 09/28/20 01:57 U Benzodiazepines Scrn NEGATIVE (NEGATIVE) 09/28/20 01:57 Urine Cocaine Screen NEGATIVE (NEGATIVE) 09/28/20 01:57 U Cannabinoids Screen POSITIVE (NEGATIVE) H 09/28/20 01:57 Ethyl Alcohol 5.5 mg/dL 09/27/20 17:50 Serum Ketones SMALL (NEGATIVE) H 09/29/20 04:25 ABX Reporting Has patient been on IV antibiotics over the past 48 hours?: No
[2020-09-29] MEDS ORDERED: POTASSIUM CHLORIDE 20 MEQ TABLET PO ONE (08:00)
[2020-09-29] MEDS: PANTOPRAZOLE 40 MG VIAL IV SCH (09:30)
[2020-09-29] MEDS: INSULIN GLARGINE 300 UNIT/3 ML PEN SUBQ SCH (09:30)
[2020-09-29] MEDS: DOCUSATE SODIUM 250 MG CAPSULE PO SCH (09:42)
[2020-09-29] MEDS: polyethylene glycoL 3350 17 GM PACKET PO SCH (09:42)
[2020-09-29] MEDS: SODIUM CHLORIDE FLUSH 0.9% 10 ML SYRINGE IVP SCH ×2 (09:42→16:59)
[2020-09-29] MEDS: SENNA 8.6 MG TABLET PO SCH (09:42)
[2020-09-29] MEDS: INSULIN ASPART 300 UNIT/3 ML PEN SUBQ SCH ×5 (12:05→20:45)
[2020-09-29] MEDS: SODIUM CHLORIDE FLUSH 0.9% 10 ML SYRINGE IVP PRN (14:40)
[2020-09-30] MEDS: MORPHINE 2 MG/ML CARPUJECT IVP PRN (00:37)
[2020-09-30] MEDS: SODIUM CHLORIDE FLUSH 0.9% 10 ML SYRINGE IVP SCH ×2 (00:37→09:13)
[2020-09-30 05:04] LABS: BASOPHILS # (AUTO) 0.1 10^3/uL (0.0-0.1); CALCIUM 8.4 mg/dL (8.5-10.3); CREATININE 0.6 mg/dL (0.6-1.2); EOSINOPHILS # (AUTO) 0.2 10^3/uL (0.0-0.7); EOSINOPHILS % (AUTO) 1.8 %; HCT - HEMATOCRIT 43.9 % (42.0-52.0); HGB - HEMOGLOBIN 14.7 g/dL (14.0-18.0); LYMPHOCYTES # (AUTO) 3.1 10^3/uL (1.5-3.5); LYMPHOCYTES % (AUTO) 30.9 %; MEAN CORPUSCULAR HGB CONC 33.5 g/dL (32.0-36.0); MEAN CORPUSCULAR VOLUME 86.6 fL (80.0-94.0); MEAN PLATELET VOLUME 11.1 fL (7.4-11.4); MONOCYTES # (AUTO) 1.2 10^3/uL (0.0-1.0); MONOCYTES % (AUTO) 11.5 %; NEUTROPHILS # (AUTO) 5.5 10^3/uL (1.5-6.6); NEUTROPHILS % (AUTO) 54.1 %; PLT - PLATELET COUNT 203 10^3/uL (130-450); POTASSIUM 3.4 mmol/L (3.5-5.0); RED BLOOD COUNT 5.07 10^6/uL (4.70-6.10); RED CELL DISTRIBUTION WIDTH 12.2 % (12.0-15.0); WHITE BLOOD COUNT 10.1 x10^3/uL (4.8-10.8)
[2020-09-30 06:18] LABS: MAGNESIUM 1.7 mg/dL (1.7-2.8); PHOSPHORUS 2.3 mg/dL (2.5-4.6)
[2020-09-30] MEDS ORDERED: POTASSIUM CHLORIDE 20 MEQ TABLET PO ONE (08:00)
[2020-09-30] MEDS ORDERED: CALCIUM CARBONATE CHEW 500 MG TABLET PO PRN (08:36)
[2020-09-30] MEDS ORDERED: CLOPIDOGREL 75 MG TABLET PO SCH (09:00)
[2020-09-30] MEDS ORDERED: PROPRANOLOL ER 80 MG CAPSULE PO SCH (09:00)
[2020-09-30] MEDS: INSULIN ASPART 300 UNIT/3 ML PEN SUBQ SCH ×4 (09:09→11:57)
[2020-09-30] MEDS: MAGNESIUM OXIDE 400 MG TABLET PO SCH ×2 (09:10→13:20)
[2020-09-30] MEDS: polyethylene glycoL 3350 17 GM PACKET PO SCH (09:12)
[2020-09-30] MEDS: DOCUSATE SODIUM 250 MG CAPSULE PO SCH (09:12)
[2020-09-30] MEDS: SENNA 8.6 MG TABLET PO SCH (09:13)
[2020-09-30] MEDS: PANTOPRAZOLE 40 MG VIAL IV SCH (09:13)
[2020-09-30] MEDS: INSULIN GLARGINE 300 UNIT/3 ML PEN SUBQ SCH (09:22)
--- NOTE | 2020-09-30 11:17 | DISCHARGE SUMMARY ---
Discharge Summary Admit Date: 09/27/20 Discharge Date: 09/30/20 Discharging Provider: Mike Tannertu Code Status: Attempt Resuscitation Condition at Discharge: Stable Discharge Disposition: 01 Home, Self Care - DIAGNOSES Admission Diagnoses: DKA Acute kidney injury Abdominal pain Leukocytosis Aortic aneurysm Abnormal EKG Hypertension Discharge Diagnoses with Status of Each Condition: DKA: Resolved. Patient prescribed at least 30 days worth of Levemir, NovoLog, [place] and Syringes. To follow up with PCP for continued management Acute kidney injury: Secondary to dehydration. Resolved. Abdominal pain. Acute on Chronic. 2/2 Gastroperesis. Improved/Resolved Leukocytosis: Acute. Reactive. Resolved Aortic aneurysm: Chronic. To follow up with PCP Abnormal EKD echo unremarkable Hypertension: Chronic. Controlled - HPI History of Present Illness: This is a 60 y/o WM with history of DM on Insulin, HTN, GERD, kidney stones, TIA, diabetic peripheral neuropathy and gastroparesis. He has had many visits to this ER for N/V and abdominal pain; in Dec [address] of abdomen/pelvvis revealed he had colitis and an ileus. He presented today with 4 days of N/V and abdominal pain, and admitted having had no Insulin for 2-3 mos, because he had no provider to refill Insulin, he reported. He usually took Lantus Insulin 90 U daily and Humalog Insulin 20 U tid with meals. He was also not doing fingerstick glucose checks. He was using his mother's inhaler, he still had protonix, but was without some of his other meds also. In the ED, he had no fever, was tachycardic at 119 with dry mucous membranes, and his labs showed WBC 16, blood glucose 724, pH 7.24, bicarb 10, serum ketones small and BUN/creat 38/1.4. He was started on iv saline and received Insulin 10 U iv. He is being admitted to the ICU to manage DKA. - HOSPITAL COURSE Hospital Course: Patient was maintained on IV hydration and insulin drip per DKA protocol for about 36 hours. He was subsequently weaned off placed on a clear liquid diet which was then advanced as tolerated to a carb controlled diet. Patient's abdominal pain improved through the course of his hospital stay. This was thought to be secondary to gastroparesis and DKA. His white count which was 16.9 steadily improved to 10.1. This was thought to be reactive. 2D echo showed mild concentric left ventricular hypertrophy. Overall left ventricular systolic function is normal with an ejection fraction of 60 to 65%. Diastology was indeterminate. There was no regional wall motion abnormality. The aortic valve is trileaflet. There is no evidence of aortic stenosis or aortic regurgitation. There is no pericardial effusion. There is no thrombus mass or pleural effusion. He was discharged in stable condition. He was prescribed at least 30 days worth of Levemir, NovoLog, syringes and needles. He also received a prescription of propanolol for 30 days. He was advised to follow-up with his primary care physician for continued management of his medical conditions and renewal of his medications. - ALLERGIES Allergies/Adverse Reactions: Allergies Allergy/AdvReac Type Severity Reaction Status Date / Time acetaminophen [From Tylenol] AdvReac Intermediate Nausea Verified 09/27/20 17:35 hydrocodone [Hydrocodone] AdvReac Intermediate Respiratory Verified 09/27/20 17:35 oxycodone AdvReac Intermediate Anxiety Verified 09/27/20 17:35 fentanyl AdvReac Nausea Verified 09/27/20 17:35 - MEDICATIONS Home Medications: Ambulatory Orders Medication Instructions Recorded Confirmed Clopidogrel [Plavix] 75 mg PO DAILY 04/07/14 09/28/20 Insulin Glargine [Lantus Solostar] 90 unit SUBQ QPM 10/09/17 09/28/20 Albuterol Sulf [Ventolin Hfa 1 - 2 puffs INH Q4H PRN 03/13/18 09/28/20 Inhaler] Insulin Aspart (Vial) [NovoLOG 30 unit SUBQ TID 30 Days #70 ml 09/30/20 (VIAL FOR ED USE)] Insulin Detemir [Levemir] 90 unit SQ DAILY 30 Days #50 ml 09/30/20 Ondansetron Odt [Zofran Odt] 4 mg TL Q6H PRN #30 tablet 09/30/20 Pantoprazole [Protonix] 40 mg PO QDAC PRN 30 Days #30 tab 09/30/20 Propranolol ER [Inderal LA] 80 mg PO DAILY 30 Days #30 cap 09/30/20 Syringe and Needle,Insulin,1Ml 1 each MC QID 30 Days #150 syr 09/30/20 [Insulin Syringe] - PHYSICAL EXAM AT DISCHARGE General Appearance: positive: No acute distress, Alert Eyes Bilateral: positive: PERRL, EOMI ENT: positive: No signs of dehydration Neck: positive: No JVD, Trachea midline Respiratory: positive: Chest non-tender, No respiratory distress, Breath sounds nml. negative: Wheezes, Rales, Rhonchi Cardiovascular: positive: Regular rate & rhythm, No murmur Abdomen: positive: Non-tender, No distention. negative: Guarding, Rebound Back: positive: Nml inspection Skin: positive: Color nml, No rash, Warm, Dry Extremities: positive: Non-tender, Full ROM, Nml appearance, No pedal edema Neurologic/Psychiatric: positive: Oriented x3, Mood/affect nml - LABS Result Diagrams: 09/30/20 04:15 09/30/20 04:15 - TIME SPENT Time Spent in Discharge (Minutes): 25
--- NOTE | 2020-09-30 11:21 | Discharge Plan ---
Discharge Plan Problem Reviewed?: Yes Disposition: Home, Self Care Condition: Stable Prescriptions: Propranolol ER [Inderal LA] 80 mg PO DAILY 30 Days #30 cap Syringe and Needle,Insulin,1Ml [Insulin Syringe] 1 each MC QID 30 Days #150 syr Insulin Detemir [Levemir] 90 unit SQ DAILY 30 Days #50 ml Insulin Aspart (Vial) [NovoLOG (VIAL FOR ED USE)] 30 unit SUBQ TID 30 Days #70 ml Pantoprazole [Protonix] 40 mg PO QDAC PRN 30 Days #30 tab PRN Reason: Severe heartburn Ondansetron Odt [Zofran Odt] 4 mg TL Q6H PRN #30 tablet PRN Reason: Nausea / Vomiting Diet: Diabetic Activity Restrictions: Activity as Tolerated Weight Bearing: Full Weight Health Concerns: Abdominal pain, nausea and vomiting. Work-up in the emergency room showed your blood glucose was 724. You had a pH of 7.24. You were diagnosed with DKA for which you were started on an insulin drip and admitted in the ICU for continued management. Over 3 days your symptoms steadily improved and you where weaned off insulin drip. You are being discharged today 09/30/20 in stable condition. You will be prescribed 30 days of your Lantus, Humalog and propanolol. You have been advised to follow-up with your primary care physician within 7-10 business days. You expressed understanding of the plan mentioned above and you are in agreement. No Smoking: If you smoke, Please STOP! Call for help.
[2020-09-30 11:43] VITALS: BP 149/94
[2020-10-01] MEDS ORDERED: PANTOPRAZOLE 40 MG TABLET PO SCH (07:00)
== END 2020-09-30 14:08 | disposition home or self-care (01) | DRG 638 ==
LOC: ED 16:56 → ICU 18:25
PROVIDERS: ADMIT Internal Medicine; ATTEND Internal Medicine
DX: E11.10 Type 2 diabetes mellitus with ketoacidosis without coma (principal); N17.9 Acute kidney failure, unspecified; E87.1 Hypo-osmolality and hyponatremia; E11.43 Type 2 diabetes mellitus with diabetic autonomic (poly)neuropathy; K31.84 Gastroparesis; E11.42 Type 2 diabetes mellitus with diabetic polyneuropathy; T38.3X6A Underdosing of insulin and oral hypoglycemic [antidiabetic] drugs, initial encounter; Z91.120 Patient's intentional underdosing of medication regimen due to financial hardship; E86.0 Dehydration; D72.823 Leukemoid reaction; I71.2 Thoracic aortic aneurysm, without rupture; R94.31 Abnormal electrocardiogram [ECG] [EKG]; I10 Essential (primary) hypertension; J45.909 Unspecified asthma, uncomplicated; Z20.822 Contact with and (suspected) exposure to COVID-19; E78.00 Pure hypercholesterolemia, unspecified; G89.29 Other chronic pain; M54.9 Dorsalgia, unspecified; M19.90 Unspecified osteoarthritis, unspecified site; K21.9 Gastro-esophageal reflux disease without esophagitis; H35.30 Unspecified macular degeneration; L40.9 Psoriasis, unspecified; Z79.02 Long term (current) use of antithrombotics/antiplatelets; Z79.899 Other long term (current) drug therapy; Z86.73 Personal history of transient ischemic attack (TIA), and cerebral infarction without residual deficits; Z87.01 Personal history of pneumonia (recurrent); Z87.11 Personal history of peptic ulcer disease; Z87.442 Personal history of urinary calculi; Z87.891 Personal history of nicotine dependence
CPT/HCPCS: 36415; 80048; 80053; 80306; 81001; 82009; 82150; 82803; 82947; 83036; 83690; 83735; 84100; 84132; 84478; 85025; 87150; 87631; 93005; 93306; 96374; 99285; 99291; A9270; G0480; J1815; J2765; 0202U; 80320; 81003; 87086

== ENCOUNTER 2020-11-20 01:31 | Emergency (ER) | payer MEDICARE, MEDICAID ==
--- NOTE | 2020-11-20 02:06 | ED Physician Documentation ---
PD HPI FOCAL NEURO - Stated complaint Stated Complaint: R SHOULDER PROBS/NUMB - Chief complaint Chief Complaint: Neuro - History obtained from History obtained from: Patient - History of Present Illness Timing - onset: Enter time (29), Today Timing - duration: Minutes Timing - details: Abrupt onset, Still present Severity of deficit: Severe Weakness: Arm, Hand, Right. No: Face, Leg, Foot, Left, Other Numbness: Arm, Hand, Leg. No: Face, Foot, Right, Left, Other Associated symptoms: Headache. No: Nausea / vomiting, Seizure, Syncope, Fall, Head injury, Chest pain, Neck pain, Back pain, Fever Contributing factors: negative: Anticoagulated Baseline status: positive: A&OX3, ambulatory, indep Similar symptoms before: Diagnosis (TIA prior CVA) Recently seen: Not recently seen - Additional information Additional information: 60-year-old male was sitting at his computer this evening when he developed right arm weakness. The arm is completely flaccid and not normal for the patient. He has had prior CVA which is led to some right-sided weakness. He has no symptoms in his leg on the right side he has no symptoms on his face or change in his speech. He reports having similar symptoms previously to a much milder extent that come and go. Review of Systems Constitutional: denies: Fever Eyes: denies: Decreased vision Ears: denies: Ear pain Nose: denies: Congestion Throat: denies: Sore throat Cardiac: denies: Chest pain / pressure, Palpitations Respiratory: denies: Dyspnea, Cough GI: denies: Abdominal Pain, Nausea, Vomiting : denies: Dysuria, Frequency Skin: denies: Rash Musculoskeletal: denies: Neck pain, Back pain, Extremity pain Neurologic: reports: Focal weakness, Numbness, Headache (earlier today). denies: Generalized weakness, Difficulty speaking, Near syncope, Confused, Altered mental status, Head injury, LOC PD PAST MEDICAL HISTORY - Past Medical History Cardiovascular: Hypertension, High cholesterol, Other (Stress test in 2013 was WNL. Echo in 2013 showed normal LVEF, no shunt and a dilated ascending aorta of 4.5 cm.) Respiratory: Asthma, Pneumonia Neuro: CVA, TIA, Head injury, Migraines, Peripheral neuropathy Endocrine/Autoimmune: Type 2 diabetes GI: GERD, Ulcers, Hemorrhoids : Kidney stones HEENT: Macular degeneration Psych: Depression Musculoskeletal: Osteoarthritis, Chronic back pain Derm: Psoriasis, Other - Past Surgical History Past Surgical History: Yes General: Other Ortho: ACL reconstruction, Rotator cuff repair, Arthroscopic surgery Derm: Other - Present Medications Home Medications: Ambulatory Orders Medication Instructions Recorded Confirmed Clopidogrel [Plavix] 75 mg PO DAILY 04/07/14 11/20/20 Insulin Glargine [Lantus Solostar] 90 unit SUBQ QPM 10/09/17 11/20/20 Albuterol Sulf [Ventolin Hfa 1 - 2 puffs INH Q4H PRN 03/13/18 11/20/20 Inhaler] Insulin Aspart (Vial) [NovoLOG 30 unit SUBQ TID 30 Days #70 ml 09/30/20 11/20/20 (VIAL FOR ED USE)] Insulin Detemir [Levemir] 90 unit SQ DAILY 30 Days #50 ml 09/30/20 11/20/20 Ondansetron Odt [Zofran Odt] 4 mg TL Q6H PRN #30 tablet 09/30/20 11/20/20 Pantoprazole [Protonix] 40 mg PO QDAC PRN 30 Days #30 tab 09/30/20 11/20/20 Propranolol ER [Inderal LA] 80 mg PO DAILY 30 Days #30 cap 09/30/20 11/20/20 Syringe and Needle,Insulin,1Ml 1 each MC QID 30 Days #150 syr 09/30/20 11/20/20 [Insulin Syringe] - Allergies Allergies/Adverse Reactions: Allergies Allergy/AdvReac Type Severity Reaction Status Date / Time acetaminophen [From Tylenol] AdvReac Intermediate Nausea Verified 11/20/20 01:35 hydrocodone [Hydrocodone] AdvReac Intermediate Respiratory Verified 11/20/20 01:35 oxycodone AdvReac Intermediate Anxiety Verified 11/20/20 01:35 fentanyl AdvReac Nausea Verified 11/20/20 01:35 - Social History Does the pt smoke?: No Smoking Status: Former smoker Does the pt drink ETOH?: Yes Does the pt have substance abuse?: No - Immunizations Immunizations are current?: Yes - POLST Patient has POLST: No POLST Status: Full Code (As long as he can think and talk and have a memory he wants to be kept alive. Even if he had a stroke, completely dependent on someone for activities of daily living, as long as he is able to speak, able to think and have a memory resuscitated; confirmed on 09/27/20.) PD ED PE NORMAL - Vitals Vital signs reviewed: Yes - General General: Alert and oriented X 3, Well developed/nourished - HEENT HEENT: Atraumatic, PERRL, EOMI - Neck Neck: Supple, no meningeal sign, No bony TTP - Cardiac Cardiac: RRR, No murmur - Respiratory Respiratory: No respiratory distress, Clear bilaterally - Abdomen Abdomen: Soft, Non tender - Back Back: No CVA TTP, No spinal TTP - Derm Derm: Normal color, Warm and dry, No rash - Extremities Extremities: No deformity, No calf tenderness / cord - Neuro Neuro: Alert and oriented X 3, supervisor baking 2-12 intact, No motor deficit, No sensory deficit, Normal speech Eye Opening: Spontaneous Motor: Obeys Commands Verbal: Oriented GCS Score: 15 - Psych Psych: Normal mood, Normal affect NIHSS - Time Time: 01:40 - Level of Consciousness Level of consciousness: (0) Alert, Keenly responsive LOC Questions: (0) Answers both Q's correct LOC Commands: (0) Performs both correctly - Gaze Best Gaze: (0) Normal - Visual Visual: (0) No loss - Facial Palsy Facial Palsy: (0) Normal, symmetrical movement - Motor Arms (both separate) Motor Arm (right): (2) Some effort against gravity Motor Arm (left): (0) No drift - Motor Legs (both separate) Motor Leg (right): (0) No drift Motor Leg (left): (0) No drift - Limb Ataxia Limb Ataxia: (1) Present in 1 limb - Sensory Sensory: (1) Lxme-za-xoczaxqm loss - Best Language Best Language: (0) No aphasia - Dysarthria Dysarthria: (0) Normal - Extinction and Inattention (formally neg Extinction and inattention: (0) No abnormality - Total Score/Results Total Score/Result: 4 Results - Vitals Vitals: Vital Signs - 24 hr 11/20/20 11/20/20 11/20/20 01:35 02:00 02:30 Temperature 36.5 C Heart Rate 78 72 75 Respiratory 16 18 19 Rate Blood Pressure 190/100 H 164/146 H 153/81 H O2 Saturation 97 99 99 11/20/20 11/20/20 11/20/20 03:00 03:30 04:00 Temperature Heart Rate 13 L 78 70 Respiratory 12 16 15 Rate Blood Pressure 165/91 H 165/91 H 170/75 H O2 Saturation 98 97 98 11/20/20 04:15 Temperature Heart Rate 69 Respiratory 17 Rate Blood Pressure 149/75 H O2 Saturation 99 Oxygen O2 Source [] Room air O2 Source Room air - EKG (time done) 0147 Rate: Rate (enter#) (71) Rhythm: NSR [place]: Anterior hemiblock Ischemia: Normal ST segments Computer interpretation: Disagree with computer (I do not see anterolateral ST elevation) - Labs Labs: Laboratory Tests 11/20/20 11/20/20 11/20/20 01:46 02:00 02:00 WBC 9.8 RBC 5.47 Hgb 16.0 Hct 49.0 MCV 89.6 MCH 29.3 MCHC 32.7 RDW 13.2 Plt Count 239 MPV 10.5 Neut # (Auto) 5.4 Lymph # (Auto) 3.1 [place] # (Auto) 0.8 Eos # (Auto) 0.3 Baso # (Auto) 0.1 Absolute Nucleated RBC 0.00 Nucleated RBC % 0.0 PT 11.0 INR 1.0 Sodium Potassium Chloride Carbon Dioxide Anion Gap BUN Creatinine Estimated GFR (MDRD) Glucose POC Whole Bld Glucose 209 H Calcium Total Bilirubin AST ALT Alkaline Phosphatase Total Protein Albumin Globulin Albumin/Globulin Ratio Lipase 11/20/20 02:00 WBC RBC Hgb Hct MCV MCH MCHC RDW Plt Count MPV Neut # (Auto) Lymph # (Auto) [place] # (Auto) Eos # (Auto) Baso # (Auto) Absolute Nucleated RBC Nucleated RBC % PT INR Sodium 135 Potassium 4.2 Chloride 99 L Carbon Dioxide 26 Anion Gap 10.0 BUN 16 Creatinine 0.9 Estimated GFR (MDRD) 86 L Glucose 206 H POC Whole Bld Glucose Calcium 9.5 Total Bilirubin 0.6 AST 21 ALT 17 Alkaline Phosphatase 67 Total Protein 7.9 Albumin 4.1 Globulin 3.8 Albumin/Globulin Ratio 1.1 Lipase 27 - Rads (name of study) CT angio head Radiology: Prelim report reviewed (Impression: No acute finding. Patent intracranial vessels.), EMP read indepedently, See rad report CT angio neck Radiology: Prelim report reviewed (Impression: Atherosclerotic changes of the carotid bifurcations with 65 to 70% stenosis of the proximal left internal car otid artery. No significant stenosis of the right carotid artery. Patent vertebral arteries.), Discussed with rads (Cussed with Dr. Mahda Dent findings of the lower cervical spine concerning for bony erosion this appears to be an artifact from injection of contrast interfering.), EMP read indepedently, See rad report Procedures - IVC sono (time) 0245 Bedside IVC sono: IVC measures (cm) (1.18), Dehydration (est 1 liter deficit) PD MEDICAL DECISION MAKING - ED course Complexity details: reviewed old records, reviewed results, re-evaluated patient, considered differential, d/w patient ED course: 60-year-old male with a history of diabetes and hypertension who has had prior CVA affecting his right side that his computer today at 1230 when he developed acute right arm weakness. He has weakness and clumsiness to the right arm and presents to the emergency department with an NIH stroke scale of 4. He was evaluated by the telestroke DrDeclan Jones in [place] who recommended administration of alteplase. The patient was consented for alteplase and alteplase was administered. We were fortunate enough to have the [facility] neurosciences call us back with an available bed and Dr. Allison is the scada operator at [facility] willing to accept this patient. He presented with systolics over 190 and this has reduced to the 160 to 170 range since. He was found to be dehydrated on interrogation of the IVC and saline is administered. CTA of the HEAD AND NECK were performed and there is a finding on the neck with a 65 to 70% stenosis of the left internal carotid artery. There are no large vessel occlusions. Departure - Departure Disposition: 02 Transfer Acute Care Hosp Clinical Impression: Dehydration determined by examination Cerebrovascular accident (CVA) Qualifiers: CVA mechanism: unspecified Qualified Code(s): I63.9 - Cerebral infarction, unspecified NIHSS - Level of Consciousness Level of consciousness: (0) Alert, Keenly responsive LOC Questions: (0) Answers both Q's correct LOC Commands: (0) Performs both correctly - Gaze Best Gaze: (0) Normal - Visual Visual: (0) No loss - Facial Palsy Facial Palsy: (0) Normal, symmetrical movement - Motor Arms (both separate) Motor Arm (right): (1) Drift Motor Arm (left): (0) No drift - Motor Legs (both separate) Motor Leg (right): (0) No drift Motor Leg (left): (0) No drift - Limb Ataxia Limb Ataxia: (1) Present in 1 limb - Sensory Sensory: (1) Ugax-cm-dvfatmhu loss - Best Language Best Language: (0) No aphasia - Dysarthria Dysarthria: (0) Normal - Extinction and Inattention (formally neg Extinction and inattention: (0) No abnormality - Total Score/Results Total Score/Result: 3
[2020-11-20 02:07] LABS: BASOPHILS # (AUTO) 0.1 10^3/uL (0.0-0.1); EOSINOPHILS # (AUTO) 0.3 10^3/uL (0.0-0.7); EOSINOPHILS % (AUTO) 3.4 %; LYMPHOCYTES # (AUTO) 3.1 10^3/uL (1.5-3.5); LYMPHOCYTES % (AUTO) 31.6 %; MEAN CORPUSCULAR HEMOGLOBIN 29.3 pg (27.0-31.0); MEAN CORPUSCULAR HGB CONC 32.7 g/dL (32.0-36.0); MEAN CORPUSCULAR VOLUME 89.6 fL (80.0-94.0); MEAN PLATELET VOLUME 10.5 fL (7.4-11.4); MONOCYTES # (AUTO) 0.8 10^3/uL (0.0-1.0); MONOCYTES % (AUTO) 8.3 %; NEUTROPHILS # (AUTO) 5.4 10^3/uL (1.5-6.6); NEUTROPHILS % (AUTO) 55.3 %; PLT - PLATELET COUNT 239 10^3/uL (130-450); RED BLOOD COUNT 5.47 10^6/uL (4.70-6.10); RED CELL DISTRIBUTION WIDTH 13.2 % (12.0-15.0); WHITE BLOOD COUNT 9.8 x10^3/uL (4.8-10.8)
[2020-11-20 02:18] LABS: ALBUMIN 4.1 g/dL (3.2-5.5); ALBUMIN/GLOBULIN RATIO 1.1 (1.0-2.2); BILIRUBIN,TOTAL 0.6 mg/dL (0.2-1.0); CALCIUM 9.5 mg/dL (8.5-10.3); CREATININE 0.9 mg/dL (0.6-1.2); POTASSIUM 4.2 mmol/L (3.5-5.0); TOTAL PROTEIN 7.9 g/dL (6.7-8.2)
[2020-11-20] MEDS ORDERED: IOPAMIDOL-300 100 ML VIAL IVP ONE (02:41)
[2020-11-20] MEDS ORDERED: IOPAMIDOL-300 100 ML VIAL ONE (02:44)
[2020-11-20] MEDS ORDERED: SODIUM CHLORIDE 0.9% 1,000 ML IV STA (02:51)
[2020-11-20] MEDS ORDERED: WATER FOR INJECTION STERILE IV STA (03:07)
[2020-11-20] MEDS ORDERED: ALTEPLASE IV STA (03:07)
[2020-11-20] MEDS ORDERED: ALTEPLASE 100 MG VIAL ONE (03:31)
[2020-11-20 04:52] VITALS: BP 176/83
[2020-11-20 05:40] LABS: BILIRUBIN,URINE NEGATIVE (NEGATIVE); GLUCOSE, URINE (UA) 250 mg/dL (NEGATIVE); KETONES,URINE (UA) NEGATIVE (NEGATIVE); LEUKOCYTE ESTERASE, URINE NEGATIVE (NEGATIVE); NITRITE,URINE NEGATIVE (NEGATIVE); OCCULT BLOOD,URINE TRACE-INTA (NEGATIVE); PROTEIN,URINE 30 mg/dL (NEGATIVE); UROBILINOGEN,URINE 0.2 (NORMAL) E.U./dL (NORMAL)
[2020-11-20 05:41] LABS: CLARITY,URINE CLEAR (CLEAR)
[2020-11-20 05:48] LABS: BACTERIA,URINE None Seen /HPF (None Seen); RBC,URINE 0-5 /HPF (0-5); SQUAMOUS EPITHELIAL CELL,UR RARE Squamous (<= Few); WBC,URINE 0-3 /HPF (0-3)
[2020-11-20 05:49] LABS: B. PARAPERTUSSIS- RESP PCR PAN NOT DETECTED; B. PERTUSSIS- RESP PCR PANEL NOT DETECTED; C. PNEUMONIAE- RESP PCR PANEL NOT DETECTED; CORONAVIRUS 229E-RESP PCR NOT DETECTED; CORONAVIRUS HKU1-RESP PCR NOT DETECTED; CORONAVIRUS NL63-RESP PCR NOT DETECTED; CORONAVIRUS OC43-RESP PCR NOT DETECTED; HUMAN METAPNEUMOVIRUS NOT DETECTED; INFLUENZA A- RESP PCR PANEL NOT DETECTED; INFLUENZA B - RESP PCR PANEL NOT DETECTED; M. PNEUMONIAE- RESP PCR PANEL NOT DETECTED; PARAINFLUENZA VIRUS 1 NOT DETECTED; PARAINFLUENZA VIRUS 2 NOT DETECTED; PARAINFLUENZA VIRUS 3 NOT DETECTED; PARAINFLUENZA VIRUS 4 NOT DETECTED; RHINOVIRUS/ENTEROVIRUS NOT DETECTED; RSV- RESP PCR PANEL NOT DETECTED; SARS-CoV-2 -RESP PCR PANEL NOT DETECTED
--- NOTE | 2020-11-20 08:15 | CT Report ---
PROCEDURE: ANGIO NECK W INDICATIONS: right arm flacid CONTRAST: IV CONTRAST: Isovue 300 ml: 100 PO CONTRAST: *NO PO CONTRAST TECHNIQUE: After the administration of intravenous contrast, 1.5 mm axial sections acquired from the aortic arch to the [place] of [place]. Coronal 3-D maximum intensity projection (MIP) and/or volume rendering ref ormats were then performed. For radiation dose reduction, the following was used: automated exposur e control, adjustment of mA and/or kV according to patient size. COMPARISON: Correlation is made with the accompanying head CT angiogram, 11/20/2020. FINDINGS: Image quality: Excellent. Carotid system: Incidental note is made of a common trunk off of the aorta of the right brachiocepha lic artery and the left common carotid artery (bovine type aortic arch). This is considered to be a d evelopmental variant of typically no clinical consequence. The origins of the common carotid arteri es appear patent. The common carotid arteries demonstrate normal calibers and courses. The bifurcat ion regions demonstrate dense calcification and irregularity. On the left, there is an area of 80-90% stenosis. On the right, there is an area of approximately 60-70% stenosis. The more distal internal carotid arteries demonstrate normal course and caliber. Posterior circulation: The origins of the vertebral arteries appear patent. The more superior porti ons of the vertebral arteries demonstrate normal course and caliber. They join to form a normal appe aring basilar artery. Soft tissues: Visualized neck soft tissues demonstrate no suspicious abnormalities. The thyroid is normal in size and there are no incidental findings. Mild centrilobular 7 changes are seen at the amy g apices. Bones: No suspicious bony lesions. Visualized cervical spine appears normally aligned. Degenerati ve changes are seen, with moderate to severe disc space narrowing seen at the C6-C7 level. IMPRESSION: Bilateral stenoses can be seen involving the proximal internal carotid arteries, with approximately 8 0-90% stenosis on the left at 60-70% stenosis on the right. No significant vertebral artery abnormality is seen. Focal C6-C7 degenerative change can be seen. Note: No significant discrepancy from the preliminary report. The estimate of stenosis included in the report of the imaging study was calculated using the NASCET method Reviewed by: Zechariah Pham MD on 11/20/2020 7:14 AM AKDT Approved by: Zechariah Pham MD on 11/20/2020 7:14 AM MARIAELENA Station ID: [id number]
--- NOTE | 2020-11-20 08:20 | CT Report ---
PROCEDURE: ANGIO HEAD W/WO INDICATIONS: right arm flacid CONTRAST: IV CONTRAST: Isovue 300 ml: 100 PO CONTRAST: *NO PO CONTRAST TECHNIQUE: Precontrast 4.5 mm thick angled axial sections acquired from the foramen magnum to the vertex. Afte r the administration of intravenous contrast, 1 mm thick sections acquired through the [place] of [place] is. Postcontrast 4.5 mm thick sections then re-acquired from the foramen magnum to the vertex. 3-di mensional lrrkvie-lmawqmbyv-uanjliysxt (MIP) and/or volume rendering reformats were acquired of the c entral intracranial vasculature. For radiation dose reduction, the following was used: automated ex posure control, adjustment of mA and/or kV according to patient size. COMPARISON: 09/19/2018, 04/01/2018, 07/14/2013. Correlation is also made with the accompanying neck CT angiogram, 11/20/2020. FINDINGS: Image quality: Excellent. Anterior circulation: Intracranial internal carotid arteries demonstrate dense atherosclerotic calci fication, with 50-60% narrowing seen on each side. The flow within the paired anterior cerebral jayesh rodriguez is normal and symmetric. The flow within the middle cerebral arteries is normal and symmetric. The anterior communicating artery is seen. No aneurysms are seen. Posterior circulation: Visualized portions of the vertebral arteries demonstrate normal caliber, and join to form a normal appearing basilar artery. Flow within the posterior cerebral arteries is norm al and symmetric. No aneurysms are seen. CSF spaces: Ventricles are normal in size and shape. Basal cisterns are patent. No extra-axial flu id collections. Brain: No midline shift. No intracranial bleeds or masses. Garcia-white matter interface appears int act. Skull and face: Calvarium and facial bones appear intact, without suspicious lesions. Sinuses: Visualized sinuses and mastoids are clear. IMPRESSION: No significant intracranial abnormality is seen. No intracranial hemorrhage is seen. No significant intracranial arterial abnormalities are seen. Note: No significant discrepancy from the preliminary report Reviewed by: Zechariah Pham MD on 11/20/2020 7:19 AM MARIAELENA Approved by: Zechariah Pham MD on 11/20/2020 7:19 AM MARIAELENA Station ID: [id number]
== END 2020-11-20 05:00 | disposition short-term general hospital (02) ==
LOC: ED 01:31
DX: I63.9 Cerebral infarction, unspecified (principal); R29.704 NIHSS score 4; E86.0 Dehydration; I69.951 Hemiplegia and hemiparesis following unspecified cerebrovascular disease affecting right dominant side; Z20.822 Contact with and (suspected) exposure to COVID-19; I65.21 Occlusion and stenosis of right carotid artery; I10 Essential (primary) hypertension; E78.00 Pure hypercholesterolemia, unspecified; E11.42 Type 2 diabetes mellitus with diabetic polyneuropathy; Z79.4 Long term (current) use of insulin; Z87.891 Personal history of nicotine dependence
CPT/HCPCS: 36415; 37195; 70496; 70498; 80053; 81001; 83690; 85025; 85610; 87631; 93005; 96360; 99284; 99285; J2997; Q9967; 0202U; 81003; 87086

== ENCOUNTER 2020-12-12 10:41 | Outpatient (CLI) | payer MEDICARE, MEDICAID ==
[2020-12-12 17:56] LABS: BASOPHILS # (AUTO) 0.1 10^3/uL (0.0-0.1); BASOPHILS % (AUTO) 0.9 %; EOSINOPHILS # (AUTO) 0.3 10^3/uL (0.0-0.7); EOSINOPHILS % (AUTO) 2.8 %; HGB - HEMOGLOBIN 16.2 g/dL (14.0-18.0); LYMPHOCYTES # (AUTO) 2.5 10^3/uL (1.5-3.5); MEAN CORPUSCULAR HEMOGLOBIN 28.7 pg (27.0-31.0); MEAN CORPUSCULAR HGB CONC 31.2 g/dL (32.0-36.0); MEAN PLATELET VOLUME 11.1 fL (7.4-11.4); MONOCYTES # (AUTO) 0.8 10^3/uL (0.0-1.0); MONOCYTES % (AUTO) 7.7 %; NEUTROPHILS # (AUTO) 6.4 10^3/uL (1.5-6.6); NEUTROPHILS % (AUTO) 63.2 %; PLT - PLATELET COUNT 261 10^3/uL (130-450); RED BLOOD COUNT 5.65 10^6/uL (4.70-6.10); RED CELL DISTRIBUTION WIDTH 13.1 % (12.0-15.0)
[2020-12-12 18:43] LABS: THYROID STIMULATING HORMONE 1.93 uIU/mL (0.34-5.60)
[2020-12-12 18:52] LABS: ALBUMIN 3.8 g/dL (3.2-5.5); ALBUMIN/GLOBULIN RATIO 1.1 (1.0-2.2); ALKALINE PHOSPHATASE 57 IU/L (42-121); ALT ALANINE AMINOTRANSFERASE 20 IU/L (10-60); AST ASPARTATE AMINOTRANSFERASE 19 IU/L (10-42); BILIRUBIN,TOTAL 0.6 mg/dL (0.2-1.0); BUN - BLOOD UREA NITROGEN 14 mg/dL (6-20); CALCIUM 9.5 mg/dL (8.5-10.3); CARBON DIOXIDE - CO2 26 mmol/L (21-32); CHLORIDE 99 mmol/L (101-111); CHOL/HDL RATIO 3.3 (<5.0); CHOLESTEROL 179 mg/dL; CREATININE 0.9 mg/dL (0.6-1.2); GFR - MDRD 86 (>89); GLUCOSE 120 mg/dL (70-100); HDL CHOLESTEROL 54 mg/dL; LDL CHOLESTEROL,CALCULATED 98 mg/dL; LDL/HDL RATIO 1.8 (<3.6); POTASSIUM 4.1 mmol/L (3.5-5.0); SODIUM 138 mmol/L (135-145); TOTAL PROTEIN 7.2 g/dL (6.7-8.2); TRIGLYCERIDES 134 mg/dL; VLDL CHOLESTEROL 27 mg/dL
[2020-12-12 19:44] LABS: CREATININE,URINE 105.6 mg/dL; MICROALBUM/CREATININE RATIO,UR 1126.9 ug/mg (<30.0)
[2020-12-12 20:41] LABS: ESTIMATED AVERAGE GLUCOSE 200 mg/dL (70-100); HEMOGLOBIN A1c% 8.6 % (4.27-6.07)
== END 2020-12-12 23:59 | disposition home or self-care (01) ==
LOC: LAB.WCP 10:41
PROVIDERS: ATTEND Family Medicine
DX: E11.649 Type 2 diabetes mellitus with hypoglycemia without coma (principal); I10 Essential (primary) hypertension; E78.5 Hyperlipidemia, unspecified; Z12.5 Encounter for screening for malignant neoplasm of prostate
CPT/HCPCS: 36415; 80053; 80061; 82043; 82570; 83036; 84443; 85025; G0103; 83721; 84153

== ENCOUNTER 2021-06-30 14:44 | Outpatient (CLI) | payer MEDICARE, MEDICAID ==
[2021-06-30 20:43] LABS: ESTIMATED AVERAGE GLUCOSE 197 mg/dL (70-100); HEMOGLOBIN A1c% 8.5 % (4.27-6.07)
== END 2021-06-30 14:45 | disposition home or self-care (01) ==
LOC: LAB.N 14:44
PROVIDERS: ATTEND Nurse Practitioner
DX: E11.9 Type 2 diabetes mellitus without complications (principal)
CPT/HCPCS: 36415; 83036

== ENCOUNTER 2021-07-25 08:40 | Outpatient (CLI) | payer MEDICARE, MEDICAID | END 2021-07-25 08:41 | disposition short-term general hospital (02) | LOC: EMS 08:40 | DX: R55 Syncope and collapse (principal); M25.511 Pain in right shoulder; W18.39XA Other fall on same level, initial encounter; Y92.002 Bathroom of unspecified non-institutional (private) residence as the place of occurrence of the external cause; I95.9 Hypotension, unspecified | CPT/HCPCS: A0425; A0427 ==

== ENCOUNTER 2021-12-28 11:20 | Outpatient (CLI) | payer MEDICARE, MEDICAID ==
[2021-12-28 18:09] LABS: BASOPHILS # (AUTO) 0.1 10^3/uL (0.0-0.1); BASOPHILS % (AUTO) 0.8 %; EOSINOPHILS # (AUTO) 0.3 10^3/uL (0.0-0.7); EOSINOPHILS % (AUTO) 3.6 %; HCT - HEMATOCRIT 43.4 % (42.0-52.0); HGB - HEMOGLOBIN 13.7 g/dL (14.0-18.0); LYMPHOCYTES % (AUTO) 23.9 %; MEAN CORPUSCULAR HEMOGLOBIN 28.4 pg (27.0-31.0); MEAN CORPUSCULAR HGB CONC 31.6 g/dL (32.0-36.0); MEAN PLATELET VOLUME 10.9 fL (7.4-11.4); MONOCYTES # (AUTO) 0.7 10^3/uL (0.0-1.0); MONOCYTES % (AUTO) 8.7 %; NEUTROPHILS # (AUTO) 5.2 10^3/uL (1.5-6.6); NEUTROPHILS % (AUTO) 62.6 %; PLT - PLATELET COUNT 265 10^3/uL (130-450); RED BLOOD COUNT 4.82 10^6/uL (4.70-6.10); RED CELL DISTRIBUTION WIDTH 13.1 % (12.0-15.0); WHITE BLOOD COUNT 8.3 x10^3/uL (4.8-10.8)
[2021-12-28 18:24] LABS: ALBUMIN 3.4 g/dL (3.2-5.5); ALBUMIN/GLOBULIN RATIO 0.9 (1.0-2.2); BILIRUBIN,TOTAL 0.5 mg/dL (0.2-1.0); CALCIUM 9.1 mg/dL (8.5-10.3); CREATININE 0.8 mg/dL (0.6-1.2); POTASSIUM 4.3 mmol/L (3.5-5.0); TOTAL PROTEIN 7.2 g/dL (6.7-8.2)
== END 2021-12-28 11:21 | disposition home or self-care (01) ==
LOC: LAB.N 11:20
PROVIDERS: ATTEND Nurse Practitioner
DX: E11.9 Type 2 diabetes mellitus without complications (principal); L03.115 Cellulitis of right lower limb
CPT/HCPCS: 36415; 80053; 85025

== ENCOUNTER 2022-08-09 12:30 | Outpatient (CLI) | payer MEDICARE, MEDICAID | END 2022-08-09 23:59 | disposition critical access hospital (66) | LOC: EMS 12:30 | DX: E11.65 Type 2 diabetes mellitus with hyperglycemia (principal); R11.0 Nausea; Z79.4 Long term (current) use of insulin | CPT/HCPCS: A0425; A0427 ==

== ENCOUNTER 2022-08-09 13:01 | Emergency (ER) | payer MEDICARE, MEDICAID ==
[2022-08-09] MEDS ORDERED: SODIUM CHLORIDE 0.9% 1,000 ML IV STA (13:07)
--- NOTE | 2022-08-09 13:08 | ED Physician Documentation ---
History of Present Illness - Stated complaint Stated Complaint: HYPERGLYCEMIC - History obtained from History obtained from: Patient - Additonal information Additional information: 62-year-old gentleman with diabetes ran out of his test trips a few days ago. Yesterday thing he thinks he overdid it out in the heat and today he started to feel nauseous with some diarrhea as well. He was not able to check his blood sugar but he went ahead and took 40 units of long-acting insulin and some short acting insulin 2. After that he called EMS who checked his blood sugar and it was in the high 280s and gave him some Zofran he is feeling better now. PD PAST MEDICAL HISTORY - Past Medical History Cardiovascular: Hypertension, High cholesterol, Other (Stress test in 2013 was WNL. Echo in 2014 showed normal LVEF, no shunt and a dilated ascending aorta of 4.5 cm.) Respiratory: Asthma, Pneumonia Neuro: CVA, TIA, Head injury, Migraines, Peripheral neuropathy Endocrine/Autoimmune: Type 2 diabetes GI: GERD, Ulcers, Hemorrhoids : Kidney stones HEENT: Macular degeneration Psych: Depression Musculoskeletal: Osteoarthritis, Chronic back pain Derm: Psoriasis, Other - Past Surgical History Past Surgical History: Yes General: Other Ortho: ACL reconstruction, Rotator cuff repair, Arthroscopic surgery Derm: Other - Present Medications Home Medications: Ambulatory Orders Medication Instructions Recorded Confirmed Clopidogrel [Plavix] 75 mg PO DAILY 04/07/14 11/20/20 Insulin Glargine [Lantus Solostar] 90 unit SUBQ QPM 10/09/17 11/20/20 Albuterol Sulf [Ventolin Hfa 1 - 2 puffs INH Q4H PRN 03/13/18 11/20/20 Inhaler] Insulin Aspart (Vial) [NovoLOG 30 unit SUBQ TID 30 Days #70 ml 09/30/20 11/20/20 (VIAL FOR ED USE)] Insulin Detemir [Levemir] 90 unit SQ DAILY 30 Days #50 ml 09/30/20 11/20/20 Ondansetron Odt [Zofran Odt] 4 mg TL Q6H PRN #30 tablet 09/30/20 11/20/20 Pantoprazole [Protonix] 40 mg PO QDAC PRN 30 Days #30 tab 09/30/20 11/20/20 Propranolol ER [Inderal LA] 80 mg PO DAILY 30 Days #30 cap 09/30/20 11/20/20 Syringe and Needle,Insulin,1Ml 1 each MC QID 30 Days #150 syr 09/30/20 11/20/20 [Insulin Syringe] Ondansetron Odt [Zofran] 4 mg TL Q6H PRN #10 tablet 08/09/22 - Allergies Allergies/Adverse Reactions: Allergies Allergy/AdvReac Type Severity Reaction Status Date / Time acetaminophen [From Tylenol] AdvReac Intermediate Nausea Verified 11/20/20 01:35 hydrocodone [Hydrocodone] AdvReac Intermediate Respiratory Verified 11/20/20 01:35 oxycodone AdvReac Intermediate Anxiety Verified 11/20/20 01:35 fentanyl AdvReac Nausea Verified 11/20/20 01:35 - Social History Does the pt smoke?: No Smoking Status: Former smoker Does the pt drink ETOH?: Yes Does the pt have substance abuse?: No - Immunizations Immunizations are current?: Yes - POLST Patient has POLST: No POLST Status: Full Code (As long as he can think and talk and have a memory he wants to be kept alive. Even if he had a stroke, completely dependent on someone for activities of daily living, as long as he is able to speak, able to think and have a memory resuscitated; confirmed on 09/27/20.) PD ED PE NORMAL - Vitals Vital signs reviewed: Yes - General General: Alert and oriented X 3, No acute distress - Cardiac Cardiac: RRR, No murmur - Respiratory Respiratory: No respiratory distress, Clear bilaterally - Abdomen Abdomen: Non tender - Neuro Neuro: Alert and oriented X 3, Normal speech - Psych Psych: Normal mood, Normal affect Results - Vitals Vitals: Vital Signs - 24 hr 08/09/22 13:13 Temperature 37.2 C Heart Rate 76 Respiratory 18 Rate Blood Pressure 144/101 H O2 Saturation 97 Oxygen O2 Source [Without Activity] Room air O2 Source Room air - Labs Labs: Laboratory Tests 08/09/22 08/09/22 08/09/22 13:15 13:15 13:15 WBC 8.1 RBC 5.36 Hgb 15.2 Hct 45.9 MCV 85.6 MCH 28.4 MCHC 33.1 RDW 12.1 Plt Count 221 MPV 10.2 Neut # (Auto) 6.3 Lymph # (Auto) 1.2 L [place] # (Auto) 0.5 Eos # (Auto) 0.1 Baso # (Auto) 0.1 Absolute Nucleated RBC 0.00 Nucleated RBC % 0.0 VBG pH 7.371 VBG pCO2 50.9 VBG pO2 19.9 L VBG HCO3 28.8 H VBG Total CO2 30.4 H VBG O2 Saturation 35.7 L VBG Base Excess 2.4 H Sodium 135 Potassium 4.0 Chloride 100 L Carbon Dioxide 29 Anion Gap 6.0 BUN 18 Creatinine 1.0 Estimated GFR (MDRD) 75 L Glucose 286 H Calcium 8.7 Magnesium 1.8 Serum Ketones NEGATIVE PD Medical Decision Making - ED course ED course: 62-year-old gentleman overdid it in the heat yesterday and feels like he got dehydrated and his blood sugar went up. There is no evidence of diabetic ke toacidosis and he is feeling better after the administration of IV fluids. CBC is unremarkable. Venous blood gas is unremarkable. Chemistry is really only notable for glucose of 286 and serum ketones negative. Departure - Departure Disposition: 01 Home, Self Care Clinical Impression: Dehydration, Uncontrolled diabetes mellitus Condition: Good Record reviewed to determine appropriate education?: Yes Instructions: ED Hyperglycemia Diabetic, ED Dehydration Prescriptions: Ondansetron Odt [Zofran] 4 mg TL Q6H PRN #10 tablet PRN Reason: Nausea / Vomiting Comments: No evidence of diabetic ketoacidosis today. Your blood sugar from the lab was 286. While this is elevated, it is not so alarmingly elevated as we have seen with you in the past. Try to get to the pharmacy to fill your test strips and follow-up with your doctor next week. Return for new or worsening symptoms. I sent the prescription for Zofran up to the [facility] in [place].
[2022-08-09 13:19] LABS: VBG PCO2 50.9 mmHg (41-51); VBG PH 7.371 (7.31-7.41)
[2022-08-09 13:20] LABS: VBG BASE EXCESS 2.4 mmol/L (-2 - +2); VBG HCO3 28.8 mmol/L (23-28); VBG OXYGEN SATURATION 35.7 % (60-80); VBG PO2 19.9 mmHg (25-47); VBG TOTAL CO2 30.4 mmol/L (24-29)
[2022-08-09 13:21] LABS: BASOPHILS # (AUTO) 0.1 10^3/uL (0.0-0.1); BASOPHILS % (AUTO) 0.9 %; EOSINOPHILS # (AUTO) 0.1 10^3/uL (0.0-0.7); EOSINOPHILS % (AUTO) 0.9 %; HCT - HEMATOCRIT 45.9 % (42.0-52.0); HGB - HEMOGLOBIN 15.2 g/dL (14.0-18.0); LYMPHOCYTES # (AUTO) 1.2 10^3/uL (1.5-3.5); LYMPHOCYTES % (AUTO) 14.6 %; MEAN CORPUSCULAR HEMOGLOBIN 28.4 pg (27.0-31.0); MEAN CORPUSCULAR HGB CONC 33.1 g/dL (32.0-36.0); MEAN CORPUSCULAR VOLUME 85.6 fL (80.0-94.0); MEAN PLATELET VOLUME 10.2 fL (7.4-11.4); MONOCYTES # (AUTO) 0.5 10^3/uL (0.0-1.0); MONOCYTES % (AUTO) 5.7 %; NEUTROPHILS # (AUTO) 6.3 10^3/uL (1.5-6.6); NEUTROPHILS % (AUTO) 77.4 %; PLT - PLATELET COUNT 221 10^3/uL (130-450); RED BLOOD COUNT 5.36 10^6/uL (4.70-6.10); RED CELL DISTRIBUTION WIDTH 12.1 % (12.0-15.0); WHITE BLOOD COUNT 8.1 x10^3/uL (4.8-10.8)
[2022-08-09 13:22] LABS: KETONES, SERUM (ACETEST) NEGATIVE (NEGATIVE)
[2022-08-09 13:29] LABS: BUN - BLOOD UREA NITROGEN 18 mg/dL (6-20); CALCIUM 8.7 mg/dL (8.5-10.3); CARBON DIOXIDE - CO2 29 mmol/L (21-32); CHLORIDE 100 mmol/L (101-111); GFR - MDRD 75 (>89); GLUCOSE 286 mg/dL (70-100); MAGNESIUM 1.8 mg/dL (1.7-2.8); SODIUM 135 mmol/L (135-145)
[2022-08-09 13:51] VITALS: BP 159/90
== END 2022-08-09 13:49 | disposition home or self-care (01) ==
LOC: ED 13:01
DX: E86.0 Dehydration (principal); E11.9 Type 2 diabetes mellitus without complications; Z79.4 Long term (current) use of insulin; Z87.891 Personal history of nicotine dependence
CPT/HCPCS: 36415; 80048; 82009; 82803; 83735; 85025; 96360; 99283

== ENCOUNTER 2022-08-10 18:36 | Outpatient (CLI) | payer MEDICARE, MEDICAID | END 2022-08-10 23:59 | disposition critical access hospital (66) | LOC: EMS 18:36 | DX: R11.2 Nausea with vomiting, unspecified (principal); R10.84 Generalized abdominal pain; R53.81 Other malaise; E11.65 Type 2 diabetes mellitus with hyperglycemia; R61 Generalized hyperhidrosis; Z79.4 Long term (current) use of insulin | CPT/HCPCS: A0425; A0427 ==

== ENCOUNTER 2022-08-10 19:05 | Observation (INO) | payer MEDICARE, MEDICAID ==
[2022-08-10] MEDS ORDERED: SODIUM CHLORIDE 0.9% 1,000 ML IV STA (19:21)
[2022-08-10] MEDS ORDERED: KETOROLAC 15 MG/ML VIAL IVP STA (19:27)
[2022-08-10] MEDS ORDERED: METOCLOPRAMIDE 10 MG/2 ML VIAL IVP STA (19:27)
--- NOTE | 2022-08-10 19:27 | ED Physician Documentation ---
PD HPI ABD PAIN - Stated complaint Stated Complaint: N/V - Chief complaint Chief Complaint: Abd Pain - History obtained from History obtained from: Patient, EMS - Additional information Additional information: 62-year-old gentleman with history of diabetes, hypertension, GERD, kidney stones, TIA, peripheral neuropathy, and gastroparesis.. He does have a history of DKA. I saw him yesterday for syndrome that sound like gastroenteritis marked by vomiting and diarrhea. At that point he really did not have much pain. He was feeling better after IV fluids and his labs were relatively unremarkable without evidence of DKA. He went home feeling better and this morning he felt better. Then midmorning he ate a peanut butter sandwich and then lay down to go to sleep and woke up this evening at 6 PM because he had been tired all day with much more central abdominal pain and continued vomiting, but the diarrhea had abated. He denies fevers but has had chills. He has not had a chance to fill his diabetic test trips yet and blood sugar on route was 298. He did not take any insulin today. PD PAST MEDICAL HISTORY - Past Medical History Cardiovascular: Hypertension, High cholesterol, Other (Stress test in 2013 was WNL. Echo in 2014 showed normal LVEF, no shunt and a dilated ascending aorta of 4.5 cm.) Respiratory: Asthma, Pneumonia Neuro: CVA, TIA, Head injury, Migraines, Peripheral neuropathy Endocrine/Autoimmune: Type 2 diabetes GI: GERD, Ulcers, Hemorrhoids : Kidney stones HEENT: Macular degeneration Psych: Depression Musculoskeletal: Osteoarthritis, Chronic back pain Derm: Psoriasis, Other - Past Surgical History Past Surgical History: Yes General: Other Ortho: ACL reconstruction, Rotator cuff repair, Arthroscopic surgery Derm: Other - Present Medications Home Medications: Ambulatory Orders Medication Instructions Recorded Confirmed Clopidogrel [Plavix] 75 mg PO DAILY 04/07/14 11/20/20 Insulin Glargine [Lantus Solostar] 90 unit SUBQ QPM 10/09/17 11/20/20 Albuterol Sulf [Ventolin Hfa 1 - 2 puffs INH Q4H PRN 03/13/18 11/20/20 Inhaler] Insulin Aspart (Vial) [NovoLOG 30 unit SUBQ TID 30 Days #70 ml 09/30/20 11/20/20 (VIAL FOR ED USE)] Insulin Detemir [Levemir] 90 unit SQ DAILY 30 Days #50 ml 09/30/20 11/20/20 Ondansetron Odt [Zofran Odt] 4 mg TL Q6H PRN #30 tablet 09/30/20 11/20/20 Pantoprazole [Protonix] 40 mg PO QDAC PRN 30 Days #30 tab 09/30/20 11/20/20 Propranolol ER [Inderal LA] 80 mg PO DAILY 30 Days #30 cap 09/30/20 11/20/20 Syringe and Needle,Insulin,1Ml 1 each MC QID 30 Days #150 syr 09/30/20 11/20/20 [Insulin Syringe] Ondansetron Odt [Zofran] 4 mg TL Q6H PRN #10 tablet 08/09/22 - Allergies Allergies/Adverse Reactions: Allergies Allergy/AdvReac Type Severity Reaction Status Date / Time acetaminophen [From Tylenol] AdvReac Intermediate Nausea Verified 11/20/20 01:35 hydrocodone [Hydrocodone] AdvReac Intermediate Respiratory Verified 11/20/20 01:35 oxycodone AdvReac Intermediate Anxiety Verified 11/20/20 01:35 fentanyl AdvReac Nausea Verified 11/20/20 01:35 - Social History Does the pt smoke?: No Smoking Status: Former smoker Does the pt drink ETOH?: Yes Does the pt have substance abuse?: No - Immunizations Immunizations are current?: Yes - POLST Patient has POLST: No POLST Status: Full Code (As long as he can think and talk and have a memory he wants to be kept alive. Even if he had a stroke, completely dependent on someone for activities of daily living, as long as he is able to speak, able to think and have a memory resuscitated; confirmed on 09/27/20.) PD ED PE NORMAL - Vitals Vital signs reviewed: Yes - General General: Alert and oriented X 3, Other (He appears much more miserable than yesterday with more pain and laying on his right side.) - Cardiac Cardiac: Other (Mild resting tachycardia but regular without murmur) - Respiratory Respiratory: No respiratory distress, Clear bilaterally - Abdomen Abdomen: Other (Diminished bowel sounds, mild diffuse tenderness. No surgical signs.) - Back Back: No CVA TTP, No spinal TTP - Derm Derm: Normal color, Warm and dry - Extremities Extremities: No edema, No calf tenderness / cord - Neuro Neuro: Alert and oriented X 3, Normal speech Results - Vitals Vitals: Vital Signs - 24 hr 08/10/22 08/10/22 08/10/22 19:12 20:04 21:31 Temperature 36.8 C Heart Rate 111 H 86 96 Respiratory 18 18 Rate Blood Pressure 191/114 H 186/106 H 163/80 H O2 Saturation 99 96 97 If not protocol 2 : Oxygen Flow, liters/minute Oxygen O2 Source [Without Activity] Room air O2 Source Room air - Labs Labs: Laboratory Tests 08/10/22 08/10/22 08/10/22 19:53 19:53 19:53 WBC 9.7 RBC 5.70 Hgb 16.3 Hct 48.1 MCV 84.4 MCH 28.6 MCHC 33.9 RDW 12.3 Plt Count 247 MPV 10.5 Neut # (Auto) 7.8 H Lymph # (Auto) 1.3 L Walker # (Auto) 0.5 Eos # (Auto) 0.0 Baso # (Auto) 0.1 Absolute Nucleated RBC 0.00 Nucleated RBC % 0.0 VBG pH 7.494 H VBG pCO2 27.3 L VBG pO2 42.4 VBG HCO3 20.5 L VBG Total CO2 21.4 L VBG O2 Saturation 84.1 H VBG Base Excess 0.1 Sodium 134 L Potassium 3.9 Chloride 99 L Carbon Dioxide 19 L Anion Gap 16.0 H BUN 14 Creatinine 1.0 Estimated GFR (MDRD) 75 L Glucose 322 H Calcium 9.0 Magnesium 1.6 L Total Bilirubin 1.2 H AST 20 ALT 17 Alkaline Phosphatase 70 Total Protein 7.5 Albumin 3.7 Globulin 3.8 Albumin/Globulin Ratio 1.0 Urine Color Urine Clarity Urine pH Ur Specific Gilchrist Urine Protein Urine Glucose (UA) Urine Ketones Urine Occult Blood Urine Nitrite Urine Bilirubin Urine Urobilinogen Ur Leukocyte Esterase Urine RBC Urine WBC Ur Squamous Epith Cells Urine Bacteria Ur Microscopic Review Urine Culture Comments Serum Ketones SMALL H 08/10/22 20:52 WBC RBC Hgb Hct MCV MCH MCHC RDW Plt Count MPV Neut # (Auto) Lymph # (Auto) Walker # (Auto) Eos # (Auto) Baso # (Auto) Absolute Nucleated RBC Nucleated RBC % VBG pH VBG pCO2 VBG pO2 VBG HCO3 VBG Total CO2 VBG O2 Saturation VBG Base Excess Sodium Potassium Chloride Carbon Dioxide Anion Gap BUN Creatinine Estimated GFR (MDRD) Glucose Calcium Magnesium Total Bilirubin AST ALT Alkaline Phosphatase Total Protein Albumin Globulin Albumin/Globulin Ratio Urine Color YELLOW Urine Clarity CLEAR Urine pH 6.5 Ur Specific Gilchrist 1.015 Urine Protein 100 H Urine Glucose (UA) >=1000 H Urine Ketones 40 H Urine Occult Blood SMALL H Urine Nitrite NEGATIVE Urine Bilirubin NEGATIVE Urine Urobilinogen 0.2 (NORMAL) Ur Leukocyte Esterase NEGATIVE Urine RBC 0-5 Urine WBC 0-3 Ur Squamous Epith Cells NONE SEEN Urine Bacteria None Seen Ur Microscopic Review INDICATED Urine Culture Comments NOT INDICATED Serum Ketones - Rads (name of study) CT of the abdomen and pelvis shows infectious or inflammatory colitis, dilatation of the abdominal aorta. Also a fecal impaction. Relevant Findings:: Final report received, EMP independent interpretation of test PD Medical Decision Making - ED course ED course: 62-year-old gentleman who was seen yesterday for what sounded like a gastroenteritis now bounces back with a lot more pain than yesterday. CT was done which on my wet read showed a fecal impaction and he received an enema with good bowel output, but not much improvement in his symptoms. Formal CT read also showing colitis. Lab work notable for borderline values for DKA. Not actually acidemic on venous blood gas and with a normal CBC but now with mild decrease in bicarb and anion gap with glucose of 322 and hypomagnesemia which was repleted IV. He does have small ketones. He was given IV fluids and IV dose of insulin. Given the findings on ct and persistent symptoms seems reasonable to place him in observation with Annabella and Dimas for blood sugar and management of his symptoms. Departure - Departure Disposition: ED Place in Observation Clinical Impression: Colitis, Uncontrolled diabetes mellitus Condition: Serious
[2022-08-10] MEDS ORDERED: MORPHINE 2 MG/ML CARPUJECT IVP STA (19:28)
[2022-08-10] MEDS ORDERED: iohexoL-300 100 ML VIAL ONE (19:37)
[2022-08-10 20:00] LABS: BASOPHILS # (AUTO) 0.1 10^3/uL (0.0-0.1); BASOPHILS % (AUTO) 0.6 %; EOSINOPHILS % (AUTO) 0.2 %; HCT - HEMATOCRIT 48.1 % (42.0-52.0); HGB - HEMOGLOBIN 16.3 g/dL (14.0-18.0); LYMPHOCYTES # (AUTO) 1.3 10^3/uL (1.5-3.5); LYMPHOCYTES % (AUTO) 13.1 %; MEAN CORPUSCULAR HEMOGLOBIN 28.6 pg (27.0-31.0); MEAN CORPUSCULAR HGB CONC 33.9 g/dL (32.0-36.0); MEAN CORPUSCULAR VOLUME 84.4 fL (80.0-94.0); MEAN PLATELET VOLUME 10.5 fL (7.4-11.4); MONOCYTES # (AUTO) 0.5 10^3/uL (0.0-1.0); MONOCYTES % (AUTO) 5.1 %; NEUTROPHILS # (AUTO) 7.8 10^3/uL (1.5-6.6); NEUTROPHILS % (AUTO) 80.6 %; PLT - PLATELET COUNT 247 10^3/uL (130-450); RED CELL DISTRIBUTION WIDTH 12.3 % (12.0-15.0); WHITE BLOOD COUNT 9.7 x10^3/uL (4.8-10.8)
--- OUTSIDE RECORDS SUMMARY | 2022-08-10 20:03 | EXTERNAL MEDICAL SUMMARY RPT | Continuity of Care Document ---
Author Name Unknown Address [address] [place] [address] Phone Organization [place] Address [address] [place] [address] Phone Allergies and Intolerances date description facility type (no date) fentanyl [facility] (unknown) (no date) hydrocodone [facility] (unknown) Problems date description facility 2022-06-25 08:38 Type 1 diabetes nacho itus with ketoacidosis without coma [facility] 2022-06-25 08:40 Type 1 diabetes nacho itus with ketoacidosis without [facility]
[2022-08-10 20:05] LABS: VBG BASE EXCESS 0.1 mmol/L (-2 - +2); VBG HCO3 20.5 mmol/L (23-28); VBG OXYGEN SATURATION 84.1 % (60-80); VBG PCO2 27.3 mmHg (41-51); VBG PH 7.494 (7.31-7.41); VBG PO2 42.4 mmHg (25-47); VBG TOTAL CO2 21.4 mmol/L (24-29)
[2022-08-10 20:10] LABS: KETONES, SERUM (ACETEST) SMALL (NEGATIVE)
[2022-08-10 20:14] LABS: ALBUMIN 3.7 g/dL (3.2-5.5); ALKALINE PHOSPHATASE 70 IU/L (42-121); ALT ALANINE AMINOTRANSFERASE 17 IU/L (10-60); AST ASPARTATE AMINOTRANSFERASE 20 IU/L (10-42); BILIRUBIN,TOTAL 1.2 mg/dL (0.2-1.0); BUN - BLOOD UREA NITROGEN 14 mg/dL (6-20); CARBON DIOXIDE - CO2 19 mmol/L (21-32); CHLORIDE 99 mmol/L (101-111); GFR - MDRD 75 (>89); GLUCOSE 322 mg/dL (70-100); MAGNESIUM 1.6 mg/dL (1.7-2.8); POTASSIUM 3.9 mmol/L (3.5-5.0); SODIUM 134 mmol/L (135-145); TOTAL PROTEIN 7.5 g/dL (6.7-8.2)
[2022-08-10] MEDS ORDERED: MAGNESIUM SULFATE 2 GRAM 2 GM/50 ML BAG IV ONE (20:25)
[2022-08-10] MEDS ORDERED: INSULIN REGULAR HUMAN 300 UNIT/3 ML VIAL IVP STA (20:25)
[2022-08-10] MEDS ORDERED: iohexoL-300 100 ML VIAL IVP ONE (20:44)
[2022-08-10 21:04] LABS: BILIRUBIN,URINE NEGATIVE (NEGATIVE); GLUCOSE, URINE (UA) >=1000 mg/dL (NEGATIVE); KETONES,URINE (UA) 40 mg/dL (NEGATIVE); LEUKOCYTE ESTERASE, URINE NEGATIVE (NEGATIVE); NITRITE,URINE NEGATIVE (NEGATIVE); OCCULT BLOOD,URINE SMALL (NEGATIVE); PH,URINE 6.5 PH (5.0-7.5); PROTEIN,URINE 100 mg/dL (NEGATIVE); UROBILINOGEN,URINE 0.2 (NORMAL) E.U./dL (NORMAL)
[2022-08-10 21:05] LABS: CLARITY,URINE CLEAR (CLEAR)
[2022-08-10 21:12] LABS: BACTERIA,URINE None Seen /HPF (None Seen); RBC,URINE 0-5 /HPF (0-5); SQUAMOUS EPITHELIAL CELL,UR NONE SEEN (<= Few); WBC,URINE 0-3 /HPF (0-3)
--- NOTE | 2022-08-10 21:34 | CT Report ---
PROCEDURE: ABDOMEN/PELVIS W INDICATIONS: IV only, diffuse abdominal pain CONTRAST: Omni 300 100ml TECHNIQUE: After the administration of intravenous contrast, 5 mm thick sections acquired from the diaphragms to the symphysis. 5 mm thick coronal and sagittal reformats were acquired. For radiation dose reducti on, the following was used: automated exposure control, adjustment of mA and/or kV according to soo ent size. COMPARISON: CT abdomen pelvis 12/22/2019 FINDINGS: Image quality: Excellent. Lung bases: Unremarkable. Heart: Heart is normal in size. There is a small hiatal hernia. ABDOMEN: Liver: No mass lesion. Gallbladder: Within normal limits without calcified gallstones. Biliary ducts: No biliary ductal dilatation. Pancreas: Unremarkable. Spleen: Normal in size. Adrenal Glands: No adrenal nodules. Kidneys and Ureters: No hydronephrosis. There is a renal cortical thinning in the right kidney consi stent with sequelae of prior infection, trauma, or infarcts. A right renal cortical cyst is noted. A few small hypodense foci within the left kidney are too small to characterize but likely represent cy sts. These include a partially calcified cyst anteriorly within the left kidney. Stomach and Bowel: Stomach and small bowel loops are normal in caliber and wall thickness. The appen asia is normal. There is colonic wall thickening involving the ascending, transverse, and descending c olon with mild associated hyperemia. Peritoneum: No abnormal intraperitoneal fluid. No free air. Ventral Wall: No hernia. Abdominal Nodes: No retroperitoneal or mesenteric adenopathy by size criteria. Vessels:There is mild fusiform aneurysmal dilatation of the infrarenal abdominal aorta which measure s up to 3.6 cm in anterior posterior dimension. PELVIS: Pelvic Organs: Unremarkable. Bladder: Unremarkable. Pelvic Nodes: No enlarged lymph nodes. Miscellaneous: No inguinal hernias. Bones: Visualized osseous structures demonstrate no suspicious lesions. IMPRESSION: 1. Segmental bowel wall thickening involving the ascending, transverse, and descending colon consiste nt with an infectious or inflammatory colitis. 2. Mild residual dilatation of the abdominal aorta. 3. Small hiatal hernia. Reviewed by: Ludin Bradley MD on 08/10/2022 9:33 PM PDT Approved by: Ludin Bradley MD on 08/10/2022 9:33 PM PDT Station ID: [email or web address]
[2022-08-10] MEDS ORDERED: metroNIDAZOLE 500 MG/100 ML 500 MG/100 ML BAG IV ONE (21:42)
[2022-08-10] MEDS ORDERED: CIPROFLOXACIN 400 MG/200 ML 400 MG/200 ML BAG IV STA (21:42)
--- NOTE | 2022-08-10 22:39 | ED Physician Documentation ---
ED Addendum - Addendum Addendum: 08/10/22 22:38 Patient received a signout from off going physician, please see their d ocumentation for further detail. In short patient is 62-year-old insulin- dependent diabetic presenting to the emergency department with abdominal pain with ongoing nausea and vomiting. Subsequently identified Have colitis per CT imaging with persistent hyperglycemia as well as the development of a new anion gap. No acidosis noted on venous blood gas. Report given to telemetry hospitalist with plan for admission for management of colitis and blood sugars. Patient evaluated independently at bedside at approximately 2238 hrs. Comfortable and in no acute distress while being interviewed by the telehospitalist.
--- NOTE | 2022-08-10 22:58 | HISTORY & PHYSICAL EXAMINATION ---
Chief Complaint - Chief Complaint Chief Complaint: abdominal pain History of Present Illness - Admitted From Admitted From:: home - History Obtained From History obtained from: patient Exam Limitations: telemedicine - History of Present Illness HPI Comment/Other: Mr Bryant is a 62 yo M with hx HTN, DM II, GERD. Hx CVA on Eliquis. Presents to ER with c/o nausea, vomiting, fatigue, abd pain. Onset of nausea and malaise 2- 3 days ago. Abd pain, diarrhea x 1 episode yesterday. He was seen in ER yesterday, suspected gastroenteritis and discharged home. Today continuation of symptoms per patient, ongoing abd pain, no further diarrhea since yesterday. Nausea, vomiting, poor appetite. [place] shaky and couldn't take insulin injections and called ambulance today. Denies headache, dizziness, hematemesis, cp, cough. Usual home regimen is 40 units Levemir BID and 12 units lispro with meals, missed today. Blood glucose usually around 150. Missed home meds including Eliquis dose this morning. History - Past Medical History Cardiovascular: reports: Hypertension, High cholesterol, Other (Stress test in 2013 was WNL. Echo in 2014 showed normal LVEF, no shunt and a dilated ascending aorta of 4.5 cm.) Respiratory: reports: Asthma, Pneumonia Neuro: reports: CVA, TIA, Head injury, Migraines, Peripheral neuropathy Endocrine/Autoimmune: reports: Type 2 diabetes GI: reports: GERD, Ulcers, Hemorrhoids : reports: Kidney stones HEENT: reports: Macular degeneration Psych: reports: Depression Musculoskeletal: reports: Osteoarthritis, Chronic back pain Derm: reports: Psoriasis, Other MRSA Hx?: No - Past Surgical History General: reports: Other Ortho: reports: ACL reconstruction, Rotator cuff repair, Arthroscopic surgery Derm: reports: Other - Family & Social History Family History: Mother: Alive and Well, Father: Family History Comment/Other: Dad at age 62 of complications of asbestosis. He had been in the [facility]. Mom lives with him. She has diabetes. She took thalidomide when he was in utero. One sister of diabetes complications. One brother is alive. He has no children Living Situation: With family Social History Notes: He was originally from [facility]. Came to the [place] in 1973 when his dad was deployed here, and has never left the [place] since then. Dad has . Mom lives with him. She used to live in assisted living facility and hated it, that is why she moved in with him. They both live on a limited fixed income's. It is very hard to get good nutritional meals with fresh fruits and vegetables and protein. He has not worked since his TIA in July 2013. He used to smoke 1 pack/day and quit in 2002. He rarely drinksonce every 6 mos. He does use cannabis occasionally. No other recreational substance abuse. - Substance History Use: Uses substance without health or social issues: Alcohol, Cannabis - POLST Patient has POLST: No POLST Status: Full Code (As long as he can think and talk and have a memory he wants to be kept alive. Even if he had a stroke, completely dependent on someone for activities of daily living, as long as he is able to speak, able to think and have a memory resuscitated; confirmed on 09/27/20.) Meds/Allgy - Home Medications Home Medications: Ambulatory Orders Medication Instructions Recorded Confirmed Pantoprazole [Protonix] 40 mg PO QDAC PRN 30 Days #30 tab 09/30/20 11/20/20 Apixaban [Eliquis] See Rx Instructions .ROUTE .COMPLEX 08/10/22 08/10/22 Lisinopril [Zestril] 10 mg PO 08/10/22 - Allergies Allergies/Adverse Reactions: Allergies Allergy/AdvReac Type Severity Reaction Status Date / Time acetaminophen [From Tylenol] AdvReac Intermediate Nausea Verified 11/20/20 01:35 hydrocodone [Hydrocodone] AdvReac Intermediate Respiratory Verified 11/20/20 01:35 oxycodone AdvReac Intermediate Anxiety Verified 11/20/20 01:35 fentanyl AdvReac Nausea Verified 11/20/20 01:35 Review of Systems - Constitutional Constitutional: reports: Fatigue, Chills, Malaise. denies: Fever - Eyes Eyes: denies: Blurred vision - Ears, Nose & Throat Ears, Nose & Throat: denies: Hearing loss - Cardiovascular Cariovascular: denies: Chest pain - Respiratory Respiratory: reports: Other (shortness of breath with sweating, unchanged, chronic). denies: Cough, Sputum production - Gastrointestinal Gastrointestinal: reports: Abdominal pain, Diarrhea, Nausea, Vomiting, Poor appetite. denies: Rectal bleeding, Collin blood emesis, Coffee grounds emesis - Genitourinary Genitourinary: denies: Dysuria, Hematuria - Integumentary Integumentary: denies: Rash, Pruritis - Neurological Neurological: reports: General weakness. denies: Focal weakness, Headache, Dizziness - All Other Systems All Other Systems: reports: Reviewed and negative Prior Level of Functionality: ambulatory, no walker, uses cane occasionally Exam - Vital Signs Vital Signs: Vital Signs x48h Temp Pulse Resp BP Pulse Ox O2 Flow Rate 08/10/22 22:31 36.9 C 101 H 18 160/80 H 98 08/10/22 21:31 96 18 163/80 H 97 08/10/22 20:04 86 186/106 H 96 2 08/10/22 19:12 36.8 C 111 H 18 191/114 H 99 Conclusion/Plan - Lab Results Lab results reviewed: Yes Fish Bones: 08/10/22 19:53 08/10/22 19:53 - Diagnostic Imaging Results Diagnostic Imaging Results: positive: Final report reviewed - Other Other Results/Comments: Assessment/Plan: Acute colitis -Noted on CT abd -Diarrhea x 1 episode yesterday, required fecal disimpaction in ER tonight -N/V, antiemetics PRN -Continue abx -Pain control -Clear liquid diet, advance as tolerated Hyperglycemia DM II -Secondary to missed insulin doses due to malaise/N/V -Resume long acting insulin + SSI and monitor blood glucose -Repeat BMP in a.m. -F/u A1c Hypomagnesemia -Repleted in ER -Repeat labs in a.m. Hx GERD -Continue PPI Hx HTN -Continue lisinopril Hx CVA -Continue Eliquis, home med Full code DVT ppx: Eliquis Admit for observation. Telemedicine Consult Details - Provider Location & Consult Time Telemedicine consultation conducted via videoconferencing?: Yes List names and roles of persons who participated in consult:: MD Alexandra. Patient, Manny. Telemedicine provider location:: [place], [place]
[2022-08-10] MEDS ORDERED: HYDROcod/ACETAM 5/325 MG TABLET PO PRN (23:03)
[2022-08-10] MEDS ORDERED: PANTOPRAZOLE 40 MG TABLET PO PRN (23:03)
[2022-08-10] MEDS: SODIUM CHLORIDE 0.9% 1,000 ML IV SCH (23:20)
[2022-08-10] MEDS: SODIUM CHLORIDE FLUSH 0.9% 10 ML SYRINGE IVP PRN (23:24)
[2022-08-10] MEDS: ONDANSETRON 4 MG/2 ML VIAL IVP PRN (23:24)
[2022-08-11] MEDS: APIXABAN 5 MG TABLET PO SCH ×3 (00:20→21:21)
[2022-08-11] MEDS: SODIUM CHLORIDE FLUSH 0.9% 10 ML SYRINGE IVP SCH ×3 (00:32→17:12)
[2022-08-11] MEDS: INSULIN GLARGINE-YFGN 300 UNIT/3 ML PEN SUBQ SCH ×2 (00:33→08:39)
[2022-08-11] MEDS: HYDROmorphone 0.5 MG/0.5 ML SYRINGE IVP PRN ×4 (01:06→17:46)
[2022-08-11] MEDS: hydrALAZINE INJ 20 MG/ML VIAL IVP PRN ×2 (01:49→08:44)
[2022-08-11] MEDS ORDERED: lisinopriL 5 MG TABLET PO SCH ×2 (03:13→09:00)
[2022-08-11] MEDS ORDERED: INSULIN LISPRO 300 UNIT/3 ML PEN SUBQ SCH ×4 (03:14→12:00)
[2022-08-11] MEDS ORDERED: INSULIN LISPRO 300 UNIT/3 ML PEN SUBQ ONE (03:41)
[2022-08-11 05:22] LABS: CALCIUM 9.1 mg/dL (8.5-10.3); POTASSIUM 3.8 mmol/L (3.5-5.0)
[2022-08-11] MEDS: ONDANSETRON 4 MG/2 ML VIAL IVP PRN ×3 (05:24→17:46)
[2022-08-11] MEDS ORDERED: metroNIDAZOLE 500 MG/100 ML 500 MG/100 ML BAG IV SCH (06:00)
[2022-08-11] MEDS ORDERED: CIPROFLOXACIN 400 MG/200 ML 400 MG/200 ML BAG IV SCH (09:00)
[2022-08-11] MEDS: INSULIN LISPRO 300 UNIT/3 ML PEN SUBQ SCH ×3 (11:50→21:19)
[2022-08-11] MEDS: SODIUM CHLORIDE 0.9% 1,000 ML IV SCH ×2 (11:52→21:26)
[2022-08-11] MEDS: SODIUM CHLORIDE FLUSH 0.9% 10 ML SYRINGE IVP PRN (11:54)
--- NOTE | 2022-08-11 12:21 | PHARMACY PROGRESS NOTE ---
- Best Possible Medication History Admit Date and Time: 08/10/22 4754 Processed by: Pharmacy Medication History completed: Yes Patient Interview: Completed Secondary Source(s): Pharmacy records, Insurance records As the person ultimately responsible for medication therapy, providers are able to order a medication from an existing home medication list in [facility] via the "Reconcile Routine" prior to Confirmation of that medication by behaviour support teacher. Such practice is discouraged except when the physician, in their clinical judgment, deems that a medical need exists for a medication without regard to previous use.
[2022-08-11] MEDS ORDERED: APIXABAN 5 MG TABLET PO SCH (13:00)
--- NOTE | 2022-08-11 13:10 | PROVIDER PROGRESS NOTE ---
Assessment/Plan - Problem List (1) Colitis Assessment/Plan: Appears to be related to some inflammation of the colon with fecal impaction which was disimpacted in the ER. Patient was initiated on IV Cipro and IV Flagyl and have DC'd this does not appear to be an infectious process at this point. Await stool studies. (2) Hyperglycemia due to type 2 diabetes mellitus Assessment/Plan: Patient will be placed on his usual insulin therapy and monitored. (3) Hypomagnesemia Assessment/Plan: Repleted (4) History of gastroesophageal reflux (GERD) Assessment/Plan: Continue PPI (5) Hypertension Assessment/Plan: Continue lisinopril dosing (6) History of CVA (cerebrovascular accident) Assessment/Plan: Continue Eliquis - Current Meds Current Meds: Current Medications Generic Name Dose Route Start Last Admin Trade Name Freq PRN Reason Stop Dose Admin Apixaban 5 mg 08/10/22 23:45 08/11/22 08:43 Apixaban 5 Mg Tablet PO 5 mg BID DANIEL Administration Hydralazine HCl 10 mg 08/11/22 01:05 08/11/22 08:44 Hydralazine Inj 20 Mg/Ml Vial IVP 10 mg Q6H PRN Administration SBP> or= 160 OR DBP> or= 110 Hydromorphone HCl 0.5 mg 08/10/22 23:03 08/11/22 11:52 Hydromorphone 0.5 Mg/0.5 Ml Syringe IVP 0.5 mg Q2H PRN Administration Pain 8 to 10 Sodium Chloride 1,000 mls @ 100 mls/hr 08/10/22 23:45 08/11/22 11:52 Normal Saline 0.9% IV 100 mls/hr .Q10H DANIEL Administration Ciprofloxacin 400 mg in 200 mls @ 200 mls/hr 08/11/22 09:00 08/11/22 09:45 Cipro 400 Mg/200 Ml IV Infused Q12H DANIEL Infusion Metronidazole 500 mg in 100 mls @ 100 mls/hr 08/11/22 06:00 08/11/22 06:31 Flagyl 500 Mg/100 Ml IV Infused Q8H DANIEL Infusion Insulin Human Lispro 3 - 11 unit 08/11/22 12:00 08/11/22 11:50 Insulin Lispro 300 Unit/3 Ml Pen SUBQ 9 unit 0800,1200,1700,2100 DANIEL Administration Protocol Lisinopril 10 mg 08/11/22 03:13 08/11/22 03:33 Lisinopril 5 Mg Tablet PO 10 mg DAILY DANIEL Administration Ondansetron HCl 4 mg 08/10/22 23:03 08/11/22 11:52 Ondansetron 4 Mg/2 Ml Vial IVP 4 mg Q6HR PRN Administration Nausea / Vomiting Sodium Chloride 10 ml 08/10/22 23:03 08/11/22 11:54 Sodium Chloride Flush 0.9% 10 Ml Syringe IVP 10 ml PRN PRN Administration NEEDED PER PROVIDER ORDERS Sodium Chloride 10 ml 08/11/22 01:00 08/11/22 08:43 Sodium Chloride Flush 0.9% 10 Ml Syringe IVP 10 ml 0100,0900,1700 [facility] Administration - Lab Result Lab results reviewed: Yes Fish Bone Diagrams: 08/10/22 19:53 08/11/22 04:38 - Additional Planning My Orders: My Active Orders 08/11/22 C DIFF PCR Stat GI PROFILE STOOL PCR [REFLAB] Stat 08/11/22 08:17 Initiate Hypoglycemia Protocol [RC] .protocol 08/11/22 08:21 Infection Precautions [RC] QSHIFT 08/11/22 13:00 Apixaban [Eliquis] 5 mg PO BID Pantoprazole [Protonix] 40 mg PO DAILY 08/11/22 21:00 Insulin Glargine-Yfgn [Semglee] 30 unit SUBQ BID Subjective - Subjective Patient Reports: Other (Patient presented to the emergency room last night with some abdominal pain was found to have possibly obstipation he was having some loose stool x1 yesterday he was found on CAT scan to have some inflammation of the colon but was noted to have stool within the colon that need to do to be disimpacte) Objective Vital Signs: Vital Signs - 24 hr 08/10/22 08/10/22 08/10/22 19:12 20:04 21:31 Temperature 36.8 C Heart Rate 111 H 86 96 Heart Rate [ Brachial] Respiratory 18 18 Rate Blood Pressure 191/114 H 186/106 H 163/80 H Blood Pressure [Right Brachial artery] O2 Saturation 99 96 97 If not protocol 2 : Oxygen Flow, liters/minute 08/10/22 08/10/22 08/11/22 22:31 23:33 00:17 Temperature 36.9 C Heart Rate 101 H 89 Heart Rate [ Brachial] Respiratory 18 18 Rate Blood Pressure 160/80 H 161/87 H Blood Pressure [Right Brachial artery] O2 Saturation 98 95 If not protocol 2 : Oxygen Flow, liters/minute 08/11/22 08/11/22 08/11/22 00:45 01:41 01:49 Temperature 36.8 C Heart Rate Heart Rate [ 90 Brachial] Respiratory 24 Rate Blood Pressure 182/98 H Blood Pressure 189/97 H 182/98 H [Right Brachial artery] O2 Saturation 100 If not protocol : Oxygen Flow, liters/minute 08/11/22 08/11/22 08/11/22 02:10 02:14 02:18 Temperature Heart Rate Heart Rate [ Brachial] Respiratory Rate Blood Pressure Blood Pressure 177/98 H 179/95 H 187/102 H [Right Brachial artery] O2 Saturation If not protocol : Oxygen Flow, liters/minute 08/11/22 08/11/22 08/11/22 02:33 02:47 03:19 Temperature Heart Rate Heart Rate [ 97 98 71 Brachial] Respiratory Rate Blood Pressure 191/96 H Blood Pressure 191/96 H 184/97 H 187/110 H [Right Brachial artery] O2 Saturation If not protocol : Oxygen Flow, liters/minute 08/11/22 08/11/22 08/11/22 04:25 07:38 08:44 Temperature 36.8 C Heart Rate Heart Rate [ 96 Brachial] Respiratory 18 Rate Blood Pressure 176/88 H Blood Pressure 147/87 H 166/93 H [Right Brachial artery] O2 Saturation 100 If not protocol : Oxygen Flow, liters/minute 08/11/22 08/11/22 08/11/22 08:52 09:14 09:47 Temperature Heart Rate Heart Rate [ 95 104 H Brachial] Respiratory Rate Blood Pressure 137/85 H Blood Pressure 137/85 H [Right Brachial artery] O2 Saturation If not protocol : Oxygen Flow, liters/minute 08/11/22 11:20 Temperature 36.6 C Heart Rate Heart Rate [ 93 Brachial] Respiratory 18 Rate Blood Pressure Blood Pressure 140/82 H [Right Brachial artery] O2 Saturation 97 If not protocol : Oxygen Flow, liters/minute Oxygen O2 Source [Without Activity] Room air O2 Source Room air I&O (Last 24 Hrs): Intake and Output Totals x24h 08/09/22 08/10/22 08/11/22 23:59 23:59 23:59 Intake Total 1350 2040.000 Output Total 1250 Balance 1350 790.000 General: Alert, Oriented x3 HEENT: Atraumatic Neck: Supple Neuro: Alert Cardiovascular: Regular rate, Normal S1, Normal S2 Respiratory: Breath sounds nml Abdomen: Normal bowel sounds, Soft, No tenderness Skin: No rashes - Results Results: Laboratory Results WBC 9.7 x10^3/uL (4.8-10.8) 08/10/22 19:53 RBC 5.70 10^6/uL (4.70-6.10) 08/10/22 19:53 Hgb 16.3 g/dL (14.0-18.0) 08/10/22 19:53 Hct 48.1 % (42.0-52.0) 08/10/22 19:53 MCV 84.4 fL (80.0-94.0) 08/10/22 19:53 MCH 28.6 pg (27.0-31.0) 08/10/22 19:53 MCHC 33.9 g/dL (32.0-36.0) 08/10/22 19:53 RDW 12.3 % (12.0-15.0) 08/10/22 19:53 Plt Count 247 10^3/uL (130-450) 08/10/22 19:53 MPV 10.5 fL (7.4-11.4) 08/10/22 19:53 Neut # (Auto) 7.8 10^3/uL (1.5-6.6) H 08/10/22 19:53 Lymph # (Auto) 1.3 10^3/uL (1.5-3.5) L 08/10/22 19:53 [place] # (Auto) 0.5 10^3/uL (0.0-1.0) 08/10/22 19:53 Eos # (Auto) 0.0 10^3/uL (0.0-0.7) 08/10/22 19:53 Baso # (Auto) 0.1 10^3/uL (0.0-0.1) 08/10/22 19:53 Absolute Nucleated RBC 0.00 x10^3/uL 08/10/22 19:53 Nucleated RBC % 0.0 /100WBC 08/10/22 19:53 VBG pH 7.494 (7.31-7.41) H 08/10/22 19:53 VBG pCO2 27.3 mmHg (41-51) L 08/10/22 19:53 VBG pO2 42.4 mmHg (25-47) 08/10/22 19:53 VBG HCO3 20.5 mmol/L (23-28) L 08/10/22 19:53 VBG Total CO2 21.4 mmol/L (24-29) L 08/10/22 19:53 VBG O2 Saturation 84.1 % (60-80) H 08/10/22 19:53 VBG Base Excess 0.1 mmol/L (-2 - +2) 08/10/22 19:53 Sodium 132 mmol/L (135-145) L 08/11/22 04:38 Potassium 3.8 mmol/L (3.5-5.0) 08/11/22 04:38 Chloride 97 mmol/L (101-111) L 08/11/22 04:38 Carbon Dioxide 21 mmol/L (21-32) 08/11/22 04:38 Anion Gap 14.0 (6-13) H 08/11/22 04:38 BUN 18 mg/dL (6-20) 08/11/22 04:38 Creatinine 1.0 mg/dL (0.6-1.2) 08/11/22 04:38 Estimated GFR (MDRD) 75 (>89) L 08/11/22 04:38 Glucose 339 mg/dL (70-100) H 08/11/22 04:38 POC Whole Bld Glucose 295 mg/dL (70 - 100) H 08/11/22 11:15 Calcium 9.1 mg/dL (8.5-10.3) 08/11/22 04:38 Magnesium 2.0 mg/dL (1.7-2.8) 08/11/22 04:38 Total Bilirubin 1.2 mg/dL (0.2-1.0) H 08/10/22 19:53 AST 20 IU/L (10-42) 08/10/22 19:53 ALT 17 IU/L (10-60) 08/10/22 19:53 Alkaline Phosphatase 70 IU/L (42-121) 08/10/22 19:53 Total Protein 7.5 g/dL (6.7-8.2) 08/10/22 19:53 Albumin 3.7 g/dL (3.2-5.5) 08/10/22 19:53 Globulin 3.8 g/dL (2.1-4.2) 08/10/22 19:53 Albumin/Globulin Ratio 1.0 (1.0-2.2) 08/10/22 19:53 Urine Color YELLOW 08/10/22 20:52 Urine Clarity CLEAR (CLEAR) 08/10/22 20:52 Urine pH 6.5 PH (5.0-7.5) 08/10/22 20:52 Ur Specific [place] 1.015 (1.002-1.030) 08/10/22 20:52 Urine Protein 100 mg/dL (NEGATIVE) H 08/10/22 20:52 Urine Glucose (UA) >=1000 mg/dL (NEGATIVE) H 08/10/22 20:52 Urine Ketones 40 mg/dL (NEGATIVE) H 08/10/22 20:52 Urine Occult Blood SMALL (NEGATIVE) H 08/10/22 20:52 Urine Nitrite NEGATIVE (NEGATIVE) 08/10/22 20:52 Urine Bilirubin NEGATIVE (NEGATIVE) 08/10/22 20:52 Urine Urobilinogen 0.2 (NORMAL) E.U./dL (NORMAL) 08/10/22 20:52 Ur Leukocyte Esterase NEGATIVE (NEGATIVE) 08/10/22 20:52 Urine RBC 0-5 /HPF (0-5) 08/10/22 20:52 Urine WBC 0-3 /HPF (0-3) 08/10/22 20:52 Ur Squamous Epith Cells NONE SEEN (<= Few) 08/10/22 20:52 Urine Bacteria None Seen /HPF (None Seen) 08/10/22 20:52 Ur Microscopic Review INDICATED 08/10/22 20:52 Urine Culture Comments NOT INDICATED 08/10/22 20:52 Serum Ketones SMALL (NEGATIVE) H 08/10/22 19:53 ABX Reporting Has patient been on IV antibiotics over the past 48 hours?: No
[2022-08-11] MEDS: PANTOPRAZOLE 40 MG TABLET PO SCH (13:32)
[2022-08-11 14:30] LABS: ESTIMATED AVERAGE GLUCOSE 289 mg/dL (70-100); HEMOGLOBIN A1c% 11.7 % (4.27-6.07)
[2022-08-11] MEDS ORDERED: INSULIN GLARGINE-YFGN 300 UNIT/3 ML PEN SUBQ SCH (21:00)
[2022-08-12] MEDS: ONDANSETRON 4 MG/2 ML VIAL IVP PRN ×3 (00:19→19:26)
[2022-08-12] MEDS: SODIUM CHLORIDE FLUSH 0.9% 10 ML SYRINGE IVP SCH ×4 (00:19→23:52)
[2022-08-12] MEDS: SODIUM CHLORIDE FLUSH 0.9% 10 ML SYRINGE IVP PRN ×3 (00:19→06:50)
[2022-08-12] MEDS: MORPHINE 2 MG/ML CARPUJECT IVP PRN ×2 (00:19→05:38)
[2022-08-12] MEDS: hydrALAZINE INJ 20 MG/ML VIAL IVP PRN (00:59)
[2022-08-12 05:39] LABS: CALCIUM 8.5 mg/dL (8.5-10.3); CREATININE 0.8 mg/dL (0.6-1.2); POTASSIUM 4.2 mmol/L (3.5-5.0)
[2022-08-12] MEDS: SODIUM CHLORIDE 0.9% 1,000 ML IV SCH (06:50)
[2022-08-12] MEDS: APIXABAN 5 MG TABLET PO SCH ×2 (08:35→20:56)
[2022-08-12] MEDS: PANTOPRAZOLE 40 MG TABLET PO SCH (08:35)
[2022-08-12] MEDS: INSULIN LISPRO 300 UNIT/3 ML PEN SUBQ SCH ×4 (08:35→20:57)
[2022-08-12] MEDS: INSULIN GLARGINE-YFGN 300 UNIT/3 ML PEN SUBQ SCH ×2 (08:36→20:56)
[2022-08-12] MEDS: lisinopriL 20 MG TABLET PO SCH (08:36)
[2022-08-12] MEDS: amLODIPine 5 MG TABLET PO SCH (08:36)
--- NOTE | 2022-08-12 16:07 | PROVIDER PROGRESS NOTE ---
Assessment/Plan - Problem List (1) Colitis Assessment/Plan: Assessment/Plan: Appears to be related to some inflammation of the colon with fecal impaction which was disimpacted in the ER. Patient was initiated on IV Cipro and IV Flagyl and have DC'd this does not appear to be an infectious process at this point. Await stool studies. August 12, 2022-patient has had no further diarrhea has been afebrile was secondary to obstipation (2) Hyperglycemia due to type 2 diabetes mellitus Assessment/Plan: Patient will be placed on his usual insulin therapy and monitored. -Titrate up his long-acting insulin for better glucose control (3) Hypomagnesemia Assessment/Plan: Repleted (4) History of gastroesophageal reflux (GERD) Assessment/Plan: Continue PPI (5) Hypertension Assessment/Plan: Continue lisinopril dosing August 12, 2022-blood pressure is elevated will increase his lisinopril to 30 mg daily and add Norvasc 5 mg daily to his regimen and his blood pressures were better in the afternoon with this change (6) History of CVA (cerebrovascular accident) Assessment/Plan: Continue Eliquis - Current Meds Current Meds: Current Medications Generic Name Dose Route Start Last Admin Trade Name Freq PRN Reason Stop Dose Admin Amlodipine Besylate 5 mg 08/12/22 09:00 08/12/22 08:36 Amlodipine 5 Mg Tablet PO 5 mg DAILY DANIEL Administration Apixaban 5 mg 08/10/22 23:45 08/12/22 08:35 Apixaban 5 Mg Tablet PO 5 mg BID DANIEL Administration Hydralazine HCl 10 mg 08/11/22 01:05 08/12/22 00:59 Hydralazine Inj 20 Mg/Ml Vial IVP 10 mg Q6H PRN Administration SBP> or= 160 OR DBP> or= 110 Insulin Glargine-yfgn 40 unit 08/12/22 09:00 08/12/22 08:36 Insulin Glargine-Yfgn 300 Unit/3 Ml Pen SUBQ 40 unit BID DANIEL Administration Insulin Human Lispro 3 - 11 unit 08/11/22 12:00 08/12/22 11:42 Insulin Lispro 300 Unit/3 Ml Pen SUBQ 5 unit 0800,1200,1700,2100 DANIEL Administration Protocol Lisinopril 30 mg 08/12/22 09:00 08/12/22 08:36 Lisinopril 20 Mg Tablet PO 30 mg DAILY DANIEL Administration Morphine Sulfate 2 mg 08/11/22 17:57 08/12/22 05:38 Morphine 2 Mg/Ml Carpuject IVP 2 mg Q2HR PRN Administration PAIN 5-7 Ondansetron HCl 4 mg 08/10/22 23:03 08/12/22 06:51 Ondansetron 4 Mg/2 Ml Vial IVP 4 mg Q6HR PRN Administration Nausea / Vomiting Pantoprazole Sodium 40 mg 08/11/22 13:00 08/12/22 08:35 Pantoprazole 40 Mg Tablet PO 40 mg DAILY DANIEL Administration Sodium Chloride 10 ml 08/10/22 23:03 08/12/22 06:50 Sodium Chloride Flush 0.9% 10 Ml Syringe IVP 10 ml PRN PRN Administration NEEDED PER PROVIDER ORDERS Sodium Chloride 10 ml 08/11/22 01:00 08/12/22 05:38 Sodium Chloride Flush 0.9% 10 Ml Syringe IVP 10 ml 0100,0900,1700 DANIEL Administration - Lab Result Fish Bone Diagrams: 08/10/22 19:53 08/12/22 04:56 - Additional Planning My Orders: My Active Orders 08/11/22 17:57 Morphine Inj (Carpuject) [Morphine (Carpuject)] 2 mg IVP Q2HR PRN 08/11/22 17:58 Morphine Ir [Ms Ir] 15 mg PO Q6HR PRN 08/12/22 09:00 Insulin Glargine-Yfgn [Semglee] 40 unit SUBQ BID amLODIPine [Norvasc] 5 mg PO DAILY lisinopriL [Zestril] 30 mg PO DAILY 08/12/22 Lunch Carb-controlled Diet [DIET] Subjective - Subjective Patient Reports: Other (Patient notes today he has a poor appetite has had no nausea vomiting or diarrhea. Blood pressure was elevated this morning.) Objective Vital Signs: Vital Signs - 24 hr 08/11/22 08/12/22 08/12/22 20:01 00:26 00:59 Temperature 36.7 C 36.4 C L Heart Rate [ 82 98 Brachial] Respiratory 16 16 Rate Blood Pressure 179/91 H Blood Pressure [Left Brachial artery] Blood Pressure 146/81 H 171/93 H [Right Brachial artery] O2 Saturation 99 98 08/12/22 08/12/22 08/12/22 01:05 01:10 01:15 Temperature Heart Rate [ 102 H 89 100 Brachial] Respiratory Rate Blood Pressure Blood Pressure [Left Brachial artery] Blood Pressure 172/97 H 173/95 H 173/92 H [Right Brachial artery] O2 Saturation 08/12/22 08/12/22 08/12/22 01:29 01:30 05:26 Temperature 36.6 C Heart Rate [ 85 106 H Brachial] Respiratory 24 Rate Blood Pressure 173/92 H Blood Pressure [Left Brachial artery] Blood Pressure 174/91 H 153/96 H [Right Brachial artery] O2 Saturation 98 08/12/22 08/12/22 08/12/22 07:53 07:55 09:46 Temperature 36.6 C Heart Rate [ 91 97 94 Brachial] Respiratory 18 Rate Blood Pressure Blood Pressure 187/100 H [Left Brachial artery] Blood Pressure 183/104 H 158/94 H [Right Brachial artery] O2 Saturation 98 08/12/22 08/12/22 11:20 15:49 Temperature 36.8 C 36.8 C Heart Rate [ 87 85 Brachial] Respiratory 18 16 Rate Blood Pressure Blood Pressure [Left Brachial artery] Blood Pressure 145/86 H 142/85 H [Right Brachial artery] O2 Saturation 96 99 Oxygen O2 Source [Without Activity] Room air O2 Source Room air I&O (Last 24 Hrs): Intake and Output Totals x24h 08/10/22 08/11/22 08/12/22 23:59 23:59 23:59 Intake Total 1350 4166.667 1843.333 Output Total 2600 1525 Balance 1350 1566.667 318.333 General: Alert, Oriented x3, Other (Patient notes feels a little queasy today an d does not have much of an appetite.) HEENT: Atraumatic Neck: Supple Neuro: Alert, Non Focal Cardiovascular: Regular rate, Normal S1, Normal S2 Abdomen: Normal bowel sounds, Soft - Results Results: Laboratory Results WBC 9.7 x10^3/uL (4.8-10.8) 08/10/22 19:53 RBC 5.70 10^6/uL (4.70-6.10) 08/10/22 19:53 Hgb 16.3 g/dL (14.0-18.0) 08/10/22 19:53 Hct 48.1 % (42.0-52.0) 08/10/22 19:53 MCV 84.4 fL (80.0-94.0) 08/10/22 19:53 MCH 28.6 pg (27.0-31.0) 08/10/22 19:53 MCHC 33.9 g/dL (32.0-36.0) 08/10/22 19:53 RDW 12.3 % (12.0-15.0) 08/10/22 19:53 Plt Count 247 10^3/uL (130-450) 08/10/22 19:53 MPV 10.5 fL (7.4-11.4) 08/10/22 19:53 Neut # (Auto) 7.8 10^3/uL (1.5-6.6) H 08/10/22 19:53 Lymph # (Auto) 1.3 10^3/uL (1.5-3.5) L 08/10/22 19:53 [place] # (Auto) 0.5 10^3/uL (0.0-1.0) 08/10/22 19:53 Eos # (Auto) 0.0 10^3/uL (0.0-0.7) 08/10/22 19:53 Baso # (Auto) 0.1 10^3/uL (0.0-0.1) 08/10/22 19:53 Absolute Nucleated RBC 0.00 x10^3/uL 08/10/22 19:53 Nucleated RBC % 0.0 /100WBC 08/10/22 19:53 VBG pH 7.494 (7.31-7.41) H 08/10/22 19:53 VBG pCO2 27.3 mmHg (41-51) L 08/10/22 19:53 VBG pO2 42.4 mmHg (25-47) 08/10/22 19:53 VBG HCO3 20.5 mmol/L (23-28) L 08/10/22 19:53 VBG Total CO2 21.4 mmol/L (24-29) L 08/10/22 19:53 VBG O2 Saturation 84.1 % (60-80) H 08/10/22 19:53 VBG Base Excess 0.1 mmol/L (-2 - +2) 08/10/22 19:53 Sodium 133 mmol/L (135-145) L 08/12/22 04:56 Potassium 4.2 mmol/L (3.5-5.0) 08/12/22 04:56 Chloride 103 mmol/L (101-111) 08/12/22 04:56 Carbon Dioxide 23 mmol/L (21-32) 08/12/22 04:56 Anion Gap 7.0 (6-13) 08/12/22 04:56 BUN 16 mg/dL (6-20) 08/12/22 04:56 Creatinine 0.8 mg/dL (0.6-1.2) 08/12/22 04:56 Estimated GFR (MDRD) 98 (>89) 08/12/22 04:56 Glucose 206 mg/dL (70-100) H 08/12/22 04:56 POC Whole Bld Glucose 204 mg/dL (70 - 100) H 08/12/22 11:18 Estimat Average Glucose 289 mg/dL (70-100) H 08/11/22 04:38 Hemoglobin A1c % 11.7 % (4.27-6.07) H 08/11/22 04:38 Calcium 8.5 mg/dL (8.5-10.3) 08/12/22 04:56 Magnesium 2.0 mg/dL (1.7-2.8) 08/11/22 04:38 Total Bilirubin 1.2 mg/dL (0.2-1.0) H 08/10/22 19:53 AST 20 IU/L (10-42) 08/10/22 19:53 ALT 17 IU/L (10-60) 08/10/22 19:53 Alkaline Phosphatase 70 IU/L (42-121) 08/10/22 19:53 Total Protein 7.5 g/dL (6.7-8.2) 08/10/22 19:53 Albumin 3.7 g/dL (3.2-5.5) 08/10/22 19:53 Globulin 3.8 g/dL (2.1-4.2) 08/10/22 19:53 Albumin/Globulin Ratio 1.0 (1.0-2.2) 08/10/22 19:53 Urine Color YELLOW 08/10/22 20:52 Urine Clarity CLEAR (CLEAR) 08/10/22 20:52 Urine pH 6.5 PH (5.0-7.5) 08/10/22 20:52 Ur Specific [place] 1.015 (1.002-1.030) 08/10/22 20:52 Urine Protein 100 mg/dL (NEGATIVE) H 08/10/22 20:52 Urine Glucose (UA) >=1000 mg/dL (NEGATIVE) H 08/10/22 20:52 Urine Ketones 40 mg/dL (NEGATIVE) H 08/10/22 20:52 Urine Occult Blood SMALL (NEGATIVE) H 08/10/22 20:52 Urine Nitrite NEGATIVE (NEGATIVE) 08/10/22 20:52 Urine Bilirubin NEGATIVE (NEGATIVE) 08/10/22 20:52 Urine Urobilinogen 0.2 (NORMAL) E.U./dL (NORMAL) 08/10/22 20:52 Ur Leukocyte Esterase NEGATIVE (NEGATIVE) 08/10/22 20:52 Urine RBC 0-5 /HPF (0-5) 08/10/22 20:52 Urine WBC 0-3 /HPF (0-3) 08/10/22 20:52 Ur Squamous Epith Cells NONE SEEN (<= Few) 08/10/22 20:52 Urine Bacteria None Seen /HPF (None Seen) 08/10/22 20:52 Ur Microscopic Review INDICATED 08/10/22 20:52 Urine Culture Comments NOT INDICATED 08/10/22 20:52 Serum Ketones SMALL (NEGATIVE) H 08/10/22 19:53 ABX Reporting Has patient been on IV antibiotics over the past 48 hours?: No
[2022-08-12] MEDS: MORPHINE IR 15 MG TABLET PO PRN ×2 (16:59→23:50)
--- NOTE | 2022-08-13 08:22 | Discharge Plan ---
Discharge Plan Problem Reviewed?: Yes Disposition: Home, Self Care Condition: Stable Prescriptions: amLODIPine [Norvasc] 5 mg PO DAILY #30 tab lisinopriL [Zestril] 30 mg PO DAILY 30 Days #45 tab Diet: Diabetic Activity Restrictions: Activity as Tolerated Weight Bearing: Full Weight Assessment: You came in with episode of loose stool and was found to being obstipated which means there was some solid stool which you got disimpacted by the ER and then had no further issues with bowel movements. Your blood sugar was a bit high and this was managed with some insulin. Also your blood pressure was high and we did add a new medication called amlodipine and increased your lisinopril dosing. You are to follow-up with your primary care provider Dr. Fierro in 1 week sooner if there are problems. No Smoking: If you smoke, Please STOP! Call for help. Follow-up with: Guanakito Fierro, [facility] [Physician No Access] -
--- NOTE | 2022-08-13 08:29 | DISCHARGE SUMMARY ---
Discharge Summary Condition at Discharge: Stable Discharge Disposition: 01 Home, Self Care - DIAGNOSES Admission Diagnoses: Acute colitis Hyperglycemia in type II diabetic Hypomagnesemia Discharge Diagnoses with Status of Each Condition: Obstipation-resolved Hyperglycemia and type 2 diabetes-titrated meds and adjusted diet Hypertension-was not well controlled while here and increase lisinopril from 10 to 30 mg and added amlodipine 5 mg daily prescriptions were sent to his pharmacy - HPI History of Present Illness: This is a 62-year-old male who has a history of type 2 diabetes who presented with 1 loose bowel movement and some abdominal pain. CAT scan was done in the ER and showed fecal impaction along with some inflammation of the colon proximal to that. After disimpaction by the ER he has had no loose stool and his abdominal discomfort has resolved. His blood sugars have been managed with subcu insulin and have been running approximately 150. He was having elevated blood pressures hence we increased his lisinopril from 10 to 30 mg daily and added Norvasc 5 mg p.o. daily to his regimen. - HOSPITAL COURSE Hospital Course: (1) Colitis Assessment/Plan: Assessment/Plan: Appears to be related to some inflammation of the colon with fecal impaction which was disimpacted in the ER. Patient was initiated on IV Cipro and IV Flagyl and have DC'd this does not appear to be an infectious process at this point. Await stool studies. August 12, 2022-patient has had no further diarrhea has been afebrile was secondary to obstipation (2) Hyperglycemia due to type 2 diabetes mellitus Assessment/Plan: Patient will be placed on his usual insulin therapy and monitored. -Titrate up his long-acting insulin for better glucose control (3) Hypomagnesemia Assessment/Plan: Repleted (4) History of gastroesophageal reflux (GERD) Assessment/Plan: Continue PPI (5) Hypertension Assessment/Plan: Continue lisinopril dosing August 12, 2022-blood pressure is elevated will increase his lisinopril to 30 mg daily and add Norvasc 5 mg daily to his regimen and his blood pressures were better in the afternoon with this change (6) History of CVA (cerebrovascular accident) Assessment/Plan: Continue Eliquis - ALLERGIES Allergies/Adverse Reactions: Allergies Allergy/AdvReac Type Severity Reaction Status Date / Time acetaminophen [From Tylenol] AdvReac Intermediate Nausea Verified 11/20/20 01:35 hydrocodone [Hydrocodone] AdvReac Intermediate Respiratory Verified 11/20/20 01:35 oxycodone AdvReac Intermediate Anxiety Verified 11/20/20 01:35 fentanyl AdvReac Nausea Verified 11/20/20 01:35 - MEDICATIONS Home Medications: Ambulatory Orders Medication Instructions Recorded Confirmed Apixaban [Eliquis] 5 mg PO BID 08/10/22 08/11/22 Insulin Aspart [Novolog] 0 - 12 units SUBQ TIDWM 08/11/22 08/11/22 Insulin Detemir [Levemir] 40 unit SUBQ BID 08/11/22 08/11/22 Pantoprazole [Protonix] 40 mg PO DAILY 08/11/22 08/11/22 Apixaban [Eliquis] 5 mg PO BID tab 08/13/22 amLODIPine [Norvasc] 5 mg PO DAILY #30 tab 08/13/22 lisinopriL [Zestril] 30 mg PO DAILY 30 Days #45 tab 08/13/22 - PHYSICAL EXAM AT DISCHARGE General Appearance: positive: No acute distress, Alert Eyes Bilateral: positive: Normal inspection Respiratory: positive: Breath sounds nml Cardiovascular: positive: Regular rate & rhythm, No murmur Abdomen: positive: Non-tender Skin: positive: No rash Extremities: positive: Pedal edema - LABS Result Diagrams: 08/10/22 19:53 08/12/22 04:56
[2022-08-13] MEDS: INSULIN LISPRO 300 UNIT/3 ML PEN SUBQ SCH (08:30)
[2022-08-13] MEDS: lisinopriL 20 MG TABLET PO SCH (08:31)
[2022-08-13] MEDS: APIXABAN 5 MG TABLET PO SCH (08:31)
[2022-08-13] MEDS: MORPHINE IR 15 MG TABLET PO PRN (08:31)
[2022-08-13] MEDS: PANTOPRAZOLE 40 MG TABLET PO SCH (08:31)
[2022-08-13] MEDS: amLODIPine 5 MG TABLET PO SCH (08:31)
[2022-08-13] MEDS: INSULIN GLARGINE-YFGN 300 UNIT/3 ML PEN SUBQ SCH (08:31)
[2022-08-13] MEDS: SODIUM CHLORIDE FLUSH 0.9% 10 ML SYRINGE IVP SCH (08:32)
[2022-08-13] MEDS: ONDANSETRON 4 MG/2 ML VIAL IVP PRN (08:32)
[2022-08-13 11:23] VITALS: BP 140/78
== END 2022-08-13 11:45 | disposition home or self-care (01) ==
LOC: EDUNIT# → ED 19:05 → MS2 23:03
PROVIDERS: ADMIT Student in an Organized Health Care Education/Training Program; ATTEND Student in an Organized Health Care Education/Training Program
DX: K52.9 Noninfective gastroenteritis and colitis, unspecified (principal); K21.9 Gastro-esophageal reflux disease without esophagitis; K56.41 Fecal impaction; E11.42 Type 2 diabetes mellitus with diabetic polyneuropathy; E11.65 Type 2 diabetes mellitus with hyperglycemia; E11.43 Type 2 diabetes mellitus with diabetic autonomic (poly)neuropathy; K31.84 Gastroparesis; E83.42 Hypomagnesemia; I10 Essential (primary) hypertension; Z79.4 Long term (current) use of insulin; Z87.891 Personal history of nicotine dependence; Z86.73 Personal history of transient ischemic attack (TIA), and cerebral infarction without residual deficits; Z79.01 Long term (current) use of anticoagulants
CPT/HCPCS: 36415; 74177; 80048; 80053; 81001; 82009; 82803; 83036; 83735; 85025; 96365; 96366; 96367; 96368; 96375; 96376; 99284; 99285; A9270; G0378; J1170; J1815; J2765; Q9967; 81003; 87086; 87507

== ENCOUNTER 2022-08-27 18:48 | Outpatient (CLI) | payer MEDICARE, MEDICAID | END 2022-08-27 18:49 | disposition short-term general hospital (02) | LOC: EMS 18:48 | DX: E11.65 Type 2 diabetes mellitus with hyperglycemia (principal); Z79.4 Long term (current) use of insulin | CPT/HCPCS: A0425; A0429 ==

== ENCOUNTER 2023-02-07 11:41 | Outpatient (CLI) | payer MEDICARE, MEDICAID | END 2023-02-07 11:42 | disposition critical access hospital (66) | LOC: EMS 11:41 | DX: E11.65 Type 2 diabetes mellitus with hyperglycemia (principal); R11.2 Nausea with vomiting, unspecified; R19.7 Diarrhea, unspecified; R53.1 Weakness; R53.83 Other fatigue; Z79.4 Long term (current) use of insulin | CPT/HCPCS: A0425; A0427 ==

== ENCOUNTER 2023-02-07 12:15 | Emergency (ER) | payer MEDICARE, MEDICAID ==
[2023-02-07] MEDS ORDERED: SODIUM CHLORIDE 0.9% 1,000 ML IV STA (12:22)
[2023-02-07] MEDS ORDERED: INSULIN REGULAR HUMAN 300 UNIT/3 ML VIAL IVP STA ×4 (12:22→16:02)
[2023-02-07] MEDS ORDERED: DROPERIDOL 5 MG/2 ML VIAL IVP STA (12:22)
--- NOTE | 2023-02-07 12:24 | ED Physician Documentation ---
History of Present Illness - Stated complaint Stated Complaint: VOMITING - History obtained from History obtained from: Patient, EMS - Additonal information Additional information: 62-year-old gentleman with history of diabetes, stroke (on Eliquis for same and states he does not have a history of A-fib or irregular heartbeat) GERD and hypertension. He presents by ambulance. States he has had vomiting and diarrhea for 2 days without abdominal pain. With the vomiting and diarrhea he started to feel shaky and as such stopped giving himself his insulin. He was noted to have a blood sugar of 552 by EMS on the way here. On route he was given Zofran and 300 mL of IV fluids with only modest relief of his symptomatology. He does not feel like he is in DKA but has had it before. PD PAST MEDICAL HISTORY - Past Medical History Cardiovascular: Hypertension, High cholesterol, Other Respiratory: Asthma, Pneumonia Neuro: CVA, TIA, Head injury, Migraines, Peripheral neuropathy Endocrine/Autoimmune: Type 2 diabetes GI: GERD, Ulcers, Hemorrhoids : Kidney stones HEENT: Macular degeneration Psych: Depression Musculoskeletal: Osteoarthritis, Chronic back pain Derm: Psoriasis, Other - Past Surgical History Past Surgical History: Yes General: Other Ortho: ACL reconstruction, Rotator cuff repair, Arthroscopic surgery Derm: Other - Present Medications Home Medications: Ambulatory Orders Medication Instructions Recorded Confirmed Insulin Aspart [Novolog] 0 - 12 units SUBQ TIDWM 08/11/22 02/07/23 Insulin Detemir [Levemir] 40 unit SUBQ BID 08/11/22 02/07/23 Pantoprazole [Protonix] 40 mg PO DAILY 08/11/22 02/07/23 Apixaban [Eliquis] 5 mg PO BID tab 08/13/22 02/07/23 lisinopriL [Zestril] 30 mg PO DAILY 30 Days #45 tab 08/13/22 02/07/23 Albuterol Sulf [Ventolin Hfa 1 - 2 puffs INH Q4HR PRN 02/07/23 02/07/23 Inhaler] Atorvastatin Calcium [Lipitor] 80 mg PO HS 02/07/23 02/07/23 Ondansetron Odt [Zofran] 4 mg TL Q6H PRN #10 tablet 02/07/23 Propranolol ER [Inderal LA] 80 mg PO DAILY 02/07/23 02/07/23 - Allergies Allergies/Adverse Reactions: Allergies Allergy/AdvReac Type Severity Reaction Status Date / Time acetaminophen [From Tylenol] AdvReac Intermediate Nausea Verified 02/07/23 12:27 hydrocodone [Hydrocodone] AdvReac Intermediate Respiratory Verified 02/07/23 12:27 oxycodone AdvReac Intermediate Anxiety Verified 02/07/23 12:27 fentanyl AdvReac Nausea Verified 02/07/23 12:27 - Social History Does the pt smoke?: No Smoking Status: Former smoker Does the pt drink ETOH?: Yes Does the pt have substance abuse?: No - Immunizations Immunizations are current?: Yes - POLST Patient has POLST: No POLST Status: Full Code (As long as he can think and talk and have a memory he wants to be kept alive. Even if he had a stroke, completely dependent on someone for activities of daily living, as long as he is able to speak, able to think and have a memory resuscitated; confirmed on 09/27/20.) PD ED PE NORMAL - Vitals Vital signs reviewed: Yes - General General: Alert and oriented X 3, No acute distress - Cardiac Cardiac: Other (regularly irregular without murmur) - Respiratory Respiratory: No respiratory distress, Clear bilaterally - Abdomen Abdomen: Soft, Non tender - Extremities Extremities: No edema, No calf tenderness / cord - Neuro Neuro: Alert and oriented X 3, Normal speech Results - Vitals Vitals: Vital Signs - 24 hr 02/07/23 02/07/23 02/07/23 12:25 14:27 16:00 Temperature 36.2 C L Heart Rate 108 H 107 H 111 H Respiratory 20 24 18 Rate Blood Pressure 174/88 H 142/97 H 156/86 H O2 Saturation 95 95 98 Oxygen O2 Source [] Room air O2 Source Room air - EKG (time done) 1227 EKG releavant findings:: EKG personally interpreted by author of this note. Relevant findings are: Rate: Rate (enter#) (96) Rhythm: NSR [place]: Normal Intervals: Other (LAFB) Ischemia: Normal ST segments. No: ST elevation c/w ischemia, ST depression Compare to prior EKG: Unchanged from prior EKG ( from 11/20/20) - Labs Labs: Laboratory Tests 02/07/23 02/07/23 02/07/23 12:44 12:44 12:44 WBC 16.2 H RBC 5.63 Hgb 15.9 Hct 49.3 MCV 87.6 MCH 28.2 MCHC 32.3 RDW 12.4 Plt Count 263 MPV 11.2 Neut # (Auto) 14.2 H Lymph # (Auto) 1.5 [place] # (Auto) 0.4 Eos # (Auto) 0.0 Baso # (Auto) 0.1 Absolute Nucleated RBC 0.00 Nucleated RBC % 0.0 VBG pH 7.332 VBG pCO2 33.1 L VBG pO2 35.6 VBG HCO3 17.1 L VBG Total CO2 18.2 L VBG O2 Saturation 65.8 VBG Base Excess -7.5 L Sodium 135 Potassium 4.2 Chloride 94 L Carbon Dioxide 17 L Anion Gap 24.0 H BUN 36 H Creatinine 1.1 Estimated GFR (MDRD) 68 L Glucose 592 H* POC Whole Bld Glucose Calcium 10.6 H Phosphorus 4.0 Magnesium 1.8 Total Bilirubin 1.0 AST 12 ALT 20 Alkaline Phosphatase 89 Total Protein 8.0 Albumin 4.3 Globulin 3.7 Albumin/Globulin Ratio 1.2 Serum Ketones SMALL H 02/07/23 02/07/23 02/07/23 13:26 14:37 15:53 WBC RBC Hgb Hct MCV MCH MCHC RDW Plt Count MPV Neut # (Auto) Lymph # (Auto) [place] # (Auto) Eos # (Auto) Baso # (Auto) Absolute Nucleated RBC Nucleated RBC % VBG pH VBG pCO2 VBG pO2 VBG HCO3 VBG Total CO2 VBG O2 Saturation VBG Base Excess Sodium Potassium Chloride Carbon Dioxide Anion Gap BUN Creatinine Estimated GFR (MDRD) Glucose POC Whole Bld Glucose 534 H* 471 H 392 H Calcium Phosphorus Magnesium Total Bilirubin AST ALT Alkaline Phosphatase Total Protein Albumin Globulin Albumin/Globulin Ratio Serum Ketones 02/07/23 16:50 WBC RBC Hgb Hct MCV MCH MCHC RDW Plt Count MPV Neut # (Auto) Lymph # (Auto) [place] # (Auto) Eos # (Auto) Baso # (Auto) Absolute Nucleated RBC Nucleated RBC % VBG pH VBG pCO2 VBG pO2 VBG HCO3 VBG Total CO2 VBG O2 Saturation VBG Base Excess Sodium 139 Potassium 3.9 Chloride 102 Carbon Dioxide 24 Anion Gap 13.0 BUN 34 H Creatinine 1.2 Estimated GFR (MDRD) 61 L Glucose 346 H POC Whole Bld Glucose Calcium 10.5 H Phosphorus Magnesium Total Bilirubin AST ALT Alkaline Phosphatase Total Protein Albumin Globulin Albumin/Globulin Ratio Serum Ketones PD Medical Decision Making - ED course ED course: 62-year-old gentleman with elevated blood sugars and nausea and vomiting. He appears well and does not feel like he is in DKA per se. He does not have any pain. Workup was notable for CBC showing leukocytosis, likely demargination. Venous blood gas without significant acidosis. That said on CMP he does have a bicarb of 17 with an elevated gap, BUN at 36 and significant hyperglycemia. He also has small serum ketones. Initially received 1 L of IV fluids and 10 units of insulin and 2.5 mg of IV droperidol. On recheck at 1:45 PM he is feeling much better. I asked him whether he prefer to stay in the hospital or not he would like to be able to go home if he can take his own insulin and feels improved enough to do that. Will give him a second dose of 10 units of IV insulin. He received a few more doses of IV insulin and subsequently a BMP was checked around 5 PM and at that point his gap had closed with a blood sugar of 346. He was feeling much better and able to be discharged but did want to trial some milk p.o. challenge prior to leaving and this was provided. 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 You should still take your regular dose of intermediate acting insulin tonight, Levemir and you may need another dose or 2 of your shorter acting insulin as well. I sent a prescription electronically for the Zofran to [facility] in [place]. Call your doctor to arrange a follow-up appointment, make the next available appointment. In the interim, return anytime if worse or if new symptoms develop.
[2023-02-07 12:51] LABS: BASOPHILS # (AUTO) 0.1 10^3/uL (0.0-0.1); BASOPHILS % (AUTO) 0.4 %; HCT - HEMATOCRIT 49.3 % (42.0-52.0); HGB - HEMOGLOBIN 15.9 g/dL (14.0-18.0); LYMPHOCYTES # (AUTO) 1.5 10^3/uL (1.5-3.5); LYMPHOCYTES % (AUTO) 9.2 %; MEAN CORPUSCULAR HEMOGLOBIN 28.2 pg (27.0-31.0); MEAN CORPUSCULAR HGB CONC 32.3 g/dL (32.0-36.0); MEAN CORPUSCULAR VOLUME 87.6 fL (80.0-94.0); MEAN PLATELET VOLUME 11.2 fL (7.4-11.4); MONOCYTES # (AUTO) 0.4 10^3/uL (0.0-1.0); MONOCYTES % (AUTO) 2.6 %; NEUTROPHILS # (AUTO) 14.2 10^3/uL (1.5-6.6); NEUTROPHILS % (AUTO) 87.2 %; PLT - PLATELET COUNT 263 10^3/uL (130-450); RED BLOOD COUNT 5.63 10^6/uL (4.70-6.10); RED CELL DISTRIBUTION WIDTH 12.4 % (12.0-15.0); WHITE BLOOD COUNT 16.2 x10^3/uL (4.8-10.8)
[2023-02-07 12:54] LABS: VBG BASE EXCESS -7.5 mmol/L (-2 - +2); VBG HCO3 17.1 mmol/L (23-28); VBG OXYGEN SATURATION 65.8 % (60-80); VBG PCO2 33.1 mmHg (41-51); VBG PH 7.332 (7.31-7.41); VBG PO2 35.6 mmHg (25-47); VBG TOTAL CO2 18.2 mmol/L (24-29)
[2023-02-07 12:55] LABS: KETONES, SERUM (ACETEST) SMALL (NEGATIVE)
[2023-02-07 13:03] LABS: ALBUMIN 4.3 g/dL (3.2-5.5); MAGNESIUM 1.8 mg/dL (1.7-2.3)
[2023-02-07 13:05] LABS: ALBUMIN/GLOBULIN RATIO 1.2 (1.0-2.2); ALKALINE PHOSPHATASE 89 IU/L (42-121); ALT ALANINE AMINOTRANSFERASE 20 IU/L (10-60); AST ASPARTATE AMINOTRANSFERASE 12 IU/L (10-42); BUN - BLOOD UREA NITROGEN 36 mg/dL (6-20); CALCIUM 10.6 mg/dL (8.5-10.3); CARBON DIOXIDE - CO2 17 mmol/L (21-32); CHLORIDE 94 mmol/L (101-111); CREATININE 1.1 mg/dL (0.6-1.3); GFR - MDRD 68 (>89); GLUCOSE 592 mg/dL (74-104); POTASSIUM 4.2 mmol/L (3.5-4.5); SODIUM 135 mmol/L (135-145)
[2023-02-07] MEDS ORDERED: INSULIN REGULAR HUMAN 100 UNIT in SODIUM CHLORIDE 0.9% 100ML 99 ML IV STA (13:39)
[2023-02-07] MEDS: NS W/20 MEQ KCL 1,000 ML IV SCH ×2 (14:00→17:50)
[2023-02-07] MEDS ORDERED: INSULIN GLARGINE-YFGN 300 UNIT/3 ML PEN SUBQ STA (14:45)
[2023-02-07 16:28] VITALS: O2SAT 98
[2023-02-07 17:32] LABS: CALCIUM 10.5 mg/dL (8.5-10.3); CREATININE 1.2 mg/dL (0.6-1.3); POTASSIUM 3.9 mmol/L (3.5-4.5)
[2023-02-07 18:07] VITALS: BP 97/65
== END 2023-02-07 18:22 | disposition home or self-care (01) ==
LOC: EDUNIT# → ED 12:15 → SUPCPDRO 12:15 → ED 18:22
DX: R11.10 Vomiting, unspecified (principal); E11.65 Type 2 diabetes mellitus with hyperglycemia; Z79.01 Long term (current) use of anticoagulants; I10 Essential (primary) hypertension; Z79.4 Long term (current) use of insulin; Z87.891 Personal history of nicotine dependence; Z86.73 Personal history of transient ischemic attack (TIA), and cerebral infarction without residual deficits
CPT/HCPCS: 36415; 80048; 80053; 82009; 82803; 83735; 84100; 85025; 93005; 96361; 96374; 99284; 99285; J1815

== ENCOUNTER 2023-05-14 04:29 | Outpatient (CLI) | payer MEDICARE, MEDICAID | END 2023-05-14 04:30 | disposition critical access hospital (66) | LOC: EMS 04:29 | DX: K92.0 Hematemesis (principal); R10.11 Right upper quadrant pain; R10.12 Left upper quadrant pain; Z79.01 Long term (current) use of anticoagulants; R68.83 Chills (without fever); R05.9 Cough, unspecified; R53.1 Weakness; I10 Essential (primary) hypertension; R00.0 Tachycardia, unspecified; E11.65 Type 2 diabetes mellitus with hyperglycemia; Z79.4 Long term (current) use of insulin | CPT/HCPCS: A0425; A0427 ==

== ENCOUNTER 2023-05-14 04:56 | Inpatient (IN) | payer MEDICARE, MEDICAID ==
--- NOTE | 2023-05-14 05:18 | ED Physician Documentation ---
PD HPI NVD - Stated complaint Stated Complaint: VOMITING BLOOD - Chief complaint Chief Complaint: Abd Pain - History obtained from History obtained from: Patient, EMS - History of Present Illness Timing - onset: Last night (about 7 pm, abrupt onset nausea and vomiting. Some loose stool. Had severel emeses of gastric contents and then noted emesis x 2 with bright red blood. He estimates about 1/2 pint of volume. No lightheaded. Having some cramping mid to upper abd pain.) Timing - duration: Hours Timing - details: Abrupt onset, Still present Contributing factors: Anticoagulated (Eliquis for TIAs.) Similar symptoms before: Diagnosis (has had episodic nausea and vomtiing, sometimes related to DKA. No history of varices nor cirrhosis. Had CT abd last August 2022 without liver/stomach findings. Remote history of ulcers.) Recently seen: Emergency Dept (has had episodic vomiting episodes with ER visits.) Review of Systems Constitutional: denies: Fever, Chills Cardiac: denies: Chest pain / pressure Respiratory: denies: Dyspnea GI: reports: Abdominal Pain, Nausea, Vomiting, Hematemesis. denies: Diarrhea Neurologic: reports: Generalized weakness. denies: Near syncope PD PAST MEDICAL HISTORY - Past Medical History Cardiovascular: Hypertension, High cholesterol, Other Respiratory: Asthma, Pneumonia Neuro: CVA, TIA, Head injury, Migraines, Peripheral neuropathy Endocrine/Autoimmune: Type 2 diabetes GI: GERD, Ulcers, Hemorrhoids : Kidney stones HEENT: Macular degeneration Psych: Depression Musculoskeletal: Osteoarthritis, Chronic back pain Derm: Psoriasis, Other - Past Surgical History Past Surgical History: Yes General: Other Ortho: ACL reconstruction, Rotator cuff repair, Arthroscopic surgery Derm: Other - Present Medications Home Medications: Ambulatory Orders Medication Instructions Recorded Confirmed Insulin Aspart [Novolog] 0 - 12 units SUBQ TIDWM 08/11/22 02/07/23 Insulin Detemir [Levemir] 40 unit SUBQ BID 08/11/22 02/07/23 Pantoprazole [Protonix] 40 mg PO DAILY 08/11/22 02/07/23 Apixaban [Eliquis] 5 mg PO BID tab 08/13/22 05/14/23 lisinopriL [Zestril] 30 mg PO DAILY 30 Days #45 tab 08/13/22 05/14/23 Albuterol Sulf [Ventolin Hfa 1 - 2 puffs INH Q4HR PRN 02/07/23 02/07/23 Inhaler] Atorvastatin Calcium [Lipitor] 80 mg PO HS 02/07/23 05/14/23 Ondansetron Odt [Zofran] 4 mg TL Q6H PRN #10 tablet 02/07/23 Propranolol ER [Inderal LA] 80 mg PO DAILY 02/07/23 02/07/23 - Allergies Allergies/Adverse Reactions: Allergies Allergy/AdvReac Type Severity Reaction Status Date / Time acetaminophen [From Tylenol] AdvReac Intermediate Nausea Verified 02/07/23 12:27 hydrocodone [Hydrocodone] AdvReac Intermediate Respiratory Verified 02/07/23 12:27 oxycodone AdvReac Intermediate Anxiety Verified 02/07/23 12:27 fentanyl AdvReac Nausea Verified 02/07/23 12:27 - Social History Does the pt smoke?: No Smoking Status: Former smoker Does the pt drink ETOH?: Yes Does the pt have substance abuse?: No - Immunizations Immunizations are current?: Yes - POLST Patient has POLST: No POLST Status: Full Code (As long as he can think and talk and have a memory he wants to be kept alive. Even if he had a stroke, completely dependent on someone for activities of daily living, as long as he is able to speak, able to think and have a memory resuscitated; confirmed on 09/27/20.) PD ED PE NORMAL - Vitals Vital signs reviewed: Yes - General General: Alert and oriented X 3, Well developed/nourished, Other (active vomiting in ER. Coffee ground appearance now. ) - Neck Neck: Supple, no meningeal sign, No adenopathy - Cardiac Cardiac: No: RRR (regular but tachy.) - Respiratory Respiratory: No respiratory distress, Clear bilaterally - Abdomen Abdomen: Normal bowel sounds, Soft, Non distended, No organomegaly, Other (mild tender without guarding lower left abd. ) - Derm Derm: Warm and dry. No: Normal color (mild pallor) - Extremities Extremities: No tenderness to palpate, No edema, No calf tenderness / cord - Neuro Neuro: Alert and oriented X 3, No motor deficit, No sensory deficit, Normal speech Results - Vitals Vitals: Vital Signs - 24 hr 05/14/23 05/14/23 05/14/23 05:10 07:42 09:00 Temperature 36.4 C L 36.6 C Heart Rate 103 H 120 H 122 H Respiratory 16 18 18 Rate Blood Pressure 161/88 H 167/105 H 175/88 H O2 Saturation 99 100 98 05/14/23 11:00 Temperature Heart Rate 127 H Respiratory 18 Rate Blood Pressure 167/95 H O2 Saturation 95 Oxygen O2 Source [Without Activity] Room air O2 Source Room air - Labs Labs: Laboratory Tests 05/14/23 05/14/23 05/14/23 05:08 05:08 05:08 WBC 14.6 H RBC 5.55 Hgb 15.8 Hct 47.9 MCV 86.3 MCH 28.5 MCHC 33.0 RDW 11.9 L Plt Count 262 MPV 11.2 Neut # (Auto) 12.1 H Lymph # (Auto) 1.8 [place] # (Auto) 0.5 Eos # (Auto) 0.0 Baso # (Auto) 0.1 Absolute Nucleated RBC 0.00 Nucleated RBC % 0.0 VBG pH VBG pCO2 VBG pO2 VBG HCO3 VBG Total CO2 VBG O2 Saturation VBG Base Excess Sodium 133 L Potassium 4.3 Chloride 96 L Carbon Dioxide 17 L Anion Gap 20.0 H BUN 28 H Creatinine 1.0 Estimated GFR (MDRD) 75 L Glucose 481 H POC Whole Bld Glucose Calcium 10.2 Magnesium 1.6 L Total Bilirubin 1.0 AST 12 ALT 18 Alkaline Phosphatase 81 Total Protein 7.5 Albumin 4.0 Globulin 3.5 Albumin/Globulin Ratio 1.1 Lipase 45 Urine Color Urine Clarity Urine pH Ur Specific [place] Urine Protein Urine Glucose (UA) Urine Ketones Urine Occult Blood Urine Nitrite Urine Bilirubin Urine Urobilinogen Ur Leukocyte Esterase Urine RBC Urine WBC Ur Squamous Epith Cells Urine Bacteria Ur Microscopic Review Urine Culture Comments Nasal Adenovirus (PCR) NOT DETECTED Nasal B. parapertussis DNA (PCR) NOT DETECTED Nasal Coronavir 229E PCR NOT DETECTED Nasal Coronavir HKU1 PCR NOT DETECTED Nasal Coronavir NL63 PCR NOT DETECTED Nasal Coronavir OC43 PCR NOT DETECTED Nasal Enterovir/Rhinovir PCR NOT DETECTED Nasal Influenza B PCR NOT DETECTED Nasal Influenza A PCR NOT DETECTED Nasal Parainfluen 1 PCR NOT DETECTED Nasal Parainfluen 2 PCR NOT DETECTED Nasal Parainfluen 3 PCR NOT DETECTED Nasal Parainfluen 4 PCR NOT DETECTED Nasal RSV (PCR) NOT DETECTED Nasal B.pertussis DNA PCR NOT DETECTED Nasal C.pneumoniae (PCR) NOT DETECTED [place] Human Metapneumo PCR NOT DETECTED Nasal M.pneumoniae (PCR) NOT DETECTED Nasal SARS-CoV-2 (PCR) NOT DETECTED Urine Opiates Screen Ur Buprenorphine Scrn Ur Oxycodone Screen Urine Methadone Screen Ur Barbiturates Screen Ur Tricyclics Screen Ur Phencyclidine Scrn Ur Amphetamine Screen U Methamphetamines Scrn U Benzodiazepines Scrn Urine Cocaine Screen U Cannabinoids Screen Ur Drug Screen Comment Ethyl Alcohol < 10.0 Serum Ketones SMALL H Blood Type Antibody Screen 05/14/23 05/14/23 05/14/23 05:15 05:30 06:59 WBC RBC Hgb 15.6 Hct 47.9 MCV MCH MCHC RDW Plt Count MPV Neut # (Auto) Lymph # (Auto) [place] # (Auto) Eos # (Auto) Baso # (Auto) Absolute Nucleated RBC Nucleated RBC % VBG pH 7.329 VBG pCO2 32.8 L VBG pO2 47.4 H VBG HCO3 16.9 L VBG Total CO2 17.9 L VBG O2 Saturation 81.6 H VBG Base Excess -7.8 L Sodium Potassium Chloride Carbon Dioxide Anion Gap BUN Creatinine Estimated GFR (MDRD) Glucose POC Whole Bld Glucose Calcium Magnesium Total Bilirubin AST ALT Alkaline Phosphatase Total Protein Albumin Globulin Albumin/Globulin Ratio Lipase Urine Color Urine Clarity Urine pH Ur Specific [place] Urine Protein Urine Glucose (UA) Urine Ketones Urine Occult Blood Urine Nitrite Urine Bilirubin Urine Urobilinogen Ur Leukocyte Esterase Urine RBC Urine WBC Ur Squamous Epith Cells Urine Bacteria Ur Microscopic Review Urine Culture Comments Nasal Adenovirus (PCR) Nasal B. parapertussis DNA (PCR) Nasal Coronavir 229E PCR Nasal Coronavir HKU1 PCR Nasal Coronavir NL63 PCR Nasal Coronavir OC43 PCR Nasal Enterovir/Rhinovir PCR Nasal Influenza B PCR Nasal Influenza A PCR Nasal Parainfluen 1 PCR Nasal Parainfluen 2 PCR Nasal Parainfluen 3 PCR Nasal Parainfluen 4 PCR Nasal RSV (PCR) Nasal B.pertussis DNA PCR Nasal C.pneumoniae (PCR) [place] Human Metapneumo PCR Nasal M.pneumoniae (PCR) Nasal SARS-CoV-2 (PCR) Urine Opiates Screen Ur Buprenorphine Scrn Ur Oxycodone Screen Urine Methadone Screen Ur Barbiturates Screen Ur Tricyclics Screen Ur Phencyclidine Scrn Ur Amphetamine Screen U Methamphetamines Scrn U Benzodiazepines Scrn Urine Cocaine Screen U Cannabinoids Screen Ur Drug Screen Comment Ethyl Alcohol Serum Ketones Blood Type O POSITIVE Antibody Screen NEGATIVE 05/14/23 05/14/23 05/14/23 09:01 09:09 09:52 WBC RBC Hgb Hct MCV MCH MCHC RDW Plt Count MPV Neut # (Auto) Lymph # (Auto) [place] # (Auto) Eos # (Auto) Baso # (Auto) Absolute Nucleated RBC Nucleated RBC % VBG pH VBG pCO2 VBG pO2 VBG HCO3 VBG Total CO2 VBG O2 Saturation VBG Base Excess Sodium 137 Potassium 4.1 Chloride 102 Carbon Dioxide 18 L Anion Gap 17.0 H BUN 26 H Creatinine 1.0 Estimated GFR (MDRD) 75 L Glucose 432 H POC Whole Bld Glucose 439 H Calcium 9.3 Magnesium Total Bilirubin AST ALT Alkaline Phosphatase Total Protein Albumin Globulin Albumin/Globulin Ratio Lipase Urine Color YELLOW Urine Clarity CLEAR Urine pH 5.5 Ur Specific [place] 1.020 Urine Protein 100 H Urine Glucose (UA) 500 H Urine Ketones 40 H Urine Occult Blood SMALL H Urine Nitrite NEGATIVE Urine Bilirubin NEGATIVE Urine Urobilinogen 0.2 (NORMAL) Ur Leukocyte Esterase NEGATIVE Urine RBC 0-5 Urine WBC 0-3 Ur Squamous Epith Cells RARE Squamous Urine Bacteria Rare Ur Microscopic Review INDICATED Urine Culture Comments NOT INDICATED Nasal Adenovirus (PCR) Nasal B. parapertussis DNA (PCR) Nasal Coronavir 229E PCR Nasal Coronavir HKU1 PCR Nasal Coronavir NL63 PCR Nasal Coronavir OC43 PCR Nasal Enterovir/Rhinovir PCR Nasal Influenza B PCR Nasal Influenza A PCR Nasal Parainfluen 1 PCR Nasal Parainfluen 2 PCR Nasal Parainfluen 3 PCR Nasal Parainfluen 4 PCR Nasal RSV (PCR) Nasal B.pertussis DNA PCR Nasal C.pneumoniae (PCR) [place] Human Metapneumo PCR Nasal M.pneumoniae (PCR) Nasal SARS-CoV-2 (PCR) Urine Opiates Screen NEGATIVE Ur Buprenorphine Scrn NEGATIVE Ur Oxycodone Screen NEGATIVE Urine Methadone Screen NEGATIVE Ur Barbiturates Screen NEGATIVE Ur Tricyclics Screen NEGATIVE Ur Phencyclidine Scrn NEGATIVE Ur Amphetamine Screen NEGATIVE U Methamphetamines Scrn NEGATIVE U Benzodiazepines Scrn NEGATIVE Urine Cocaine Screen NEGATIVE U Cannabinoids Screen POSITIVE H Ur Drug Screen Comment CUTOFF CONC BELOW: Ethyl Alcohol Serum Ketones Blood Type Antibody Screen 05/14/23 11:59 WBC RBC Hgb Hct MCV MCH MCHC RDW Plt Count MPV Neut # (Auto) Lymph # (Auto) [place] # (Auto) Eos # (Auto) Baso # (Auto) Absolute Nucleated RBC Nucleated RBC % VBG pH VBG pCO2 VBG pO2 VBG HCO3 VBG Total CO2 VBG O2 Saturation VBG Base Excess Sodium Potassium Chloride Carbon Dioxide Anion Gap BUN Creatinine Estimated GFR (MDRD) Glucose POC Whole Bld Glucose 409 H Calcium Magnesium Total Bilirubin AST ALT Alkaline Phosphatase Total Protein Albumin Globulin Albumin/Globulin Ratio Lipase Urine Color Urine Clarity Urine pH Ur Specific [place] Urine Protein Urine Glucose (UA) Urine Ketones Urine Occult Blood Urine Nitrite Urine Bilirubin Urine Urobilinogen Ur Leukocyte Esterase Urine RBC Urine WBC Ur Squamous Epith Cells Urine Bacteria Ur Microscopic Review Urine Culture Comments Nasal Adenovirus (PCR) Nasal B. parapertussis DNA (PCR) Nasal Coronavir 229E PCR Nasal Coronavir HKU1 PCR Nasal Coronavir NL63 PCR Nasal Coronavir OC43 PCR Nasal Enterovir/Rhinovir PCR Nasal Influenza B PCR Nasal Influenza A PCR Nasal Parainfluen 1 PCR Nasal Parainfluen 2 PCR Nasal Parainfluen 3 PCR Nasal Parainfluen 4 PCR Nasal RSV (PCR) Nasal B.pertussis DNA PCR Nasal C.pneumoniae (PCR) [place] Human Metapneumo PCR Nasal M.pneumoniae (PCR) Nasal SARS-CoV-2 (PCR) Urine Opiates Screen Ur Buprenorphine Scrn Ur Oxycodone Screen Urine Methadone Screen Ur Barbiturates Screen Ur Tricyclics Screen Ur Phencyclidine Scrn Ur Amphetamine Screen U Methamphetamines Scrn U Benzodiazepines Scrn Urine Cocaine Screen U Cannabinoids Screen Ur Drug Screen Comment Ethyl Alcohol Serum Ketones Blood Type Antibody Screen PD Medical Decision Making - ED course Complexity details: reviewed old records (episodic nausea and vomtiing episodes seen in ER. omethimes discharged with mild ketosis. Some DKA. Sometimes just N/V.), reviewed results, re-evaluated patient (less nauseated with IV fluids and meds Zofran then Inapsine. Will recheck H/H after couple hours, but initial blood count good. Has small ketones, not acidotic. ), considered differential, d/w patient ED course: care to [facility] at shift change. Still needing to assess degree of improvement with vomiting and blood count and clearing ketones. Departure - Departure Disposition: ED Place in Observation Discharge Date/Time: 05/14/23 13:42
[2023-05-14] MEDS: FAMOTIDINE 20 MG/2 ML VIAL IVP STA (05:23)
[2023-05-14] MEDS: SODIUM CHLORIDE 0.9% 1,000 ML IV STA ×3 (05:23→08:36)
[2023-05-14] MEDS: ONDANSETRON 4 MG/2 ML VIAL IVP STA (05:24)
[2023-05-14 05:27] LABS: BASOPHILS # (AUTO) 0.1 10^3/uL (0.0-0.1); BASOPHILS % (AUTO) 0.8 %; EOSINOPHILS % (AUTO) 0.2 %; HCT - HEMATOCRIT 47.9 % (42.0-52.0); HGB - HEMOGLOBIN 15.8 g/dL (14.0-18.0); LYMPHOCYTES # (AUTO) 1.8 10^3/uL (1.5-3.5); LYMPHOCYTES % (AUTO) 12.1 %; MEAN CORPUSCULAR HEMOGLOBIN 28.5 pg (27.0-31.0); MEAN CORPUSCULAR VOLUME 86.3 fL (80.0-94.0); MEAN PLATELET VOLUME 11.2 fL (7.4-11.4); MONOCYTES # (AUTO) 0.5 10^3/uL (0.0-1.0); MONOCYTES % (AUTO) 3.5 %; NEUTROPHILS # (AUTO) 12.1 10^3/uL (1.5-6.6); NEUTROPHILS % (AUTO) 82.9 %; PLT - PLATELET COUNT 262 10^3/uL (130-450); RED BLOOD COUNT 5.55 10^6/uL (4.70-6.10); RED CELL DISTRIBUTION WIDTH 11.9 % (12.0-15.0); WHITE BLOOD COUNT 14.6 x10^3/uL (4.8-10.8)
[2023-05-14 05:44] LABS: ETOH - ETHANOL < 10.0 mg/dL; LIPASE 45 U/L (11-82); MAGNESIUM 1.6 mg/dL (1.7-2.3)
[2023-05-14 05:58] LABS: ALBUMIN/GLOBULIN RATIO 1.1 (1.0-2.2); ALKALINE PHOSPHATASE 81 IU/L (42-121); ALT ALANINE AMINOTRANSFERASE 18 IU/L (10-60); AST ASPARTATE AMINOTRANSFERASE 12 IU/L (10-42); BUN - BLOOD UREA NITROGEN 28 mg/dL (6-20); CALCIUM 10.2 mg/dL (8.5-10.3); CARBON DIOXIDE - CO2 17 mmol/L (21-32); CHLORIDE 96 mmol/L (101-111); GFR - MDRD 75 (>89); GLUCOSE 481 mg/dL (74-104); POTASSIUM 4.3 mmol/L (3.5-4.5); SODIUM 133 mmol/L (135-145); TOTAL PROTEIN 7.5 g/dL (6.4-8.9)
[2023-05-14 06:02] LABS: VBG BASE EXCESS -7.8 mmol/L (-2 - +2); VBG HCO3 16.9 mmol/L (23-28); VBG OXYGEN SATURATION 81.6 % (60-80); VBG PCO2 32.8 mmHg (41-51); VBG PH 7.329 (7.31-7.41); VBG PO2 47.4 mmHg (25-47); VBG TOTAL CO2 17.9 mmol/L (24-29)
[2023-05-14 06:17] LABS: KETONES, SERUM (ACETEST) SMALL (NEGATIVE)
[2023-05-14] MEDS: INSULIN REGULAR HUMAN 300 UNIT/3 ML VIAL IVP STA ×2 (06:32→10:56)
[2023-05-14 06:58] LABS: B. PARAPERTUSSIS- RESP PCR PAN NOT DETECTED; B. PERTUSSIS- RESP PCR PANEL NOT DETECTED; C. PNEUMONIAE- RESP PCR PANEL NOT DETECTED; CORONAVIRUS 229E-RESP PCR NOT DETECTED; CORONAVIRUS HKU1-RESP PCR NOT DETECTED; CORONAVIRUS NL63-RESP PCR NOT DETECTED; CORONAVIRUS OC43-RESP PCR NOT DETECTED; HUMAN METAPNEUMOVIRUS NOT DETECTED; INFLUENZA A- RESP PCR PANEL NOT DETECTED; INFLUENZA B - RESP PCR PANEL NOT DETECTED; M. PNEUMONIAE- RESP PCR PANEL NOT DETECTED; PARAINFLUENZA VIRUS 1 NOT DETECTED; PARAINFLUENZA VIRUS 2 NOT DETECTED; PARAINFLUENZA VIRUS 3 NOT DETECTED; PARAINFLUENZA VIRUS 4 NOT DETECTED; RHINOVIRUS/ENTEROVIRUS NOT DETECTED; RSV- RESP PCR PANEL NOT DETECTED; SARS-CoV-2 -RESP PCR PANEL NOT DETECTED
[2023-05-14 07:12] LABS: HCT - HEMATOCRIT 47.9 % (42.0-52.0); HGB - HEMOGLOBIN 15.6 g/dL (14.0-18.0)
[2023-05-14] MEDS: DROPERIDOL 5 MG/2 ML VIAL IVP STA ×2 (07:22→09:04)
--- NOTE | 2023-05-14 08:40 | ED Physician Documentation ---
ED Addendum - Addendum Addendum: 05/14/23 Patient received in signout from Dr. Angel. Patient is being evaluated for nausea and vomiting, has a history of diabetes. Did report having some blood in his emesis last night. Repeat H&H was ordered which is essentially unchanged.Does not appear to be in DKA but does have CO2 of 17 and elevated anion gap on serum chemistry. Will continue with hydration and reassess.Has already received IV insulin. 0839 - Patient reports feeling better but still having some nausea. Had a similar presentation in February and appeared to respond well to droperidol 2.5 mg at that time. He has received 1.25 mg of IV droperidol at this time. He does report regular cannabis use as he states he uses it for chronic pain. Will administer an additional 1.25 mg of IV droperidol along with fluids. Recheck glucose. Abdominal exam is benign. Patient requesting ice chips. D/W Dr. Rg who will admit the patient for observation for intractable nausea, vomiting, hyperglycemia and dehydration. 05/14/23 12:25 Patient states he has been out of his propranolol for 1 week. Departure - Departure Disposition: ED Place in Observation Clinical Impression: Hyperglycemia due to type 2 diabetes mellitus, Nausea & vomiting Condition: Good Discharge Date/Time: 05/14/23 13:42 Results - Vitals Vitals: Vital Signs - 24 hr 05/14/23 05/14/23 05/14/23 05:10 07:42 09:00 Temperature 36.4 C L 36.6 C Heart Rate 103 H 120 H 122 H Respiratory 16 18 18 Rate Blood Pressure 161/88 H 167/105 H 175/88 H O2 Saturation 99 100 98 05/14/23 11:00 Temperature Heart Rate 127 H Respiratory 18 Rate Blood Pressure 167/95 H O2 Saturation 95 Oxygen O2 Source [Without Activity] Room air O2 Source Room air - EKG (time done) 1122 EKG releavant findings:: EKG personally interpreted by author of this note. Relevant findings are: Rate 135, sinus tachycardia, no STEMI, QTc 546 - Labs Labs: Laboratory Tests 05/14/23 05/14/23 05/14/23 05:08 05:08 05:08 WBC 14.6 H RBC 5.55 Hgb 15.8 Hct 47.9 MCV 86.3 MCH 28.5 MCHC 33.0 RDW 11.9 L Plt Count 262 MPV 11.2 Neut # (Auto) 12.1 H Lymph # (Auto) 1.8 [place] # (Auto) 0.5 Eos # (Auto) 0.0 Baso # (Auto) 0.1 Absolute Nucleated RBC 0.00 Nucleated RBC % 0.0 VBG pH VBG pCO2 VBG pO2 VBG HCO3 VBG Total CO2 VBG O2 Saturation VBG Base Excess Sodium 133 L Potassium 4.3 Chloride 96 L Carbon Dioxide 17 L Anion Gap 20.0 H BUN 28 H Creatinine 1.0 Estimated GFR (MDRD) 75 L Glucose 481 H POC Whole Bld Glucose Calcium 10.2 Magnesium 1.6 L Total Bilirubin 1.0 AST 12 ALT 18 Alkaline Phosphatase 81 Total Protein 7.5 Albumin 4.0 Globulin 3.5 Albumin/Globulin Ratio 1.1 Lipase 45 Urine Color Urine Clarity Urine pH Ur Specific Boaz Urine Protein Urine Glucose (UA) Urine Ketones Urine Occult Blood Urine Nitrite Urine Bilirubin Urine Urobilinogen Ur Leukocyte Esterase Urine RBC Urine WBC Ur Squamous Epith Cells Urine Bacteria Ur Microscopic Review Urine Culture Comments Nasal Adenovirus (PCR) NOT DETECTED Nasal B. parapertussis DNA (PCR) NOT DETECTED Nasal Coronavir 229E PCR NOT DETECTED Nasal Coronavir HKU1 PCR NOT DETECTED Nasal Coronavir NL63 PCR NOT DETECTED Nasal Coronavir OC43 PCR NOT DETECTED Nasal Enterovir/Rhinovir PCR NOT DETECTED Nasal Influenza B PCR NOT DETECTED Nasal Influenza A PCR NOT DETECTED Nasal Parainfluen 1 PCR NOT DETECTED Nasal Parainfluen 2 PCR NOT DETECTED Nasal Parainfluen 3 PCR NOT DETECTED Nasal Parainfluen 4 PCR NOT DETECTED Nasal RSV (PCR) NOT DETECTED Nasal B.pertussis DNA PCR NOT DETECTED Nasal C.pneumoniae (PCR) NOT DETECTED Wesley Human Metapneumo PCR NOT DETECTED Nasal M.pneumoniae (PCR) NOT DETECTED Nasal SARS-CoV-2 (PCR) NOT DETECTED Urine Opiates Screen Ur Buprenorphine Scrn Ur Oxycodone Screen Urine Methadone Screen Ur Barbiturates Screen Ur Tricyclics Screen Ur Phencyclidine Scrn Ur Amphetamine Screen U Methamphetamines Scrn U Benzodiazepines Scrn Urine Cocaine Screen U Cannabinoids Screen Ur Drug Screen Comment Ethyl Alcohol < 10.0 Serum Ketones SMALL H Blood Type Antibody Screen 05/14/23 05/14/23 05/14/23 05:15 05:30 06:59 WBC RBC Hgb 15.6 Hct 47.9 MCV MCH MCHC RDW Plt Count MPV Neut # (Auto) Lymph # (Auto) [place] # (Auto) Eos # (Auto) Baso # (Auto) Absolute Nucleated RBC Nucleated RBC % VBG pH 7.329 VBG pCO2 32.8 L VBG pO2 47.4 H VBG HCO3 16.9 L VBG Total CO2 17.9 L VBG O2 Saturation 81.6 H VBG Base Excess -7.8 L Sodium Potassium Chloride Carbon Dioxide Anion Gap BUN Creatinine Estimated GFR (MDRD) Glucose POC Whole Bld Glucose Calcium Magnesium Total Bilirubin AST ALT Alkaline Phosphatase Total Protein Albumin Globulin Albumin/Globulin Ratio Lipase Urine Color Urine Clarity Urine pH Ur Specific Boaz Urine Protein Urine Glucose (UA) Urine Ketones Urine Occult Blood Urine Nitrite Urine Bilirubin Urine Urobilinogen Ur Leukocyte Esterase Urine RBC Urine WBC Ur Squamous Epith Cells Urine Bacteria Ur Microscopic Review Urine Culture Comments Nasal Adenovirus (PCR) Nasal B. parapertussis DNA (PCR) Nasal Coronavir 229E PCR Nasal Coronavir HKU1 PCR Nasal Coronavir NL63 PCR Nasal Coronavir OC43 PCR Nasal Enterovir/Rhinovir PCR Nasal Influenza B PCR Nasal Influenza A PCR Nasal Parainfluen 1 PCR Nasal Parainfluen 2 PCR Nasal Parainfluen 3 PCR Nasal Parainfluen 4 PCR Nasal RSV (PCR) Nasal B.pertussis DNA PCR Nasal C.pneumoniae (PCR) Wesley Human Metapneumo PCR Nasal M.pneumoniae (PCR) Nasal SARS-CoV-2 (PCR) Urine Opiates Screen Ur Buprenorphine Scrn Ur Oxycodone Screen Urine Methadone Screen Ur Barbiturates Screen Ur Tricyclics Screen Ur Phencyclidine Scrn Ur Amphetamine Screen U Methamphetamines Scrn U Benzodiazepines Scrn Urine Cocaine Screen U Cannabinoids Screen Ur Drug Screen Comment Ethyl Alcohol Serum Ketones Blood Type O POSITIVE Antibody Screen NEGATIVE 05/14/23 05/14/23 05/14/23 09:01 09:09 09:52 WBC RBC Hgb Hct MCV MCH MCHC RDW Plt Count MPV Neut # (Auto) Lymph # (Auto) [place] # (Auto) Eos # (Auto) Baso # (Auto) Absolute Nucleated RBC Nucleated RBC % VBG pH VBG pCO2 VBG pO2 VBG HCO3 VBG Total CO2 VBG O2 Saturation VBG Base Excess Sodium 137 Potassium 4.1 Chloride 102 Carbon Dioxide 18 L Anion Gap 17.0 H BUN 26 H Creatinine 1.0 Estimated GFR (MDRD) 75 L Glucose 432 H POC Whole Bld Glucose 439 H Calcium 9.3 Magnesium Total Bilirubin AST ALT Alkaline Phosphatase Total Protein Albumin Globulin Albumin/Globulin Ratio Lipase Urine Color YELLOW Urine Clarity CLEAR Urine pH 5.5 Ur Specific Boaz 1.020 Urine Protein 100 H Urine Glucose (UA) 500 H Urine Ketones 40 H Urine Occult Blood SMALL H Urine Nitrite NEGATIVE Urine Bilirubin NEGATIVE Urine Urobilinogen 0.2 (NORMAL) Ur Leukocyte Esterase NEGATIVE Urine RBC 0-5 Urine WBC 0-3 Ur Squamous Epith Cells RARE Squamous Urine Bacteria Rare Ur Microscopic Review INDICATED Urine Culture Comments NOT INDICATED Nasal Adenovirus (PCR) Nasal B. parapertussis DNA (PCR) Nasal Coronavir 229E PCR Nasal Coronavir HKU1 PCR Nasal Coronavir NL63 PCR Nasal Coronavir OC43 PCR Nasal Enterovir/Rhinovir PCR Nasal Influenza B PCR Nasal Influenza A PCR Nasal Parainfluen 1 PCR Nasal Parainfluen 2 PCR Nasal Parainfluen 3 PCR Nasal Parainfluen 4 PCR Nasal RSV (PCR) Nasal B.pertussis DNA PCR Nasal C.pneumoniae (PCR) Wesley Human Metapneumo PCR Nasal M.pneumoniae (PCR) Nasal SARS-CoV-2 (PCR) Urine Opiates Screen NEGATIVE Ur Buprenorphine Scrn NEGATIVE Ur Oxycodone Screen NEGATIVE Urine Methadone Screen NEGATIVE Ur Barbiturates Screen NEGATIVE Ur Tricyclics Screen NEGATIVE Ur Phencyclidine Scrn NEGATIVE Ur Amphetamine Screen NEGATIVE U Methamphetamines Scrn NEGATIVE U Benzodiazepines Scrn NEGATIVE Urine Cocaine Screen NEGATIVE U Cannabinoids Screen POSITIVE H Ur Drug Screen Comment CUTOFF CONC BELOW: Ethyl Alcohol Serum Ketones Blood Type Antibody Screen 05/14/23 11:59 WBC RBC Hgb Hct MCV MCH MCHC RDW Plt Count MPV Neut # (Auto) Lymph # (Auto) [place] # (Auto) Eos # (Auto) Baso # (Auto) Absolute Nucleated RBC Nucleated RBC % VBG pH VBG pCO2 VBG pO2 VBG HCO3 VBG Total CO2 VBG O2 Saturation VBG Base Excess Sodium Potassium Chloride Carbon Dioxide Anion Gap BUN Creatinine Estimated GFR (MDRD) Glucose POC Whole Bld Glucose 409 H Calcium Magnesium Total Bilirubin AST ALT Alkaline Phosphatase Total Protein Albumin Globulin Albumin/Globulin Ratio Lipase Urine Color Urine Clarity Urine pH Ur Specific Boaz Urine Protein Urine Glucose (UA) Urine Ketones Urine Occult Blood Urine Nitrite Urine Bilirubin Urine Urobilinogen Ur Leukocyte Esterase Urine RBC Urine WBC Ur Squamous Epith Cells Urine Bacteria Ur Microscopic Review Urine Culture Comments Nasal Adenovirus (PCR) Nasal B. parapertussis DNA (PCR) Nasal Coronavir 229E PCR Nasal Coronavir HKU1 PCR Nasal Coronavir NL63 PCR Nasal Coronavir OC43 PCR Nasal Enterovir/Rhinovir PCR Nasal Influenza B PCR Nasal Influenza A PCR Nasal Parainfluen 1 PCR Nasal Parainfluen 2 PCR Nasal Parainfluen 3 PCR Nasal Parainfluen 4 PCR Nasal RSV (PCR) Nasal B.pertussis DNA PCR Nasal C.pneumoniae (PCR) Wesley Human Metapneumo PCR Nasal M.pneumoniae (PCR) Nasal SARS-CoV-2 (PCR) Urine Opiates Screen Ur Buprenorphine Scrn Ur Oxycodone Screen Urine Methadone Screen Ur Barbiturates Screen Ur Tricyclics Screen Ur Phencyclidine Scrn Ur Amphetamine Screen U Methamphetamines Scrn U Benzodiazepines Scrn Urine Cocaine Screen U Cannabinoids Screen Ur Drug Screen Comment Ethyl Alcohol Serum Ketones Blood Type Antibody Screen
[2023-05-14 09:26] LABS: BILIRUBIN,URINE NEGATIVE (NEGATIVE); CLARITY,URINE CLEAR (CLEAR); GLUCOSE, URINE (UA) 500 mg/dL (NEGATIVE); KETONES,URINE (UA) 40 mg/dL (NEGATIVE); LEUKOCYTE ESTERASE, URINE NEGATIVE (NEGATIVE); NITRITE,URINE NEGATIVE (NEGATIVE); OCCULT BLOOD,URINE SMALL (NEGATIVE); PH,URINE 5.5 PH (5.0-7.5); PROTEIN,URINE 100 mg/dL (NEGATIVE); UROBILINOGEN,URINE 0.2 (NORMAL) E.U./dL (NORMAL)
[2023-05-14 09:35] LABS: AMPHETAMINE SCREEN,URINE NEGATIVE (NEGATIVE); BARBITURATE SCREEN,UR NEGATIVE (NEGATIVE); BENZODIAZEPINES SCREEN, URINE NEGATIVE (NEGATIVE); BUPRENORPHINE SCREEN, URINE NEGATIVE (NEGATIVE); COCAINE SCREEN URINE NEGATIVE (NEGATIVE); METHADONE SCREEN, URINE NEGATIVE (NEGATIVE); METHAMPHETAMINES SCREEN, URINE NEGATIVE (NEGATIVE); OPIATE SCREEN, URINE NEGATIVE (NEGATIVE); OXYCODONE SCREEN, URINE NEGATIVE (NEGATIVE); THC CANNABINOID SCREEN, URINE POSITIVE (NEGATIVE); TRICYCLIC ANTIDEPRESSANT,URINE NEGATIVE (NEGATIVE)
[2023-05-14 09:39] LABS: BACTERIA,URINE Rare /HPF (None Seen); RBC,URINE 0-5 /HPF (0-5); SQUAMOUS EPITHELIAL CELL,UR RARE Squamous (<= Few); WBC,URINE 0-3 /HPF (0-3)
[2023-05-14 10:25] LABS: CALCIUM 9.3 mg/dL (8.5-10.3); POTASSIUM 4.1 mmol/L (3.5-4.5)
[2023-05-14] MEDS ORDERED: ACETAMINOPHEN 325 MG TABLET PO PRN (12:20)
[2023-05-14] MEDS ORDERED: SODIUM CHLORIDE FLUSH 0.9% 10 ML SYRINGE IVP PRN (12:20)
[2023-05-14] MEDS ORDERED: ONDANSETRON 4 MG/2 ML VIAL IVP PRN (12:20)
[2023-05-14] MEDS: PROPRANOLOL 40 MG TABLET PO ONE (12:36)
[2023-05-14 13:07] LABS: CALCIUM 9.6 mg/dL (8.5-10.3); POTASSIUM 4.2 mmol/L (3.5-4.5)
[2023-05-14] MEDS: INSULIN LISPRO 300 UNIT/3 ML PEN SUBQ STA ×2 (13:48→18:36)
[2023-05-14] MEDS: NS W/20 MEQ KCL 1,000 ML IV SCH (14:21)
[2023-05-14] MEDS: INSULIN LISPRO 300 UNIT/3 ML PEN SUBQ SCH ×2 (17:19)
[2023-05-14] MEDS: SODIUM CHLORIDE FLUSH 0.9% 10 ML SYRINGE IVP SCH (17:20)
[2023-05-14] MEDS: oxyCODONE 5 MG TABLET PO PRN (17:24)
--- NOTE | 2023-05-14 18:40 | HISTORY & PHYSICAL EXAMINATION ---
Chief Complaint - Chief Complaint Chief Complaint: nausea and vomitting History of Present Illness - Admitted From Admitted From:: home - History Obtained From Records Reviewed: [facility] History obtained from: patient Exam Limitations: none - History of Present Illness HPI Comment/Other: Patient is an insulin-dependent diabetic that does not see a primary care provider right now. He says it had to do with logistics. That they completely messed up his last glucometer and tocometer strip orders. So he is opted not to return to that office. But he has enough insulin and syringes to last him a long time. He smokes cannabis. About 1 ounce a month. Probably does not on a daily basis. Uses it to control pain in his legs from osteoarthritis. He has not been hospitalized for DKA. He started having nausea associated with mid abdominal pain that was generalized last night. Then he had 2 bouts of emesis that had possibly a little bit of bright red blood in them. Last night he was miserable. So this morning he called ambulance to come in. He denies fever, chills. Has no urgency, frequency dysuria. He has never had a colonoscopy so he does not know if he has diverticulosis. He has a lot of nocturia but he associates that with drinking a lot of diet soda not because of his diabetes or prostate. That is unchanged. In the emergency room he was afebrile, blood pressure 161/88. Heart rate 103. 99% on room air. Waiting his abdominal pain at a 6 out of a 10. His abdominal exam was benign. He had normal bowel sounds. CMP had a magnesium of 1.6. Glucose 481. Anion gap 20, BUN 28. Carbon dioxide 17. White cell count was elevated at 14.6. Hemoglobin was stable at 15.8. Emergency room provider repeated the hemoglobin in the face of possible GI bleed and repeat was 15.6. Venous blood gas showed a pH of 7.3. Bicarb 16.9 and low. Base excess -7.8. He received over 2-1/2 L of fluid to treat the glucose and anion gap. CT of the abdomen was not done. Since he had normal bowel sounds and a benign belly. He received 2 doses of insulin. He also received Zofran, and Inapsine. Twice. After several hours, the patient was still nauseated, unable to keep food down and the emergency room provider asked me to bring him in for intractable nausea and vomiting. Possibly due to incipient DKA, or possibly due to hyper emesis from cyclical vomiting. The patient was starting to develop tachycardia while in the emergency room. I reviewed his medicines very quickly with the ER provider. The patient is on Inderal long-acting once a day. I explained the most likely may be having rebound tachycardia and given his propranolol. If that did not work to give him metoprolol IV. When the patient came to the floor his glucose was over 400 and I given 20 units of subcu lispro. History - Past Medical History Cardiovascular: reports: Hypertension, High cholesterol, Other Respiratory: reports: Asthma (Inhalers once every 3 weeks), Pneumonia Neuro: reports: CVA, TIA, Head injury, Migraines, Peripheral neuropathy Endocrine/Autoimmune: reports: Type 2 diabetes GI: reports: GERD, Ulcers, Hemorrhoids : reports: Kidney stones HEENT: reports: Macular degeneration Psych: reports: Depression Musculoskeletal: reports: Osteoarthritis, Chronic back pain Derm: reports: Psoriasis, Other MRSA Hx?: No - Past Surgical History General: reports: Other Ortho: reports: ACL reconstruction, Rotator cuff repair, Arthroscopic surgery Derm: reports: Other - Family & Social History Family History: Mother: , Father: Family History Comment/Other: Dad at age 62 of complications of asbestosis. He had been in the [place]. Mom at age 91. She had diabetes. She took thalidomide when he was in utero. One sister of diabetes complications. One brother is alive. He has no children Living arrangement: At home Social History Notes: He was originally from [facility]. Came to the [place] in [place] when his dad was deployed here, and has never left the [place] since then. Dad has . Mom use to live w him. She used to live in assisted living facility and hated it, that is why she moved in with him. It is very hard to get good nutritional meals with fresh fruits and vegetables and protein. He has not worked since his TIA in July 2013. He used to smoke 1 pack/day and quit in 2002. Started age 10. He rarely drinks (once every 6 mos) He does use cannabis regularly. No other recreational substance abuse. Brother moved in with him recently. He needs a place to live. - Substance History Use: Uses substance without health or social issues: Alcohol, Cannabis - POLST Patient has POLST: No POLST Status: DNR Meds/Allgy - Home Medications Home Medications: Ambulatory Orders Medication Instructions Recorded Confirmed Insulin Aspart [Novolog] 0 - 12 units SUBQ TIDWM 08/11/22 02/07/23 Insulin Detemir [Levemir] 40 unit SUBQ BID 08/11/22 02/07/23 Pantoprazole [Protonix] 40 mg PO DAILY 08/11/22 02/07/23 Apixaban [Eliquis] 5 mg PO BID tab 08/13/22 05/14/23 lisinopriL [Zestril] 30 mg PO DAILY 30 Days #45 tab 08/13/22 05/14/23 Albuterol Sulf [Ventolin Hfa 1 - 2 puffs INH Q4HR PRN 02/07/23 02/07/23 Inhaler] Atorvastatin Calcium [Lipitor] 80 mg PO HS 02/07/23 05/14/23 Ondansetron Odt [Zofran] 4 mg TL Q6H PRN #10 tablet 02/07/23 Propranolol ER [Inderal LA] 80 mg PO DAILY 02/07/23 02/07/23 - Allergies Allergies/Adverse Reactions: Allergies Allergy/AdvReac Type Severity Reaction Status Date / Time acetaminophen [From Tylenol] AdvReac Intermediate Nausea Verified 02/07/23 12:27 hydrocodone [Hydrocodone] AdvReac Intermediate Respiratory Verified 02/07/23 12:27 oxycodone AdvReac Intermediate Anxiety Verified 02/07/23 12:27 fentanyl AdvReac Nausea Verified 02/07/23 12:27 Review of Systems - Constitutional Constitutional: reports: Other (All of this started suddenly yesterday evening. Unknown cause other than his diabetes is out of control). denies: Fatigue, Fever, Chills, Malaise, Weakness, Poor appetite, Diaphoresis - Eyes Eyes: reports: Corrective lenses (But they do not make a difference.), Other (Early cataracts.) - Ears, Nose & Throat Ears, Nose & Throat: reports: Hearing loss, Dentures (Partial). denies: Hearing aids, Nasal pain, Nasal discharge, Sore throat - Cardiovascular Cariovascular: denies: Irregular heart rate, Palpitations, Chest pain, Edema, Exertional dyspnea, Decr. exercise tolerance - Respiratory Respiratory: reports: Wheezing (Rarely from his asthma. Uses inhaler about every 3 weeks.). denies: Cough, Sputum production, SOB at rest, SOB with exertion, Apnea - Gastrointestinal Gastrointestinal: reports: Abdominal pain, Abdominal distention, Nausea, Vomiting, Reflux/heartburn, Other (History of ulcers in the past. Has never had a colonoscopy.). denies: Constipation, Diarrhea - Genitourinary Genitourinary: reports: Frequency (Because he drinks a lot of diet soda). denies: Dysuria, Urgency, Hematuria, Incontinence, Flank pain, Nocturia - Musculoskeletal Musculoskeletal: reports: Joint pain (Knees are really bad. The right knee will go out from underneath him). denies: Muscle pain, Back pain, Muscle aches, Stiffness - Integumentary Integumentary: denies: Rash, Pruritis, Lesions, Dryness - Neurological Neurological: reports: Memory problems (Occasionally. "Senior moment"). denies: General weakness, Focal weakness, Headache, Dizziness, Numbness Prior Level of Functionality: Lives in his own home. Still drives a car. Able to do the light housekeeping chores required. Uses a cane occasionally because of his knee pain. But no walker or wheelchair. Exam - Vital Signs Reviewed Vital Signs: Yes Vital Signs: Vital Signs x48h Temp Pulse Pulse Resp BP BP Pulse Ox 05/14/23 16:00 37.4 C 90 15 124/74 96 05/14/23 13:30 36.5 C 90 20 155/95 H 97 05/14/23 12:38 115 H 18 170/96 H 97 05/14/23 11:00 127 H 18 167/95 H 95 - Physical Exam General Appearance: positive: No acute distress, Alert, Other (6 foot tall white male, 97 kg. Slightly low hoarse voice, disheveled and fatigued appearing but no ongoing emesis or dry heaving) Eyes Bilateral: positive: PERRL, EOMI ENT: positive: Pharynx nml Neck: positive: Thyroid nml, No JVD. negative: Stiff neck Respiratory: positive: No respiratory distress. negative: Wheezes, Rales, Rhonchi Cardiovascular: positive: Regular rate & rhythm Peripheral Pulses: positive: 1+ Abdomen: positive: Non-tender, No organomegaly, Nml bowel sounds, No distention Skin: positive: Warm, Dry Extremities: positive: Full ROM, No pedal edema Neurologic/Psychiatric: positive: Oriented x3, CN's nml (2-12), Motor nml. negative: Sensation nml (neuropathy) Conclusion/Plan - Problem List (1) Nausea & vomiting Conclusion/Plan: The hematemesis is a borderline call. Hemoglobin is stable. He is not hemodynamically unstable. But he still has nausea enough that he cannot keep anything down in the emergency room. He may have cyclical vomiting syndrome but he says that he just does not think that is the case because he would be vomiting all the time. Plan: Observation status IV fluids at 150 cc an hour with 20 of K Zofran, Compazine, Phenergan as needed. Famotidine IV twice daily I am hoping that if I can control his glucose, I can help control some of this nausea and vomiting with abdominal pain. While he does not have DKA, he does have an anion gap and CO2 abnormality. Qualifiers: Vomiting type: hematemesis Qualified Code(s): K92.0 - Hematemesis (2) Hyperglycemia due to type 2 diabetes mellitus Conclusion/Plan: As already stated in HPI I have given him 20 units to have her his glucose of over 400 as he hits the floor. I will resume his usual Lantus from home with clear liquid diet at this time. Once he is able to keep food down, I will advance his diet. I am hoping to discharge him tomorrow if he is able to keep food down. 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 If he does not like the clinic on [address], then he does not like the clinic. Unless he plans on getting himself a new primary care provider in [place] with [facility], he really needs to go establish himself. He is planning on going to [place]. I told him that if he calls now maybe he can get an appointment in August or September. He says he will try and move forward with that. (4) HTN (hypertension) Conclusion/Plan: Resume Inderal LA 80 mg daily. Qualifiers: Hypertension type: primary hypertension Qualified Code(s): I10 - Essential (primary) hypertension - Lab Results Lab results reviewed: Yes Fish Bones: 05/14/23 06:59 05/14/23 12:51 Core Measures - Anticipated LOS I expect patient to be DC'd or transferred within 96 hours.: Yes - DVT/VTE - Prophylaxis VTE/DVT Prophylaxis med ordered at admit?: Yes
[2023-05-14] MEDS: FAMOTIDINE 20 MG/2 ML VIAL IVP SCH (22:16)
[2023-05-14] MEDS: INSULIN GLARGINE-YFGN 300 UNIT/3 ML PEN SUBQ SCH (22:16)
[2023-05-15] MEDS: ONDANSETRON ODT 4 MG TABLET TL PRN (04:14)
[2023-05-15 06:23] LABS: BASOPHILS # (AUTO) 0.1 10^3/uL (0.0-0.1); BASOPHILS % (AUTO) 0.5 %; EOSINOPHILS # (AUTO) 0.1 10^3/uL (0.0-0.7); EOSINOPHILS % (AUTO) 0.3 %; HCT - HEMATOCRIT 41.6 % (42.0-52.0); HGB - HEMOGLOBIN 13.9 g/dL (14.0-18.0); LYMPHOCYTES # (AUTO) 2.1 10^3/uL (1.5-3.5); LYMPHOCYTES % (AUTO) 11.1 %; MEAN CORPUSCULAR HEMOGLOBIN 28.9 pg (27.0-31.0); MEAN CORPUSCULAR HGB CONC 33.4 g/dL (32.0-36.0); MEAN CORPUSCULAR VOLUME 86.5 fL (80.0-94.0); MEAN PLATELET VOLUME 10.8 fL (7.4-11.4); MONOCYTES # (AUTO) 1.1 10^3/uL (0.0-1.0); MONOCYTES % (AUTO) 6.2 %; NEUTROPHILS # (AUTO) 15.1 10^3/uL (1.5-6.6); NEUTROPHILS % (AUTO) 81.5 %; PLT - PLATELET COUNT 223 10^3/uL (130-450); RED BLOOD COUNT 4.81 10^6/uL (4.70-6.10); RED CELL DISTRIBUTION WIDTH 12.4 % (12.0-15.0); WHITE BLOOD COUNT 18.5 x10^3/uL (4.8-10.8)
[2023-05-15 07:02] LABS: CALCIUM 8.8 mg/dL (8.5-10.3); CREATININE 0.7 mg/dL (0.6-1.3); POTASSIUM 4.2 mmol/L (3.5-4.5)
[2023-05-15 07:27] LABS: ESTIMATED AVERAGE GLUCOSE 361 mg/dL (70-100); HEMOGLOBIN A1c% 14.2 % (4.27-6.07)
[2023-05-15] MEDS: ENOXAPARIN 40 MG/0.4 ML SYRINGE SUBQ SCH (08:47)
[2023-05-15] MEDS: PROPRANOLOL ER 80 MG CAPSULE PO SCH (11:14)
--- NOTE | 2023-05-15 13:19 | PHARMACY PROGRESS NOTE ---
- Best Possible Medication History Admit Date and Time: 05/14/23 1220 Processed by: Pharmacy Medications reviewed in ED?: No Medication History completed: No Patient Interview: Pt unable to participate Secondary Source(s): Insurance records (x2 attempts to interview patient. Med rec based off of fill hx.) As the person ultimately responsible for medication therapy, providers are able to order a medication from an existing home medication list in [facility] via the "Reconcile Routine" prior to Confirmation of that medication by customer support specialist. Such practice is discouraged except when the physician, in their clinical ju dgment, deems that a medical need exists for a medication without regard to previous use.
--- NOTE | 2023-05-15 20:53 | PROVIDER PROGRESS NOTE ---
Progress Note May 15, 2023 8:51 PM Patient was placed in observation status for intractable nausea and vomiting. I started him on aggressive IV fluids for hydration, gave him Zofran, Compazine and Compazine seem to work the best. Treated his sugars aggressively and sugar was 235 this morning and 175 before lunchtime. A1c is 14.2%. He did try and eat breakfast this morning but then began having dry heaves. He was only able to tolerate liquids at lunchtime. At dinner he has had only a couple of bites of food and is really not able to eat. Exam has a temperature of 37.2, heart rate 80, blood pressure 148/85, respirations 16, 97% on room air 6 foot tall, 97 kg white male in no acute distress. Just very fatigued. Comfortable. No emesis or dry heaving in my presence. Lungs are clear Regular rate and rhythm Abdomen vaguely uncomfortable with palpation but it is a diffuse ache. But he is not acutely or severely symptomatic. No peritoneal findings. Extremities without edema Alert and oriented to person place and time and situation and able to get himself out of bed and go to the bathroom. Conclusion/Plan - Problem List (1) Nausea & vomiting Conclusion/Plan: I felt that the hematemesis was a red loya. I do not think he was having a GI bleed. He has not had any further hematemesis but continues to have nausea and dry heaving. Really not able to keep a regular diet down yet. I will transition him to inpatient status. Continue to treat him with antiemetics, IV fluids, and hopefully he can be discharged tomorrow morning. Qualifiers: Vomiting type: hematemesis Qualified Code(s): K92.0 - Hematemesis (2) Hyperglycemia due to type 2 diabetes mellitus Conclusion/Plan: His anion gap is closed. Glucose is down.I have resumed his home medications. 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 If he does not like the clinic on [address], then he does not like the clinic. Unless he plans on getting himself a new primary care provider in [facility], he really needs to go establish himself. He is planning on going to [place]. I told him that if he calls now maybe he can get an appointment in August or September. He says he will try and move forward with that. (4) HTN (hypertension) Conclusion/Plan: Resume Inderal LA 80 mg daily. Qualifiers: Hypertension type: primary hypertension Qualified Code(s): I10 - Essential (primary) hypertension
[2023-05-16] MEDS: PROCHLORPERAZINE 10 MG/2 ML VIAL IVP PRN (00:59)
[2023-05-16 06:06] LABS: BASOPHILS # (AUTO) 0.1 10^3/uL (0.0-0.1); EOSINOPHILS # (AUTO) 0.2 10^3/uL (0.0-0.7); EOSINOPHILS % (AUTO) 1.3 %; HCT - HEMATOCRIT 40.4 % (42.0-52.0); HGB - HEMOGLOBIN 13.2 g/dL (14.0-18.0); LYMPHOCYTES # (AUTO) 2.8 10^3/uL (1.5-3.5); LYMPHOCYTES % (AUTO) 22.5 %; MEAN CORPUSCULAR HEMOGLOBIN 28.9 pg (27.0-31.0); MEAN CORPUSCULAR HGB CONC 32.7 g/dL (32.0-36.0); MEAN CORPUSCULAR VOLUME 88.4 fL (80.0-94.0); MEAN PLATELET VOLUME 10.5 fL (7.4-11.4); MONOCYTES % (AUTO) 8.2 %; NEUTROPHILS # (AUTO) 8.3 10^3/uL (1.5-6.6); NEUTROPHILS % (AUTO) 66.6 %; PLT - PLATELET COUNT 205 10^3/uL (130-450); RED BLOOD COUNT 4.57 10^6/uL (4.70-6.10); RED CELL DISTRIBUTION WIDTH 12.2 % (12.0-15.0); WHITE BLOOD COUNT 12.5 x10^3/uL (4.8-10.8)
[2023-05-16 06:37] LABS: CALCIUM 8.3 mg/dL (8.5-10.3); CREATININE 0.6 mg/dL (0.6-1.3)
--- NOTE | 2023-05-16 11:00 | Discharge Plan ---
Discharge Plan Problem Reviewed?: Yes Disposition: Home, Self Care Condition: Good Prescriptions: Pantoprazole [Protonix] 40 mg PO DAILY #30 tab Diet: Diabetic Activity Restrictions: Activity as Tolerated Shower Restrictions: No Driving Restrictions: No Health Concerns: You came to our emergency room because you are having generalized abdominal pain. And this was associated with severe nausea and vomiting. You think that you may have had a tinge of pink with the vomiting. This is started the night before and in our emergency room, the morning after, we find her to have an elevated glucose, and intractable nausea and vomiting. Another thought to consider is that you do pot on a regular basis. Doing marijuana on a regular basis can cause cyclical vomiting. You feel that it is not cyclical vomiting. It took us a couple of days but we hydrated you with intravenous fluids. We gave you numerous doses of antinausea medication. He was slowly able to start keeping food down. You still have some vague nausea but are much better. You are not adequately hydrated. And your sugar is back down to normal. One of the problems you described in your life is not being able to see your primary care provider on a regular basis. Plan of Treatment: 1. I would strongly suggest that you establish yourself with a primary care provider that you can get along with. A lot of the relationship between you and the doctors office is mutual responsibility. There are certain things that you need to do to follow through. And there are certain things the providers office needs to do to follow through. Make sure that you are following your part. In one of the things you do is make regular visits every 3 months. Make sure that you are checking your sugars on a daily basis. You need to collect the data of your sugars and put it into a small diary that you can then show your primary care provider what your sugars are doing. That is the only way your primary care provider can adjust your insulin to make sure you are on the right dose. 2. Your diabetes is uncontrolled. Goal for a glycosylated hemoglobin (which measures how controlled her sugar was were for the last 3 months, is 7% or less. You were 14.2% which means that your glucose, on average, is greater than 350 on a regular basis. Unfortunately this will lead to complications. It would lead to further hardening of the arteries which leads to heart attack, stroke, loss of fingers and toes. It leads to loss of sensation in your hands and feet with severe neuropathy. It starts to cause vascular malformations on the back of your eyeball called macular degeneration and eventual blindness. It can also lead to severe kidney failure and dialysis. Please control your diabetes or your lifespan will be significantly shortened. 3. I would like to suggest that you stop smoking marijuana for at least 6 months. Care Goals: To remain independent with regards to activities of daily living for as long as possible. And to be in your own home for as long as possible. All of this can be accomplished by making sure your diabetes is controlled. Assessment: Patient is alert and oriented to person, place, time and situation. No Smoking: If you smoke, Please STOP! Call for help. Follow-up with: Idalmis Fierro ARNP [Provider Admit Priv/Credential] -
--- NOTE | 2023-05-16 11:18 | DISCHARGE SUMMARY ---
Discharge Summary Admit Date: 05/14/23 Discharge Date: 05/16/23 Discharging Provider: Marian Rg MD Primary Care Provider: CELINE Arrington Code Status: Attempt Resuscitation Condition at Discharge: Good Discharge Disposition: 01 Home, Self Care - DIAGNOSES Discharge Diagnoses with Status of Each Condition: 1. Nausea and vomiting 2. Hyperglycemia due to type 2 diabetes mellitus 3. Does not have a primary care provider 4. Hypertension 5. Chronic cannabis use 6. Chronic pain - HPI History of Present Illness: Patient is an insulin-dependent diabetic that does not see a primary care provider right now. He says it had to do with logistics. That they completely messed up his last glucometer and tocometer strip orders. So he is opted not to return to that office. But he has enough insulin and syringes to last him a long time. He smokes cannabis. About 1 ounce a month. Probably does not on a daily basis. Uses it to control pain in his legs from osteoarthritis. He has not been hospitalized for DKA. He started having nausea associated with mid abdominal pain that was generalized last night. Then he had 2 bouts of emesis that had possibly a little bit of bright red blood in them. Last night he was miserable. So this morning he called ambulance to come in. He denies fever, chills. Has no urgency, frequency dysuria. He has never had a colonoscopy so he does not know if he has diverticulosis. He has a lot of nocturia but he associates that with drinking a lot of diet soda not because of his diabetes or prostate. That is unchanged. In the emergency room he was afebrile, blood pressure 161/88. Heart rate 103. 99% on room air. Waiting his abdominal pain at a 6 out of a 10. His abdominal exam was benign. He had normal bowel sounds. CMP had a magnesium of 1.6. Glucose 481. Anion gap 20, BUN 28. Carbon dioxide 17. White cell count was elevated at 14.6. Hemoglobin was stable at 15.8. Emergency room provider repeated the hemoglobin in the face of possible GI bleed and repeat was 15.6. Venous blood gas showed a pH of 7.3. Bicarb 16.9 and low. Base excess -7.8. He received over 2-1/2 L of fluid to treat the glucose and anion gap. CT of the abdomen was not done. Since he had normal bowel sounds and a benign belly. He received 2 doses of insulin. He also received Zofran, and Inapsine. Twice. After several hours, the patient was still nauseated, unable to keep food down and the emergency room provider asked me to bring him in for intractable nausea and vomiting. Possibly due to incipient DKA, or possibly due to hyper emesis from cyclical vomiting. The patient was starting to develop tachycardia while in the emergency room. I reviewed his medicines very quickly with the ER provider. The patient is on Inderal long-acting once a day. I explained the most likely may be having rebound tachycardia and given his propranolol. If that did not work to give him metoprolol IV. When the patient came to the floor his glucose was over 400 and I given 20 units of subcu lispro. History - Past Medical History Cardiovascular: reports: Hypertension, High cholesterol, Other Respiratory: reports: Asthma (Inhalers once every 3 weeks), Pneumonia Neuro: reports: CVA, TIA, Head injury, Migraines, Peripheral neuropathy Endocrine/Autoimmune: reports: Type 2 diabetes GI: reports: GERD, Ulcers, Hemorrhoids : reports: Kidney stones HEENT: reports: Macular degeneration Psych: reports: Depression Musculoskeletal: reports: Osteoarthritis, Chronic back pain Derm: reports: Psoriasis, Other MRSA Hx?: No - Past Surgical History General: reports: Other Ortho: reports: ACL reconstruction, Rotator cuff repair, Arthroscopic surgery Derm: reports: Other - HOSPITAL COURSE Hospital Course: The patient was started on IV fluids and antiemetics. After 24 hours I reassessed him for discharge. We had attempted to feed him lunch and he was able to keep clear liquids down. But at dinnertime he began dry heaving and could not keep solid food down. As such I kept him another night, and on the morning of discharge was able to keep milk down, but very little solid food. He thinks that he can go home as long as he keeps clears down or milk down. I have asked him to stop smoking pot and he does not think part is the cause of this. I have also asked him to please see his primary care provider on a regular b asis. No less than every 3 months to see if he can get his A1c below the 14% and currently is at. I have asked him to keep a daily diary of his glucose checks so that can help his primary care provider adjust his insulin dosing. He is discharged in stable condition. Temperature is 36.7. Heart rate 75. Blood pressure 155/90. Respirations 18. 98% on room air. He has chronic pain in his back and it is a 4 out of a 10. Lungs are clear. Regular rate and rhythm. Abdomen is soft, nontender with hypoactive bowel sounds. No dry heaving. Extremities are without any edema. He stands without assist from bed. Is able to go to the bathroom without assist. This document was made in part using voice recognition software. While efforts are made to proofread this document, sound alike and grammatical errors may occur. - ALLERGIES Allergies/Adverse Reactions: Allergies Allergy/AdvReac Type Severity Reaction Status Date / Time acetaminophen [From Tylenol] AdvReac Intermediate Nausea Verified 02/07/23 12:27 hydrocodone [Hydrocodone] AdvReac Intermediate Respiratory Verified 02/07/23 12:27 oxycodone AdvReac Intermediate Anxiety Verified 02/07/23 12:27 fentanyl AdvReac Nausea Verified 02/07/23 12:27 - MEDICATIONS Home Medications: Ambulatory Orders Medication Instructions Recorded Confirmed Insulin Aspart [Novolog] 0 - 12 units SUBQ TIDWM 08/11/22 02/07/23 Insulin Detemir [Levemir] 40 unit SUBQ BID 08/11/22 02/07/23 Apixaban [Eliquis] 5 mg PO BID tab 08/13/22 05/14/23 lisinopriL [Zestril] 30 mg PO DAILY 30 Days #45 tab 08/13/22 05/14/23 Albuterol Sulf [Ventolin Hfa 1 - 2 puffs INH Q4HR PRN 02/07/23 02/07/23 Inhaler] Atorvastatin Calcium [Lipitor] 80 mg PO HS 02/07/23 05/14/23 Ondansetron Odt [Zofran Odt] 4 mg TL Q6H PRN #10 tablet 02/07/23 Propranolol ER [Inderal LA] 80 mg PO DAILY 02/07/23 05/15/23 Pantoprazole [Protonix] 40 mg PO DAILY #30 tab 05/16/23 - LABS Result Diagrams: 05/16/23 05:35 05/16/23 05:35
[2023-05-16 12:18] VITALS: BP 155/90; O2SAT 98
== END 2023-05-16 13:30 | disposition home or self-care (01) | DRG 392 ==
LOC: EDUNIT# → ED 04:56 → UNDOADMOB 12:20 → MS2 12:20 → INTOOBSV 20:50 → OBSVTOIN 20:50 → MS2 05-15 20:50 → OBSVTOIN 05-15 20:50 → UNDODISIN 05-16 13:30
PROVIDERS: ADMIT Specialist; ATTEND Specialist
DX: K92.0 Hematemesis (principal); R11.2 Nausea with vomiting, unspecified; E11.65 Type 2 diabetes mellitus with hyperglycemia; Z79.4 Long term (current) use of insulin; I10 Essential (primary) hypertension; E78.00 Pure hypercholesterolemia, unspecified; G89.29 Other chronic pain; R00.0 Tachycardia, unspecified; J45.909 Unspecified asthma, uncomplicated; E11.42 Type 2 diabetes mellitus with diabetic polyneuropathy; Z86.73 Personal history of transient ischemic attack (TIA), and cerebral infarction without residual deficits; K21.9 Gastro-esophageal reflux disease without esophagitis; Z87.891 Personal history of nicotine dependence; Z66 Do not resuscitate; R35.0 Frequency of micturition; E86.0 Dehydration; M19.90 Unspecified osteoarthritis, unspecified site
CPT/HCPCS: 36415; 80048; 80053; 80306; 81001; 82009; 82803; 83036; 83690; 83735; 85014; 85018; 85025; 86850; 86900; 86901; 87633; 93005; 96361; 96372; 96374; 96375; 96376; 99285; A9270; G0378; G0480; J1650; J1815; Q0162; 81003; 82077; 87086; 99284

== ENCOUNTER 2023-06-27 16:30 | Outpatient (CLI) | payer MEDICARE, MEDICAID | END 2023-06-27 22:50 | disposition critical access hospital (66) | LOC: EMS 16:30 | DX: K92.0 Hematemesis (principal); R10.11 Right upper quadrant pain; E11.65 Type 2 diabetes mellitus with hyperglycemia; Z79.4 Long term (current) use of insulin | CPT/HCPCS: A0425; A0427 ==

== ENCOUNTER 2023-06-27 17:03 | Emergency (ER) | payer MEDICARE, MEDICAID ==
[2023-06-27 17:21] LABS: BASOPHILS # (AUTO) 0.1 10^3/uL (0.0-0.1); BASOPHILS % (AUTO) 0.4 %; EOSINOPHILS % (AUTO) 0.1 %; HCT - HEMATOCRIT 47.7 % (42.0-52.0); HGB - HEMOGLOBIN 15.9 g/dL (14.0-18.0); LYMPHOCYTES # (AUTO) 1.5 10^3/uL (1.5-3.5); LYMPHOCYTES % (AUTO) 10.4 %; MEAN CORPUSCULAR HEMOGLOBIN 27.9 pg (27.0-31.0); MEAN CORPUSCULAR HGB CONC 33.3 g/dL (32.0-36.0); MEAN CORPUSCULAR VOLUME 83.8 fL (80.0-94.0); MEAN PLATELET VOLUME 10.8 fL (7.4-11.4); MONOCYTES # (AUTO) 0.5 10^3/uL (0.0-1.0); MONOCYTES % (AUTO) 3.7 %; NEUTROPHILS % (AUTO) 84.8 %; PLT - PLATELET COUNT 291 10^3/uL (130-450); RED BLOOD COUNT 5.69 10^6/uL (4.70-6.10); WHITE BLOOD COUNT 14.2 x10^3/uL (4.8-10.8)
[2023-06-27] MEDS: DROPERIDOL 5 MG/2 ML VIAL IVP STA (17:22)
[2023-06-27] MEDS: SODIUM CHLORIDE 0.9% 1,000 ML IV STA ×3 (17:22→20:40)
[2023-06-27 17:23] LABS: VBG BASE EXCESS 0.6 mmol/L (-2 - +2); VBG HCO3 21.6 mmol/L (23-28); VBG OXYGEN SATURATION 62.7 % (60-80); VBG PCO2 26.8 mmHg (41-51); VBG PH 7.525 (7.31-7.41); VBG PO2 27.8 mmHg (25-47); VBG TOTAL CO2 22.5 mmol/L (24-29)
[2023-06-27 17:31] LABS: KETONES, SERUM (ACETEST) SMALL (NEGATIVE)
[2023-06-27 17:42] LABS: LIPASE 62 U/L (11-82)
[2023-06-27 17:45] LABS: ALBUMIN 4.1 g/dL (3.2-5.5); ALBUMIN/GLOBULIN RATIO 1.1 (1.0-2.2); ALKALINE PHOSPHATASE 77 IU/L (42-121); ALT ALANINE AMINOTRANSFERASE 21 IU/L (10-60); AST ASPARTATE AMINOTRANSFERASE 16 IU/L (10-42); BILIRUBIN,TOTAL 0.8 mg/dL (0.2-1.0); BUN - BLOOD UREA NITROGEN 36 mg/dL (6-20); CALCIUM 10.4 mg/dL (8.5-10.3); CARBON DIOXIDE - CO2 23 mmol/L (21-32); CHLORIDE 96 mmol/L (101-111); CREATININE 1.1 mg/dL (0.6-1.3); GFR - MDRD 67 (>89); GLUCOSE 412 mg/dL (74-104); POTASSIUM 4.6 mmol/L (3.5-4.5); SODIUM 135 mmol/L (135-145); TOTAL PROTEIN 7.7 g/dL (6.4-8.9)
[2023-06-27] MEDS: INSULIN REGULAR HUMAN 300 UNIT/3 ML VIAL SUBQ STA (17:58)
[2023-06-27] MEDS: LIDOCAINE VISCOUS 2% 15 ML UDC MM STA (18:52)
[2023-06-27] MEDS: SUCRALFATE 1 GM/10 ML UDC PO STA (18:52)
[2023-06-27] MEDS: FAMOTIDINE 20 MG TABLET PO STA (18:52)
[2023-06-27] MEDS: MAG HYDROX/AL HYDROX/SIMETH 30 ML UDC PO STA (18:52)
[2023-06-27] MEDS ORDERED: iohexoL-300 100 ML VIAL ONE (20:09)
[2023-06-27] MEDS: HYDROmorphone 1 MG/ML CARPUJECT IVP STA (20:41)
[2023-06-27] MEDS: LORazepam 2 MG/ML VIAL IVP STA (20:41)
[2023-06-27] MEDS: iohexoL-300 100 ML VIAL IVP ONE (21:09)
--- NOTE | 2023-06-27 21:24 | ED Physician Documentation ---
History of Present Illness - Stated complaint Stated Complaint: VOMITING - Chief complaint Chief Complaint: General - History obtained from History obtained from: Patient, EMS - History of Present Illness Timing: Yesterday Pain level max: 7 Pain level now: 7 - Additonal information Additional information: Patient is a 63-year-old male, diabetic, who presents to the emergency department with increasing blood sugars, nausea and vomiting since yesterday. Complains of epigastric abdominal pain. He states that today there was a small amount of bright red blood in his emesis. He states that he does use marijuana regularly. He states he last used a few days ago. Has had similar symptoms to this in the past. Has been hospitalized for vomiting. He states he has not had a colonoscopy. No recent travel, no recent antibiotics. No fevers. No chills. States that he does not drink. Nothing makes it better or worse. The abdominal pain is epigastric. Nonradiating. Nothing seems to make the pain better or worse. Review of Systems Constitutional: denies: Fever, Chills Throat: denies: Sore throat Cardiac: denies: Chest pain / pressure, Palpitations Respiratory: denies: Dyspnea, Cough GI: reports: Nausea, Vomiting. denies: Constipation, Diarrhea, Bloody / black stool : denies: Dysuria, Frequency, Hesitancy Skin: denies: Rash Musculoskeletal: denies: Neck pain, Back pain Neurologic: denies: Headache PD PAST MEDICAL HISTORY - Past Medical History Past Medical History: Yes Cardiovascular: Hypertension, High cholesterol, Other Respiratory: Asthma, Pneumonia Neuro: CVA, TIA, Head injury, Migraines, Peripheral neuropathy Endocrine/Autoimmune: Type 2 diabetes GI: GERD, Ulcers, Hemorrhoids : Kidney stones HEENT: Macular degeneration Psych: Depression Musculoskeletal: Osteoarthritis, Chronic back pain Derm: Psoriasis, Other - Past Surgical History Past Surgical History: Yes General: Other Ortho: ACL reconstruction, Rotator cuff repair, Arthroscopic surgery Derm: Other - Present Medications Home Medications: Ambulatory Orders Medication Instructions Recorded Confirmed Insulin Aspart [Novolog] 0 - 12 units SUBQ TIDWM 08/11/22 02/07/23 Insulin Detemir [Levemir] 40 unit SUBQ BID 08/11/22 02/07/23 Apixaban [Eliquis] 5 mg PO BID tab 08/13/22 05/14/23 lisinopriL [Zestril] 30 mg PO DAILY 30 Days #45 tab 08/13/22 05/14/23 Albuterol Sulf [Ventolin Hfa 1 - 2 puffs INH Q4HR PRN 02/07/23 02/07/23 Inhaler] Atorvastatin Calcium [Lipitor] 80 mg PO HS 02/07/23 05/14/23 Ondansetron Odt [Zofran Odt] 4 mg TL Q6H PRN #10 tablet 02/07/23 Propranolol ER [Inderal LA] 80 mg PO DAILY 02/07/23 05/15/23 Pantoprazole [Protonix] 40 mg PO DAILY #30 tab 05/16/23 Promethazine [Phenergan] 25 mg PO Q6H PRN #10 tab 06/27/23 predniSONE [Deltasone] 10 mg PO [id number] #42 tab 06/27/23 - Allergies Allergies/Adverse Reactions: Allergies Allergy/AdvReac Type Severity Reaction Status Date / Time acetaminophen [From Tylenol] AdvReac Intermediate Nausea Verified 06/27/23 17:13 hydrocodone [Hydrocodone] AdvReac Intermediate Respiratory Verified 06/27/23 17:13 oxycodone AdvReac Intermediate Anxiety Verified 06/27/23 17:13 fentanyl AdvReac Nausea Verified 06/27/23 17:13 - Social History Does the pt smoke?: No Smoking Status: Never smoker Does the pt drink ETOH?: Yes Does the pt have substance abuse?: No - Immunizations Immunizations are current?: Yes - POLST Patient has POLST: No POLST Status: DNR PD ED PE NORMAL - Vitals Vital signs reviewed: Yes - General General: Alert and oriented X 3, No acute distress - HEENT HEENT: Moist mucous membranes - Neck Neck: Supple, no meningeal sign - Cardiac Cardiac: RRR, Strong equal pulses - Respiratory Respiratory: No respiratory distress, Clear bilaterally - Abdomen Abdomen: Soft, Non distended, Other (Mild diffuse tenderness to palpation without peritoneal signs.) - Back Back: No spinal TTP - Derm Derm: Warm and dry - Extremities Extremities: No edema, No calf tenderness / cord - Neuro Neuro: Alert and oriented X 3 - Psych Psych: Normal mood, Normal affect Results - Vitals Vitals: Vital Signs - 24 hr 06/27/23 06/27/23 06/27/23 17:13 17:16 19:16 Temperature 37.0 C Heart Rate 115 H 112 H 123 H Respiratory 18 22 24 Rate Blood Pressure 155/98 H 184/104 H 176/114 H O2 Saturation 99 06/27/23 06/27/23 21:00 22:10 Temperature Heart Rate 103 H 101 H Respiratory 17 16 Rate Blood Pressure 105/76 115/81 H O2 Saturation 93 97 Oxygen O2 Source [Without Activity] Room air O2 Source Room air - Labs Labs: Laboratory Tests 06/27/23 06/27/23 06/27/23 17:15 17:15 17:15 WBC 14.2 H RBC 5.69 Hgb 15.9 Hct 47.7 MCV 83.8 MCH 27.9 MCHC 33.3 RDW 12.0 Plt Count 291 MPV 10.8 Neut # (Auto) 12.0 H Lymph # (Auto) 1.5 [place] # (Auto) 0.5 Eos # (Auto) 0.0 Baso # (Auto) 0.1 Absolute Nucleated RBC 0.00 Nucleated RBC % 0.0 VBG pH 7.525 H VBG pCO2 26.8 L VBG pO2 27.8 VBG HCO3 21.6 L VBG Total CO2 22.5 L VBG O2 Saturation 62.7 VBG Base Excess 0.6 Sodium 135 Potassium 4.6 H Chloride 96 L Carbon Dioxide 23 Anion Gap 16.0 H BUN 36 H Creatinine 1.1 Estimated GFR (MDRD) 67 L Glucose 412 H Calcium 10.4 H Total Bilirubin 0.8 AST 16 ALT 21 Alkaline Phosphatase 77 Total Protein 7.7 Albumin 4.1 Globulin 3.6 Albumin/Globulin Ratio 1.1 Lipase 62 Urine Color Urine Clarity Urine pH Ur Specific [place] Urine Protein Urine Glucose (UA) Urine Ketones Urine Occult Blood Urine Nitrite Urine Bilirubin Urine Urobilinogen Ur Leukocyte Esterase Urine RBC Urine WBC Ur Squamous Epith Cells Urine Bacteria Ur Microscopic Review Urine Culture Comments Serum Ketones SMALL H 06/27/23 20:30 WBC RBC Hgb Hct MCV MCH MCHC RDW Plt Count MPV Neut # (Auto) Lymph # (Auto) [place] # (Auto) Eos # (Auto) Baso # (Auto) Absolute Nucleated RBC Nucleated RBC % VBG pH VBG pCO2 VBG pO2 VBG HCO3 VBG Total CO2 VBG O2 Saturation VBG Base Excess Sodium Potassium Chloride Carbon Dioxide Anion Gap BUN Creatinine Estimated GFR (MDRD) Glucose Calcium Total Bilirubin AST ALT Alkaline Phosphatase Total Protein Albumin Globulin Albumin/Globulin Ratio Lipase Urine Color YELLOW Urine Clarity CLEAR Urine pH 7.5 Ur Specific [place] 1.015 Urine Protein 100 H Urine Glucose (UA) >=1000 H Urine Ketones 15 H Urine Occult Blood TRACE-INTA Urine Nitrite NEGATIVE Urine Bilirubin NEGATIVE Urine Urobilinogen 0.2 (NORMAL) Ur Leukocyte Esterase NEGATIVE Urine RBC 0-5 Urine WBC 0-3 Ur Squamous Epith Cells NONE SEEN Urine Bacteria None Seen Ur Microscopic Review INDICATED Urine Culture Comments NOT INDICATED Serum Ketones - Rads (name of study) abd/pelvis CT Relevant Findings:: Final report received, See rad report PD Medical Decision Making - ED course Complexity details: reviewed results, re-evaluated patient, considered differential, d/w patient ED course: 63-year-old male with nausea, vomiting and hyperglycemia. He was given droperidol and nausea and vomiting resolved. A single dose of Dilaudid resolved his abdominal pain. CT scan was performed and shows possible colitis with diffuse thickening of his cecum and especially the transverse colon. This is similar to a prior CT scan. Does not have any evidence of infectious colitis, suspect that this may be inflammatory colitis. He states that he has never had a colonoscopy and I recommended that he have 1 to exclude things such as inflammatory bowel disease and malignancies. Patient is tolerating p.o. without difficulty and is comfortable going home at this time. Will prescribe nausea medication for home. Will also trial him on steroids to see if this improves his symptoms. Patient counseled regarding signs and symptoms for which I believe and urgent re-evaluation would be necessary. Patient with good understanding of and agreement to plan and is comfortable going home at this time This document was made in part using voice recognition software. While efforts are made to proofread this document, sound alike and grammatical errors may occur. Departure - Departure Disposition: Home, Self Care Clinical Impression: Hyperglycemia due to diabetes mellitus, Colitis Vomiting Qualifiers: Vomiting type: unspecified Nausea presence: with nausea Qualified Code(s): R1 1.2 - Nausea with vomiting, unspecified Condition: Good Instructions: ED Diet Vomiting Diarrhea Follow-Up: your,doctor in 1 week [Other] Surgical Care [Provider Group] Shiva Orta MD [Provider Admit Priv/Credential] - Prescriptions: predniSONE [Deltasone] 10 mg PO [id number] #42 tab Promethazine [Phenergan] 25 mg PO Q6H PRN #10 tab PRN Reason: Nausea / Vomiting Comments: Your prescriptions were sent to [facility] in [place]. Please make sure you are drinking plenty of fluids at home. You have circumferential wall thickening in your colon and cecum, this was present on a prior CT scan as well. This raises the possibility of an inflammatory bowel disease such as ulcerative colitis. It is recommended that you have a colonoscopy performed to exclude any types of cancer or inflammatory bowel disease. We will trial you on a steroid to see if this helps your symptoms. The steroid will increase your blood sugar, so make sure that you are checking it at home and adjusting your insulin. Please return if you worsen. PROCEDURE: Abdomen/Pelvis W INDICATIONS: abd pain, vomiting CONTRAST: 100ml omni 300 TECHNIQUE: After the administration of intravenous contrast, a CT scan of the abdomen and pelvis was performed. Images were recorded and evaluated at appropriate window settings. Reformats: coronal and sagittal. For radiation dose reduction, the following was used: automated exposure control, adjustment of mA and/or kV according to patient size. COMPARISON: 08/10/2022. FINDINGS: Image quality: Diagnostic. Lower chest: Lung bases are clear. Bilateral hernia. Heart size is normal. Liver: Hepatic steatosis. Gallbladder and biliary tree: No radiopaque stones or wall thickening. No biliary dilation. Spleen: No splenomegaly. Pancreas: No pancreatic ductal dilation. Adrenals: No adrenal nodule. Kidneys and ureters: No hydronephrosis. No renal cystic lesion which requires follow up. No solid mass. Stomach, bowel and peritoneum: There is circumferential wall thickening of the cecum and ascending colon. Mild wall thickening of the proximal transverse colon. Moderate amount of fecal material seen in the rectum. No small bowel distention or acute inflammatory changes. Lymph nodes: No central or retroperitoneal adenopathy. Vessels: Atherosclerotic calcifications of the abdominal aorta with stable infrarenal abdominal aortic aneurysm measuring up to 3.6 cm. PELVIS Reproductive organs: Unremarkable. Bladder: No abnormal wall thickening, accounting for underdistention. Pelvic lymph nodes: No pelvic adenopathy by size criteria. Bones: No aggressive osseous abnormality. Other: Small fat-containing umbilical hernia and right fat-containing inguinal hernia without acute inflammatory changes. IMPRESSION: Diffuse wall thickening of the cecum, ascending colon and proximal transverse colon likely related to colitis either infectious or inflammatory etiology. Stable appearance of infrarenal abdominal aortic aneurysm measuring up to 3.6 cm in diameter. Other chronic findings as above Forms: PCP List Discharge Date/Time: 06/27/23 22:25
[2023-06-27 21:35] LABS: BILIRUBIN,URINE NEGATIVE (NEGATIVE); GLUCOSE, URINE (UA) >=1000 mg/dL (NEGATIVE); KETONES,URINE (UA) 15 mg/dL (NEGATIVE); LEUKOCYTE ESTERASE, URINE NEGATIVE (NEGATIVE); NITRITE,URINE NEGATIVE (NEGATIVE); OCCULT BLOOD,URINE TRACE-INTA (NEGATIVE); PH,URINE 7.5 PH (5.0-7.5); PROTEIN,URINE 100 mg/dL (NEGATIVE); UROBILINOGEN,URINE 0.2 (NORMAL) E.U./dL (NORMAL)
[2023-06-27 21:36] LABS: CLARITY,URINE CLEAR (CLEAR)
--- NOTE | 2023-06-27 21:37 | CT Report ---
PROCEDURE: Abdomen/Pelvis W INDICATIONS: abd pain, vomiting CONTRAST: 100ml omni 300 TECHNIQUE: After the administration of intravenous contrast, a CT scan of the abdomen and pelvis was performed. Images were recorded and evaluated at appropriate window settings. Reformats: coronal and sagittal. F or radiation dose reduction, the following was used: automated exposure control, adjustment of mA and /or kV according to patient size. COMPARISON: 08/10/2022. FINDINGS: Image quality: Diagnostic. Lower chest: Lung bases are clear. Bilateral hernia. Heart size is normal. Liver: Hepatic steatosis. Gallbladder and biliary tree: No radiopaque stones or wall thickening. No biliary dilation. Spleen: No splenomegaly. Pancreas: No pancreatic ductal dilation. Adrenals: No adrenal nodule. Kidneys and ureters: No hydronephrosis. No renal cystic lesion which requires follow up. No solid mas s. Stomach, bowel and peritoneum: There is circumferential wall thickening of the cecum and ascending co argelia. Mild wall thickening of the proximal transverse colon. Moderate amount of fecal material seen in the rectum. No small bowel distention or acute inflammatory changes. Lymph nodes: No central or retroperitoneal adenopathy. Vessels: Atherosclerotic calcifications of the abdominal aorta with stable infrarenal abdominal aorti c aneurysm measuring up to 3.6 cm. PELVIS Reproductive organs: Unremarkable. Bladder: No abnormal wall thickening, accounting for underdistention. Pelvic lymph nodes: No pelvic adenopathy by size criteria. Bones: No aggressive osseous abnormality. Other: Small fat-containing umbilical hernia and right fat-containing inguinal hernia without acute i nflammatory changes. IMPRESSION: Diffuse wall thickening of the cecum, ascending colon and proximal transverse colon likely related to colitis either infectious or inflammatory etiology. Stable appearance of infrarenal abdominal aortic aneurysm measuring up to 3.6 cm in diameter. Other chronic findings as above Reviewed by: Harry Youssef MD on 06/27/2023 9:35 PM PDT Approved by: Harry Youssef MD on 06/27/2023 9:35 PM PDT Station ID: [id number]
[2023-06-27 21:43] LABS: BACTERIA,URINE None Seen /HPF (None Seen); RBC,URINE 0-5 /HPF (0-5); SQUAMOUS EPITHELIAL CELL,UR NONE SEEN (<= Few); WBC,URINE 0-3 /HPF (0-3)
[2023-06-27] MEDS: DEXAMETHASONE 10 MG/ML VIAL IVP STA (22:08)
[2023-06-27 22:13] VITALS: BP 115/81; O2SAT 97
== END 2023-06-27 22:25 | disposition home or self-care (01) ==
LOC: EDUNIT# → ED 17:03
DX: E11.65 Type 2 diabetes mellitus with hyperglycemia (principal); E11.42 Type 2 diabetes mellitus with diabetic polyneuropathy; K52.9 Noninfective gastroenteritis and colitis, unspecified; R11.2 Nausea with vomiting, unspecified; I10 Essential (primary) hypertension; E78.00 Pure hypercholesterolemia, unspecified; Z86.73 Personal history of transient ischemic attack (TIA), and cerebral infarction without residual deficits; Z79.4 Long term (current) use of insulin; Z79.899 Other long term (current) drug therapy; Z79.01 Long term (current) use of anticoagulants
CPT/HCPCS: 36415; 74177; 80053; 81001; 82009; 82803; 83690; 85025; 96374; 96375; 99283; 99284; A9270; J1170; J1815; J2060; Q9967; 81003; 87086

== ENCOUNTER 2023-09-13 15:50 | Outpatient (CLI) | payer MEDICARE, MEDICAID | END 2023-09-13 23:59 | disposition short-term general hospital (02) | LOC: EMS 15:50 | DX: E11.65 Type 2 diabetes mellitus with hyperglycemia (principal); Z79.4 Long term (current) use of insulin; R53.83 Other fatigue; R10.33 Periumbilical pain; R00.0 Tachycardia, unspecified; R04.2 Hemoptysis; Z79.01 Long term (current) use of anticoagulants | CPT/HCPCS: A0425; A0429 ==

== ENCOUNTER 2023-09-19 00:22 | Outpatient (CLI) | payer MEDICARE, MEDICAID | END 2023-09-19 23:59 | disposition short-term general hospital (02) | LOC: EMS 00:22 | PROVIDERS: ATTEND Emergency Medicine | DX: R11.2 Nausea with vomiting, unspecified (principal); R10.11 Right upper quadrant pain; R10.12 Left upper quadrant pain; R53.81 Other malaise; R53.1 Weakness; R41.3 Other amnesia; E11.65 Type 2 diabetes mellitus with hyperglycemia; Z79.4 Long term (current) use of insulin | CPT/HCPCS: A0425; A0429 ==

== ENCOUNTER 2023-09-29 13:03 | Outpatient (CLI) | payer MEDICARE, MEDICAID | END 2023-09-29 23:59 | disposition short-term general hospital (02) | LOC: EMS 13:03 | DX: K59.00 Constipation, unspecified (principal); E11.65 Type 2 diabetes mellitus with hyperglycemia; Z79.4 Long term (current) use of insulin | CPT/HCPCS: A0425; A0427 ==

== ENCOUNTER 2023-10-01 13:51 | Outpatient (CLI) | payer MEDICARE, MEDICAID | END 2023-10-01 23:59 | disposition short-term general hospital (02) | LOC: EMS 13:51 | DX: K59.00 Constipation, unspecified (principal); R10.32 Left lower quadrant pain | CPT/HCPCS: A0425; A0429 ==

== ENCOUNTER 2023-11-06 11:27 | Outpatient (CLI) | payer MEDICARE, MEDICAID ==
[2023-11-06 18:04] LABS: BASOPHILS # (AUTO) 0.1 10^3/uL (0.0-0.1); BASOPHILS % (AUTO) 1.4 %; EOSINOPHILS # (AUTO) 0.4 10^3/uL (0.0-0.7); EOSINOPHILS % (AUTO) 4.3 %; HCT - HEMATOCRIT 37.7 % (42.0-52.0); HGB - HEMOGLOBIN 11.6 g/dL (14.0-18.0); LYMPHOCYTES % (AUTO) 21.8 %; MEAN CORPUSCULAR HEMOGLOBIN 25.1 pg (27.0-31.0); MEAN CORPUSCULAR HGB CONC 30.8 g/dL (32.0-36.0); MEAN CORPUSCULAR VOLUME 81.6 fL (80.0-94.0); MEAN PLATELET VOLUME 10.7 fL (7.4-11.4); MONOCYTES # (AUTO) 0.7 10^3/uL (0.0-1.0); MONOCYTES % (AUTO) 7.9 %; NEUTROPHILS # (AUTO) 5.8 10^3/uL (1.5-6.6); NEUTROPHILS % (AUTO) 64.2 %; PLT - PLATELET COUNT 363 10^3/uL (130-450); RED BLOOD COUNT 4.62 10^6/uL (4.70-6.10); RED CELL DISTRIBUTION WIDTH 13.9 % (12.0-15.0); WHITE BLOOD COUNT 9.1 x10^3/uL (4.8-10.8)
[2023-11-06 18:20] LABS: ALBUMIN 3.4 g/dL (3.2-5.5); ALKALINE PHOSPHATASE 82 IU/L (42-121); ALT ALANINE AMINOTRANSFERASE 18 IU/L (10-60); AST ASPARTATE AMINOTRANSFERASE 17 IU/L (10-42); BILIRUBIN,TOTAL 0.4 mg/dL (0.2-1.0); BUN - BLOOD UREA NITROGEN 31 mg/dL (6-20); CALCIUM 9.4 mg/dL (8.5-10.3); CARBON DIOXIDE - CO2 28 mmol/L (21-32); CHLORIDE 101 mmol/L (101-111); CHOL/HDL RATIO 2.8 (<5.0); CHOLESTEROL 195 mg/dL; CREATININE 0.8 mg/dL (0.6-1.3); GFR - MDRD 97 (>89); GLUCOSE 219 mg/dL (74-104); HDL CHOLESTEROL 70 mg/dL; LDL CHOLESTEROL,CALCULATED 99 mg/dL; LDL/HDL RATIO 1.4 (<3.6); POTASSIUM 4.3 mmol/L (3.5-4.5); SODIUM 136 mmol/L (135-145); TOTAL PROTEIN 6.9 g/dL (6.4-8.9); TRIGLYCERIDES 132 mg/dL; VLDL CHOLESTEROL 26 mg/dL
[2023-11-06 18:29] LABS: THYROID STIMULATING HORMONE 2.24 uIU/mL (0.34-5.60)
[2023-11-06 22:16] LABS: ESTIMATED AVERAGE GLUCOSE 372 mg/dL (70-100); HEMOGLOBIN A1c% 14.6 % (4.27-6.07)
== END 2023-11-06 11:28 | disposition home or self-care (01) ==
LOC: LAB.N 11:27
PROVIDERS: ATTEND Physician Assistant
DX: E11.65 Type 2 diabetes mellitus with hyperglycemia (principal); Z12.5 Encounter for screening for malignant neoplasm of prostate
CPT/HCPCS: 36415; 80053; 80061; 83036; 84443; 85025; G0103; 83721; 84153

== ENCOUNTER 2025-02-20 06:12 | Inpatient (IN) ==
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
[2025-02-20] MEDS: ONDANSETRON 4 MG/2 ML VIAL IVP STA (06:37)
[2025-02-20] MEDS: SODIUM CHLORIDE 0.9% 1,000 ML IV STA (06:37)
[2025-02-20 06:46] LABS: VBG BASE EXCESS -22.0 mmol/L (-2 - +2); VBG PCO2 19.3 mmHg (41-51); VBG PO2 47.1 mmHg (25-47); VBG TOTAL CO2 7.5 mmol/L (24-29)
[2025-02-20 06:48] LABS: VBG PH 7.158 (7.31-7.41)
--- OUTSIDE RECORDS SUMMARY | 2025-02-20 06:49 | EXTERNAL MEDICAL SUMMARY RPT | Continuity of Care Document ---
Author Organization [facility] Address [address] [place] [id number] Phone Allergies and Intolerances date description facility reaction severity 2024-11-13 10:00 [id number]^hydrocodo ne^^Hyd rocodone^^allergy.id [facility] Respiratory (no severity) 2025-02-20 10:00 [id number]^hydrocodo ne^^Hyd rocodone^^allergy.id [facility] Respiratory (no severity) 2024-11-13 10:00 [id number]^oxycodone ^^oxyco done^^allergy.id [facility] Anxiety (no severity) 2025-02-20 10:00 [id number]^oxycodone ^^oxyco done^^allergy.id [facility] Anxiety (no severity) 2024-11-13 10:00 [id number]^acetamino phen^^F rom Tylenol^^allergy.id [facility] Nausea (no severity) 2025-02-20 10:00 [id number]^acetamino phen^^F rom Tylenol^^allergy.id [facility] Nausea (no severity) 2024-11-13 10:00 [id number]^fentanyl^ ^fentan yl^^allergy.id [facility] Emesis (no severity) 2025-02-20 10:00 [id number]^fentanyl^ ^fentan yl^^allergy.id [facility] Emesis (no severity) Results/Labs test date facility value unit notes Result panel 1 GLUCOSE, WHOLE BLOOD 2025-02-20 06:15 [facility] 354 (missing) RN notified. Social History date description facility
[2025-02-20 06:56] LABS: KETONES, SERUM (ACETEST) MODERATE (NEGATIVE)
[2025-02-20 07:07] LABS: ALT ALANINE AMINOTRANSFERASE 20 IU/L (10-60); AST ASPARTATE AMINOTRANSFERASE 13 IU/L (10-42); BUN - BLOOD UREA NITROGEN 28 mg/dL (6-20); CARBON DIOXIDE - CO2 10 mmol/L (21-32); CREATININE 1.4 mg/dL (0.6-1.3); GFR - MDRD 51 (>89); HCT - HEMATOCRIT 59.5 % (42.0-52.0); HGB - HEMOGLOBIN 18.6 g/dL (14.0-18.0); MEAN PLATELET VOLUME 11.0 fL (7.4-11.4); NRBC ABSOLUTE COUNT (AUTO) 0.00 x10^3/uL; NUCLEATED RED BLOOD CELLS AUTO 0.0 /100WBC; PLT - PLATELET COUNT 271 10^3/uL (130-450); RED CELL DISTRIBUTION WIDTH 12.4 % (12.0-15.0)
--- NOTE | 2025-02-20 07:35 | HISTORY & PHYSICAL EXAMINATION ---
History of Present Illness Admitted From Admitted From:: Home History Obtained From Records Reviewed: EMR History obtained from: Patient Exam Limitations: None History of Present Illness HPI Comment/Other: Patient is a 64-year-old male with history of insulin-dependent type 2 diabetes mellitus, diabetic gastroparesis, GERD, carotid artery stenosis s/p endarterectomy in 2023 who presents with fevers, chills, abdominal pain. He states his power went out about 4 days ago, and he did not have anything to eat. His fridge was not working so, so he was unable to eat much. He was just drinking pop for the last few days. Typically, he takes Lantus 14 units twice a day, but in the first couple days of the power outage, he was checking his sugars, they were between the 100-110 so he did not take his Lantus or his short acting insulin. Over the last day or so, this continue to worsen. He also endorses some epigastric abdominal pain. He states its sharp, and rates it a 9 out of 10 at its worst. He describes as a burning pain, and attributes it to gastritis and a known ulcer he has there. He is passing gas, and having regular bowel movements. In the ER, he was tachycardic with heart rate as high as 130. He was tachypneic, with respiratory rate in the 20-26 range. He was satting 96% room air. He was afebrile with a temp of 97.5. He was normotensive with blood pressure in the 130s to 140s systolic. Lab work was reviewedshe has a leukocytosis of 14. He had a high anion gap metabolic acidosis with a pH initially of 7.158. His lactic acid was elevated at 3.8, and stayed the same, even with IV fluids. His creatinine was elevated at 1.4, and his baseline is 1. He was retaining urine and a Hdez catheter was placed. His anion gap has been elevated at 33. His glucose was 350. Respiratory viral panel was negative. Chest x-ray showed no acute cardiopulmonary process. He was admitted to the ICU for lactic acidosis, DKA. At this time, he denies any fevers, chills, shortness of breath. He is breathing fast, which he states happens sometimes when his sugars are high. He states he has been hospitalized before for DKA. Past medical history includes insulin-dependent type 2 diabetes, diabetic gastroparesis, GERD, carotid artery stenosis s/p endarterectomy, diabetic polyneuropathy, hypertension, hyperlipidemia, cluster headaches, asthma. Medications include atorvastatin, Jardiance, sliding scale insulin with insulin aspart, insulin glargine 14 units 12 times a day, Protonix 40 mg twice a day. He has no known drug allergies, but does have some side effects with opioids. Surgical history includes sinus cyst removal, endarterectomy. He denies any alcohol, tobacco, recreational drug use. He lives by himself. His DPOA is his neighbor, Ulisses Galvan. At this time, he would like to be a full code. Meds/Allgy Home Medications Ambulatory Orders Medication Instructions Recorded Confirmed albuterol sulfate 90 mcg/actuation 1 - 2 puff inhalati on Q4HR PRN 02/07/23 11/13/24 aerosol inhaler (Ventolin HFA) Shortness Of Air/Wheezi ng ondansetron 4 mg disintegrating 4 mg translingual Q6H PRN Nausea / 02/07/23 11/13/24 tablet Vomiting #10 tabs lancets (Accu-Chek Softclix 01/07/24 11/13/24 Lancets) blood sugar diagnostic (Blood #400 ea 02/11/24 5 Glucose Test strips) blood-glucose meter #1 ea 02/11/24 11/13/24 insulin syringe-needle U-100 1 mL #500 ea 02/11/2402/25 30 gauge x 15/64" lancets 31 gauge #400 ea 02/11/24 11/13/24 aspirin 81 mg tablet,delayed 81 mg PO QDAY 03/23/24 release (Adult Aspirin Regimen) atorvastatin 80 mg tablet (Lipitor) 80 mg PO HS #100 t abs 09/05/24 11/13/24 insulin glargine 100 unit/mL (3 14 unit subcut BID 11/13/24 mL) subcutaneous pen (Lantus Solostar U-100 Insulin) pantoprazole 40 mg tablet,delayed 40 mg PO BID #180 ta bs 11/03/24 11/13/24 release empagliflozin 25 mg tablet 25 mg PO QAM #90 tabs 09/05 /25 09/12/25 sumatriptan 20 mg/actuation nasal 20 mg intranasal Q2H PRN cluster 11/13/24 11/13/24 spray headache #6 ea insulin aspart U-100 100 unit/mL 8 - 12 unit (0.08 - 0 .12 mL) 11/23/24 subcutaneous solution (Novolog subcut TIDWM #40 mL U-100 Insulin aspart) Allergies Allergies Allergy/AdvReac Type Severity Reaction Status Date / Time fentanyl AdvReac Severe Emesis Verified 02/20/25 06:19 acetaminophen (From Tylenol) AdvReac Intermediate Nausea Verified 02/20/25 06:19 hydrocodone (Hydrocodone) AdvReac Intermediate Respiratory Verified 02/20/25 06:19 oxycodone AdvReac Intermediate Anxiety Verified 02/20/25 06:19 PFSH Active Problems All Active Problems (Updated 02/20/25 @ 12:45 by Marcos Houston MD) S/P carotid endarterectomy (Acute) Infestation by bed bug (Acute) Acute urinary retention (Acute) Tachypnea (Acute) Acute abdominal pain (Acute) DKA (diabetic ketoacidosis) (Chronic) Nausea and vomiting (Acute) Ear lesion (Acute) Cluster headache (Acute) Cataract (Acute) Wears glasses (Acute) Iron deficiency anemia (Acute) Abnormal laboratory test (Acute) Preventative health care (Acute) Type 2 diabetes mellitus with hyperglycemia (Acute 08/21/22) Osteoarthritis (Acute 10/19/15) Diabetic neuropathy (Acute 10/19/15) Depression (Acute 10/19/15) Screening PSA (prostate specific antigen) (Acute) Uncontrolled type 2 diabetes mellitus with insulin therapy (Acute 03/13/16) Hyperlipidemia, unspecified (Acute) Does not have primary care provider (Acute) Nausea & vomiting (Acute) History of CVA (cerebrovascular accident) (Acute) Hypertension (Acute) History of gastroesophageal reflux (GERD) (Acute) Hypomagnesemia (Acute) Hyperglycemia due to type 2 diabetes mellitus (Acute) Colitis (Acute) Uncontrolled diabetes mellitus (Acute) DKA (diabetic ketoacidoses) (Acute) Abnormal EKG (Acute) Leukocytosis (Acute) HTN (hypertension) (Acute) Abdominal pain (Acute) Aortic aneurysm (Chronic) Full code status (Acute) Acute kidney injury (Acute) GERD (gastroesophageal reflux disease) (Chronic) Medical History Medical History Vitamin D deficiency (03/19/18) Tinea pedis (12/20/20) Scoliosis, unspecified (03/26/16) Psoriasis (03/19/18) Personal history of transient ischemic attack (TIA), and cerebral infarction without residual deficits (10/09/18) Pain in right shoulder (05/18/16) Onychomycosis (01/12/22) skilled nursing (current) use of insulin (03/14/16) 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) Gastroparesis (08/21/22) Furuncle of right axilla (07/25/16) Degenerative disc disease (10/19/15) Crushing injury of left thumb, initial encounter (02/16/16) Colon cancer screening (11/24/15) Chronic obstructive pulmonary disease, unspecified (10/04/20) Cholelithiasis (10/23/17) Cerebral infarction due to unspecified occlusion or stenosis of left carotid arteries (11/29/20) Bicipital tendinitis, right shoulder (06/04/16) Bicipital tendinitis (06/01/16) Allergic rhinitis (10/19/15) Abdominal aortic aneurysm (10/19/15) Family History Family History Mother Diabetes Father Mesothelioma Maternal grandmother Diabetes Social History Social History Smoking Status: Former smoker If you are a former smoker, when did you quit? (Date/Year): 2002 Number of Years Smoked: 30 How many cigarettes a day do you smoke? (20 cigarettes=1 Pk): 20 Second hand tobacco smoke exposure: No Do you dip or chew tobacco?: No Do you vape?: No Patient requests smoking cessation consult: No Initiate information on smoking cessation: No Living arrangement: At home Marital Status: Single Living Condition: Alone Support Person: Yes Physical Activity: None Level: Independent Home Mobility Equipment: Cane Do you feel safe in your home environment?: Yes History of physical, verbal, emotional, or financial abuse?: No ETOH Use: Frequency: Occasional Substance Use: cannabis (any form) Substance Use Details: daily use of cannabis Are you sexually active?: No POLST Patient has POLST: No POLST on file?: No POLST CPR Status: Attempt Resuscitation (CPR) Level of Medical Intervention: Full Treatment Review of Systems Constitutional Reports: Chills, Malaise and Weakness; Denies: Fatigue, Fever or Poor appetite Eyes Denies: Pain, Irritation or Blurry vision Ears, nose, mouth, and throat Denies: Ear pain, Hearing loss, Tinnitus or Nose bleeds Cardiovascular Reports: shortness of breath with exertion; Denies: Irregular heart rate, chest pain, palpitations, edema or Syncope Respiratory Reports: Shortness of breath; Denies: Cough or Sputum production Gastrointestinal Reports: Abdominal pain, Nausea, Constipation and Bloating; Denies: Abdominal distention, Vomiting, Heartburn or Diarrhea Genitourinary Reports: Difficulty urinating; Denies: Painful urination, Urinary frequency or Urinary urgency Musculoskeletal Denies: Back pain, Extremity pain, Extremity swelling or Joint pain Integumentary/Breast Denies: Rash, Itching, Dryness, Redness or Skin pain Neurological Reports: General weakness; Denies: Headache, Weakness in extremities, Numbness in extremities, Abnormal gait or Dizziness Psychiatric Denies: Depression, Anxiety, Mood swings or Panic attacks Endocrine Denies: Excessive urination, Excessive thirst or Fatigue Hematologic/Lymphatic Denies: Anemia, Easy bruising or Easy bleeding Allergic/Immunologic Denies: Hives or Tongue swelling Prior Level of Functionality: Lives alone, independent of ADLs. Exam Exam Vital Signs: Vital Signs x48h Temp Pulse Pulse Resp BP BP Pulse Ox 02/20/25 11:00 112 H 26 H 122/72 96 02/20/25 10:00 116 H 27 H 100/69 97 02/20/25 09:00 209.5 F H 121 H 23 138/88 H 97 02/20/25 08:45 98.1 F 131 H 21 153/94 H 98 02/20/25 07:56 97.5 F L 120 H 22 153/94 H 98 02/20/25 06:12 97.5 F L 117 H 19 140/95 H 99 Constitutional abnormal general appearance, no apparent distress, abnormal body habitus (thin) and no limitations Frail, unkempt, appears older than stated age HENMT normocephalic, head/scalp atraumatic and hearing grossly normal bilaterally Eyes PERRL, EOMs intact bilaterally and conjunctivae normal Neck/C-Spine visual inspection normal, trachea midline and cervical spine nontender Chest inspection of chest normal Respiratory breath sounds equal bilaterally, abnormal respiratory effort other (tachypneic), clear to auscultation bilaterally, no wheezes, no rales and no retractions Cardiovascular heart rate abnormal (tachycardic), regular rhythm noted, no gallop, no rub and no murmur Gastrointestinal abdomen normal to inspection, abdomen soft to palpation, tender to palpation (moderate) and (epigastric), normoactive bowel sounds and no hepatosplenomegaly Genitourinary no CVA tenderness and bladder normal to palpation Back/Pelvis spine normal to inspection Extremities normal to inspection, normal to palpation, no tenderness and full ROM Neurology no movement abnormality noted and no focal motor deficit noted Psychiatry mental status grossly normal, oriented x3, thought process normal, cooperative and affect normal Skin Left lower extremity with some skin breakdown on anterior abad with some mild erythema, excoriations noted. Onychomycosis noted bilaterally on toes, extensive. Conclusion/Plan Problem List (1) DKA (diabetic ketoacidosis): Plan: Patient with a longstanding history of insulin-dependent type 2 diabetes mellitus, and multiple admissions previously for hyperglycemia and DKA who presents after a power outage. He states he has been drinking sugary drinks, and has been noncompliant with his insulin over the last few days. Continue DKA pathway: Aggressive IV fluid resuscitation with potassium supplementation, insulin drip, BMPs every 2 hours, glucose checks every 1 hours. Once anion gap is closed on 2 subsequent BMPs, and bicarbonate is greater than 18 on 2 subsequent BMPs, will transition to long-acting insulin, short acting insulin. Continue strict n.p.o. status at this time. (2) Acute abdominal pain: (3) Lactic acidosis: Plan: The following plan is for the above two diagnoses: Lactic acidosis likely due to DKA and increased lactate, ketone production with repeated emesis. However, patient does endorse ongoing epigastric abdominal pain, which is worse than his normal GERD pain. No peritoneal signs noted. Tenderness to palpation in epigastric region. Lactic acid continues to increase despite IV fluid resuscitation. CT angiogram abdomen/pelvis ordered to rule out mesenteric ischemia. Continue aggressive IV fluid resuscitation, continue to trend. (4) Leukocytosis: Plan: Likely reactive to above. No signs or symptoms of active infection. He does have some skin breakdown and a longstanding rash in his right lower extremity, but does not appear actively infected at this time. Chest x-ray without any acute abnormalities. UA negative for infection. CT abdomen/pelvis pending. Blood cultures ordered x 2. Continue to monitor off antibiotics at this time. Qualifiers: Qualified Code(s): D72.823 - Leukemoid reaction (5) Tachypnea: Plan: Likely Kussmaul respirations in setting of severe metabolic acidosis. Expect to improve with improvement of DKA. Lung exam without any adventitious lung sounds. Chest x-ray without any acute abnormalities. (6) GERD (gastroesophageal reflux disease): Plan: Patient with longstanding history of GERD, and also endorses a gastric ulcer. Continue IV Protonix at this time. (7) Acute kidney injury: Plan: Baseline creatinine of 1. Currently 1.4-1.5. Prerenal due to gross volume depletion in setting of DKA, hyperglycemia. May also be post renal due to retention, and need for Hdez catheter placement. Continue to trend. (8) Tinea pedis: Plan: Tinea pedis, and onychomycosis noted on bilateral feet. Continue home treatment. (9) Acute urinary retention: Plan: Hdez catheter placed in ER. Continue at this time. Once patient more clinically stable, will do trial of void. (10) Infestation by bed bug: Plan: Bedbugs noted on patient's person, holding items. Contact precautions in place. Patient was disinfected by nursing staff, items placed and sealed bag. Social work following. (11) S/P carotid endarterectomy: Plan: Completed in 2023. Continue aspirin, statin. (12) Hyperglycemia due to type 2 diabetes mellitus: Plan: Patient with longstanding history of type 2 diabetes mellitus. Home regimen includes 14 units Lantus twice daily, as well as low-dose sliding scale at home. His diabetes is complicated by diabetic gastroparesis, diabetic polyneuropathy. Qualifiers: Diabetes mellitus emt intermediate insulin use: with assisted use Qualified Code(s): E11.65 - Type 2 diabetes mellitus with hyperglycemia; Z79.4 - intermediate card tender (current) use of insulin Lab Results 02/20/25 06:40 02/20/25 10:28 Diagnostic Imaging Results Diagnostic Imaging Results: positive Final report reviewed EKG Results EKG Interpreted Independently: Yes Core Measures DVT/VTE - Prophylaxis VTE/DVT Device ordered at admit?: No VTE/DVT Prophylaxis med ordered at admit?: Yes Stroke - Rehab Assessment Rehab services assessment to be ordered?: No AMI - Statin at Admit Aspirin Prescribed on Admit: No
[2025-02-20] MEDS: NS W/20 MEQ KCL 1,000 ML IV STA (07:40)
[2025-02-20] MEDS: DROPERIDOL 5 MG/2 ML VIAL IVP STA (08:10)
--- OUTSIDE RECORDS SUMMARY | 2025-02-20 08:12 | EXTERNAL MEDICAL SUMMARY RPT | Continuity of Care Document ---
Author Organization [facility] Address [address] [place] [id number] Phone Allergies and Intolerances date description facility reaction severity 2024-11-13 10:00 [id number]^hydrocodo ne^^Hyd rocodone^^allergy.id [facility] Respiratory (no severity) 2025-02-20 10:00 [id number]^hydrocodo ne^^Hyd rocodone^^allergy.id [facility] Respiratory (no severity) 2024-11-13 10:00 [id number]^oxycodone ^^oxyco done^^allergy.id [facility] Anxiety (no severity) 2025-02-20 10:00 [id number]^oxycodone ^^oxyco done^^allergy.id [facility] Anxiety (no severity) 2024-11-13 10:00 [id number]^acetamino phen^^F rom Tylenol^^allergy.id [facility] Nausea (no severity) 2025-02-20 10:00 [id number]^acetamino phen^^F rom Tylenol^^allergy.id [facility] Nausea (no severity) 2024-11-13 10:00 [id number]^fentanyl^ ^fentan yl^^allergy.id [facility] Emesis (no severity) 2025-02-20 10:00 [id number]^fentanyl^ ^fentan yl^^allergy.id [facility] Emesis (no severity) Results/Labs test date facility value unit notes Result panel 1 GLUCOSE, WHOLE BLOOD 2025-02-20 06:15 [facility] 354 (missing) RN notified. Result panel 2 LIPASE 2025-02-20 06:40 [facility] < 10 u/l As of September 2022 testing method has changed, this may include reference ranges. VBG BASE EXCESS 2025-02-20 06:40 [facility] -22.0 mmol/l (missing) NUCLEATED RED BLOOD CELLS AUTO 2025-02-20 06:40 [facility] 0.0 /100wbc (missing) EOSINOPHILS # (AUTO) 2025-02-20 06:40 [facility] 0.0 10 3/ul (missing) NRBC ABSOLUTE COUNT (AUTO) 2025-02-20 06:40 [facility] 0.00 x10 3/ul (missing) BASOPHILS # (AUTO) 2025-02-20 06:40 [facility] 0.1 10 3/ul (missing) MONOCYTES # (AUTO) 2025-02-20 06:40 [facility] 0.3 10 3/ul (missing) BILIRUBIN,TOTAL 2025-02-20 06:40 [facility] 0.6 mg/dl As of September 2022 testing method has changed, this may include reference ranges. ALBUMIN/GLOBULIN RATIO 2025-02-20 06:40 [facility] 1.1 (missing) (missing) LYMPHOCYTES # (AUTO) 2025-02-20 06:40 [facility] 1.2 10 3/ul (missing) CREATININE 2025-02-20 06:40 [facility] 1.4 mg/dl As of September 2022 testing method has changed, this may include reference ranges. CARBON DIOXIDE - CO2 2025-02-20 06:40 [facility] 10 mmol/l Critical result CO2 10 mmol/L called to and read back by EMILE Lopez ED RN at 20-Feb-2025 07:06 by mera. As of September 2022 testing method has changed, this may include reference ranges. CALCIUM 2025-02-20 06:40 [facility] 10.0 mg/dl As of September 2022 testing method has changed, this may include reference ranges. ALKALINE PHOSPHATASE 2025-02-20 06:40 [facility] 106 iu/l As of September 2022 testing method has changed, this may include reference ranges. MEAN PLATELET VOLUME 2025-02-20 06:40 [facility] 11.0 fl (missing) RED CELL DISTRIBUTION WIDTH 2025-02-20 06:40 [facility] 12.4 % (missing) NEUTROPHILS # (AUTO) 2025-02-20 06:40 [facility] 12.8 10 3/ul (missing) AST ASPARTATE AMINOTRANSFERASE 2025-02-20 06:40 [facility] 13 iu/l As of September 2022 testing method has changed, this may include reference ranges. SODIUM 2025-02-20 06:40 [facility] 138 mmol/l (missing) WHITE BLOOD COUNT 2025-02-20 06:40 [facility] 14.5 x10 3/ul (missing) HGB - HEMOGLOBIN 2025-02-20 06:40 [facility] 18.6 g/dl (missing) VBG PCO2 2025-02-20 06:40 [facility] 19.3 mmhg (missing) ALT ALANINE AMINOTRANSFERASE 2025-02-20 06:40 [facility] 20 iu/l As of September 2022 testing method has changed, this may include reference ranges. PLT - PLATELET COUNT 2025-02-20 06:40 [facility] 271 10 3/ul (missing) BUN - BLOOD UREA NITROGEN 2025-02-20 06:40 [facility] 28 mg/dl As of September 2022 testing method has changed, this may include reference ranges. MEAN CORPUSCULAR HEMOGLOBIN 2025-02-20 06:40 [facility] 29.2 pg (missing) LACTIC ACID, VENOUS 2025-02-20 06:40 [facility] 3.8 mmol/l N Critical result LAC 3.8 mmol/L called to and read back by HUBER SHARMA RN at 20-Feb-2025 07:04 by mera. As of September 2022 testing method has changed, this may include reference ranges. GLOBULIN 2025-02-20 06:40 [facility] 3.9 g/dl (missing) MEAN CORPUSCULAR HGB CONC 2025-02-20 06:40 [facility] 31.3 g/dl (missing) ANION GAP 2025-02-20 06:40 [facility] 33.0 (missing) (missing) GLUCOSE 2025-02-20 06:40 [facility] 350 mg/dl As of September 2022 testing method has changed, this may include reference ranges. POTASSIUM 2025-02-20 06:40 [facility] 4.1 mmol/l As of September 2022 testing method has changed, this may include reference ranges. ALBUMIN 2025-02-20 06:40 [facility] 4.3 g/dl As of September 2022 testing method has changed, this may include reference ranges. VBG PO2 2025-02-20 06:40 [facility] 47.1 mmhg (missing) GFR - MDRD 2025-02-20 06:40 [facility] 51 (missing) The IDMS-traceable MDRD Study Equation has been validated extensively in and populations between the ages of 18 and 70 with impaired kidney function (eGFR < 60 mL/min/1.73m2) and has shown good performance for patients with all common causes of kidney disease. Although this equation has not been validated for patients older than 70, an MDRD-derived eGFR may still be a useful tool for providers caring for patients older than 70. References: http://www.nkdep .nih.gov/lab-maría luation/gfr/crea tinine-stand ardization, last updated May 2011. HCT - HEMATOCRIT 2025-02-20 06:40 [facility] 59.5 % (missing) RED BLOOD COUNT 2025-02-20 06:40 [facility] 6.38 10 6/ul (missing) VBG HCO3 2025-02-20 06:40 [facility] 6.9 mmol/l (missing) VBG OXYGEN SATURATION 2025-02-20 06:40 [facility] 67.0 % (missing) VBG PH 2025-02-20 06:40 [facility] 7.158 (missing) Called to KRISTY Cummings ED RN by Tabby Capps MLT([facility]) at 0646 02/20/25. Read back(Y/N)? Y VBG TOTAL CO2 2025-02-20 06:40 [facility] 7.5 mmol/l (missing) TOTAL PROTEIN 2025-02-20 06:40 [facility] 8.2 g/dl As of September 2022 testing method has changed, this may include reference ranges. MEAN CORPUSCULAR VOLUME 2025-02-20 06:40 [facility] 93.3 fl (missing) CHLORIDE 2025-02-20 06:40 [facility] 95 mmol/l As of September 2022 testing method has changed, this may include reference ranges. KETONES, SERUM (ACETEST) 2025-02-20 06:40 [facility] MODERATE (missing) (missing) Social History date description facility
[2025-02-20 08:55] LABS: B. PARAPERTUSSIS- RESP PCR PAN NOT DETECTED; B. PERTUSSIS- RESP PCR PANEL NOT DETECTED; C. PNEUMONIAE- RESP PCR PANEL NOT DETECTED; CORONAVIRUS 229E-RESP PCR NOT DETECTED; CORONAVIRUS HKU1-RESP PCR NOT DETECTED; CORONAVIRUS NL63-RESP PCR NOT DETECTED; CORONAVIRUS OC43-RESP PCR NOT DETECTED; HUMAN METAPNEUMOVIRUS NOT DETECTED; INFLUENZA A- RESP PCR PANEL NOT DETECTED; INFLUENZA B - RESP PCR PANEL NOT DETECTED; M. PNEUMONIAE- RESP PCR PANEL NOT DETECTED; PARAINFLUENZA VIRUS 1 NOT DETECTED; PARAINFLUENZA VIRUS 2 NOT DETECTED; PARAINFLUENZA VIRUS 4 NOT DETECTED; RHINOVIRUS/ENTEROVIRUS NOT DETECTED; RSV- RESP PCR PANEL NOT DETECTED; SARS-CoV-2 -RESP PCR PANEL NOT DETECTED
--- NOTE | 2025-02-20 09:05 | XRAY Report ---
PROCEDURE: XR Chest 1V INDICATIONS: SOB, generalized weakness, recurrent vomiting TECHNIQUE: One view of the chest was acquired. COMPARISON: 9 11/26/2018 FINDINGS: Surgical changes and devices: None. Lungs and pleura: No pleural effusions or pneumothorax. No consolidation. Mediastinum: Mediastinal contours appear normal. Heart size is normal. Bones and chest wall: No suspicious bony lesions. Overlying soft tissues appear unremarkable. IMPRESSION: No acute cardiopulmonary process. Reviewed by: Peter Briceno MD on 02/20/2025 9:02 AM [facility] Approved by: Peter Briceno MD on 02/20/2025 9:02 AM [facility] Station ID: [id number]
[2025-02-20] MEDS: INSULIN REGULAR IN 0.9 % NS 100 UNIT/100 ML BAG IV STA (09:08)
[2025-02-20 09:09] LABS: GLUCOSE, URINE (UA) 500 mg/dL (NEGATIVE); KETONES,URINE (UA) >=80 mg/dL (NEGATIVE); OCCULT BLOOD,URINE SMALL (NEGATIVE)
[2025-02-20 09:14] LABS: SQUAMOUS EPITHELIAL CELL,UR RARE Squamous (<= Few)
[2025-02-20 09:27] LABS: VBG PH 7.197 (7.31-7.41)
[2025-02-20 09:39] LABS: PHOSPHORUS 6.5 mg/dL (2.5-5.0)
[2025-02-20 09:41] LABS: BUN - BLOOD UREA NITROGEN 30.0 mg/dL (6-20); CARBON DIOXIDE - CO2 7.0 mmol/L (21-32); CREATININE 1.4 mg/dL (0.6-1.3); GFR - MDRD 51.0 (>89)
[2025-02-20] MEDS ORDERED: ONDANSETRON ODT 4 MG TABLET TL PRN (09:42)
[2025-02-20] MEDS ORDERED: ACETAMINOPHEN 325 MG TABLET PO PRN (09:42)
[2025-02-20] MEDS: LACTATED RINGERS 1,000 ML IV ONE ×2 (10:35→13:12)
[2025-02-20 10:40] LABS: VBG BASE EXCESS -23.0 mmol/L (-2 - +2); VBG PCO2 14.7 mmHg (41-51); VBG PO2 86.7 mmHg (25-47); VBG TOTAL CO2 6.0 mmol/L (24-29)
[2025-02-20 10:41] LABS: VBG PH 7.182 (7.31-7.41)
[2025-02-20] MEDS: SODIUM CHLORIDE FLUSH 0.9% 10 ML SYRINGE IVP SCH (10:41)
[2025-02-20] MEDS: HEPARIN 5,000 UNIT/ML VIAL SUBQ SCH (10:49)
[2025-02-20] MEDS: PANTOPRAZOLE 40 MG VIAL IVP SCH (10:49)
[2025-02-20 10:53] LABS: BUN - BLOOD UREA NITROGEN 31.0 mg/dL (6-20); CARBON DIOXIDE - CO2 6.0 mmol/L (21-32); CREATININE 1.5 mg/dL (0.6-1.3); GFR - MDRD 47.0 (>89)
--- NOTE | 2025-02-20 12:22 | ANESTHESIA PROCEDURE NOTE ---
Anesth Central Line Template Central Line Procedure Date: 02/20/25 Other Info/Details: #18G 2.25 inch IV placed to right brachial vein x1 attempt under US guidance. Aspirates blood with ease and flushes with ease.
--- NOTE | 2025-02-20 13:04 | CT Report ---
PROCEDURE: CT Angio Abdomen/Pelvis INDICATIONS: abd pain, lactic acidosis CONTRAST: OMNI 300 100 ML TECHNIQUE: After the administration of intravenous contrast, images were acquired from the diaphragm to the symphysis. Maximum-intensity projection (MIP) reformats were then acquired. For radiation dose reduction, the following was used: automated exposure control, adjustment of mA and/or kV according to patient size. COMPARISON: 08/10/2022 FINDINGS: Image quality: Excellent. VESSELS: Aorta: Moderate amount of atherosclerotic calcifications are noted in the infrarenal abdominal aorta. There is fusiform infrarenal abdominal aortic aneurysm measures up to 3.3 x 3.8 cm in largest AP and transverse diameters series 15 image 142. Mesenteric arteries: Celiac trunk, superior and inferior mesenteric arteries appear patent. No area of active contrast extravasation or hemodynamically significant stenosis. Right pelvic arteries: Moderate atherosclerotic calcifications without hemodynamically significant stenosis or aneurysm. Left pelvic arteries: Moderate atherosclerotic calcifications without hemodynamically significant stenosis or aneurysm. CHEST: Lung bases and heart: Mild bibasilar dependent atelectasis is seen.. ABDOMEN: Liver: No solid mass. Gallbladder and biliary tree: No radiopaque stones or wall thickening. No biliary dilation. Spleen: No splenomegaly. Pancreas: No pancreatic ductal dilation. Adrenals: No adrenal nodule. Kidneys and ureters: No hydronephrosis. Slightly atrophic right kidney compared to the left side. No renal cystic lesion which requires follow up. No solid mass. Bowel and peritoneum: No bowel distension. No pathologic free fluid. Mild to moderate fecal stasis in the colon is seen. No peritoneal free air. Appendix is visualized and is within normal limits. Lymph nodes: No central or retroperitoneal adenopathy. PELVIS Reproductive organs: Unremarkable. Bladder: No abnormal wall thickening, accounting for underdistension. Pelvic lymph nodes: No pelvic adenopathy by size criteria. Bones: No aggressive osseous abnormality. Other: No significant ventral or inguinal hernia. IMPRESSION: 1. Moderate atherosclerotic disease throughout abdominal aorta. Fusiform infrarenal abdominal aortic aneurysm measures up to 3.3 x 3.8 cm in largest diameter. No aortic dissection. 2. No hemodynamically significant stenosis is seen in mesenteric arteries. 3. No bowel obstruction or abnormal bowel wall thickening. Mild to moderate constipation. Normal appendix. No free fluid of free air. 4. Other chronic findings as above. Reviewed by: Peter Briceno MD on 02/20/2025 1:01 PM PST Approved by: Peter Briceno MD on 02/20/2025 1:01 PM PST Station ID: [id number]
--- NOTE | 2025-02-20 13:07 | PHARMACY PROGRESS NOTE ---
Best Possible Medication History Admit Date and Time: 02/20/25 [id number] Home Medications Medication Instructions Recorded Confirmed Type albuterol sulfate 90 mcg/actuation 1 - 2 puff inhalati on Q4HR PRN 02/07/23 02/20/25 History aerosol inhaler (Ventolin HFA) Shortness Of Air/Wheezi ng lancets (Accu-Chek Softclix 01/07/24 11/13/24 History Lancets) blood sugar diagnostic (Blood #400 ea 02/11/24 5 Rx Glucose Test strips) blood-glucose meter #1 ea 02/11/24 11/13/24 Rx insulin syringe-needle U-100 1 mL #500 ea 02/11/2402/25 Rx 30 gauge x 15/64" lancets 31 gauge #400 ea 02/11/24 11/13/24 Rx aspirin 81 mg tablet,delayed 324 mg PO DAILY 03/23/24 02/20/25 History release (Adult Aspirin Regimen) atorvastatin 80 mg tablet (Lipitor) 80 mg PO HS #100 t abs 09/05/24 02/20/25 Rx insulin glargine 100 unit/mL (3 14 unit subcut BID 02/20/25 History mL) subcutaneous pen (Lantus Solostar U-100 Insulin) pantoprazole 40 mg tablet,delayed 40 mg PO BID #180 ta bs 11/03/24 02/20/25 Rx release empagliflozin 25 mg tablet 25 mg PO QAM #90 tabs 11/0602/20/25 Rx insulin aspart U-100 100 unit/mL 8 - 12 unit (0.08 - 0 .12 mL) 11/23/24 02/20/25 Rx subcutaneous solution (Novolog subcut TIDWM #40 mL U-100 Insulin aspart) Processed by: Pharmacy Medications reviewed in ED?: No Patient Interview: Completed Secondary Source(s): Physician records, Pharmacy records and Insurance records [facility] Statement: As the person ultimately responsible for medication therapy, providers are able to order a medication from an existing home medication list in [facility] via the "Reconcile Routine" prior to Confirmation of that medication by client support coordinator. Such practice is discouraged except when the physician, in their clinical judgment, deems that a medical need exists for a medication without regard to previous use.
[2025-02-20 13:40] LABS: BUN - BLOOD UREA NITROGEN 32.0 mg/dL (6-20); CARBON DIOXIDE - CO2 10.0 mmol/L (21-32); CREATININE 1.3 mg/dL (0.6-1.3); GFR - MDRD 55.0 (>89)
[2025-02-20] MEDS: MAG HYDROX/AL HYDROX/SIMETH 30 ML UDC PO PRN (13:53)
[2025-02-20] MEDS: MORPHINE 4 MG/ML VIAL IVP PRN (13:54)
[2025-02-20] MEDS: POTASSIUM CHLORIDE INJ 20 MEQ in DEXTROSE 5%-LACTATED RINGERS 1,000 ML IV SCH (14:04)
[2025-02-20 15:09] LABS: BUN - BLOOD UREA NITROGEN 29.0 mg/dL (6-20); CARBON DIOXIDE - CO2 18.0 mmol/L (21-32); CREATININE 1.3 mg/dL (0.6-1.3); GFR - MDRD 55.0 (>89)
[2025-02-20] MEDS: INSULIN REGULAR IN 0.9 % NS 100 UNIT/100 ML BAG IV SCH (17:15)
[2025-02-20 17:16] LABS: BUN - BLOOD UREA NITROGEN 30.0 mg/dL (6-20); CARBON DIOXIDE - CO2 21.0 mmol/L (21-32); CREATININE 1.2 mg/dL (0.6-1.3); GFR - MDRD 61.0 (>89)
[2025-02-20] MEDS: INSULIN GLARGINE-YFGN 300 UNIT/3 ML PEN SUBQ SCH (18:12)
[2025-02-20 20:24] LABS: VBG PH 7.414 (7.31-7.41)
[2025-02-20 20:38] LABS: BUN - BLOOD UREA NITROGEN 30.0 mg/dL (6-20); CARBON DIOXIDE - CO2 19.0 mmol/L (21-32); CREATININE 1.1 mg/dL (0.6-1.3); GFR - MDRD 67.0 (>89)
[2025-02-20] MEDS ORDERED: HEPARIN 5,000 UNIT/ML VIAL SUBQ SCH (21:00)
[2025-02-20] MEDS: INSULIN LISPRO 300 UNIT/3 ML PEN SUBQ SCH (21:02)
[2025-02-20] MEDS: NEUTRA-PHOS 250 MG TABLET PO SCH (21:08)
--- NOTE | 2025-02-21 00:20 | PROVIDER PROGRESS NOTE ---
Hospitalist Cross-cover Note Cross-Cover Note Cross-Cover Note: per rn " Pt is 64M Full code admitted for DKA. Patient is off IV insulin. His BP has been climbing since afternoon, HR stable but tachy around 110 the whole time. Currently vitals are HR 113, BP 173/103, RR 23, O2 95% room air, Temp 37.0C. Has history of hypertension but patient states he takes no medications at home for it. Any medications for BP you want me to give?" lopressor x 1
[2025-02-21] MEDS: METOPROLOL 5 MG/5 ML VIAL IVP ONE ×2 (01:13→05:13)
--- NOTE | 2025-02-21 03:34 | PROVIDER PROGRESS NOTE ---
Hospitalist Cross-cover Note Cross-Cover Note Cross-Cover Note: per nurse " Pt is 64M Full code ICU with DKA, off insulin drip. Earlier I gave x1 metoprolol for elevated BP. It was effective for an hour and a half. However, it's elevated again. Current VS are BP 176/102, HR 91, O2 92%, RR 22, Temp 36.8C. Any more BP medications? Thanks for the help." lopressor 5 mg x 1
[2025-02-21 05:08] LABS: VBG PH 7.396 (7.31-7.41)
[2025-02-21 05:11] LABS: HCT - HEMATOCRIT 46.1 % (42.0-52.0); HGB - HEMOGLOBIN 15.2 g/dL (14.0-18.0); MEAN PLATELET VOLUME 10.3 fL (7.4-11.4); PLT - PLATELET COUNT 206.0 10^3/uL (130-450); RED CELL DISTRIBUTION WIDTH 12.8 % (12.0-15.0)
[2025-02-21 05:27] LABS: ALT ALANINE AMINOTRANSFERASE 13.0 IU/L (10-60); AST ASPARTATE AMINOTRANSFERASE 12.0 IU/L (10-42); BUN - BLOOD UREA NITROGEN 29.0 mg/dL (6-20); CARBON DIOXIDE - CO2 18.0 mmol/L (21-32); CREATININE 1.0 mg/dL (0.6-1.3); GFR - MDRD 75.0 (>89); PHOSPHORUS 3.4 mg/dL (2.5-5.0)
[2025-02-21] MEDS: ASPIRIN EC 81 MG TABLET PO SCH (08:13)
[2025-02-21] MEDS: INSULIN GLARGINE-YFGN 300 UNIT/3 ML PEN SUBQ SCH ×2 (08:16→20:52)
[2025-02-21] MEDS: LOSARTAN 50 MG TABLET PO SCH (08:17)
[2025-02-21] MEDS: ONDANSETRON 4 MG/2 ML VIAL IVP PRN (08:21)
--- NOTE | 2025-02-21 09:14 | PROVIDER PROGRESS NOTE ---
Subjective Subjective Subjective: This morning, patient states he feels better. He denies any fevers or chills or cough. Still some mild abdominal pain, but it is improving. He has no nausea or vomiting. His appetite has not fully returned just yet. Current Medications Current Medications Current Medications: Current Medications Generic Name Dose Route Start Last Admin Trade Name Freq PRN Reason Stop Dose Admin Acetaminophen 650 mg 02/20/25 09:42 Acetaminophen 325 Mg Tablet PO Q4HR PRN Pain 1 to 4, or Fever Al Hydroxide/Mg Hydroxide 30 ml 02/20/25 13:29 02/20/25 23:35 Mag Hydrox/Al Hydrox/Simeth 30 Ml Udc PO 30 ml Q4HR PRN Administration INDIGESTION Aspirin 324 mg 02/21/25 09:00 02/21/25 08:13 Aspirin Ec 81 Mg Tablet PO 324 mg DAILY DANIEL Administration Atorvastatin Calcium 80 mg 02/21/25 21:00 Atorvastatin 40 Mg Tablet PO HS DANIEL Heparin Sodium (Porcine) 5,000 unit 02/20/25 09:42 02/21/25 08:14 Heparin 5,000 Unit/Ml Vial SUBQ 5,000 unit BID DANIEL Administration Insulin Glargine-yfgn 14 unit 02/20/25 18:08 02/20/25 18:15 Insulin Glargine-Yfgn 300 Unit/3 Ml Pen SUBQ 14 unit QPM DANIEL Administration Insulin Glargine-yfgn 14 unit 02/21/25 09:00 02/21/25 08:16 Insulin Glargine-Yfgn 300 Unit/3 Ml Pen SUBQ 14 unit DAILY DANIEL Administration Insulin Human Lispro 1 - 5 unit 02/20/25 21:00 02/21/25 08:12 Insulin Lispro 300 Unit/3 Ml Pen SUBQ 4 unit 0800,1200,1700,2100 DANIEL Administration Protocol Losartan Potassium 50 mg 02/21/25 09:00 02/21/25 08:17 Losartan 50 Mg Tablet PO 50 mg DAILY DANIEL Administration Morphine Sulfate 2 mg 02/20/25 13:33 02/20/25 23:35 Morphine 4 Mg/Ml Vial IVP 2 mg Q6HR PRN Administration Severe Pain (Level 7-10) Ondansetron HCl 4 mg 02/20/25 09:42 Ondansetron Odt 4 Mg Tablet TL Q6HR PRN Nausea / Vomiting Ondansetron HCl 4 mg 02/20/25 09:42 02/21/25 08:21 Ondansetron 4 Mg/2 Ml Vial IVP 4 mg Q6HR PRN Administration Nausea / Vomiting Pantoprazole Sodium 40 mg 02/20/25 11:00 02/21/25 08:11 Pantoprazole 40 Mg Vial IVP 40 mg QDAC DANIEL Administration Sodium Chloride 10 ml 02/20/25 09:42 02/21/25 08:17 Sodium Chloride Flush 0.9% 10 Ml Syringe IVP 10 ml 0100,0900,1700 DANIEL Administration Sodium Chloride 10 ml 02/20/25 09:42 Sodium Chloride Flush 0.9% 10 Ml Syringe IVP PRN PRN NEEDED PER PROVIDER ORDERS Trimethoprim/Sulfamethoxazole 1 tab 02/21/25 10:00 Sulfameth/Trimeth Ds 800/160 Mg Tablet PO BID DANIEL Objective Vital Signs/Intake & Output Reviewed Vital Signs: Yes Vital Signs: Vital Signs x48h Temp Pulse Pulse Resp BP BP Pulse Ox 02/21/25 08:00 91 27 H 176/98 H 95 02/21/25 07:00 93 30 H 184/107 H 97 02/21/25 06:29 75 144/81 H 02/21/25 06:00 85 23 172/92 H 95 02/21/25 05:30 82 166/99 H 02/21/25 05:13 95 177/102 H 02/21/25 05:09 97 177/102 H 02/21/25 05:00 97 20 164/94 H 95 02/21/25 04:00 93 19 142/86 H 96 02/21/25 03:00 98.2 F 99 14 176/102 H 98 02/21/25 02:16 81 133/81 H 02/21/25 02:00 82 23 133/82 H 93 02/21/25 01:45 88 184/102 H 02/21/25 01:41 93 195/112 H 02/21/25 01:13 91 174/99 H Intake & Output: Intake & Output 02/18/25 02/19/25 02/20/25 02/21/25 23:59 23:59 23:59 23:59 Intake Total 4392 / 4392 1400 / 1400 Output Total 2455 / 2455 2040 / 2040 Balance 1937 / 193 -640 / -640 Weight (kg) 101.5 kg 102 kg Objective Comments/Other: Constitutional abnormal general appearance, no apparent distress, abnormal body habitus (thin) and no limitations Frail, unkempt, appears older than stated age [facility] normocephalic, head/scalp atraumatic and hearing grossly normal bilaterally Eyes PERRL, EOMs intact bilaterally and conjunctivae normal Neck/C-Spine visual inspection normal, trachea midline and cervical spine nontender Chest inspection of chest normal Respiratory breath sounds equal bilaterally, abnormal respiratory effort other (tachypneic), clear to auscultation bilaterally, no wheezes, no rales and no retractions Cardiovascular heart rate abnormal (tachycardic), regular rhythm noted, no gallop, no rub and no murmur Gastrointestinal abdomen normal to inspection, abdomen soft to palpation, tender to palpation (mild) and (epigastric), normoactive bowel sounds and no hepatosplenomegaly Genitourinary no CVA tenderness and bladder normal to palpation Back/Pelvis spine normal to inspection Extremities normal to inspection, normal to palpation, no tenderness and full ROM Neurology no movement abnormality noted and no focal motor deficit noted Psychiatry mental status grossly normal, oriented x3, thought process normal, cooperative and affect normal Skin Left lower extremity with some skin breakdown on anterior abad with some mild erythema, excoriations noted. Onychomycosis noted bilaterally on toes, extensive. Lab Results 02/21/25 04:58 02/21/25 04:58 Other Labs: Lab Results x24hrs 02/21/25 02/21/25 02/20/25 Range/Units 07:56 04:58 21:01 WBC 20.9 H (4.8-10.8) x10^3/uL RBC 5.22 (4.70-6.10) 10^6/uL Hgb 15.2 (14.0-18.0) g/dL Hct 46.1 (42.0-52.0) % MCV 88.3 (80.0-94.0) fL MCH 29.1 (27.0-31.0) pg MCHC 33.0 (32.0-36.0) g/dL RDW 12.8 (12.0-15.0) % Plt Count 206 (130-450) 10^3/uL MPV 10.3 (7.4-11.4) fL VBG pH 7.396 (7.31-7.41) VBG pCO2 (41-51) mmHg VBG pO2 (25-47) mmHg VBG HCO3 (23-28) mmol/L VBG Total CO2 (24-29) mmol/L VBG O2 Saturation (60-80) % VBG Base Excess (-2 - +2) mmol/L Ionized Calcium 1.18 (1.09-1.30) mmol/L Sodium 136 (135-145) mmol/L Potassium 4.0 (3.5-4.5) mmol/L Chloride 104 (101-111) mmol/L Carbon Dioxide 18 L (21-32) mmol/L Anion Gap 14.0 H (6-13) BUN 29 H (6-20) mg/dL Creatinine 1.0 (0.6-1.3) mg/dL Estimated GFR (MDRD) 75 L (>89) Glucose 267 H (74-104) mg/dL POC Whole Bld Glucose 278 230 (70-100) mg/dL Lactic Acid (0.5-2.2) mmol/L Calcium 9.0 (8.5-10.3) mg/dL Phosphorus 3.4 (2.5-5.0) mg/dL Magnesium 2.0 (1.7-2.3) mg/dL Total Bilirubin 0.5 (0.2-1.0) mg/dL AST 12 (10-42) IU/L ALT 13 (10-60) IU/L Alkaline Phosphatase 66 (42-121) IU/L Total Protein 5.8 L (6.4-8.9) g/dL Albumin 3.3 (3.2-5.5) g/dL Globulin 2.5 (2.1-4.2) g/dL Albumin/Globulin Ratio 1.3 (1.0-2.2) Procalcitonin Immunoas 0.06 (<0.5) ng/mL Urine Color Urine Clarity (CLEAR) Urine pH (5.0-7.5) PH Ur Specific Elysian (1.002-1.030) Urine Protein (NEGATIVE) mg/dL Urine Glucose (UA) (NEGATIVE) mg/dL Urine Ketones (NEGATIVE) mg/dL Urine Occult Blood (NEGATIVE) Urine Nitrite (NEGATIVE) Urine Bilirubin (NEGATIVE) Urine Urobilinogen (NORMAL) E.U./dL Ur Leukocyte Esterase (NEGATIVE) Urine RBC (0-5) /HPF Urine WBC (0-3) /HPF Ur Squamous Epith Cells (<= Few) Urine Bacteria (None Seen) /HPF Ur Microscopic Review Urine Culture Comments Nasal Screen MRSA (PCR) (NEGATIVE) 02/20/25 02/20/25 02/20/25 Range/Units 20:17 19:50 17:57 WBC (4.8-10.8) x10^3/uL RBC (4.70-6.10) 10^6/uL Hgb (14.0-18.0) g/dL Hct (42.0-52.0) % MCV (80.0-94.0) fL MCH (27.0-31.0) pg MCHC (32.0-36.0) g/dL RDW (12.0-15.0) % Plt Count (130-450) 10^3/uL MPV (7.4-11.4) fL VBG pH 7.414 H (7.31-7.41) VBG pCO2 (41-51) mmHg VBG pO2 (25-47) mmHg VBG HCO3 (23-28) mmol/L VBG Total CO2 (24-29) mmol/L VBG O2 Saturation (60-80) % VBG Base Excess (-2 - +2) mmol/L Ionized Calcium 1.19 (1.09-1.30) mmol/L Sodium 138 (135-145) mmol/L Potassium 3.9 (3.5-4.5) mmol/L Chloride 108 (101-111) mmol/L Carbon Dioxide 19 L (21-32) mmol/L Anion Gap 11.0 (6-13) BUN 30 H (6-20) mg/dL Creatinine 1.1 (0.6-1.3) mg/dL Estimated GFR (MDRD) 67 L (>89) Glucose 147 H (74-104) mg/dL POC Whole Bld Glucose 149 101 (70-100) mg/dL Lactic Acid 1.2 (0.5-2.2) mmol/L Calcium 9.2 (8.5-10.3) mg/dL Phosphorus 2.1 L (2.5-5.0) mg/dL Magnesium (1.7-2.3) mg/dL Total Bilirubin (0.2-1.0) mg/dL AST (10-42) IU/L ALT (10-60) IU/L Alkaline Phosphatase (42-121) IU/L Total Protein (6.4-8.9) g/dL Albumin (3.2-5.5) g/dL Globulin (2.1-4.2) g/dL Albumin/Globulin Ratio (1.0-2.2) Procalcitonin Immunoas (<0.5) ng/mL Urine Color Urine Clarity (CLEAR) Urine pH (5.0-7.5) PH Ur Specific Elysian (1.002-1.030) Urine Protein (NEGATIVE) mg/dL Urine Glucose (UA) (NEGATIVE) mg/dL Urine Ketones (NEGATIVE) mg/dL Urine Occult Blood (NEGATIVE) Urine Nitrite (NEGATIVE) Urine Bilirubin (NEGATIVE) Urine Urobilinogen (NORMAL) E.U./dL Ur Leukocyte Esterase (NEGATIVE) Urine RBC (0-5) /HPF Urine WBC (0-3) /HPF Ur Squamous Epith Cells (<= Few) Urine Bacteria (None Seen) /HPF Ur Microscopic Review Urine Culture Comments Nasal Screen MRSA (PCR) (NEGATIVE) 02/20/25 02/20/25 02/20/25 Range/Units 16:50 16:06 14:51 WBC (4.8-10.8) x10^3/uL RBC (4.70-6.10) 10^6/uL Hgb (14.0-18.0) g/dL Hct (42.0-52.0) % MCV (80.0-94.0) fL MCH (27.0-31.0) pg MCHC (32.0-36.0) g/dL RDW (12.0-15.0) % Plt Count (130-450) 10^3/uL MPV (7.4-11.4) fL VBG pH (7.31-7.41) VBG pCO2 (41-51) mmHg VBG pO2 (25-47) mmHg VBG HCO3 (23-28) mmol/L VBG Total CO2 (24-29) mmol/L VBG O2 Saturation (60-80) % VBG Base Excess (-2 - +2) mmol/L Ionized Calcium (1.09-1.30) mmol/L Sodium 141 (135-145) mmol/L Potassium 4.0 (3.5-4.5) mmol/L Chloride 110 (101-111) mmol/L Carbon Dioxide 21 (21-32) mmol/L Anion Gap 10.0 (6-13) BUN 30 H (6-20) mg/dL Creatinine 1.2 (0.6-1.3) mg/dL Estimated GFR (MDRD) 61 L (>89) Glucose 126 H (74-104) mg/dL POC Whole Bld Glucose 135 137 231 (70-100) mg/dL Lactic Acid (0.5-2.2) mmol/L Calcium 9.2 (8.5-10.3) mg/dL Phosphorus (2.5-5.0) mg/dL Magnesium (1.7-2.3) mg/dL Total Bilirubin (0.2-1.0) mg/dL AST (10-42) IU/L ALT (10-60) IU/L Alkaline Phosphatase (42-121) IU/L Total Protein (6.4-8.9) g/dL Albumin (3.2-5.5) g/dL Globulin (2.1-4.2) g/dL Albumin/Globulin Ratio (1.0-2.2) Procalcitonin Immunoas (<0.5) ng/mL Urine Color Urine Clarity (CLEAR) Urine pH (5.0-7.5) PH Ur Specific Elysian (1.002-1.030) Urine Protein (NEGATIVE) mg/dL Urine Glucose (UA) (NEGATIVE) mg/dL Urine Ketones (NEGATIVE) mg/dL Urine Occult Blood (NEGATIVE) Urine Nitrite (NEGATIVE) Urine Bilirubin (NEGATIVE) Urine Urobilinogen (NORMAL) E.U./dL Ur Leukocyte Esterase (NEGATIVE) Urine RBC (0-5) /HPF Urine WBC (0-3) /HPF Ur Squamous Epith Cells (<= Few) Urine Bacteria (None Seen) /HPF Ur Microscopic Review Urine Culture Comments Nasal Screen MRSA (PCR) (NEGATIVE) 02/20/25 02/20/25 02/20/25 Range/Units 14:50 14:00 13:16 WBC (4.8-10.8) x10^3/uL RBC (4.70-6.10) 10^6/uL Hgb (14.0-18.0) g/dL Hct (42.0-52.0) % MCV (80.0-94.0) fL MCH (27.0-31.0) pg MCHC (32.0-36.0) g/dL RDW (12.0-15.0) % Plt Count (130-450) 10^3/uL MPV (7.4-11.4) fL VBG pH (7.31-7.41) VBG pCO2 (41-51) mmHg VBG pO2 (25-47) mmHg VBG HCO3 (23-28) mmol/L VBG Total CO2 (24-29) mmol/L VBG O2 Saturation (60-80) % VBG Base Excess (-2 - +2) mmol/L Ionized Calcium (1.09-1.30) mmol/L Sodium 139 140 (135-145) mmol/L Potassium 4.7 H 3.9 (3.5-4.5) mmol/L Chloride 107 104 (101-111) mmol/L Carbon Dioxide 18 L 10 L* (21-32) mmol/L Anion Gap 14.0 H 26.0 H (6-13) BUN 29 H 32 H (6-20) mg/dL Creatinine 1.3 1.3 (0.6-1.3) mg/dL Estimated GFR (MDRD) 55 L 55 L (>89) Glucose 253 H 218 H (74-104) mg/dL POC Whole Bld Glucose 152 (70-100) mg/dL Lactic Acid 2.7 H (0.5-2.2) mmol/L Calcium 8.9 9.2 (8.5-10.3) mg/dL Phosphorus (2.5-5.0) mg/dL Magnesium (1.7-2.3) mg/dL Total Bilirubin (0.2-1.0) mg/dL AST (10-42) IU/L ALT (10-60) IU/L Alkaline Phosphatase (42-121) IU/L Total Protein (6.4-8.9) g/dL Albumin (3.2-5.5) g/dL Globulin (2.1-4.2) g/dL Albumin/Globulin Ratio (1.0-2.2) Procalcitonin Immunoas (<0.5) ng/mL Urine Color Urine Clarity (CLEAR) Urine pH (5.0-7.5) PH Ur Specific Elysian (1.002-1.030) Urine Protein (NEGATIVE) mg/dL Urine Glucose (UA) (NEGATIVE) mg/dL Urine Ketones (NEGATIVE) mg/dL Urine Occult Blood (NEGATIVE) Urine Nitrite (NEGATIVE) Urine Bilirubin (NEGATIVE) Urine Urobilinogen (NORMAL) E.U./dL Ur Leukocyte Esterase (NEGATIVE) Urine RBC (0-5) /HPF Urine WBC (0-3) /HPF Ur Squamous Epith Cells (<= Few) Urine Bacteria (None Seen) /HPF Ur Microscopic Review Urine Culture Comments Nasal Screen MRSA (PCR) (NEGATIVE) 02/20/25 02/20/25 02/20/25 Range/Units 13:14 11:55 11:07 WBC (4.8-10.8) x10^3/uL RBC (4.70-6.10) 10^6/uL Hgb (14.0-18.0) g/dL Hct (42.0-52.0) % MCV (80.0-94.0) fL MCH (27.0-31.0) pg MCHC (32.0-36.0) g/dL RDW (12.0-15.0) % Plt Count (130-450) 10^3/uL MPV (7.4-11.4) fL VBG pH (7.31-7.41) VBG pCO2 (41-51) mmHg VBG pO2 (25-47) mmHg VBG HCO3 (23-28) mmol/L VBG Total CO2 (24-29) mmol/L VBG O2 Saturation (60-80) % VBG Base Excess (-2 - +2) mmol/L Ionized Calcium (1.09-1.30) mmol/L Sodium (135-145) mmol/L Potassium (3.5-4.5) mmol/L Chloride (101-111) mmol/L Carbon Dioxide (21-32) mmol/L Anion Gap (6-13) BUN (6-20) mg/dL Creatinine (0.6-1.3) mg/dL Estimated GFR (MDRD) (>89) Glucose (74-104) mg/dL POC Whole Bld Glucose 219 257 302 (70-100) mg/dL Lactic Acid (0.5-2.2) mmol/L Calcium (8.5-10.3) mg/dL Phosphorus (2.5-5.0) mg/dL Magnesium (1.7-2.3) mg/dL Total Bilirubin (0.2-1.0) mg/dL AST (10-42) IU/L ALT (10-60) IU/L Alkaline Phosphatase (42-121) IU/L Total Protein (6.4-8.9) g/dL Albumin (3.2-5.5) g/dL Globulin (2.1-4.2) g/dL Albumin/Globulin Ratio (1.0-2.2) Procalcitonin Immunoas (<0.5) ng/mL Urine Color Urine Clarity (CLEAR) Urine pH (5.0-7.5) PH Ur Specific Elysian (1.002-1.030) Urine Protein (NEGATIVE) mg/dL Urine Glucose (UA) (NEGATIVE) mg/dL Urine Ketones (NEGATIVE) mg/dL Urine Occult Blood (NEGATIVE) Urine Nitrite (NEGATIVE) Urine Bilirubin (NEGATIVE) Urine Urobilinogen (NORMAL) E.U./dL Ur Leukocyte Esterase (NEGATIVE) Urine RBC (0-5) /HPF Urine WBC (0-3) /HPF Ur Squamous Epith Cells (<= Few) Urine Bacteria (None Seen) /HPF Ur Microscopic Review Urine Culture Comments Nasal Screen MRSA (PCR) (NEGATIVE) 02/20/25 02/20/25 02/20/25 Range/Units 10:28 10:15 09:16 WBC (4.8-10.8) x10^3/uL RBC (4.70-6.10) 10^6/uL Hgb (14.0-18.0) g/dL Hct (42.0-52.0) % MCV (80.0-94.0) fL MCH (27.0-31.0) pg MCHC (32.0-36.0) g/dL RDW (12.0-15.0) % Plt Count (130-450) 10^3/uL MPV (7.4-11.4) fL VBG pH 7.182 L* 7.197 L* (7.31-7.41) VBG pCO2 14.7 L (41-51) mmHg VBG pO2 86.7 H (25-47) mmHg VBG HCO3 5.6 L (23-28) mmol/L VBG Total CO2 6.0 L (24-29) mmol/L VBG O2 Saturation 98.0 H (60-80) % VBG Base Excess -23.0 L (-2 - +2) mmol/L Ionized Calcium 1.15 (1.09-1.30) mmol/L Sodium 139 137 (135-145) mmol/L Potassium 4.7 H 4.8 H (3.5-4.5) mmol/L Chloride 102 97 L (101-111) mmol/L Carbon Dioxide 6 L* 7 L* (21-32) mmol/L Anion Gap 31.0 H 33.0 H (6-13) BUN 31 H 30 H (6-20) mg/dL Creatinine 1.5 H 1.4 H (0.6-1.3) mg/dL Estimated GFR (MDRD) 47 L 51 L (>89) Glucose 321 H 374 H (74-104) mg/dL POC Whole Bld Glucose 376 (70-100) mg/dL Lactic Acid 3.8 H* (0.5-2.2) mmol/L Calcium 8.9 9.5 (8.5-10.3) mg/dL Phosphorus 6.5 H (2.5-5.0) mg/dL Magnesium 2.3 (1.7-2.3) mg/dL Total Bilirubin (0.2-1.0) mg/dL AST (10-42) IU/L ALT (10-60) IU/L Alkaline Phosphatase (42-121) IU/L Total Protein (6.4-8.9) g/dL Albumin (3.2-5.5) g/dL Globulin (2.1-4.2) g/dL Albumin/Globulin Ratio (1.0-2.2) Procalcitonin Immunoas (<0.5) ng/mL Urine Color Urine Clarity (CLEAR) Urine pH (5.0-7.5) PH Ur Specific Elysian (1.002-1.030) Urine Protein (NEGATIVE) mg/dL Urine Glucose (UA) (NEGATIVE) mg/dL Urine Ketones (NEGATIVE) mg/dL Urine Occult Blood (NEGATIVE) Urine Nitrite (NEGATIVE) Urine Bilirubin (NEGATIVE) Urine Urobilinogen (NORMAL) E.U./dL Ur Leukocyte Esterase (NEGATIVE) Urine RBC (0-5) /HPF Urine WBC (0-3) /HPF Ur Squamous Epith Cells (<= Few) Urine Bacteria (None Seen) /HPF Ur Microscopic Review Urine Culture Comments Nasal Screen MRSA (PCR) (NEGATIVE) 02/20/25 02/20/25 02/20/25 Range/Units 09:15 09:07 08:45 WBC (4.8-10.8) x10^3/uL RBC (4.70-6.10) 10^6/uL Hgb (14.0-18.0) g/dL Hct (42.0-52.0) % MCV (80.0-94.0) fL MCH (27.0-31.0) pg MCHC (32.0-36.0) g/dL RDW (12.0-15.0) % Plt Count (130-450) 10^3/uL MPV (7.4-11.4) fL VBG pH (7.31-7.41) VBG pCO2 (41-51) mmHg VBG pO2 (25-47) mmHg VBG HCO3 (23-28) mmol/L VBG Total CO2 (24-29) mmol/L VBG O2 Saturation (60-80) % VBG Base Excess (-2 - +2) mmol/L Ionized Calcium (1.09-1.30) mmol/L Sodium (135-145) mmol/L Potassium (3.5-4.5) mmol/L Chloride (101-111) mmol/L Carbon Dioxide (21-32) mmol/L Anion Gap (6-13) BUN (6-20) mg/dL Creatinine (0.6-1.3) mg/dL Estimated GFR (MDRD) (>89) Glucose (74-104) mg/dL POC Whole Bld Glucose 363 (70-100) mg/dL Lactic Acid (0.5-2.2) mmol/L Calcium (8.5-10.3) mg/dL Phosphorus (2.5-5.0) mg/dL Magnesium (1.7-2.3) mg/dL Total Bilirubin (0.2-1.0) mg/dL AST (10-42) IU/L ALT (10-60) IU/L Alkaline Phosphatase (42-121) IU/L Total Protein (6.4-8.9) g/dL Albumin (3.2-5.5) g/dL Globulin (2.1-4.2) g/dL Albumin/Globulin Ratio (1.0-2.2) Procalcitonin Immunoas (<0.5) ng/mL Urine Color YELLOW Urine Clarity CLEAR (CLEAR) Urine pH 5.0 (5.0-7.5) PH Ur Specific Elysian 1.025 (1.002-1.030) Urine Protein >=300 H (NEGATIVE) mg/dL Urine Glucose (UA) 500 H (NEGATIVE) mg/dL Urine Ketones >=80 H (NEGATIVE) mg/dL Urine Occult Blood SMALL (NEGATIVE) Urine Nitrite NEGATIVE (NEGATIVE) Urine Bilirubin S (NEGATIVE) Urine Urobilinogen 0.2 (NORMAL) (NORMAL) E.U./dL Ur Leukocyte Esterase NEGATIVE (NEGATIVE) Urine RBC 0-5 (0-5) /HPF Urine WBC 0-3 (0-3) /HPF Ur Squamous Epith Cells RARE Squamous (<= Few) Urine Bacteria None Seen (None Seen) /HPF Ur Microscopic Review INDICATED Urine Culture Comments NOT INDICATED Nasal Screen MRSA (PCR) NEGATIVE (NEGATIVE) Assessment/Plan Problem List (1) DKA (diabetic ketoacidosis): Impression: Resolved. Patient with a longstanding history of insulin-dependent type 2 diabetes mellitus, and multiple admissions previously for hyperglycemia and DKA who presents after a power outage. He states he has been drinking sugary drinks, and has been noncompliant with his insulin over the last few days. Out of DKA pathway at this time. Continue home insulin regimen; will uptitrate as appropriate. Currently on Lantus 14 units BID, and sliding scale insulin. Will increase to 16 units BID, add mealtime insulin, 5 units TID. (2) Acute abdominal pain: (3) Lactic acidosis: Impression: The following plan is for the above two diagnoses: Lactic acidosis resolved, was likely due to DKA and increased lactate, ketone production with repeated emesis. CT angiogram abdomen/pelvis ordered to rule out mesenteric ischemia - negative. No acute process. Continue Protonix at this time. Abdominal pain continues to prove. Likely attributed to underlying GERD/gastritis history. (4) Leukocytosis: Impression: Worsened overnight. He does have some skin breakdown and a longstanding rash in his right lower extremity, with some increased erythema overnight. Bactrim started for cellulitis. Chest x-ray without any acute abnormalities. UA negative for infection. CT abdomen/pelvis negative. Procalcitonin negative. Blood cultures ordered x 2, no growth to date. Qualifiers: Qualified Code(s): D72.823 - Leukemoid reaction (5) Tachypnea: Impression: Likely Kussmaul respirations in setting of severe metabolic acidosis. Improving. Lung exam without any adventitious lung sounds. Chest x-ray without any acute abnormalities. (6) GERD (gastroesophageal reflux disease): Impression: Patient with longstanding history of GERD, and also endorses a gastric ulcer. Continue IV Protonix at this time. (7) Acute kidney injury: Impression: Resolved, back to baseline creatinine of 1. Prerenal due to gross volume depletion in setting of DKA, hyperglycemia. Hdez catheter placed yesterday; removal and trial of void today. Continue to trend. (8) Tinea pedis: Impression: Tinea pedis, and onychomycosis noted on bilateral feet. Continue home treatment. (9) Acute urinary retention: Impression: Hdez catheter placed in ER. Plan for removal and trial of void. (10) Infestation by bed bug: Impression: Bedbugs noted on patient's person. Contact precautions in place. Patient was disinfected by nursing staff, items placed in sealed bag. Social work following. (11) S/P carotid endarterectomy: Impression: Completed in 2023. Continue aspirin, statin. (12) Hyperglycemia due to type 2 diabetes mellitus: Impression: Patient with longstanding history of type 2 diabetes mellitus. His diabetes is complicated by diabetic gastroparesis, diabetic polyneuropathy. Home regimen includes 14 units Lantus twice daily, as well as low-dose sliding scale at home. Currently on Lantus 14 units BID, and sliding scale insulin. Will increase to 16 units BID, add mealtime insulin, 5 units TID. Qualifiers: Diabetes mellitus mcc insulin use: with mcc use Qualified Code(s): E11.65 - Type 2 diabetes mellitus with hyperglycemia; Z79.4 - FPC (current) use of insulin
[2025-02-21] MEDS: SULFAMETH/TRIMETH DS 800/160 MG TABLET PO SCH (09:18)
[2025-02-21] MEDS: INSULIN LISPRO 300 UNIT/3 ML PEN SUBQ SCH (12:13)
[2025-02-21] MEDS: oxyCODONE 5 MG TABLET PO PRN (15:36)
[2025-02-21] MEDS: ATORVASTATIN 40 MG TABLET PO SCH (20:51)
[2025-02-22 04:42] LABS: HCT - HEMATOCRIT 49.3 % (42.0-52.0); HGB - HEMOGLOBIN 16.1 g/dL (14.0-18.0); MEAN PLATELET VOLUME 10.5 fL (7.4-11.4); PLT - PLATELET COUNT 224.0 10^3/uL (130-450); RED CELL DISTRIBUTION WIDTH 12.9 % (12.0-15.0)
[2025-02-22 04:55] LABS: ALT ALANINE AMINOTRANSFERASE 17.0 IU/L (10-60); AST ASPARTATE AMINOTRANSFERASE 16.0 IU/L (10-42); BUN - BLOOD UREA NITROGEN 27.0 mg/dL (6-20); CARBON DIOXIDE - CO2 23.0 mmol/L (21-32); CREATININE 0.9 mg/dL (0.6-1.3); GFR - MDRD 85.0 (>89)
[2025-02-22] MEDS: PANTOPRAZOLE 40 MG TABLET PO SCH (06:18)
[2025-02-22] MEDS: INSULIN GLARGINE-YFGN 300 UNIT/3 ML PEN SUBQ SCH (08:20)
[2025-02-22] MEDS: PROCHLORPERAZINE 10 MG/2 ML VIAL IVP PRN (10:05)
[2025-02-22] MEDS: SODIUM CHLORIDE FLUSH 0.9% 10 ML SYRINGE IVP PRN (10:06)
--- NOTE | 2025-02-22 12:04 | PROVIDER PROGRESS NOTE ---
Subjective Subjective Subjective: This morning, patient has improved abdominal pain, and weakness. However, he continues to have intractable nausea and vomiting. He is now unable to keep his breakfast down. He denies any fevers or chills. He does have a history of gastroparesis, and states that he occasionally has episodes such as this. Current Medications Current Medications Current Medications: Current Medications Generic Name Dose Route Start Last Admin Trade Name Freq PRN Reason Stop Dose Admin Acetaminophen 650 mg 02/20/25 09:42 Acetaminophen 325 Mg Tablet PO Q4HR PRN Pain 1 to 4, or Fever Al Hydroxide/Mg Hydroxide 30 ml 02/20/25 13:29 02/22/25 10:05 Mag Hydrox/Al Hydrox/Simeth 30 Ml Udc PO 30 ml Q4HR PRN Administration INDIGESTION Aspirin 324 mg 02/21/25 09:00 02/22/25 08:17 Aspirin Ec 81 Mg Tablet PO 324 mg DAILY DANIEL Administration Atorvastatin Calcium 80 mg 02/21/25 21:00 02/21/25 20:51 Atorvastatin 40 Mg Tablet PO 80 mg HS DANIEL Administration Heparin Sodium (Porcine) 5,000 unit 02/20/25 09:42 02/22/25 08:17 Heparin 5,000 Unit/Ml Vial SUBQ 5,000 unit BID DANIEL Administration Insulin Glargine-yfgn 16 unit 02/21/25 21:00 02/21/25 20:52 Insulin Glargine-Yfgn 300 Unit/3 Ml Pen SUBQ 16 unit QPM DANIEL Administration Insulin Glargine-yfgn 16 unit 02/22/25 09:00 02/22/25 08:20 Insulin Glargine-Yfgn 300 Unit/3 Ml Pen SUBQ 16 unit DAILY DANIEL Administration Insulin Human Lispro 1 - 5 unit 02/20/25 21:00 02/22/25 08:21 Insulin Lispro 300 Unit/3 Ml Pen SUBQ 2 unit 0800,1200,1700,2100 DANIEL Administration Protocol Insulin Human Lispro 5 unit 02/21/25 12:00 02/22/25 08:21 Insulin Lispro 300 Unit/3 Ml Pen SUBQ 5 unit TIDWM DANIEL Administration Losartan Potassium 50 mg 02/21/25 09:00 02/22/25 08:17 Losartan 50 Mg Tablet PO 50 mg DAILY DANIEL Administration Multivitamins/Minerals 1 tab 02/22/25 12:00 Multivitamin W/Minerals Tablet PO DAILYWM DANIEL Ondansetron HCl 4 mg 02/20/25 09:42 Ondansetron Odt 4 Mg Tablet TL Q6HR PRN Nausea / Vomiting Ondansetron HCl 4 mg 02/20/25 09:42 02/22/25 04:31 Ondansetron 4 Mg/2 Ml Vial IVP 4 mg Q6HR PRN Administration Nausea / Vomiting Oxycodone HCl 5 mg 02/21/25 13:27 02/22/25 06:18 Oxycodone 5 Mg Tablet PO 5 mg Q4HR PRN Administration Moderate Pain (Level 4-6) Pantoprazole Sodium 40 mg 02/22/25 07:00 02/22/25 06:18 Pantoprazole 40 Mg Tablet PO 40 mg QDAC DANIEL Administration Prochlorperazine Edisylate 10 mg 02/22/25 08:42 02/22/25 10:05 Prochlorperazine 10 Mg/2 Ml Vial IVP 10 mg Q6HR PRN Administration Nausea / Vomiting Sodium Chloride 10 ml 02/20/25 09:42 02/22/25 10:05 Sodium Chloride Flush 0.9% 10 Ml Syringe IVP 10 ml 0100,0900,1700 DANIEL Administration Sodium Chloride 10 ml 02/20/25 09:42 02/22/25 10:06 Sodium Chloride Flush 0.9% 10 Ml Syringe IVP 10 ml PRN PRN Administration NEEDED PER PROVIDER ORDERS Trimethoprim/Sulfamethoxazole 1 tab 02/21/25 10:00 02/22/25 08:17 Sulfameth/Trimeth Ds 800/160 Mg Tablet PO 1 tab BID DANIEL Administration Objective Vital Signs/Intake & Output Reviewed Vital Signs: Yes Vital Signs: Vital Signs x48h Temp Pulse Resp BP Pulse Ox 02/22/25 09:01 145/94 H 02/22/25 08:38 98.0 F 95 20 164/104 H 98 02/22/25 08:16 164/104 H 02/22/25 05:53 97.9 F 91 18 189/100 H 95 Intake & Output: Intake & Output 02/19/25 02/20/25 02/21/25 02/22/25 23:59 23:59 23:59 23:59 Intake Total 4392 / 4392 2750 / 2750 855 / 855 Output Total 2455 / 2455 3390 / 3390 Balance 1937 / 1936 -640 / -640 855 / 855 Weight (kg) 101.5 kg 102 kg 103.5 kg Objective Comments/Other: Constitutional abnormal general appearance, no apparent distress, abnormal body habitus (thin) and no limitations Frail, unkempt, appears older than stated age [facility] normocephalic, head/scalp atraumatic and hearing grossly normal bilaterally Eyes PERRL, EOMs intact bilaterally and conjunctivae normal Neck/C-Spine visual inspection normal, trachea midline and cervical spine nontender Chest inspection of chest normal Respiratory breath sounds equal bilaterally, abnormal respiratory effort other (tachypneic), clear to auscultation bilaterally, no wheezes, no rales and no retractions Cardiovascular heart rate abnormal (tachycardic), regular rhythm noted, no gallop, no rub and no murmur Gastrointestinal abdomen normal to inspection, abdomen soft to palpation, tender to palpation (mild) and (epigastric), normoactive bowel sounds and no hepatosplenomegaly Genitourinary no CVA tenderness and bladder normal to palpation Back/Pelvis spine normal to inspection Extremities normal to inspection, normal to palpation, no tenderness and full ROM Neurology no movement abnormality noted and no focal motor deficit noted Psychiatry mental status grossly normal, oriented x3, thought process normal, cooperative and affect normal Skin Left lower extremity with some skin breakdown on anterior abad with some mild erythema, excoriations noted. Onychomycosis noted bilaterally on toes, extensive. Lab Results 02/22/25 04:24 02/22/25 04:24 Other Labs: Lab Results x24hrs 02/22/25 02/22/25 02/21/25 Range/Units 07:59 04:24 20:50 WBC 15.6 H (4.8-10.8) x10^3/uL RBC 5.53 (4.70-6.10) 10^6/uL Hgb 16.1 (14.0-18.0) g/dL Hct 49.3 (42.0-52.0) % MCV 89.2 (80.0-94.0) fL MCH 29.1 (27.0-31.0) pg MCHC 32.7 (32.0-36.0) g/dL RDW 12.9 (12.0-15.0) % Plt Count 224 (130-450) 10^3/uL MPV 10.5 (7.4-11.4) fL Sodium 135 (135-145) mmol/L Potassium 3.9 (3.5-4.5) mmol/L Chloride 101 (101-111) mmol/L Carbon Dioxide 23 (21-32) mmol/L Anion Gap 11.0 (6-13) BUN 27 H (6-20) mg/dL Creatinine 0.9 (0.6-1.3) mg/dL Estimated GFR (MDRD) 85 L (>89) Glucose 197 H (74-104) mg/dL POC Whole Bld Glucose 213 216 (70-100) mg/dL Calcium 9.3 (8.5-10.3) mg/dL Magnesium 2.1 (1.7-2.3) mg/dL Total Bilirubin 0.9 (0.2-1.0) mg/dL AST 16 (10-42) IU/L ALT 17 (10-60) IU/L Alkaline Phosphatase 72 (42-121) IU/L Total Protein 6.2 L (6.4-8.9) g/dL Albumin 3.6 (3.2-5.5) g/dL Globulin 2.6 (2.1-4.2) g/dL Albumin/Globulin Ratio 1.4 (1.0-2.2) 02/21/25 Range/Units 16:47 WBC (4.8-10.8) x10^3/uL RBC (4.70-6.10) 10^6/uL Hgb (14.0-18.0) g/dL Hct (42.0-52.0) % MCV (80.0-94.0) fL MCH (27.0-31.0) pg MCHC (32.0-36.0) g/dL RDW (12.0-15.0) % Plt Count (130-450) 10^3/uL MPV (7.4-11.4) fL Sodium (135-145) mmol/L Potassium (3.5-4.5) mmol/L Chloride (101-111) mmol/L Carbon Dioxide (21-32) mmol/L Anion Gap (6-13) BUN (6-20) mg/dL Creatinine (0.6-1.3) mg/dL Estimated GFR (MDRD) (>89) Glucose (74-104) mg/dL POC Whole Bld Glucose 255 (70-100) mg/dL Calcium (8.5-10.3) mg/dL Magnesium (1.7-2.3) mg/dL Total Bilirubin (0.2-1.0) mg/dL AST (10-42) IU/L ALT (10-60) IU/L Alkaline Phosphatase (42-121) IU/L Total Protein (6.4-8.9) g/dL Albumin (3.2-5.5) g/dL Globulin (2.1-4.2) g/dL Albumin/Globulin Ratio (1.0-2.2) Assessment/Plan Problem List (1) DKA (diabetic ketoacidosis): Impression: Resolved. Patient with a longstanding history of insulin-dependent type 2 diabetes mellitus, and multiple admissions previously for hyperglycemia and DKA who presents after a power outage. He states he has been drinking sugary drinks, and has been noncompliant with his insulin over the last few days. Out of DKA pathway at this time. Continue home insulin regimen; will uptitrate as appropriate. Was on Lantus 14 units BID, and sliding scale insulin. Will increase further to 20 units in the morning, 16 units at night, add mealtime insulin, 5 units TID. (2) Acute abdominal pain: (3) Lactic acidosis: Impression: The following plan is for the above two diagnoses: Lactic acidosis resolved, was likely due to DKA and increased lactate, ketone production with repeated emesis. CT angiogram abdomen/pelvis ordered to rule out mesenteric ischemia - negative. No acute process. Patient continues to have intractable nausea and vomiting. Continue IVF and antiemetics. Consider Reglan for gastroparesis. Continue Protonix at this time. Likely attributed to underlying GERD/gastritis history. (4) Leukocytosis: Impression: Improved. He does have some skin breakdown and a longstanding rash in his right lower extremity, with some increased erythema overnight. Bactrim started for cellulitis. Chest x-ray without any acute abnormalities. UA negative for infection. CT abdomen/pelvis negative. Procalcitonin negative. Blood cultures ordered x 2, no growth to date. Qualifiers: Qualified Code(s): D72.823 - Leukemoid reaction (5) Tachypnea: Impression: Resolved. Likely Kussmaul respirations in setting of severe metabolic acidosis. Lung exam without any adventitious lung sounds. Chest x-ray without any acute abnormalities. (6) GERD (gastroesophageal reflux disease): Impression: Patient with longstanding history of GERD, and also endorses a gastric ulcer. Continue IV Protonix at this time. (7) Acute kidney injury: Impression: Resolved, back to baseline creatinine of 1. Prerenal due to gross volume depletion in setting of DKA, hyperglycemia. Continue to trend. (8) Tinea pedis: Impression: Tinea pedis, and onychomycosis noted on bilateral feet. Continue home treatment. (9) Acute urinary retention: Impression: Resolved. Hdze catheter placed in ER. TOV successful. (10) Infestation by bed bug: Impression: Bedbugs noted on patient's person. Contact precautions in place - will speak with infection control. Patient was disinfected by nursing staff, items placed in sealed bag. Social work following. (11) S/P carotid endarterectomy: Impression: Completed in 2023. Continue aspirin, statin. (12) Hyperglycemia due to type 2 diabetes mellitus: Impression: Patient with longstanding history of type 2 diabetes mellitus. His diabetes is complicated by diabetic gastroparesis, diabetic polyneuropathy. Home regimen includes 14 units Lantus twice daily, as well as low-dose sliding scale at home. Will increase further to 20 units in the morning, 16 units at night, add mealtime insulin, 5 units TID. Will need outpatient follow up with PCP/diabetes clinic. A1c pending. 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
[2025-02-22] MEDS: MULTIVITAMIN W/MINERALS TABLET PO SCH (12:16)
[2025-02-22 13:01] LABS: ESTIMATED AVERAGE GLUCOSE 258 mg/dL (70-100); HEMOGLOBIN A1c% 10.6 % (4.27-6.07)
[2025-02-23 08:11] LABS: HCT - HEMATOCRIT 46.9 % (42.0-52.0); HGB - HEMOGLOBIN 15.7 g/dL (14.0-18.0); MEAN PLATELET VOLUME 10.4 fL (7.4-11.4); PLT - PLATELET COUNT 187.0 10^3/uL (130-450); RED CELL DISTRIBUTION WIDTH 12.7 % (12.0-15.0)
[2025-02-23 08:14] VITALS: O2SAT 96
[2025-02-23 08:24] LABS: BUN - BLOOD UREA NITROGEN 26.0 mg/dL (6-20); CARBON DIOXIDE - CO2 29.0 mmol/L (21-32); CREATININE 0.9 mg/dL (0.6-1.3); GFR - MDRD 85.0 (>89)
--- NOTE | 2025-02-23 09:28 | Discharge Summary ---
Discharge Summary Admit Date: 02/20/25 Discharge Date: 02/23/25 Discharging Provider: Dr. Marcos Houston Primary Care Provider: Gabriel Kaye Code Status: Attempt Resuscitation Discharge [facility] DIAGNOSES Discharge Diagnoses with Status of Each Condition: DKApatient with longstanding history of type 2 diabetes who presented with DKA after power outage. Transitioned out. Increase his insulin regimen Discharged on 20 units Lantus twice a day, add mealtime insulin, 5 units TID. Will need outpatient follow up with PCP/diabetes clinic. Acute abdominal painlikely due to patient's known gastritis and gastroparesis. Resolved during his stay. CT angiogram abdomen/pelvis to rule out mesenteric ischemia, was negative. Continue Protonix. Lactic acidosisdue to above, resolved. Leukocytosisreactive to above, as well as component of cellulitis of his right lower extremity. Will complete 5-day course of Bactrim. Tachypnearesolved. 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 GERDcontinue Protonix on discharge. Acute kidney injurylikely prerenal due to above, resolved. Tenia pedisneeds extensive outpatient follow-up with podiatry. Acute urinary retentionresolved. Initially, Hdez catheter was placed, and this was removed, and trial of void was successful. Infestation by bedbukellie Oneill noted on patient's person. Patient was disinfected by nursing staff, items placed in sealed bag. S/p carotid endarterectomycompleted in 2023, continue aspirin and statin. Hyperglycemia due to type 2 diabetes mellitus Discharged on 20 units Lantus twice a day, add mealtime insulin, 5 units TID. Will need outpatient follow up with PCP/diabetes clinic. HPI History of Present Illness: Patient is a 64-year-old male with history of insulin-dependent type 2 diabetes mellitus, diabetic gastroparesis, GERD, carotid artery stenosis s/p endarterectomy in 2023 who presents with fevers, chills, abdominal pain. He states his power went out about 4 days ago, and he did not have anything to eat. His fridge was not working so, so he was unable to eat much. He was just drinking pop for the last few days. Typically, he takes Lantus 14 units twice a day, but in the first couple days of the power outage, he was checking his sugars, they were between the 100-110 so he did not take his Lantus or his short acting insulin. Over the last day or so, this continue to worsen. He also endorses some epigastric abdominal pain. He states its sharp, and rates it a 9 out of 10 at its worst. He describes as a burning pain, and attributes it to gastritis and a known ulcer he has there. He is passing gas, and having regular bowel movements. In the ER, he was tachycardic with heart rate as high as 130. He was tachypneic, with respiratory rate in the 20-26 range. He was satting 96% room air. He was afebrile with a temp of 97.5. He was normotensive with blood pressure in the 130s to 140s systolic. Lab work was reviewedshe has a leukocytosis of 14. He had a high anion gap metabolic acidosis with a pH initially of 7.158. His lactic acid was elevated at 3.8, and stayed the same, even with IV fluids. His creatinine was elevated at 1.4, and his baseline is 1. He was retaining urine and a Hdez catheter was placed. His anion gap has been elevated at 33. His glucose was 350. Respiratory viral panel was negative. Chest x-ray showed no acute cardiopulmonary process. He was admitted to the ICU for lactic acidosis, DKA. At this time, he denies any fevers, chills, shortness of breath. He is breathing fast, which he states happens sometimes when his sugars are high. He states he has been hospitalized before for DKA. Past medical history includes insulin-dependent type 2 diabetes, diabetic gastroparesis, GERD, carotid artery stenosis s/p endarterectomy, diabetic polyneuropathy, hypertension, hyperlipidemia, cluster headaches, asthma. Medications include atorvastatin, Jardiance, sliding scale insulin with insulin aspart, insulin glargine 14 units 12 times a day, Protonix 40 mg twice a day. He has no known drug allergies, but does have some side effects with opioids. Surgical history includes sinus cyst removal, endarterectomy. He denies any alcohol, tobacco, recreational drug use. He lives by himself. His DPOA is his neighbor, Ulisses Galvan. At this time, he would like to be a full code. CONSULTS | PROCEDURES Procedures: Abdomen/pelvis CTA02/20moderate atherosclerotic disease throughout aorta. No stenosis, no bowel obstruction or abnormal bowel wall thickening, mild to moderate constipation. HOSPITAL COURSE Hospital Course: Patient is a 64-year-old man with a history of insulin-dependent type 2 diabetes mellitus, GERD, diabetic gastroparesis who presented with abdominal pain. He was found to be in DKA. He was placed in the ICU for insulin drip, close monitoring, and was transitioned out. He was started on his home insulin regimen, and this was uptitrated to 20 units Lantus twice a day, 5 units with meals, as well as sliding scale. He was experiencing intractable nausea and vomiting for a few days. This resolved with antiemetics and slow progression of his diet. During the course of his stay, he was noted to have cellulitis of his right lower extremity he was started on oral antibiotics with improvement of the appearance of this as well as his leukocytosis. He will need close follow-up with diabetes education, as well as his primary care provider. ALLERGIES Allergies Allergy/AdvReac Type Severity Reaction Status Date / Time fentanyl AdvReac Severe Emesis Verified 02/20/25 06:19 acetaminophen (From Tylenol) AdvReac Intermediate Nausea Verified 02/20/25 06:19 hydrocodone (Hydrocodone) AdvReac Intermediate Respiratory Verified 02/20/25 06:19 oxycodone AdvReac Intermediate Anxiety Verified 02/20/25 06:19 MEDICATIONS Ambulatory Orders Medication Instructions Recorded Confirmed albuterol sulfate 90 mcg/actuation 1 - 2 puff inhalati on Q4HR PRN 02/07/23 02/20/25 aerosol inhaler (Ventolin HFA) Shortness Of Air/Wheezi ng lancets (Accu-Chek Softclix 01/07/24 11/13/24 Lancets) blood sugar diagnostic (Blood #400 ea 02/11/24 5 Glucose Test strips) blood-glucose meter #1 ea 02/11/24 11/13/24 insulin syringe-needle U-100 1 mL #500 ea 02/11/2402/25 30 gauge x 15/64" lancets 31 gauge #400 ea 02/11/24 11/13/24 aspirin 81 mg tablet,delayed 324 mg PO DAILY 03/23/24 02/20/25 release (Adult Aspirin Regimen) atorvastatin 80 mg tablet (Lipitor) 80 mg PO HS #100 t abs 07/05/25 12/20/25 pantoprazole 40 mg tablet,delayed 40 mg PO BID #180 ta bs 11/03/24 02/20/25 release empagliflozin 25 mg tablet 25 mg PO QAM #90 tabs 11/0602/20/25 insulin aspart U-100 100 unit/mL 8 - 12 unit (0.08 - 0 .12 mL) 11/23/24 02/20/25 subcutaneous solution (Novolog subcut TIDWM #40 mL U-100 Insulin aspart) insulin glargine 100 unit/mL (3 20 unit (0.2 mL) subcu t BID #3 mL 02/23/25 02/20/25 mL) subcutaneous pen (Lantus Solostar U-100 Insulin) losartan 50 mg tablet 50 mg PO DAILY #30 tabs 02/02 05/26 sulfamethoxazole 800 1 tab PO BID 3 days #6 tabs 02/23/25 mg-trimethoprim 160 mg tablet PHYSICAL EXAM AT DISCHARGE Vital Signs: Vital Signs x48h Temp Pulse Resp BP Pulse Ox 02/23/25 08:13 208.6 F H 78 18 168/96 H 96 Objective Comments/Other: Constitutional abnormal general appearance, no apparent distress, abnormal body habitus (thin) and no limitations Frail, unkempt, appears older than stated age [facility] normocephalic, head/scalp atraumatic and hearing grossly normal bilaterally Eyes PERRL, EOMs intact bilaterally and conjunctivae normal Neck/C-Spine visual inspection normal, trachea midline and cervical spine nontender Chest inspection of chest normal Respiratory breath sounds equal bilaterally, lear to auscultation bilaterally, no wheezes, no rales and no retractions Cardiovascular heart rate normal, regular rhythm noted, no gallop, no rub and no murmur Gastrointestinal abdomen normal to inspection, abdomen soft to palpation, tender to palpation (mild) and (epigastric), normoactive bowel sounds and no hepatosplenomegaly Genitourinary no CVA tenderness and bladder normal to palpation Back/Pelvis spine normal to inspection Extremities normal to inspection, normal to palpation, no tenderness and full ROM Neurology no movement abnormality noted and no focal motor deficit noted Psychiatry mental status grossly normal, oriented x3, thought process normal, cooperative and affect normal Skin Left lower extremity with some skin breakdown on anterior abad with some mild erythema, excoriations noted. Onychomycosis noted bilaterally on toes, extensive. LABS 02/23/25 07:59 02/23/25 07:59 DIAGNOSTIC IMAGING Diagnostic Imaging Results: Final report reviewed FOLLOW UP Follow Up: Follow up PCP and conservation educator on diabetes management. TIME SPENT Time Spent in Discharge (Minutes): 35 Discharge Plan Discharge Patient Disposition: 06 Home Health Service Condition: Stable Prescriptions: New losartan 50 mg Tablet 50 mg PO DAILY Qty: 30 0RF sulfamethoxazole-trimethoprim 800-160 mg Tablet 1 tab PO BID 3 Days Qty: 6 0RF Continued (DME) insulin syringe-needle U-100 1 mL 30 gauge x 15/64" syringe See Rx Instructions .Route Qty: 500 0RF Rx Instructions: Use 1 syringe 5 times a day as directed to inject insulin. DX E11.65. Patient is insulin dependent. Duration 99 months. (DME) blood-glucose meter Kit See Rx Instructions .Route Qty: 1 0RF Rx Instructions: Use to test blood sugars 4 times daily as directed. DX E11.65. Patient is insulin dependent. Duration 99 months. (DME) Blood Glucose Test Strip See Rx Instructions .Route Qty: 400 0RF Rx Instructions: Use 1 strip via meter four times a day as directed. DX E11.65. Patient is insulin dependent. Duration 99 months. (DME) lancets 31 gauge misc See Rx Instructions .Route Qty: 400 0RF Rx Instructions: Use 1 lancet as directed four times daily and as needed for hypo/hyperglycemia DX Code E11.65, patient is insulin dependent, Duration 99 months atorvastatin [Lipitor] 80 mg tablet 80 mg PO HS Qty: 100 1RF pantoprazole 40 mg tablet,delayed release (DR/EC) 40 mg PO BID Qty: 180 1RF empagliflozin 25 mg tablet 25 mg PO QAM Qty: 90 1RF Rx Instructions: Take 1 tablet daily for diabetes insulin aspart U-100 [Novolog U-100 Insulin aspart] 100 unit/mL solution 8 - 12 unit subcut TIDWM Qty: 40 3RF Rx Instructions: PER SLIDING SCALE inject 8-12 units subcutaneously three times a day with meals albuterol sulfate [Ventolin HFA] 200 PUFFS/18 GM HFA aerosol inhaler 1 - 2 puff inhalation Q4HR PRN (Reason: Shortness Of Air/Wheezing) aspirin [Adult Aspirin Regimen] 81 mg tablet,delayed release (DR/EC) 324 mg PO DAILY (DME) lancets [Accu-Chek Softclix Lancets] Misc See Rx Instructions .Route Rx Instructions: 1 lancet as directed four times a day Use 1 lancet as directed four times daily and as needed for hypo/hyperglycemia DX Code E 11.9 DM, patient is insulin dependent, Duration 99 months Changed insulin glargine [Lantus Solostar U-100 Insulin] 100 unit/mL (3 mL) insulin pen 20 unit subcut BID Qty: 3 0RF Activity Restrictions: Activity as Tolerated Diet: Regular Health Concerns: You were hospitalized for diabetic ketoacidosis (DKA), a serious complication of diabetes that occurred because of missed insulin doses. DKA happens when your body doesn't have enough insulin, causing dangerous acids called ketones to build up in your blood. This condition can be life-threatening, but it is preventable with proper diabetes management. DKA occurred because you missed or did not take enough insulin. When you don't take your insulin as prescribed, your blood sugar rises and your body starts breaking down fat for energy, which creates ketones. This is a medical emergency that requires immediate treatment. Warning Signs to Watch For Contact your diabetes care team or go to the emergency room immediately if you experience: - Excessive urination and thirst - Nausea or vomiting - Abdominal pain - Unusual fatigue or weakness - Shortness of breath - Confusion or difficulty thinking clearly - Weight loss Preventing DKA in the Future Never stop or skip your insulin, even if you are not eating. Your body always needs basal (background) insulin to function properly. Missing insulin doses is a major cause of DKA and can lead to serious complications or . Managing Sick Days When you are sick, have a fever, or feel unwell, your blood sugar can rise even if you are eating less. Follow these steps: - Check your blood sugar every 4-6 hours - Test for ketones in your urine or blood when your blood sugar is above 200 mg/dL or if you feel sick - Drink plenty of sugar-free fluids to stay hydrated - Continue taking your insulin - you may need extra rapid-acting insulin - Eat small amounts of carbohydrates if you can tolerate food - Contact your diabetes care team for guidance on adjusting your insulin doses When to Seek Emergency Care Go to the emergency room immediately if: - You cannot keep down fluids due to vomiting - Your blood sugar does not improve with insulin - Your ketone levels are increasing - You experience confusion or changes in mental status - You have severe abdominal pain Important Medication Information If you take an SGLT2 inhibitor medication (such as canagliflozin, dapagliflozin, or ertugliflozin), be aware that these medications can cause DKA even when blood sugar levels are normal or only slightly elevated. Ensuring Continuous Access to Insulin You must have an uninterrupted supply of insulin at all times. Lack of access to insulin is a major cause of DKA. If you are having difficulty affording your insulin or getting refills: - Contact your diabetes care team immediately - Ask about patient assistance programs - Never ration or skip insulin doses due to cost concerns Follow-Up Care - Schedule a follow-up appointment with your diabetes care provider within one week of discharge - Bring your blood sugar log and any questions about managing your diabetes - Discuss any barriers you face in taking your medications as prescribed 24-Hour Support Keep the phone number for your diabetes care team readily available. If you have concerns about high blood sugar or ketones, contact them immediately for guidance. Having access to medical support can help you manage problems at home and prevent emergency department visits. Remember: DKA is preventable. Taking your insulin every day as prescribed, monitoring your blood sugar regularly, and seeking help early when problems arise can prevent this life-threatening complication from happening again. I will be discharging you home with 20 units of Lantus to take twice a day, as well as a sliding scale insulin. Please continue to follow-up with our diabetes management team here at the hospital. I am also sending you home with 3 more days of Bactrim for you to take for your cellulitis. Please continue close follow-up with your primary care provider as well as your adaptive physical educator. We are glad you are feeling better, thank you for allowing us to take care of you. Print Language: Bengali Patient Instructions: Diabetes: Ways to Take Medicine, Diabetes Support Stand Alone Forms: PCP List, SBIRT Follow-up Care: Gabriel Kaye, DNP, [employer]ER, TOOL WORKER [Primary Care Provider, Family Practice] Vitals documented within 30 minutes of discharge?: Yes
[2025-02-23] MEDS: INSULIN GLARGINE-YFGN 300 UNIT/3 ML PEN SUBQ SCH (10:23)
[2025-02-23 17:18] VITALS: BP 143/83; TEMP 208.4
== END 2025-02-23 16:12 | disposition home health service (06) | DRG 638 ==
LOC: ED 06:12 → ICU 08:03
PROVIDERS: ADMIT Internal Medicine; ATTEND Internal Medicine